=== PATIENT | female | born 1955 | race Caucasian/White ===

== ENCOUNTER → 2018-04-04 11:44 | Outpatient (CLI) | payer MEDICAID, SELFPAY ==
[2018-04-04 12:50] LABS: Abs Immature Grans 0.02 k/cumm (0.0-0.09); Absolute Basophil Count 0.03 k/cumm (0.0-0.2); Absolute Eosinophil Count 0.34 k/cumm (0.0-0.7); Absolute Lymphocyte Count 1.65 k/cumm (1.2-3.4); Absolute Monocyte Count 0.91 k/cumm (0.11-0.7); Absolute Neutrophil Count 5.45 k/cumm (1.2-6.7); Basophils % 0.4; Immature Grans % 0.2; Lymphocytes % 19.6; Mean Corp. HGB Concentration 32.5 g/dL (32.0-36.0); Mean Corpuscular Hemoglobin 32.7 pg (27.0-33.0); Mean Corpuscular Volume 100.8 fL (80-95); Mean Platelet Volume 9.4 fL (8.0-11.0); Monocytes % 10.8; Platelet Count 258 x1000/uL (130-400); RBC 3.97 m/cumm (4.00-5.20); RBC Distribution Width 12.5 % (11.7-14.6)
[2018-04-04 13:13] LABS: ALT 29 U/L (12-78); AST 22 U/L (15-37); Albumin 3.4 g/dL (3.4-5.0); Alkaline Phosphatase 54 U/L (46-116); Anion Gap 9.8 mmol/L (3-11); BUN 14 mg/dL (7-18); Bilirubin, Total 0.3 mg/dL (0.2-1.0); CO2 25.2 mmol/L (21.0-32.0); CREATININE 1.06 mg/dL (0.55-1.02); Calcium 8.7 mg/dL (8.5-10.1); Chloride 105 mmol/L (98-107); Estimated GFR 52.19 (mL/min/1.73m2); Glucose 103 mg/dL (70-100); Potassium 3.8 mmol/L (3.5-5.1); Sodium 140 mmol/L (136-145)
== END ==
PROVIDERS: PCP Nurse Practitioner Family; Visit Provider Internal Medicine Pulmonary Disease
DX: Z51.81 Encounter for therapeutic drug level monitoring (principal); J84.10 Pulmonary fibrosis, unspecified
CPT/HCPCS: 36415; 80053; 85025

== ENCOUNTER 2018-06-05 12:13 | Outpatient (CLI) | payer MEDICARE, MEDICAID, SELFPAY ==
[2018-06-05 12:49] LABS: HCT 40.2 % (36.0-46.0)
[2018-06-05 13:46] LABS: ALT 34 U/L (12-78); AST 23 U/L (15-37); Albumin 3.5 g/dL (3.4-5.0); Alkaline Phosphatase 56 U/L (46-116); Anion Gap 5.9 mmol/L (3-11); BUN 18 mg/dL (7-18); Bilirubin, Total 0.3 mg/dL (0.2-1.0); CO2 30.1 mmol/L (21.0-32.0); CREATININE 1.02 mg/dL (0.55-1.02); Calcium 8.7 mg/dL (8.5-10.1); Chloride 104 mmol/L (98-107); Estimated GFR 54.56 (mL/min/1.73m2); Glucose 102 mg/dL (70-100); Potassium 3.9 mmol/L (3.5-5.1); Sodium 140 mmol/L (136-145)
== END 2018-06-05 12:33 ==
PROVIDERS: PCP Nurse Practitioner Family; Visit Provider Internal Medicine Rheumatology
DX: J84.10 Pulmonary fibrosis, unspecified (principal); M81.0 Age-related osteoporosis without current pathological fracture
CPT/HCPCS: 36415; 80053; 85014; 85018

== ENCOUNTER 2018-06-30 00:24 | Outpatient (CLI) | payer MEDICARE, MEDICAID, SELFPAY ==
[2018-06-30 10:43] LABS: Abs Immature Grans 0.02 k/cumm (0.0-0.09); Absolute Basophil Count 0.04 k/cumm (0.0-0.2); Absolute Eosinophil Count 0.32 k/cumm (0.0-0.7); Absolute Neutrophil Count 7.89 k/cumm (1.2-6.7); Basophils % 0.4; Eosinophils % 2.9; HCT 40.3 % (36.0-46.0); HGB 13.3 g/dL (12.0-15.5); Immature Grans % 0.2; Lymphocytes % 14.7; Mean Corpuscular Hemoglobin 33.4 pg (27.0-33.0); Mean Corpuscular Volume 101.3 fL (80-95); Mean Platelet Volume 9.1 fL (8.0-11.0); Monocytes % 9.4; Neutrophils % 72.4; Platelet Count 241 x1000/uL (130-400); RBC 3.98 m/cumm (4.00-5.20); RBC Distribution Width 13.5 % (11.7-14.6)
[2018-06-30 10:47] LABS: Absolute Monocyte Count 1.02 k/cumm (0.11-0.7)
[2018-06-30 10:58] LABS: ALT 35 U/L (12-78); AST 29 U/L (15-37); Albumin 3.4 g/dL (3.4-5.0); Alkaline Phosphatase 52 U/L (46-116); BUN 14 mg/dL (7-18); Bilirubin, Total 0.5 mg/dL (0.2-1.0); CREATININE 0.88 mg/dL (0.55-1.02); Calcium 9.1 mg/dL (8.5-10.1); Chloride 100 mmol/L (98-107); Glucose 105 mg/dL (70-100); Potassium 3.7 mmol/L (3.5-5.1); Sodium 136 mmol/L (136-145); Total Protein 7.3 g/dL (6.4-8.2)
[2018-06-30] MEDS: Omnipaque 350 MG/ML 100 ML BTL IJ (11:58)
--- NOTE | 2018-06-30 12:00 | DI.CT_ITS ---
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 CT SCAN OF THE ABDOMEN AND PELVIS: The liver is normal in size. No hepatic mass is seen. The portal and superior mesenteric veins are patent. The gallbladder is negative. No biliary ductal dilatation. The pancreas, spleen and adrenal glands are all unremarkable. The kidneys show normal and symmetric enhancement. No suspicious solid renal masses or obstruction is identified. Incidental note is made of a small simple cyst in the right kidney. The urinary bladder is intact. The reproductive organs are unremarkable. The abdominal aorta is normal in size. No aneurysmal dilatation is seen. No abdominal or pelvic adenopathy is present. No abdominal or pelvic ascites or pneumoperitoneum is identified. The bowel shows no evidence of obstruction or inflammation. No findings to suggest an acute appendicitis are present. There are degenerative changes seen in the spine. No suspicious lytic or sclerotic lesions are seen. IMPRESSION: 1. No evidence of abdominal or pelvic adenopathy or mass. 2. No evidence of an acute abdomen. CT SCAN OF THE CHEST: There is atherosclerosis of the thoracic aorta. No evidence of dissection. The heart size appears mildly enlarged. No significant pericardial effusion is seen. Coronary artery calcifications are present. No evidence of mediastinal, hilar or axillary adenopathy is present. No pneumothorax or pleural effusion is identified. Extensive predominantly peripheral interstitial disease is present. Peripheral cystic changes are seen. The findings are suspicious for pulmonary fibrosis. No focal consolidating infiltrates are seen. No noncalcified pulmonary nodules are appreciated. The tracheobronchial tree is unremarkable. Degenerative changes are seen in the spine. No suspicious lytic or sclerotic lesions are seen. IMPRESSION: 1. No evidence of thoracic adenopathy or mass. 2. Findings suggestive of pulmonary fibrosis.
== END 2018-06-30 00:44 ==
PROVIDERS: PCP Nurse Practitioner Family; Visit Provider Internal Medicine Rheumatology
DX: J84.10 Pulmonary fibrosis, unspecified; Z13.89 Encounter for screening for other disorder; M81.0 Age-related osteoporosis without current pathological fracture; Z79.899 Other long term (current) drug therapy; M60.9 Myositis, unspecified
CPT/HCPCS: 36415; 74177; 80053; 71260; 85025; J3490

== ENCOUNTER 2019-01-31 01:21 | Outpatient (CLI) | payer MEDICARE, MEDICAID, SELFPAY ==
[2019-01-31 12:49] LABS: Abs Immature Grans 0.01 k/cumm (0.0-0.09); Absolute Basophil Count 0.02 k/cumm (0.0-0.2); Absolute Eosinophil Count 0.05 k/cumm (0.0-0.7); Absolute Lymphocyte Count 0.74 k/cumm (1.2-3.4); Absolute Monocyte Count 0.46 k/cumm (0.11-0.7); Absolute Neutrophil Count 6.77 k/cumm (1.2-6.7); Basophils % 0.2; Eosinophils % 0.6; HCT 39.1 % (36.0-46.0); HGB 12.9 g/dL (12.0-15.5); Immature Grans % 0.1; Lymphocytes % 9.2; Mean Corpuscular Hemoglobin 33.1 pg (27.0-33.0); Mean Corpuscular Volume 100.3 fL (80-95); Monocytes % 5.7; Neutrophils % 84.2; Platelet Count 258 x1000/uL (130-400); RBC Distribution Width 12.8 % (11.7-14.6); White Blood Cell Count 8.05 k/cumm (4.4-10.8)
== END 2019-01-31 01:41 ==
PROVIDERS: PCP Nurse Practitioner Family; Visit Provider Internal Medicine Rheumatology
DX: Z79.899 Other long term (current) drug therapy (principal); R69 Illness, unspecified
CPT/HCPCS: 36415; 85025

== ENCOUNTER 2019-04-05 02:21 | Outpatient (CLI) | payer MEDICARE, MEDICAID, SELFPAY ==
[2019-04-05] MEDS: Albuterol HFA 18 GM 200 PUFF INH IH (11:05)
[2019-04-05] MEDS: Inhaler, Assist Device 1 EACH MC (11:05)
--- NOTE | 2019-04-09 12:06 | PFT_ITS ---
PULMONARY FUNCTION TEST REPORT DATE OF SERVICE: April 05, 2019 REQUESTING PROVIDER: Davonte Pritchard M.D. Spirometry shows no evidence of obstructive airways disease, no bronchodilator response. Lung volumes show mild restriction. Diffusion capacity severely reduced, which is normal when corrected to alveolar volume. Airways resistance normal. IMPRESSION: Mild restrictive lung disease associated with severe diffusion defect. Clinical correlation recommended. When this study was compared to previous one from 04/14/15, the patient has a 470 cc's decline in FVC. FEV1 has declined by 110 cc's. Diffusion capacity also had a minimal decline. JV/dml D/
== END 2019-04-05 02:41 ==
PROVIDERS: PCP Nurse Practitioner Family; Visit Provider Internal Medicine Pulmonary Disease
DX: J44.9 Chronic obstructive pulmonary disease, unspecified (principal); R06.09 Other forms of dyspnea; J84.10 Pulmonary fibrosis, unspecified; Z87.891 Personal history of nicotine dependence
CPT/HCPCS: 94060; 94150; 94726; 94729

== ENCOUNTER 2019-06-07 11:59 | Outpatient (REF) | payer MEDICARE, MEDICAID, SELFPAY ==
--- NOTE | 2019-06-07 11:15 | PAPFT_PTH ---
PATIENT: Jillian Stuart LOC: [facility] U#:[id number] AGE/SX: 63/F ROOM: RE06/07/[address]: MANE Veloz : 1955 BED: DIS: 06/07/2019 SPEC #: [id number] RECD: 06/07/19 12:47 STATUS: BRANDON REQ #: [id number] DELORIS: 06/07/19 11:[address]: Sharona Zimmer DEPT: [facility] Cytology RECD BY: Nataly Steiner ENTERED: 06/07/19 12:48 SP TYPE: PAPFT OTHR DR: Brenda Pritchard MD Tissues: 1 - CX/ENDOCX FOR PAP SMEARS Procedures: PAP THIN PREP/UVM Screening HPV DNA PROBE Comments: [id number]
== END 2019-06-07 12:19 ==
LOC: LBN 11:59
PROVIDERS: PCP Internal Medicine; Visit Provider Nurse Practitioner Family
DX: Z12.4 Encounter for screening for malignant neoplasm of cervix (principal); Z11.51 Encounter for screening for human papillomavirus (HPV)
CPT/HCPCS: 88142; 87624

== ENCOUNTER 2019-06-18 15:25 | Outpatient (RCR) | payer MEDICARE, MEDICAID, SELFPAY | END 2019-06-28 23:59 | disposition home or self-care (01) | LOC: CR 15:25 | PROVIDERS: PCP Internal Medicine; Visit Provider Family Medicine | DX: R69 Illness, unspecified (principal) ==

== ENCOUNTER 2019-06-25 01:50 | Outpatient (CLI) | payer MEDICARE, MEDICAID, SELFPAY ==
--- NOTE | 2019-06-25 10:00 | DI.CT_ITS ---
EXAM: CT RENAL COLIC WO CLINICAL HISTORY: microscopic hematuria, R31.29 TECHNIQUE: The exam was performed according to the usual protocol without contrast. FINDINGS: There is patient motion artifact. Fibrotic changes are seen in the lung bases. Lack of IV contrast limits evaluation of the abdominal and pelvic organs. The unenhanced visualized portions of the luisa er, spleen, pancreas, gallbladder, and adrenal glands are unremarkable. There is no evidence of neph rolithiasis, ureterolithiasis or obstructive uropathy. The urinary bladder is intact. The reproduct zeke organs are unremarkable as visualized. The abdominal aorta is of normal caliber with mild athero sclerosis. No significant abdominal or pelvic adenopathy, ascites, or pneumoperitoneum is present. The bowel is unremarkable. There is a normal appendix visualized. Degenerative changes are present in the spine. There is a compression fracture of the superior endplate of L1. This was not present on the prior CT scan. It does not appear to be acute. IMPRESSION: No evidence of nephrolithiasis or obstructive uropathy.
== END 2019-06-25 02:10 ==
PROVIDERS: PCP Internal Medicine; Visit Provider Internal Medicine
DX: R31.29 Other microscopic hematuria (principal)
CPT/HCPCS: 74176

== ENCOUNTER 2019-06-26 01:54 | Outpatient (CLI) | payer MEDICARE, MEDICAID, SELFPAY ==
--- NOTE | 2019-06-26 11:55 | DI.MAMMO_ITS ---
EXAM: MG MAMMO SCREENING CLINICAL HISTORY: screening, Z12.39. TECHNIQUE: Bilateral full field digital CC and MLO mammographic images were obtained with 3D tomosyn thesis and utilizing computer aided detection (CAD). COMPARISON: Available for comparison. FINDINGS: Masses/Architectural Distortion: There are stable nodules seen in the left breast. Biopsy clips are seen in the left breast. No suspicious masses are seen in either breast. Microcalcifications: No suspicious pleomorphic-type are seen. Skin Thickening/Nipple Retraction: None. IMPRESSION: 1. No significant interval change with no specific features of malignancy noted. 2. Unless there is more urgent need, screening mammography is recommended, as per [employer] guidelines. BI-RADS Cat 2 - Benign Findings Breast Density - Category C - Heterogeneously dense The mammogram demonstrates the patient's breast tissue is dense. Dense breast tissue is very common a nd is not abnormal but dense breast tissue can make it harder to find cancer on a mammogram. Also, de nse breast tissue may increase their breast cancer risk. This [facility] was provided to the patient to raise their awareness. Use this report when you speak wi th the patient about their risks for breast cancer, which includes their family history. At that time , you may recommend for more screening tests (Ultrasound or MRI) as they might be useful based on the ir risk. A negative radiographic report should not delay biopsy if a dominant or clinically suspicious mass is present. Up to ten percent of cancers are not identified on mammography. A negative report may reinforce clinical impression. Adenosis and dense breasts may obscure an underlying neoplasm. False positive reports average 6 to 10%.
== END 2019-06-26 02:14 ==
PROVIDERS: PCP Internal Medicine; Visit Provider Internal Medicine
DX: Z12.31 Encounter for screening mammogram for malignant neoplasm of breast (principal)
CPT/HCPCS: 77063; 77067

== ENCOUNTER 2019-07-12 12:48 | Outpatient (RCR) | payer MEDICARE, SELFPAY | END 2019-07-28 23:59 | disposition home or self-care (01) | LOC: PRC 12:48 | PROVIDERS: PCP Internal Medicine; Visit Provider Family Medicine | DX: Z51.89 Encounter for other specified aftercare (principal) ==

== ENCOUNTER 2019-07-19 03:35 | Outpatient (RCR) | payer MEDICARE, SELFPAY | END 2019-07-28 23:59 | disposition home or self-care (01) | LOC: PRC 03:35 | PROVIDERS: PCP Internal Medicine; Visit Provider Family Medicine | DX: R69 Illness, unspecified (principal); Z51.89 Encounter for other specified aftercare ==

== ENCOUNTER → 2019-08-08 08:27 | Outpatient (BNVA) | payer MEDICARE, MEDICAID, SELFPAY | PROVIDERS: PCP Internal Medicine; Referring Provider Internal Medicine; Visit Provider Nurse Practitioner Gerontology | DX: R31.29 Other microscopic hematuria (principal) | CPT/HCPCS: 81003; 99204; 99215 ==

== ENCOUNTER 2019-08-08 10:11 | Outpatient (REF) | payer MEDICARE, SELFPAY ==
[2019-08-08 11:15] LABS: Bilirubin Negative (Negative); Blood Trace-intact (Negative); Clarity Clear (Clear); Glucose Negative (Negative); Ketones Negative (Negative); Leukocyte Esterase Negative (Negative); Nitrite Negative (Negative); Urobilinogen 0.2 EU/dL (Up TO 0.2)
[2019-08-08 11:23] LABS: Bacteria Negative HPF (Negative); C & S Indicated? No; Casts Negative LPF (Negative); Crystals Negative HPF (Negative); Epithelial Cells Rare HPF (Negative); Mucus Negative (Negative); Other Cells Negative (Negative); WBC 0-2 HPF (0-5)
== END 2019-08-08 10:31 ==
LOC: LBN 10:11
PROVIDERS: PCP Internal Medicine; Visit Provider Nurse Practitioner Gerontology
DX: R31.29 Other microscopic hematuria (principal)
CPT/HCPCS: 81003; 81015

== ENCOUNTER → 2019-08-24 10:02 | Outpatient (BNVA) | payer MEDICARE, MEDICAID, SELFPAY | PROVIDERS: PCP Internal Medicine; Referring Provider Internal Medicine; Visit Provider Physical Therapy Assistant | DX: Z12.11 Encounter for screening for malignant neoplasm of colon (principal) ==

== ENCOUNTER 2019-08-24 14:00 | Outpatient (RCR) | payer MEDICARE, MEDICAID, SELFPAY | END 2019-08-28 23:59 | disposition home or self-care (01) | LOC: PRC 14:00 | PROVIDERS: PCP Internal Medicine; Visit Provider Family Medicine | DX: J84.17 Other interstitial pulmonary diseases with fibrosis in diseases classified elsewhere (principal); Z51.89 Encounter for other specified aftercare; M35.8 Other specified systemic involvement of connective tissue | CPT/HCPCS: G0424 ==

== ENCOUNTER 2019-09-02 13:41 | Emergency (ER) | payer MEDICARE, MEDICAID, SELFPAY ==
[2019-09-02 13:46] VITALS: BP 158/94; PULSE 85; RESP 18; TEMP 36.4; O2SAT 95
== END 2019-09-02 15:51 | disposition other institution (70) ==
LOC: ER 13:50
PROVIDERS: PCP Internal Medicine
DX: Z53.21 Procedure and treatment not carried out due to patient leaving prior to being seen by health care provider (principal)

== ENCOUNTER 2019-09-10 10:51 | Day surgery (SDC) | payer MEDICARE, MEDICAID, SELFPAY ==
[2019-09-10 11:10] VITALS: BP 130/75; PULSE 95; RESP 18; TEMP 36.5; O2SAT 93
--- NOTE | 2019-09-10 11:59 | W.PM.HP.N ---
Date of service: 09/10/19 Time of Service: 11:59 Assessment and Plan Assessment and plan (1) Microscopic hematuria: Status: Acute Assessment and plan: For cystoscopy with retrograde pyelogram to complete hematuria workup History of Present Illness History of Present Illness Chief Complaint: Microscopic hematuria Narrative: Urology Clinic Visit PATIENT NAME: CORDELL CARDONA MUNIT #: [id number] ADMITTING PROVIDER: Reta Mcintyre NPACCOUNT #: [id number] PRIMARY CARE PROVIDER:ANALILIA DE LOS SANTOS MD DATE OF ADMIT: 08/08/19 : 1955 Assessment & Plan (1) Microscopic hematuria: Greater than 50% of this 45 min OV was in counseling and coordination of the assessment/plan. Urinalysis today showed trace blood. RBC is 3-5. This needs a threshold for a hematuria work-up. At this point her PCP has already done a renal CT. Patient would need a cystoscopy with bilateral retrograde pyelogram. This would complete her hematuria work-up. We discussed the procedure. Preop orders were provided to the nurse. Nurse will perform scheduling of this procedure. While patient was in the office research behind her [facility] request for this evaluation was done. Review of her PCPs note did state the lung transplant program noting the hematuria. But there were no records at the time of the office visit. Notes were eventually obtained after the patient left. Notes do review her UAs from April and May of this year. In April her UA was negative but RBC was completed to find to. In May the urine was noted to have 2+ for blood with an RBC of 5. With the above-stated information she meets the threshold on multiple occurrences for a complete hematuria work-up. As mentioned above recommend cystoscopy with bilateral retrograde pyelogram for the completion. Nurse will make arrangements. At this time a letter of clearance cannot be given until this work-up is completed. Dictation was done by [employer] voice recognition. Errors may be present within the note. Orders: Urinalysis Dip Only Today Urinalysis Today HPI SOFÍA Walsh is a 64-year-old female referred to urology by [facility] internal medicine for evaluation of microscopic hematuria. Patient was first noted to have microscopic hematuria at her physical for her possible lung transplant at [facility]. Patient is unsure of the results of the urinalysis at that facility but states a nurse named Elvia called her to let her know she had blood in her urine and to seek her primary care plus urology for evaluation and clearance. She notes that there is times where she does not drink enough water. She reports no history of kidney stones. She does report intermittent flank pain. 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 Osteoporosis Pretransplant evaluation for lung transplant Anxiety SX Cervical scraping Social Lite smoker approximately 5 years when she was in high school which was over 40 years ago per patient 1 alcoholic drink tonight Caregiver Allergies Reviewed elsewhere in the chart Medications Reviewed elsewhere in the chart Family Hx No known urologic family history Review of Systems Const: Denies chills, fatigue, fever(s) or weight loss Card: Reports dyspnea; Denies chest pain Resp: Reports dyspnea GI: Denies abdominal pain, constipation or diarrhea : Denies hematuria, urinary frequency, nocturia, dysuria, flank pain, urinary incontinence, urinary hesitancy or urinary urgency Endo: Denies fatigue Exam Const Orientation: alert, awake and oriented x3 Other: VS reviewed that were done by nurse Eyes Sclera: sclerae normal Resp Effort & Inspection: normal respiratory effort GI Inspection: normal to inspection and non-distended Extrem General: full ROM [facility] Medical History Anxiety (Chronic) Dyspareunia (Resolved) Surgical History (Updated 09/10/19 @ 11:36 by Astrid Barillas RN) History of elbow surgery (Acute) R elbow fx Social History Smoking/Tobacco Use Status: Former Tobacco Use Tobacco: How many years used: 5 Alcohol Intake: never Drug use: Never Substance use type: does not use Details: No IV Drug Use Household members: other Number of Children: 1 current occupation: Caregiver [employer] Sexually active: No Do you think of yourself as: straight/heterosexual Current gender identity: female What type of physical activity do you participate in: none Seatbelt use: always Drive intox or ride w/intox pile driver operator helper: No Water heater temp set <120 deg: Yes Working smoke detector in home: Yes Fire extinguisher in home: Yes Carbon monox detector in home: Yes Do you feel safe at home: Yes Meds Home Medications and Allergies Home Medications Medication Instructions Recorded Confirmed Type multivitamin [Daily Multiple] 1 tab PO DAILY 09/02/16 09/07/19 History albuterol sulfate 90 mcg/actuation 2 puff IH Q6H PRN 05/24/19 09/10/19 History aerosol inhaler mycophenolate mofetil 500 mg tablet 1,000 mg PO BID #30 tab 08/02/19 09/10/19 Rx prednisone 10 mg tablet 10 mg PO DAILY #30 tab 08/02/19 09/10/19 Rx bisacodyl 5 mg tablet,delayed 5 mg PO ONCE #4 tab 08/24/19 09/10/19 Rx release cholecalciferol (vitamin D3) 400 400 unit PO DAILY 08/24/19 09/10/19 History unit capsule polyethylene glycol 3350 17 238 g PO ONCE #238 gm 08/24/19 09/10/19 Rx gram/dose oral powder vitamin E (dl, acetate) 400 unit 400 unit PO DAILY 08/24/19 09/10/19 History capsule Allergies Allergy/AdvReac Type Severity Reaction Status Date / Time No Known Allergies Allergy Verified 09/10/19 11:13 Exam Resp Effort & Inspection: normal respiratory effort Auscultation: clear to auscultation bilaterally Cardio Rate: regular rate Rhythm: regular rhythm Results Last Vital Signs Temp 36.5 C 09/10/19 11:10 Pulse 95 H 09/10/19 11:10 Resp 18 09/10/19 11:10 BP 130/75 09/10/19 11:10 Pulse Ox 93 L 09/10/19 11:10
[2019-09-10] MEDS: Lactated Ringers 1,000 ML 80 ML IV (13:18)
[2019-09-10] MEDS: ceFAZolin 1 GM/50 ML BAG IVPB (13:41)
[2019-09-10] MEDS: Lidocaine 2% Jelly 6 ML SYR (13:50)
[2019-09-10] MEDS: Omnipaque 300 MG/ML 50 ML BTL (13:50)
--- NOTE | 2019-09-10 13:55 | PAPNONF_PTH ---
PATIENT: Jillian Staurt LOC: [facility] U#:[id number] AGE/SX: 64/F ROOM: RE09/10/[address]: Darvin Castillo MD : 1955 BED: DIS: 09/10/2019 SPEC #: [id number] RECD: 09/10/19 17:11 STATUS: BRANDON REQ #: [id number] DELORIS: 09/10/19 13:[address]: Darvin Castillo DEPT: [facility] Cytology RECD BY: Nataly Steiner ENTERED: 09/10/19 17:12 SP TYPE: LISA HATFIELD DR: None Tissues: 1 - BODY FLUID CYTO(SPUTUM/URINE)[facility] Procedures: BODY FLUID CYTO(URINE/SPUTUM) Comments: [id number] (TOTAL VOLUME = 45 ml's) (45 ml's URINE & 45 ml's CYTOLYT ADDED)
--- NOTE | 2019-09-10 14:00 | W.PM.DSUDISC ---
Discharge Plan Disposition Patient Disposition: HOME Condition: Stable Discharge Details Reason For Visit: mciroscopic hematuria Attending Provider: Darvin Castillo Primary Care Provider: None,None Home Meds and New Rx's Prescriptions: No Action cholecalciferol (vitamin D3) 400 unit capsule 400 unit PO DAILY RF: 0 vitamin E (dl, acetate) 400 unit capsule 400 unit PO DAILY RF: 0 polyethylene glycol 3350 17 gram/dose powder 238 g PO ONCE Qty: 238 RF: 0 bisacodyl [Dulcolax (bisacodyl)] 5 mg tablet,delayed release (DR/EC) 5 mg PO ONCE Qty: 4 RF: 0 albuterol sulfate [ProAir HFA] 90 mcg/actuation HFA aerosol inhaler 2 puff IH Q6H PRNRF: 0 mycophenolate mofetil 500 mg tablet 1,000 mg PO BID Qty: 30 RF: 3 prednisone 10 mg tablet 10 mg PO DAILY Qty: 30 RF: 0 multivitamin [Daily Multiple] 1 EACH tablet 1 tab PO DAILY RF: 0 Discharge Instructions Additional Instructions: Followup 1 year for urinalysis If pt does not hear about cytology report with 1 week, ask her to call my office Activity:: Activity as Tolerated Shower/Bathe:: 24 hours Diet:: As Tolerated Discharge Orders Discharge Orders: Discharge Order (Routine); Ordered 09/10/19 Ordered By: Darvin Castillo DS: Diagnosis Discharge Diagnosis (1) Microscopic hematuria: Status: Acute
[2019-09-10 14:30] VITALS: BP 122/74; PULSE 86; RESP 19; TEMP 36.4; O2SAT 96
--- NOTE | 2019-09-10 14:52 | DI.RAD_ITS ---
EXAM: XR RETROGRADE IN OR INDICATION: MICROSCOPIC HEMATURIA. COMPARISON: No exams were available for comparison TECHNIQUE: 2D digital imaging was performed. Fluoroscopy was utilized by Dr. Castillo in the operating room during retrograde evaluation of the renal collecting system. FINDINGS: Please refer to the procedure report for complete details. Fluoro Time: 21.9 seconds
--- NOTE | 2019-09-10 16:34 | ROE_ITS ---
DATE OF PROCEDURE: September 10, 2019 PREOPERATIVE DIAGNOSIS: Microscopic hematuria. POSTOPERATIVE DIAGNOSIS: Same with cytology pending. PROCEDURE: Cystoscopy with bilateral retrograde pyelogram. SURGEON: Darvin Castillo M.D. ANESTHESIA: MAC with local. COMPLICATIONS: None. HISTORY: This is a 64-year-old woman who is being considered for a lung transplant. She was identif ied as having microscopic hematuria. She had a negative urine culture and a non-contrast CT scan, wh ich showed no stones and no sign of renal mass. She presents for a cystoscopy with retrograde pyelog hailey to complete her hematuria workup. OPERATIVE REPORT: The patient was brought to the operating room on 09/10/2019. After successful pat ction of monitored anesthesia care, she was placed in the dorsal lithotomy position. Her genitalia w as prepped and draped. 2% Xylocaine jelly was instilled into the urethra. A 22 Israeli rigid cystoscope was passed through the urethra into the bladder. The bladder was draine d and the urine was collected and sent to pathology for cytology examination. The bladder was then inspected using both a 30 and a 70-degree lens. Both ureteral orifices were aida ntified. Each appeared normal. No blood was seen coming from either side. Passing a 6 Israeli access catheter into each ureteral orifice, retrograde films were obtained by inje cting Omnipaque through the access catheters under fluoroscopic guidance. No filling defects were se en on either side. Both sides drained promptly on 5-minute drainage films. The remainder of the bladder showed no papillary or nodular lesions. Based on today's cystoscopy I do not find any significant uropathology. If she does have abnormal ur ine cytology, random bladder biopsies would be indicated. The bladder was emptied and the cystoscope was withdrawn.
== END 2019-09-10 14:38 | disposition home or self-care (01) ==
PROVIDERS: Visit Provider Urology
PROC: (CPT 74450; principal; 2019-09-10 12:30)
DX: R31.29 Other microscopic hematuria (principal); Z01.818 Encounter for other preprocedural examination; M35.8 Other specified systemic involvement of connective tissue; J84.17 Other interstitial pulmonary diseases with fibrosis in diseases classified elsewhere
CPT/HCPCS: 52005; NC; 74420; 88104; J0690; J2704; Q9967

== ENCOUNTER 2019-09-14 06:03 | Day surgery (SDC) | payer MEDICARE, MEDICAID, SELFPAY ==
[2019-09-14 06:45] VITALS: BP 115/69; PULSE 75; RESP 18; TEMP 36; O2SAT 96
[2019-09-14] MEDS: Lactated Ringers 1,000 ML 80 ML IV (07:30)
--- NOTE | 2019-09-14 08:00 | BOWEL_PTH ---
PATIENT: Jillian Stuart LOC: [facility] U#:[id number] AGE/SX: 64/F ROOM: RE09/14/[address]: Dolores Chiu MD : 1955 BED: DIS: 09/14/2019 SPEC #: [id number] RECD: 09/14/19 11:58 STATUS: BRANDON REQ #: [id number] DELORIS: 09/14/19 08:[address]: Dolores Chiu DEPT: Surgical Specimen RECD BY: Nataly Steiner ENTERED: 09/14/19 11:59 SP TYPE: Bowel OTHR DR: None Tissues: 1 - BIOPSY BOWEL Procedures: GROSS AND MICRO LEVEL 4 Comments: [id number]
--- NOTE | 2019-09-14 08:05 | W.PM.DSUDISC ---
Discharge Plan Disposition Patient Disposition: HOME Condition: Good Discharge Details Reason For Visit: Colonoscopy Attending Provider: Dolores Chiu Primary Care Provider: None,None Home Meds and New Rx's Prescriptions: Continued cholecalciferol (vitamin D3) 400 unit capsule 400 unit PO DAILY RF: 0 vitamin E (dl, acetate) 400 unit capsule 400 unit PO DAILY RF: 0 albuterol sulfate [ProAir HFA] 90 mcg/actuation HFA aerosol inhaler 2 puff IH Q6H PRNRF: 0 mycophenolate mofetil 500 mg tablet 1,000 mg PO BID Qty: 30 RF: 3 prednisone 10 mg tablet 10 mg PO DAILY Qty: 30 RF: 0 multivitamin [Daily Multiple] 1 EACH tablet 1 tab PO DAILY RF: 0 Discontinued polyethylene glycol 3350 17 gram/dose powder 238 g PO ONCE Qty: 238 RF: 0 bisacodyl [Dulcolax (bisacodyl)] 5 mg tablet,delayed release (DR/EC) 5 mg PO ONCE Qty: 4 RF: 0 Discharge Instructions Additional Instructions: Findings: One small polyp was removed. My office will contact you with biopsy results. Follow up: If the polyp is adenomatous, you will need a colonoscopy in 5 years. Please call if you develop: fevers >101.5 Nausea or Vomiting Abdominal pain that is not transient DAY SURGERY UNIT POST COLONOSCOPY INSTRUCTIONS 1. Because there will be medication in your system for the next 24 hours, you may feel a little sleepy. Your coordination will be affected. Therefore: a. Do not drive or operate dangerous equipment for 24 hours. b. Do not drink alcohol beverages for 24 hours (not even beer). c. Plan to go home and rest for the day. 2. Generally there are no restrictions on your activity after a day or so has gone by, but you may feel a bit fatigued for a few days. 3 After you arrive home you may have a light meal and return to a normal diet as you can tolerate it without feeling sick to your stomach. 4. After surgery, you may feel pain or discomfort. This should be only transient, but if it persists please contact your doctor. 5. If there are any questions regarding the findings of your procedure, please feel free to contact your doctor. 6. If you are unable to contact your doctor with a problem, contact the hospital at [phone]. 7. Continue all your regular medications unless directed otherwise. I understand the above instructions and have no questions. Signature of Patient or Responsible Adult Escort Date/Time Name of Responsible Adult Escort Signature of Nurse Date/Time Activity:: Activity as Tolerated Diet:: As Tolerated Discharge Orders Discharge Orders: Discharge Order (Routine); Ordered 09/14/19 Ordered By: Dolores Chiu DS: Diagnosis Discharge Diagnosis (1) Rectal polyp: Status: Acute
[2019-09-14 08:34] VITALS: BP 115/78; PULSE 72; RESP 18; TEMP 36.3; O2SAT 99
--- NOTE | 2019-09-14 10:30 | COLE_ITS ---
DATE OF PROCEDURE: September 14, 2019 PREOPERATIVE DIAGNOSIS: Screening. POSTOPERATIVE DIAGNOSIS: Rectal polyp. PROCEDURE: Colonoscopy with cold forceps polypectomy. SURGEON: Dolores Chiu M.D. ANESTHESIA: General. INDICATIONS: This is a 64-year-old woman who presents for her first screening colonoscopy. She is a symptomatic and has no family history of colon cancer. She is preparing for a possible lung transpla nt for interstitial lung disease. PROCEDURE: She was placed in the left Lee position. Propofol was titrated to sedation. Digital re ctal examination revealed no abnormalities. The scope was advanced to the cecum without difficulty. The ileocecal valve and appendiceal orifice were clearly identified. Her prep was excellent. The s cope was slowly withdrawn with no abnormalities seen within the ascending, transverse, descending, an d sigmoid colon. In the proximal rectum there was a diminutive polyp that was removed with the cold forceps and sent to pathology. This may be a hyperplastic polyp. The rectum was otherwise normal, i ncluding on retroflex view. She tolerated the procedure well and was stable to recovery. She may need a follow-up colonoscopy again in five years if the polyp is adenomatous. cc: [facility] $T$ [facility] FAX [phone]
== END 2019-09-14 09:03 | disposition home or self-care (01) ==
PROVIDERS: Visit Provider Surgery
PROC: 0DJD8ZZ Inspection of Lower Intestinal Tract, Via Natural or Artificial Opening Endoscopic (ICD-10-PCS; CPT 45378; principal; 2019-09-14 07:30)
DX: Z12.11 Encounter for screening for malignant neoplasm of colon (principal); K62.1 Rectal polyp; Z01.818 Encounter for other preprocedural examination; M35.8 Other specified systemic involvement of connective tissue; J84.17 Other interstitial pulmonary diseases with fibrosis in diseases classified elsewhere
CPT/HCPCS: 45380; 88305

== ENCOUNTER 2019-09-21 14:00 | Outpatient (RCR) | payer MEDICARE, MEDICAID, SELFPAY | END 2019-09-28 23:59 | disposition home or self-care (01) | LOC: PRC 14:00 | PROVIDERS: Visit Provider Family Medicine | DX: M35.8 Other specified systemic involvement of connective tissue (principal); J84.89 Other specified interstitial pulmonary diseases; Z51.89 Encounter for other specified aftercare | CPT/HCPCS: G0424 ==

== ENCOUNTER 2019-10-18 09:11 | Outpatient (REF) | payer MEDICARE, MEDICAID, SELFPAY ==
[2019-10-18 10:55] LABS: HCT 40.8 % (36.0-46.0); HGB 12.9 g/dL (12.0-15.5); Mean Corp. HGB Concentration 31.6 g/dL (32.0-36.0); Mean Corpuscular Hemoglobin 31.9 pg (27.0-33.0); Mean Platelet Volume 9.4 fL (8.0-11.0); Platelet Count 299 x1000/uL (130-400); RBC 4.04 m/cumm (4.00-5.20); RBC Distribution Width 13.2 % (11.7-14.6); White Blood Cell Count 8.59 k/cumm (4.4-10.8)
[2019-10-18 11:43] LABS: BUN 15 mg/dL (7-18); Calcium 9.1 mg/dL (8.5-10.1); Chloride 103 mmol/L (98-107); Glucose 98 mg/dL (74-106); Potassium 3.9 mmol/L (3.5-5.1); Sodium 141 mmol/L (136-145)
== END 2019-10-18 09:31 ==
LOC: NCHCN 09:11
PROVIDERS: Visit Provider Nurse Practitioner Family
DX: J84.9 Interstitial pulmonary disease, unspecified (principal)
CPT/HCPCS: 80048; 85027

== ENCOUNTER 2019-10-26 14:00 | Outpatient (RCR) | payer MEDICARE, MEDICAID, SELFPAY | END 2019-10-27 23:59 | disposition home or self-care (01) | LOC: PRC 14:00 | PROVIDERS: Visit Provider Family Medicine | DX: M35.8 Other specified systemic involvement of connective tissue (principal); J84.89 Other specified interstitial pulmonary diseases; Z51.89 Encounter for other specified aftercare | CPT/HCPCS: G0424; S9472 ==

== ENCOUNTER 2019-11-05 14:00 | Outpatient (RCR) | payer MEDICARE, MEDICAID, SELFPAY | END 2019-11-27 23:59 | disposition home or self-care (01) | LOC: PRC 14:00 | PROVIDERS: Visit Provider Family Medicine | DX: M35.8 Other specified systemic involvement of connective tissue (principal); J84.89 Other specified interstitial pulmonary diseases; Z51.89 Encounter for other specified aftercare | CPT/HCPCS: G0424 ==

== ENCOUNTER 2019-11-29 02:14 | Outpatient (CLI) | payer MEDICARE, MEDICAID, SELFPAY ==
--- NOTE | 2019-11-29 | DI.CT_ITS ---
EXAM: CT CHEST WO CLINICAL HISTORY: INTERSTITIAL LUNG DISEASE,J84.9 COMPARISON: CT CHEST W CONTRAST from 09/27/2017 CT CHEST WO CONTRAST from 03/13/2019 FINDINGS: CT examination of the chest was performed without contrast administration. The examination is compare d with prior scan from [facility] of 09/27/2017. Images obtained through the upper abdomen show grossly unremarkable appearance of liver, spleen pancr eas, adrenals, and kidneys. Examination limited by motion artifact. Motion artifact obscures pulmonary and mediastinal detail. There is marked cardiomegaly which is mar kedly increased since the prior study of 2018. Ascending aorta is borderline ectatic at about 40 mil limeters. Main pulmonary artery is about 28 millimeters in diameter. No mediastinal or hilar adenopathy identified. There is severe pulmonary fibrosis with honeycombing involving the lung bases, with the affected area significantly larger on today's examination in comparison with the examination of 2018, up to 50 per cent of the pulmonary volume now appears to be affected. Peripheral honeycombing noted in the upper lobes as well. No focal acute consolidation or pleural effusion seen. No focal mass identified. IMPRESSION: Severe pulmonary fibrosis with extensive honeycombing occupying equal to or greater than 50 percent o f pulmonary volume with marked interval worsening since 2018. Marked cardiomegaly is now present, significantly increased since 2018.
== END 2019-11-29 02:34 ==
PROVIDERS: Visit Provider Internal Medicine
DX: J84.89 Other specified interstitial pulmonary diseases (principal); I51.7 Cardiomegaly; J84.10 Pulmonary fibrosis, unspecified
CPT/HCPCS: 71250

== ENCOUNTER 2020-03-07 08:05 | Outpatient (CLI) | payer MEDICARE, MEDICAID, SELFPAY ==
[2020-03-09 12:25] LABS: COVID-19 RT-PCR Result NEGATIVE (Negative)
== END 2020-03-07 08:25 ==
PROVIDERS: Visit Provider Family Medicine
DX: Z03.818 Encounter for observation for suspected exposure to other biological agents ruled out (principal)
CPT/HCPCS: U0003

== ENCOUNTER 2020-03-10 02:07 | Outpatient (CLI) | payer MEDICARE, MEDICAID, SELFPAY ==
[2020-03-10] MEDS: Inhaler, Assist Device 1 EACH MC (17:43)
[2020-03-10] MEDS: Albuterol HFA 18 GM 200 PUFF INH IH (17:43)
--- NOTE | 2020-03-15 16:16 | W.PFT ---
Date of service: 03/10/20 Time of Service: 12:57 Pulmonary Function Test Result Interpretation Spirometry: Spirometry shows no evidence of obstructive airways disease, no bronchodilator response Lung Volumes: Lung volumes show moderate restriction Diffusion Capacity: Diffusion capacity is severely reduced which is normal when corrected to alveolar volume Airway Pressure: Airways resistance is mildly elevated Impression Moderately severe restrictive lung disease associated with severe diffusion defect clinical correlation recommended. When the study was compared to previous ones from 04/14/2015 and 04/05/2019 diffusion capacity has gradually declined but when corrected to alveolar volume, actually improved. Total lung capacity also had an overall decline with a total decline of 420 cc. Trend data for FEV1 and FVC was not submitted for interpretation. Clinical correlation recommended Clinical Correlation therefore is recommended.
== END 2020-03-10 02:27 ==
PROVIDERS: Visit Provider Internal Medicine
DX: J84.9 Interstitial pulmonary disease, unspecified (principal); R06.09 Other forms of dyspnea; Z87.891 Personal history of nicotine dependence
CPT/HCPCS: 94060; 94726; 94729

== ENCOUNTER 2020-10-17 00:44 | Outpatient (CLI) | payer MEDICARE, MEDICAID, SELFPAY ==
--- NOTE | 2020-10-17 12:48 | DI.MAMMO_ITS ---
EXAM: MAMMO SCREENING CLINICAL HISTORY: SCREENING, [facility],Z00.00 TECHNIQUE: Mammograms were interpreted according to the usual protocol including computer analysis w Integen[employer] CAD system, tomosynthesis and C-view imaging. COMPARISON: 2011 through 2018 FINDINGS: The breasts are composed of heterogeneously dense fibroglandular densities, Breast Density category C . No suspicious masses or suspicious microcalcifications are seen. Vascular calcifications are inciden tally noted. Biopsy marker are clips are seen in the left breast. No skin thickening or abnormal axillary lymph nodes are seen. There has been no significant change from prior exams. IMPRESSION: BI-RADS Category 1, Negative mammogram. Yearly screening mammography is recommended. Breast Density Category C, heterogeneously Dense. The mammogram demonstrates the patient's breast tissue is dense. Dense breast tissue is very common a nd is not abnormal but dense breast tissue can make it harder to find cancer on a mammogram. Also, de nse breast tissue may increase breast cancer risk. This information about the result of the mammogram report was provided to the patient to raise their awareness. Use this report when you speak with the patient about their risks for breast cancer, which includes their family history. At that time, you may recommend additional screening tests (Ultrasound or MRI) as they might be useful based on their r isk. A negative radiographic report should not delay biopsy if a dominant or clinically suspicious mass is present. Up to ten percent of cancers are not identified on mammography. A negative report may reinforce clinical impression. Adenosis and dense breasts may obscure an underlying neoplasm. False positive reports average 6 to 10%.
== END 2020-10-17 00:45 ==
LOC: DI 00:44
PROVIDERS: PCP Nurse Practitioner Family; Visit Provider Nurse Practitioner Family
DX: Z12.31 Encounter for screening mammogram for malignant neoplasm of breast (principal)
CPT/HCPCS: 77063; 77067

== ENCOUNTER 2020-10-21 16:21 | Outpatient (REF) | payer MEDICARE, MEDICAID, SELFPAY ==
[2020-10-21 19:19] LABS: ALT 38 U/L (14-59); AST 31 U/L (15-37); Albumin 3.6 g/dL (3.4-5.0); Alkaline Phosphatase 87 U/L (46-116); Bilirubin, Direct 0.06 mg/dL (0.00-0.20); Bilirubin, Total 0.3 mg/dL (0.2-1.0); Total Protein 6.7 g/dL (6.4-8.2)
== END 2020-10-21 16:22 | disposition home or self-care (01) ==
LOC: NCHCN 16:21
PROVIDERS: PCP Nurse Practitioner Family; Visit Provider Nurse Practitioner Family
DX: N89.8 Other specified noninflammatory disorders of vagina (principal); Z94.89 Other transplanted organ and tissue status
CPT/HCPCS: 80076; 87480; 87510; 87660

== ENCOUNTER 2020-11-28 09:57 | Outpatient (CLI) | payer MEDICARE, MEDICAID, SELFPAY ==
--- NOTE | 2020-11-28 | DI.RAD_ITS ---
EXAM: XR KNEE LT 3V AP,LAT,IMTIAZ CLINICAL HISTORY: LT KNEE PAIN, M25.562 TECHNIQUE: COMPARISON: No exams were available for comparison FINDINGS: Three views were obtained. There is moderate to severe narrowing of the medial tibiofemoral cartilag inous joint space with mild varus angulation and medial subluxation the femur on the tibia. There is mild subchondral sclerosis of the adjacent bones at this site. Mild marginal osteophyte formation n oted involving all 3 joints of the knee. No other significant bony abnormality seen. IMPRESSION: DJD predominantly involving medial tibiofemoral joint as described above. RADIATION DOSE DELIVERED: Total DLP
== END 2020-11-28 10:17 ==
PROVIDERS: PCP Nurse Practitioner Family; Visit Provider Nurse Practitioner Family
DX: M17.12 Unilateral primary osteoarthritis, left knee (principal)
CPT/HCPCS: 73562

== ENCOUNTER 2020-12-10 03:20 | Outpatient (CLI) | payer MEDICARE, MEDICAID, SELFPAY ==
[2020-12-10 11:39] LABS: ALT 37 U/L (14-59); AST 32 U/L (15-37); Albumin 3.6 g/dL (3.4-5.0); Alkaline Phosphatase 94 U/L (46-116); Bilirubin, Direct 0.1 mg/dL (0.0-0.2); Bilirubin, Total 0.3 mg/dL (0.2-1.0); Total Protein 6.6 g/dL (6.4-8.2)
== END 2020-12-10 03:21 | disposition home or self-care (01) ==
PROVIDERS: Internal Medicine Critical Care Medicine; PCP Nurse Practitioner Family; Visit Provider Nurse Practitioner Family
DX: J84.112 Idiopathic pulmonary fibrosis (principal)
CPT/HCPCS: 36415; 80076

== ENCOUNTER 2021-05-26 17:02 | Outpatient (REF) | payer MEDICARE, MEDICAID, SELFPAY ==
--- NOTE | 2021-05-26 14:00 | PAPFT_PTH ---
PAT[facility]: [facility] Stuart [id number] AGE/SX: 65/F ROOM: RE05/26/[address]: Stefania Blake : 1955 BED: DIS: 05/26/2021 SPEC #: [id number] RECD: 05/26/21 18:35 STATUS: BRANDON REJulissa #: [id number] DELORIS: 05/26/21 14:[address]: Stefania Blake DEPT: [facility] Cytology RECD BY: Nataly Steiner Tissues: 1 - CX/ENDOCX FOR PAP SMEARS Procedures: PAP THIN PREP/UVM Screening HPV DNA PROBE Comments: [id number]
== END 2021-05-26 17:03 | disposition home or self-care (01) ==
LOC: NCHCN 17:02
PROVIDERS: PCP Nurse Practitioner Family; Visit Provider Nurse Practitioner Family
DX: Z12.4 Encounter for screening for malignant neoplasm of cervix (principal); Z11.51 Encounter for screening for human papillomavirus (HPV); Z01.419 Encounter for gynecological examination (general) (routine) without abnormal findings
CPT/HCPCS: 88142; 87624

== ENCOUNTER 2021-06-19 02:21 | Outpatient (CLI) | payer MEDICARE, MEDICAID, SELFPAY ==
[2021-06-19] MEDS: Albuterol HFA 18 GM 200 PUFF INH IH (13:12)
[2021-06-19] MEDS: Inhaler, Assist Device 1 EACH MC (13:13)
--- NOTE | 2021-06-22 12:54 | W.PFT ---
Date of service: 06/19/21 Time of Service: 12:26 Pulmonary Function Test Result Requesting Provider Richie Duong Indications: ILD Interpretation Spirometry: Restrictive pattern to the spirometry with no evidence of airflow limitation. No significant bronchodilator response. Lung Volumes: Moderately severe restrictive lung disease Diffusion Capacity: Reduced diffusion Airway Pressure: Airways resistance is normal. Impression Moderately severe restrictive lung disease with a reduced diffusion. Note: When compared to pulmonary function testing performed 03/10/2020 there has been a decline in the FVC, FEV1, TLC and diffusion. Clinical Correlation therefore is recommended.
--- NOTE | 2021-06-22 12:57 | W.PFT ---
Date of service: 06/19/21 Time of Service: 12:01 Pulmonary Function Test Result Indications: ILD Patient desats to 82% at 4 minutes and 30 seconds and was placed on 3 L nasal cannula which later had to be increased to 4 L nasal cannula due to persistent hypoxia. Total distance walked is 1000 feet.
== END 2021-06-19 02:22 | disposition home or self-care (01) ==
PROVIDERS: PCP Nurse Practitioner Family; Visit Provider Family Medicine
DX: J84.9 Interstitial pulmonary disease, unspecified (principal); R06.09 Other forms of dyspnea; Z77.098 Contact with and (suspected) exposure to other hazardous, chiefly nonmedicinal, chemicals; J98.4 Other disorders of lung
CPT/HCPCS: 94060; 94618; 94726; 94729

== ENCOUNTER 2021-09-04 14:38 | Outpatient (REF) | payer MEDICARE, MEDICAID, SELFPAY ==
[2021-09-04 12:59] LABS: Abs Immature Grans 0.03 10^3/uL (0.0-0.06); Absolute Basophil Count 0.06 10^3/uL (0.0-0.2); Absolute Eosinophil Count 0.32 10^3/uL (0.0-0.7); Absolute Lymphocyte Count 1.04 10^3/uL (1.2-3.4); Absolute Monocyte Count 0.89 10^3/uL (0.1-0.8); Absolute Neutrophil Count 5.67 10^3/uL (1.2-6.7); Basophils % 0.7; HCT 37.8 % (36.0-46.0); HGB 11.7 g/dL (11.2-15.7); Immature Grans % 0.4; MCH 30.7 pg (27.0-33.0); MCV 99.2 fL (80-95); Monocytes % 11.1; Neutrophils % 70.8; Nucleated RBC 0 %; Platelet Count 280 10^3/uL (130-400); RBC 3.81 10^6/uL (3.93-5.22); RDW 12.9 % (11.7-14.6); RDW-SD 47.5 fL; WBC 8.01 10^3/uL (4.4-10.8)
[2021-09-04 13:22] LABS: ALT 24 U/L (14-59); AST 22 U/L (15-37); Albumin 3.7 g/dL (3.4-5.0); Alkaline Phosphatase 75 U/L (46-116); BUN 10 mg/dL (7-18); Bilirubin, Total 0.3 mg/dL (0.2-1.0); CREATININE 0.7 mg/dL (0.55-1.02); Calcium 8.8 mg/dL (8.5-10.1); Chloride 103 mmol/L (98-107); Glucose 87 mg/dL (74-106); Potassium 4.2 mmol/L (3.5-5.1); Sodium 140 mmol/L (136-145); Total Protein 6.8 g/dL (6.4-8.2)
== END 2021-09-04 14:39 | disposition home or self-care (01) ==
LOC: LBN 14:38
PROVIDERS: PCP Nurse Practitioner Family; Visit Provider Student in an Organized Health Care Education/Training Program
DX: J84.89 Other specified interstitial pulmonary diseases (principal); M35.89 Other specified systemic involvement of connective tissue; Z01.818 Encounter for other preprocedural examination
CPT/HCPCS: 80053; 85025

== ENCOUNTER 2021-09-22 03:55 | Outpatient (CLI) | payer MEDICARE, MEDICAID, SELFPAY ==
[2021-09-23 10:54] LABS: COVID-19 RT-PCR UVMMC Result Negative (Negative)
== END 2021-09-22 03:56 | disposition home or self-care (01) ==
LOC: LBO 03:55
PROVIDERS: PCP Nurse Practitioner Family; Visit Provider Student in an Organized Health Care Education/Training Program
DX: J84.89 Other specified interstitial pulmonary diseases (principal); M35.89 Other specified systemic involvement of connective tissue; Z20.822 Contact with and (suspected) exposure to COVID-19
CPT/HCPCS: U0003; U0005

== ENCOUNTER 2021-09-24 03:17 | Outpatient (RCR) | payer MEDICARE, MEDICAID, SELFPAY | END 2021-09-28 23:59 | disposition home or self-care (01) | LOC: INF 03:17 | PROVIDERS: PCP Nurse Practitioner Family; Visit Provider Family Medicine | DX: Z29.8 Encounter for other specified prophylactic measures (principal); D82.8 Immunodeficiency associated with other specified major defects; J84.9 Interstitial pulmonary disease, unspecified | CPT/HCPCS: 96372; Q0220 ==

== ENCOUNTER 2021-11-02 04:12 | Outpatient (CLI) | payer MEDICARE, MEDICAID, SELFPAY ==
[2021-11-03 13:09] LABS: COVID-19 RT-PCR UVMMC Result Negative (Negative)
== END 2021-11-02 04:13 | disposition home or self-care (01) ==
LOC: LBO 04:13
PROVIDERS: PCP Nurse Practitioner Family; Visit Provider Student in an Organized Health Care Education/Training Program
DX: Z20.822 Contact with and (suspected) exposure to COVID-19 (principal)
CPT/HCPCS: U0003; U0005

== ENCOUNTER 2021-11-17 02:27 | Outpatient (CLI) | payer MEDICARE, MEDICAID, SELFPAY ==
[2021-11-18 12:02] LABS: COVID-19 RT-PCR UVMMC Result Negative (Negative)
== END 2021-11-17 02:28 | disposition home or self-care (01) ==
LOC: LBO 02:27
PROVIDERS: PCP Nurse Practitioner Family; Visit Provider Student in an Organized Health Care Education/Training Program
DX: Z20.822 Contact with and (suspected) exposure to COVID-19 (principal)
CPT/HCPCS: U0003; U0005

== ENCOUNTER 2021-11-19 02:39 | Outpatient (RCR) | payer MEDICARE, MEDICAID, SELFPAY | END 2021-11-26 23:59 | disposition home or self-care (01) | LOC: INF 02:39 | PROVIDERS: PCP Nurse Practitioner Family; Visit Provider Family Medicine | DX: J84.9 Interstitial pulmonary disease, unspecified (principal); D84.9 Immunodeficiency, unspecified | CPT/HCPCS: 96372; Q0221 ==

== ENCOUNTER → 2022-04-21 01:24 | Outpatient (CLI) | payer MEDICARE, MEDICAID, SELFPAY ==
--- NOTE | 2022-04-21 12:56 | DI.MAMMO_ITS ---
Exam(s) MAMMO SCREENING EXAM: MAMMO SCREENING CLINICAL HISTORY: SCREENING FOR BREAST CANCER Z12.39. TECHNIQUE: Bilateral full field digital CC and MLO mammographic images were obtained with 3D tomosyn thesis and utilizing computer aided detection (CAD). COMPARISON: Prior mammograms were reviewed, the most recent being September 2020. FINDINGS: There has been no significant change in the appearance and distribution of the fibroglandular tissue. There are no new findings in the immediate vicinity of the biopsy marker clips in the left breast. A nodular density in the para areolar region of the left breast unchanged from 2015. A biopsy marker clip is again noted adjacent to this finding. There are no new spiculated masses nor malignant appearing microcalcification groups. There is no significant architectural distortion nor skin thickening-retraction. IMPRESSION: Stable benign findings. No radiographic evidence of malignancy. BI-RADS Category 2 - Benign Findings Breast Density - Category C - Heterogeneously dense Breast density Category C or D implies that the patient has dense breast tissue. Dense breast tissue can make it harder to find cancer on a mammogram. Dense breast tissue is also associated with an incr eased risk of breast cancer. This information about the result of the mammogram report was provided to the patient to raise their awareness. Use this report when you speak with the patient about their risks for breast cancer, which includes their family history. At that time, you may recommend additional screening tests (Ultrasoun d or MRI) as these tests may add significant information. A negative radiographic report should not delay biopsy if a dominant or clinically suspicious mass is present. Up to ten percent of cancers are not identified on mammography. A negative report may reinforce clinical impression. Adenosis and dense breasts may obscure an underlying neoplasm. False positive reports average 6 to 10%. Patient will receive a letter notifying them of these results.
== END ==
PROVIDERS: PCP Nurse Practitioner Family; Visit Provider Nurse Practitioner Family
DX: Z12.31 Encounter for screening mammogram for malignant neoplasm of breast (principal); R92.8 Other abnormal and inconclusive findings on diagnostic imaging of breast
CPT/HCPCS: 77063; 77067

== ENCOUNTER 2022-07-20 17:45 | Outpatient (REF) | payer MEDICARE, MEDICAID, SELFPAY ==
[2022-07-20 19:21] LABS: HCT 39.7 % (36.0-46.0); HGB 12.5 g/dL (11.2-15.7); MCH 31.3 pg (27.0-33.0); MCHC 31.5 % (32.0-36.0); MCV 100 fL (80-95); MPV 9.5 fL (8.0-11.0); Platelet Count 288 10^3/uL (130-400); RBC 3.99 10^6/uL (3.93-5.22); RDW 12.3 % (11.7-14.6); RDW-SD 45.4 fL; WBC 3.81 10^3/uL (4.4-10.8)
[2022-07-20 19:35] LABS: Anion Gap 6.1 mmol/L (3-11); BUN 13 mg/dL (7-18); CO2 30.9 mmol/L (21.0-32.0); CREATININE 0.9 mg/dL (0.55-1.02); Calcium 9.1 mg/dL (8.5-10.1); Chloride 101 mmol/L (98-107); Glucose 86 mg/dL (74-106); PTT Activated 26.1 sec (21.0-27.5); Potassium 4.1 mmol/L (3.5-5.1); Prothrombin Time 10.2 sec (9.3-11.0); Sodium 138 mmol/L (136-145)
== END 2022-07-20 17:46 | disposition home or self-care (01) ==
LOC: NCHCN 17:45
PROVIDERS: PCP Nurse Practitioner Family; Visit Provider Nurse Practitioner Family
DX: Z01.818 Encounter for other preprocedural examination (principal)
CPT/HCPCS: 80048; 85027; 85610; 85730

== ENCOUNTER 2022-07-23 15:44 | Outpatient (REF) | payer MEDICARE, MEDICAID, SELFPAY ==
[2022-07-23 14:31] LABS: Source Nasal/Nares
[2022-07-23 15:23] LABS: COVID-19 PCR Negative (Negative)
== END 2022-07-23 15:45 | disposition home or self-care (01) ==
LOC: NCHCN 15:44
PROVIDERS: PCP Nurse Practitioner Family; Visit Provider Nurse Practitioner Family
DX: Z20.822 Contact with and (suspected) exposure to COVID-19 (principal); Z01.818 Encounter for other preprocedural examination
CPT/HCPCS: 87635

== ENCOUNTER 2022-08-10 13:15 | Inpatient (IN) | payer MEDICARE, MEDICAID, SELFPAY ==
[2022-08-10] VITALS (34 sets, daily range): BP systolic 134–169; BP diastolic 72–92; PULSE 76–101; RESP 4–43; TEMP 36.5–37; O2SAT 88–100
--- NOTE | 2022-08-10 13:15 | RT.EKG_ITS ---
APPROVED REPORT Exam: Resting ECG Reason for Exam: shortness of breath Patient Location: E HR:84 bpm ECG Measurements Heart Rate 84 AXIS AK 166 P 27 QRSd 94 QRS -31 QT 362 T 76 QTc 429 Conclusion Sinus rhythm...normal P axis, V-rate 60- 99 Probable left atrial enlargement...P >50mS, <-0.10mV V1 Left axis deviation...QRS axis (-30,-90) Low voltage, precordial leads...precordial leads <1.0mV
--- NOTE | 2022-08-10 13:30 | DI.RAD_ITS ---
Exam(s) XR PORTABLE CHEST AP EXAM: XR PORTABLE CHEST AP CLINICAL HISTORY: cough TECHNIQUE: 2D digital imaging was performed of the chest. One image was obtained. An AP view was ob tained. COMPARISON: CR CHEST 2 VIEWS PA,LAT from 07/19/2017 FINDINGS: MEDIASTINUM: Normal. HEART: Stable cardiac silhouette. PULMONARY VASCULATURE: Normal. LUNGS: There are bilateral pulmonary opacities present there superimposed over chronic interstitial d isease. PLEURAL SPACE: No pleural effusion or pneumothorax. BONE:Within normal limits for the patient's age. OTHER FINDINGS:Normal. IMPRESSION: There are bilateral pulmonary opacities present. This may represent pneumonia in the appropriate cli nical setting. Pulmonary edema should also be considered. Please correlate clinically. DATA REPOSITORY: RADIATION DOSE DELIVERED:
--- NOTE | 2022-08-10 13:40 | ED.GENADUL_ITS ---
Discharge Plan Disposition Patient Disposition: Admit to [facility] Condition: Serious Discharge Details Chief Complaint: SOB Clinical Impression: COVID, Shortness of breath Primary Care Provider: Stefania Blake ED Provider: Renzo Tavera Home Meds and New Rx's Prescriptions: No Action fluticasone propionate [Flovent HFA] 220 mcg/actuation HFA aerosol inhaler 1 puff inhalation PRN Qty: 12 8RF azithromycin 250 mg tablet 250 mg PO DAILY Qty: 30 8RF Rx Instructions: take daily Rituxan 10 mg/mL concentrate IV cholecalciferol (vitamin D3) 400 unit capsule 400 unit PO DAILY vitamin E (dl, acetate) 400 unit capsule 400 unit PO DAILY albuterol sulfate [ProAir HFA] 90 mcg/actuation HFA aerosol inhaler 2 puff IH Q6H PRN mycophenolate mofetil 500 mg tablet 1,000 mg PO BID Qty: 30 3RF Label Comments: Pt is out currently. [facility] [place] multivitamin [Daily Multiple] 1 EACH tablet 1 tab PO DAILY Medical Decision Making 67 yo female with hx of interstitial lung disease on home o2 comes in with 1 week of worsening general weakness and shortness of breath along with body aches. She states it started after she got back from appointments at [facility] where she is being evaluated for a possible lung transplant. She states her sister normally helps her with day to day tasks at home but the sister is out of town right now so the patient has been on her own. She denies fevers though has had chills, also notes a dry cough, rose chest pain or chest pressure. She arrives stable with o2 saturation of 94% on 4L and is normally on 3L. She has no focal neuro deficits. She does note a mild frontal headache, not severe and not the worst of her life. She has diffuse wheezing in both lungs on exam, no jvd, no leg swelling or calf tenderness. Suspect worsening of her underlying lung disease, will treat with duonebs and steroids and also obtain ecg, troponin, cbc, cmp, fluivd and cxr and reassess. pt on 4L and in the mid 90's, blood work without significant abnormalities, k mildly low at 3.2, probnp just outside normal range of just over 300. STable mental status, stable bp, she is too weak to go home, and given her increase in oxygen requirement will discuss with hospitalist about admission Differential Diagnosis Differential Diagnosis: covid, flu, pneumonia, anemia, electrolyte abnormality Medical Records Medical records reviewed: Yes I reviewed the patient's medical records. Imaging Data Radiologic Study: Attestation: I personally reviewed and interpreted this imaging study as follows: Imaging: X-Ray Radiologist's impression: IMPRESSION: There are bilateral pulmonary opacities present.? This may represent pneumonia in the appropriate clinical setting.? Pulmonary edema should also be considered.? Please correlate clinically. Lab Data Lab results reviewed: Yes I reviewed the patient's lab results. ECG Data Attestation: I personally reviewed and interpreted this ECG (s) as follows: Prior ECG tracings: not available for review Interpretation: sinus rhythm, rate of 84, pr 166, no acute st t wave ischemic findings Sign Out No HPI General Mode of arrival: EMS . Date/Time Provider Initiated Documentation: 08/10/22 13:21 . Limitations to Documentation: no limitations . Information obtained by: patient . History of Present Illness 67 year old F presents to the emergency department with the chief complaint of general weak ness, described as moderate, Patient started experiencing this week(s) (1) and it has been constant. No relieving factors improve symptom(s), No exacerbating factors reported . Patient notes cough; denies fever/chills. Patient did receive the following treatments prior to arrival, none Related Data Home Medications Medication Instructions Recorded Confirmed multivitamin (Daily Multiple 1 tab PO DAILY 09/02/16 08/10/22 tablet) albuterol sulfate 90 mcg/actuation 2 puff inhalation Q6H PRN 05/24/19 08/10/22 aerosol inhaler (ProAir HFA) mycophenolate mofetil 500 mg tablet 1,000 mg PO BID #30 tabs 08/02/19 08/10/22 cholecalciferol (vitamin D3) 10 400 unit PO DAILY 08/24/19 08/10/22 mcg (400 unit) capsule vitamin E (dl, acetate) 180 mg 400 unit PO DAILY 08/24/19 08/10/22 (400 unit) capsule azithromycin 250 mg tablet 250 mg PO DAILY #30 tabs 09/04/21 08/10/22 fluticasone propionate 220 1 puff inhalation PRN #12 grams 09/04/21 08/10/22 mcg/actuation HFA aerosol inhaler (Flovent HFA) rituximab 10 mg/mL IV 09/04/21 11/02/21 concentrate,intravenous (Rituxan) Previous Rx's Medication Instructions Recorded mycophenolate mofetil 500 mg tablet 1,000 mg PO BID #30 tabs 08/02/19 azithromycin 250 mg tablet 250 mg PO DAILY #30 tabs 09/04/21 fluticasone propionate 220 1 puff inhalation PRN #12 grams 09/04/21 mcg/actuation HFA aerosol inhaler (Flovent HFA) Allergies Allergy/AdvReac Type Severity Reaction Status Date / Time nintedanib [From Ofev] AdvReac Mild Headache Verified 08/10/22 13:25 General Stated Complaint: SOB LAINE: 3 Review of Systems All systems reviewed & are unremarkable except as noted in HPI and below Constitutional Constitutional: Denies fever(s) ENT Ears, Nose, Mouth, and Throat: Denies change in voice Cardiovascular Cardiovascular: Denies chest pain Gastrointestinal Gastrointestinal: Denies abdominal pain, Denies nausea and Denies vomiting Integumentary/Breasts Skin/Breast: Denies rash PFSH All Active Problems (Updated 08/10/22 @ 15:31 by Renzo Tavera MD) COVID (Acute) Shortness of breath (Acute) Respiratory failure with hypoxia (Acute) Dermatomyositis (Acute) Rectal polyp (Acute) Pre-transplant evaluation for lung transplant (Acute) Osteoporosis (Chronic) Interstitial lung disease due to connective tissue disease (Acute) Antisynthetase syndrome (Acute) Microscopic hematuria (Acute) Anxiety (Chronic) Medical History (Updated 08/10/22 @ 15:31 by Renzo Tavera MD) Dyspareunia Surgical History (Updated 09/14/19 @ 06:45 by Noelle Lucio) H/O breast biopsy H/O cystoscopy History of elbow surgery R elbow fx Family History Mother Asthma Diabetes Sister Diabetes Brother Diabetes Son No problems noted. Social History Smoking/Tobacco Use Status: Former Tobacco Use Tobacco: How many years used: 5 Smoking risk assessment performed?: Yes Alcohol Intake: current Alcohol Intake frequency: holidays/special occasions only Alcohol type: wine Drug use: Never Substance use type: does not use Details: No IV Drug Use Household members: other Number of Children: 1 current occupation: Caregiver [employer] Sexually active: No Do you think of yourself as: straight/heterosexual Current gender identity: female What type of physical activity do you participate in: none Seatbelt use: always Drive intox or ride w/intox boat driver: No Water heater temp set <120 deg: Yes Working smoke detector in home: Yes Fire extinguisher in home: Yes Carbon monox detector in home: Yes Do you feel safe at home: Yes Do you feel safe in your relationship?: Yes Exam Const General: no acute distress Orientation: alert HENMT Head: normal to inspection Ears: external ears normal General nose exam: external nose normal Mouth: moist mucous membranes Eyes General: appearance normal, both eyes and all related structures Neck Neck: normal visual inspection Resp Effort & Inspection: audible wheezes, no tracheal deviation, no tripod posit ioning and no use of accessory muscles Cardio Jugular venous pressure: no JVD Rate: regular rate Heart Sounds: no murmurs Skin General skin exam: no rashes or lesions noted Neuro General: patient alert and patient oriented x3 Extrem General: normal to inspection Psych Mental Status: mental status grossly normal Course Vital Signs Vital signs: Vital Signs Temperature 36.8 C 08/10/22 13:16 Pulse 92 H 08/10/22 13:16 Respiratory Rate 16 08/10/22 13:16 Blood Pressure 136/83 08/10/22 13:16 Pulse Oximetry 97 08/10/22 13:16 Temperature 36.8 C 08/10/22 13:16 Temperature Source Temporal Artery Scan 08/10/22 13:16 Pulse 92 H 08/10/22 13:16 Respiratory Rate 16 08/10/22 13:16 Respiratory Effort 08/10/22 13:23 Blood Pressure 136/83 08/10/22 13:16 Blood Pressure Position Sitting 08/10/22 13:16 Pulse Oximetry 97 08/10/22 13:16 Oxygen Delivery Method Nasal Cannula 08/10/22 13:16 Oxygen Flow Rate 4 08/10/22 13:16 Pain Level 9 08/10/22 13:16
[2022-08-10 13:44] LABS: Abs Immature Grans 0.03 10^3/uL (0.0-0.06); Absolute Basophil Count 0.04 10^3/uL (0.0-0.2); Absolute Lymphocyte Count 0.68 10^3/uL (1.2-3.4); Absolute Monocyte Count 1.07 10^3/uL (0.1-0.8); Absolute Neutrophil Count 5.18 10^3/uL (1.2-6.7); Basophils % 0.6; Eosinophils % 2.8; HCT 35.7 % (36.0-46.0); HGB 11.4 g/dL (11.2-15.7); Immature Grans % 0.4; Lymphocytes % 9.4; MCH 31.1 pg (27.0-33.0); MCHC 31.9 % (32.0-36.0); MCV 97 fL (80-95); MPV 8.7 fL (8.0-11.0); Monocytes % 14.9; Neutrophils % 71.9; Platelet Count 270 10^3/uL (130-400); RBC 3.67 10^6/uL (3.93-5.22); RDW 12.3 % (11.7-14.6); RDW-SD 44.1 fL
[2022-08-10 14:08] LABS: ALT 31 U/L (14-59); AST 31 U/L (15-37); Albumin 3.2 g/dL (3.4-5.0); Alkaline Phosphatase 76 U/L (46-116); BUN 5 mg/dL (7-18); Bilirubin, Total 0.3 mg/dL (0.2-1.0); CREATININE 0.6 mg/dL (0.55-1.02); Calcium 8.9 mg/dL (8.5-10.1); Chloride 100 mmol/L (98-107); Glucose 107 mg/dL (74-106); Magnesium 2.1 mg/dL (1.8-2.4); NT-proBNP 307 pg/mL (<300); Potassium 3.2 mmol/L (3.5-5.1); Sodium 138 mmol/L (136-145); Total Protein 7.1 g/dL (6.4-8.2); Troponin I < 50 ng/L (<or=60)
[2022-08-10 14:13] LABS: Source Nasopharynx
[2022-08-10] MEDS: Albuterol/Ipratropium 3 ML UPD VIAL UPD (14:21)
[2022-08-10] MEDS: methylPREDNISolone SUCC 125 MG VIAL IVP (14:22)
[2022-08-10] MEDS: Normal Saline Flush 10 ML SYR IVP ×3 (14:23→19:37)
[2022-08-10 14:48] LABS: Influenza A PCR Negative (Negative); Influenza B PCR Negative (Negative); RSV PCR Negative (Negative)
[2022-08-10 14:56] LABS: COVID-19 PCR Positive (Negative)
[2022-08-10] MEDS: Acetaminophen 500 MG TAB 1000 MG PO (15:51)
[2022-08-10] MEDS: Dexamethasone 4 MG/ML VIAL 6 MG IVP (15:52)
[2022-08-10 16:11] LABS: Procalcitonin < 0.1 ng/mL
[2022-08-10] MEDS: REMDESIVIR 200 MG in Normal Saline 250 ML 250 MG IVPB (16:11)
[2022-08-10 16:27] LABS: Troponin I < 50 ng/L (<or=60)
--- NOTE | 2022-08-10 17:43 | HPE_ITS ---
Date of service: 08/10/22 Time of Service: 17:43 Assessment and Plan Assessment and plan (1) Pneumonia due to COVID-19 virus: Status: Acute Assessment and plan: Treat with remdesivir, dexamethasone. Encourage IS, acapella. Supplement Vitamin C, D, zinc. Procalcitonin negative- no role for abx. Last dose of rituximab was 6 months ago. Will hold off of mycophenolate until speaking with pulmonology. (2) Acute on chronic respiratory failure with hypoxia: Status: Acute Assessment and plan: As above Wean O2 as tolerated (3) 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 Assessment and plan: C/s pulmonology. Hold immunosuppresive therapy (4) Hypokalemia: Status: Acute Assessment and plan: Replete (5) DVT prophylaxis: Status: Acute Assessment and plan: SC enoxaparin (therapeutic) (6) Discharge planning issues: Status: Acute Assessment and plan: Full code History of Present Illness History of Present Illness Chief Complaint: Shortness of breath and weakness x 1 week Narrative: Ms Stuart is a 67 year old female with PMHx of ILD (being considered for a lung transplant, reportedly), on mycophenolate and rituximab, h/o connective tissue disease, chronic hypoxic respiratory failure on 3L of O2 by OR at home, as well as h/o dermatomyocytis, who presented to [facility] ED today c/o increased shortness of breath and weakness x 8 days. She reports that she has had to put her concentrator from 3L to 4-5L at home. She reports subjective fevers, cough productive of white sputum, a little bit of diarrhea, poor appetite. She does states she has been drinking water and juices. She has had difficulty ambulating in the house. She tested positive for COVID-19 in the ED and is requiring 4L of O2 instead of her usual 3L by OR. She was initiated on dexamethasone, remdesivir, and hospitalist admission was requested. She was also found to be hypokalemic, which has been repleted. Review of Systems All systems reviewed & are unremarkable except as noted in HPI and below PFSH All Active Problems (Updated 08/10/22 @ 18:36 by Rebekah Landin MD) Discharge planning issues (Acute) DVT prophylaxis (Acute) Hypokalemia (Acute) Acute on chronic respiratory failure with hypoxia (Acute) Pneumonia due to COVID-19 virus (Acute) COVID (Acute) Shortness of breath (Acute) Respiratory failure with hypoxia (Acute) Dermatomyositis (Acute) Rectal polyp (Acute) Pre-transplant evaluation for lung transplant (Acute) Osteoporosis (Chronic) Interstitial lung disease due to connective tissue disease (Chronic) Antisynthetase syndrome (Acute) Microscopic hematuria (Acute) Anxiety (Chronic) Medical History (Updated 08/10/22 @ 18:36 by Rebekah Landin MD) Dyspareunia Surgical History (Updated 09/14/19 @ 06:45 by Noelle Lucio) H/O breast biopsy H/O cystoscopy History of elbow surgery R elbow fx Family History Mother Asthma Diabetes Sister Diabetes Brother Diabetes Son No problems noted. Social History Smoking/Tobacco Use Status: Former Tobacco Use Tobacco: How many years used: 5 Smoking risk assessment performed?: Yes Alcohol Intake: current Alcohol Intake frequency: holidays/special occasions only Alcohol type: wine Drug use: Never Substance use type: does not use Details: No IV Drug Use Household members: other Number of Children: 1 current occupation: Caregiver [employer] Sexually active: No Do you think of yourself as: straight/heterosexual Current gender identity: female What type of physical activity do you participate in: none Seatbelt use: always Drive intox or ride w/intox car pick up driver: No Water heater temp set <120 deg: Yes Working smoke detector in home: Yes Fire extinguisher in home: Yes Carbon monox detector in home: Yes Do you feel safe at home: Yes Do you feel safe in your relationship?: Yes Meds Allergies and Home Medications Allergies Allergy/AdvReac Type Severity Reaction Status Date / Time nintedanib [From Ofev] AdvReac Mild Headache Verified 08/10/22 13:25 Home Medications Medication Instructions Recorded Confirmed Type multivitamin (Daily Multiple 1 tab PO DAILY 09/02/16 08/10/22 History tablet) albuterol sulfate 90 mcg/actuation 2 puff inhalation Q6H PRN 05/24/19 08/10/22 History aerosol inhaler (ProAir HFA) mycophenolate mofetil 500 mg tablet 1,000 mg PO BID #30 tabs 08/02/19 08/10/22 Rx cholecalciferol (vitamin D3) 10 400 unit PO DAILY 08/24/19 08/10/22 History mcg (400 unit) capsule vitamin E (dl, acetate) 180 mg 400 unit PO DAILY 08/24/19 08/10/22 History (400 unit) capsule azithromycin 250 mg tablet 250 mg PO DAILY #30 tabs 09/04/21 08/10/22 Rx fluticasone propionate 220 1 puff inhalation PRN #12 grams 09/04/21 08/10/22 Rx mcg/actuation HFA aerosol inhaler (Flovent HFA) rituximab 10 mg/mL IV 09/04/21 11/02/21 History concentrate,intravenous (Rituxan) Exam Narrative Exam Narrative: General: Pleasant anxious middle-aged female, A&Ox3, does breathe after every 2-3 words, but not for reasons for respiratory distress but, rather, anxiety Neurological: A&Ox3, no focal deficits Psychiatric: Anxious Skin: Visible skin intact HEENT: Atraumatic, normocephalic, EOMI, MMM, clear oropharynx, no submandibular or cevrical lymphadenopathy, no goiter or JVD Cardiovascular: RRR, no m/r/g Lungs: Expiratory rhonchi B Gastrointestinal: soft, nontender, nondistended Genitourinary: deferred Extremities: no edema BLEs, 1+ pedal pulses B Results Imaging Additional studies: CXR: There are bilateral pulmonary opacities present.? This may represent pneumonia in the appropriate clinical setting.? Pulmonary edema should also be considered.? Please correlate clinically.? EKG: HR 84, NSR, LA enlargement, no acute ischemia Labs Result diagrams: 08/10/22 13:34 08/10/22 13:34 Labs: Laboratory Results - last 24 hr 08/10/22 08/10/22 08/10/22 13:34 13:34 13:34 WBC 7.20 RBC 3.67 L Hgb 11.4 Hct 35.7 L MCV 97 H MCH 31.1 MCHC 31.9 L RDW 12.3 Plt Count 270 MPV 8.7 Immature Gran % 0.4 Neutrophils % 71.9 Lymphocytes % 9.4 Monocytes % 14.9 Eosinophils % 2.8 Basophils % 0.6 Nucleated RBC % 0.0 Absolute Neutrophils 5.18 Absolute Lymphocytes 0.68 L Absolute Monocytes 1.07 H Absolute Eosinophils 0.20 Absolute Basophils 0.04 Sodium 138 Potassium 3.2 L Chloride 100 Carbon Dioxide 31.0 Anion Gap 7.0 BUN 5 L Creatinine 0.6 Est GFR (CKD-EPI 2020) 97.10 Glucose 107 H Calcium 8.9 Magnesium 2.1 Total Bilirubin 0.3 AST 31 ALT 31 Alkaline Phosphatase 76 Troponin I < 50 NT-Pro-B Natriuret Pep 307 H Total Protein 7.1 Albumin 3.2 L Procalcitonin COVID-19 Source Nasopharynx SARS-CoV-2 (PCR) Positive A Influenza Type A (PCR) Negative Influenza Type B (PCR) Negative RSV (PCR) Negative 08/10/22 08/10/22 13:34 15:55 WBC RBC Hgb Hct MCV MCH MCHC RDW Plt Count MPV Immature Gran % Neutrophils % Lymphocytes % Monocytes % Eosinophils % Basophils % Nucleated RBC % Absolute Neutrophils Absolute Lymphocytes Absolute Monocytes Absolute Eosinophils Absolute Basophils Sodium Potassium Chloride Carbon Dioxide Anion Gap BUN Creatinine Est GFR (CKD-EPI 2020) Glucose Calcium Magnesium Total Bilirubin AST ALT Alkaline Phosphatase Troponin I < 50 NT-Pro-B Natriuret Pep Total Protein Albumin Procalcitonin < 0.1 COVID-19 Source SARS-CoV-2 (PCR) Influenza Type A (PCR) Influenza Type B (PCR) RSV (PCR) Last Vital Signs Temp 36.8 C 08/10/22 13:16 Pulse 91 H 08/10/22 15:31 Resp 40 H 08/10/22 15:31 BP 151/72 H 08/10/22 15:31 Pulse Ox 99 08/10/22 17:20
[2022-08-10] MEDS: guaiFENesin 600 MG TABCR PO (19:29)
[2022-08-10] MEDS: LORazepam 0.5 MG TAB 0.25 MG PO (19:30)
[2022-08-10] MEDS: Famotidine 20 MG TAB PO (19:30)
[2022-08-10] MEDS: Melatonin 3 MG TAB PO (19:31)
[2022-08-10] MEDS: Benzonatate 100 MG CAP PO (19:31)
[2022-08-10] MEDS: Ascorbic Acid 500 MG TAB 1000 MG PO (19:31)
[2022-08-10] MEDS: Enoxaparin 80 MG/0.8 ML SYR SC (19:32)
[2022-08-11] VITALS (11 sets, daily range): BP systolic 114–155; BP diastolic 72–85; PULSE 74–110; RESP 18–36; TEMP 36.5–37.3; O2SAT 3–99
[2022-08-11 06:12] LABS: Bilirubin Negative (Negative); Blood Negative (Negative); Clarity Clear (Clear); Glucose 250 mg/dL (Negative); Ketones Negative (Negative); Leukocyte Esterase Negative (Negative); Nitrite Negative (Negative); Specific Gravity 1.025 (1.005-1.025); Urobilinogen 0.2 EU/dL (Up TO 0.2)
[2022-08-11] MEDS: Ipratropium/Albuterol 4 GM 120 PUFF INH IH ×4 (07:53→19:31)
[2022-08-11 07:55] LABS: Abs Immature Grans 0.02 10^3/uL (0.0-0.06); Absolute Basophil Count 0.01 10^3/uL (0.0-0.2); Absolute Lymphocyte Count 0.58 10^3/uL (1.2-3.4); Absolute Monocyte Count 0.68 10^3/uL (0.1-0.8); Absolute Neutrophil Count 4.78 10^3/uL (1.2-6.7); Basophils % 0.2; HCT 35.2 % (36.0-46.0); HGB 11.5 g/dL (11.2-15.7); Immature Grans % 0.3; Lymphocytes % 9.6; MCH 31.2 pg (27.0-33.0); MCHC 32.7 % (32.0-36.0); MCV 95 fL (80-95); Monocytes % 11.2; Neutrophils % 78.7; Platelet Count 273 10^3/uL (130-400); RBC 3.69 10^6/uL (3.93-5.22); RDW 12.4 % (11.7-14.6); RDW-SD 43.3 fL; WBC 6.07 10^3/uL (4.4-10.8)
[2022-08-11 08:03] LABS: Prothrombin Time 10.4 sec (9.3-11.0)
[2022-08-11 08:09] LABS: ALT 29 U/L (14-59); AST 24 U/L (15-37); Albumin 2.9 g/dL (3.4-5.0); Alkaline Phosphatase 74 U/L (46-116); Anion Gap 3.7 mmol/L (3-11); BUN 9 mg/dL (7-18); Bilirubin, Direct 0.1 mg/dL (0.0-0.2); Bilirubin, Total 0.2 mg/dL (0.2-1.0); CO2 33.3 mmol/L (21.0-32.0); CREATININE 0.6 mg/dL (0.55-1.02); Chloride 102 mmol/L (98-107); Glucose 120 mg/dL (74-106); Magnesium 2.4 mg/dL (1.8-2.4); Potassium 4.1 mmol/L (3.5-5.1); Sodium 139 mmol/L (136-145); Total Protein 6.7 g/dL (6.4-8.2)
[2022-08-11 08:37] LABS: D-Dimer 2866 ng/mlFEU (<500)
--- NOTE | 2022-08-11 09:16 | W.PULMCON ---
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 Her O2 needs are back to her baseline. She has not had her inflammatory markers drawn but in on therapeutic Lovenox (D-dimer elevated). She is on Decadron and remdesivir. I recommend against therapeutic Lovenox unless there is evidence of a clot. Can consider measuring CRP and ferritin to assess for barcitinib, however since she is on her home O2 needs, she likely does not need this therapy. I agree with Decadron and remdesivir. She should continue with IS and VibraPEP and Combivent. Her Rituxan is due this month, which should be held. Her mycophenolate is also being held, and I would hold these at least until she is fully recovered from COVID - but ultimately her center receptionist should be looped in to ultimately make the decision on restarting it. COVID-19 - O2 for sats >90% - IS and VibraPEP - ambulation as able - Combivent as needed - Mucinex and Tessalon - on home ICS and azithromycin - recommend stopping therapeutic Lovenox and just giving DVT ppx - recommend Evusheld for COVID ppx moving forward q 6 month - I will send my note to Dr. Hancock to keep her in the loop CTD-ILD - home meds as listed above - continue to hold mycophenolate and Rituxan - recommend discussing with her center receptionist for timing of restarting these meds History of Present Illness Narrative: This is a 67 yo admitted to the hospital with COVID. I have seen her in the past for her CTD-ILD and chronic hypoxic respiratory failure. 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 - received Evusheld - Flovent, albuterol and azithromycinDermatomyositis - MDA5- Rituxan, Cellcept[place] [facility] [place] -?SILVIA 1:640, RNA polymerase III (25), MDA25 (35)?Anti-synthetase syndrome Former smoker - 21 pack years, quit 1980 Hypoxic respiratory failure - 2 LPM at rest, 3 LPM with exertion? [facility] transplant assessment? COVID:07/20/21 Influenza:05/26/21 PPSV23:05/21/19 PCV13:01/25/17? She has since transferred care to Dr. Contreras in [place]. She is on Rituxan for her CTD and when I saw her I had gotten her Evusheld when I was seeing her for prevention. She has not received another infusion of this since the initial infusion (beginning of 2021). She is currently on her home O2 and saturating fine. He labs are relatively stable. She is on therapeutic Lovenox, Combivent, Decadron and Remdesivir. She has not had a CRP ordered. She feels as though she is getting better. She is not having significantly worse respiratory symptoms from her baseline. She is in distress about not hearing about the Inogen yet. Review of Systems All systems reviewed & are unremarkable except as noted in HPI and below PFSH All Active Problems (Updated 08/10/22 @ 18:36 by Rebekah Landin MD) Discharge planning issues (Acute) DVT prophylaxis (Acute) Hypokalemia (Acute) Acute on chronic respiratory failure with hypoxia (Acute) Pneumonia due to COVID-19 virus (Acute) COVID (Acute) Shortness of breath (Acute) Respiratory failure with hypoxia (Acute) Dermatomyositis (Acute) Rectal polyp (Acute) Pre-transplant evaluation for lung transplant (Acute) Osteoporosis (Chronic) Interstitial lung disease due to connective tissue disease (Chronic) Antisynthetase syndrome (Acute) Microscopic hematuria (Acute) Anxiety (Chronic) Medical History (Updated 08/10/22 @ 18:36 by Rebekah Landin MD) Dyspareunia Surgical History (Updated 09/14/19 @ 06:45 by Noelle Lucio) H/O breast biopsy H/O cystoscopy History of elbow surgery R elbow fx Family History Mother Asthma Diabetes Sister Diabetes Brother Diabetes Son No problems noted. Social History Smoking/Tobacco Use Status: Former Tobacco Use Tobacco: How many years used: 5 Smoking risk assessment performed?: Yes Alcohol Intake: current Alcohol Intake frequency: holidays/special occasions only Alcohol type: wine Drug use: Never Substance use type: does not use Details: No IV Drug Use Household members: other Number of Children: 1 current occupation: Caregiver [employer] Sexually active: No Do you think of yourself as: straight/heterosexual Current gender identity: female What type of physical activity do you participate in: none Seatbelt use: always Drive intox or ride w/intox certified driver examiner: No Water heater temp set <120 deg: Yes Working smoke detector in home: Yes Fire extinguisher in home: Yes Carbon monox detector in home: Yes Do you feel safe at home: Yes Do you feel safe in your relationship?: Yes Visit Medication and Allergies Active Medications Generic Name Dose Route Start Last Admin Trade Name Freq PRN Reason Stop Dose Admin Acetaminophen 0 mg 08/10/22 15:26 Acetaminophen 325 Mg Tab PO Q4H PRN PRN Al Hydrox/Mg Hydrox/Simethicone 30 ml 08/10/22 15:26 Mylanta Suspension 30 Ml Cup PO Q2H PRN PRN Albuterol Sulfate 2 puff 08/10/22 15:30 Albuterol Hfa 8 Gm 60 Puff Inh IH Q4H PRN PRN Albuterol/Ipratropium 1 puff 08/10/22 20:00 08/11/22 07:53 Ipratropium/Albuterol 4 Gm 120 Puff Inh IH 1 inh QID GENE Administration Ascorbic Acid 1,000 mg 08/10/22 20:00 08/10/22 19:31 Ascorbic Acid 500 Mg Tab PO 1,000 mg BID GENE Administration Azithromycin 250 mg 08/11/22 08:30 Azithromycin 250 Mg Tab PO DAILY GENE Benzonatate 100 mg 08/10/22 20:00 08/10/22 19:31 Benzonatate 100 Mg Cap PO 100 mg TID GENE Administration Cholecalciferol 2,000 units 08/11/22 08:30 Cholecalciferol (Vitamin D3) 1,000 Unit Tab PO DAILY GENE Device 1 each 08/10/22 16:00 Inhaler, Assist Device DIRECTED [facility] Dexamethasone 6 mg 08/11/22 08:30 Dexamethasone 4 Mg Tab PO DAILY [facility] Dimethicone/Zinc Oxide 0 gm 08/10/22 15:26 Jay Protect Cream 142 Gm Tube TP PRN PRN Docusate Sodium 100 mg 08/10/22 15:26 Docusate Sodium 100 Mg Cap PO TID PRN PRN Enoxaparin Sodium 80 mg 08/10/22 20:00 08/10/22 19:32 Enoxaparin 80 Mg/0.8 Ml Syr SC 80 mg Q12H GENE Administration Famotidine 20 mg 08/10/22 22:00 08/10/22 19:30 Famotidine 20 Mg Tab PO 20 mg HS [facility] Administration Guaifenesin 600 mg 08/10/22 20:00 08/10/22 19:29 Guaifenesin 600 Mg Tabcr PO 600 mg BID [facility] Administration Remdesivir 100 mg/ Sodium 250 mls @ 250 mls/hr 08/11/22 16:00 Chloride IVPB 08/14/22 16:59 Q24H [facility] IV Miscellaneous Supplies 1 each 08/10/22 13:30 Iv Access IV DIRECTED [facility] Lorazepam 0.25 mg 08/10/22 18:10 08/10/22 19:30 Lorazepam 0.5 Mg Tab PO 0.25 mg QID PRN PRN Administration Magnesium Hydroxide 30 ml 08/10/22 15:26 Milk Of Magnesia 30 Ml Cup PO DAILY PRN PRN Melatonin 3 mg 08/10/22 22:00 08/10/22 19:31 Melatonin 3 Mg Tab PO 3 mg HS [facility] Administration Mometasone Furoate 1 puff 08/11/22 08:30 08/11/22 07:53 Mometasone 220 Mcg 14 Dose Inhaler IH Not Given DAILY [facility] Multivitamins 1 tab 08/11/22 08:30 Multivitamin Tab PO DAILY [facility] Potassium Chloride 10 meq 08/11/22 08:30 Potassium Chloride 10 Meq Tabcr PO BID [facility] Sodium Chloride 0 ml 08/10/22 13:24 08/10/22 19:37 Normal Saline Flush 10 Ml Syr IVP 10 ml PRN PRN Administration Zinc Sulfate 220 mg 08/11/22 08:30 Zinc Sulfate 220 Mg Tab PO DAILY GENE [id number] Acetate 400 units 08/11/22 08:30 Vitamin E 400 Units Cap PO DAILY GENE Allergies nintedanib [From Ofev] Adverse Reaction (Mild, Verified 08/10/22 13:25) Headache Exam Narrative Exam Narrative: Gen:?NAD, normal respiratory effort, well-nourished HENT:?PERRL Chest:?No respiratory distress, normal appearance of chest, clear to auscultation bilaterally no wheezes, bilateral crackles. Normal inspiratory effort Heart:?regular rate and rhythym, no murmurs, rubs or gallops Abdomen:?Non-distended, soft, non tender Extremities:?No clubbing, edema, cyanosis, rashes Neuro:?AAOx3 , non focal Psych:?cooperative, appropriate mental affect Results Last Vital Signs Temp 37.1 C 08/11/22 07:45 Pulse 89 08/11/22 07:45 Resp 26 H 08/11/22 07:45 BP 144/83 H 08/11/22 07:45 Pulse Ox 93 08/11/22 07:45 Labs Result diagrams: 08/11/22 07:03 08/11/22 07:03 Labs: Laboratory Results - last 24 hr 08/10/22 08/10/22 08/10/22 13:34 13:34 13:34 WBC 7.20 RBC 3.67 L Hgb 11.4 Hct 35.7 L MCV 97 H MCH 31.1 MCHC 31.9 L RDW 12.3 Plt Count 270 MPV 8.7 Immature Gran % 0.4 Neutrophils % 71.9 Lymphocytes % 9.4 Monocytes % 14.9 Eosinophils % 2.8 Basophils % 0.6 Nucleated RBC % 0.0 Absolute Neutrophils 5.18 Absolute Lymphocytes 0.68 L Absolute Monocytes 1.07 H Absolute Eosinophils 0.20 Absolute Basophils 0.04 PT INR D-Dimer Sodium 138 Potassium 3.2 L Chloride 100 Carbon Dioxide 31.0 Anion Gap 7.0 BUN 5 L Creatinine 0.6 Est GFR (CKD-EPI 2020) 97.10 Glucose 107 H Calcium 8.9 Magnesium 2.1 Total Bilirubin 0.3 Conjugated Bilirubin AST 31 ALT 31 Alkaline Phosphatase 76 Troponin I < 50 NT-Pro-B Natriuret Pep 307 H Total Protein 7.1 Albumin 3.2 L Procalcitonin Urine Color Urine Clarity Urine pH Ur Specific [place] Urine Protein Urine Ketones Urine Blood Urine Nitrite Urine Bilirubin Urine Urobilinogen Ur Leukocyte Esterase Urine Glucose COVID-19 Source Nasopharynx SARS-CoV-2 (PCR) Positive A Influenza Type A (PCR) Negative Influenza Type B (PCR) Negative RSV (PCR) Negative 08/10/22 08/10/22 08/11/22 13:34 15:55 05:30 WBC RBC Hgb Hct MCV MCH MCHC RDW Plt Count MPV Immature Gran % Neutrophils % Lymphocytes % Monocytes % Eosinophils % Basophils % Nucleated RBC % Absolute Neutrophils Absolute Lymphocytes Absolute Monocytes Absolute Eosinophils Absolute Basophils PT INR D-Dimer Sodium Potassium Chloride Carbon Dioxide Anion Gap BUN Creatinine Est GFR (CKD-EPI 2020) Glucose Calcium Magnesium Total Bilirubin Conjugated Bilirubin AST ALT Alkaline Phosphatase Troponin I < 50 NT-Pro-B Natriuret Pep Total Protein Albumin Procalcitonin < 0.1 Urine Color Yellow Urine Clarity Clear Urine pH 7.0 Ur Specific [place] 1.025 Urine Protein Negative Urine Ketones Negative Urine Blood Negative Urine Nitrite Negative Urine Bilirubin Negative Urine Urobilinogen 0.2 Ur Leukocyte Esterase Negative Urine Glucose 250 H COVID-19 Source SARS-CoV-2 (PCR) Influenza Type A (PCR) Influenza Type B (PCR) RSV (PCR) 08/11/22 08/11/22 08/11/22 07:03 07:03 07:03 WBC 6.07 RBC 3.69 L Hgb 11.5 Hct 35.2 L MCV 95 MCH 31.2 MCHC 32.7 RDW 12.4 Plt Count 273 MPV 9.0 Immature Gran % 0.3 Neutrophils % 78.7 Lymphocytes % 9.6 Monocytes % 11.2 Eosinophils % 0.0 Basophils % 0.2 Nucleated RBC % 0.0 Absolute Neutrophils 4.78 Absolute Lymphocytes 0.58 L Absolute Monocytes 0.68 Absolute Eosinophils 0.00 Absolute Basophils 0.01 PT 10.4 INR 1.0 D-Dimer 2866 H Sodium 139 Potassium 4.1 Chloride 102 Carbon Dioxide 33.3 H Anion Gap 3.7 BUN 9 Creatinine 0.6 Est GFR (CKD-EPI 2020) 97.10 Glucose 120 H Calcium 9.0 Magnesium 2.4 Total Bilirubin 0.2 Conjugated Bilirubin 0.1 AST 24 ALT 29 Alkaline Phosphatase 74 Troponin I NT-Pro-B Natriuret Pep Total Protein 6.7 Albumin 2.9 L Procalcitonin Urine Color Urine Clarity Urine pH Ur Specific [place] Urine Protein Urine Ketones Urine Blood Urine Nitrite Urine Bilirubin Urine Urobilinogen Ur Leukocyte Esterase Urine Glucose COVID-19 Source SARS-CoV-2 (PCR) Influenza Type A (PCR) Influenza Type B (PCR) RSV (PCR)
[2022-08-11] MEDS: Ascorbic Acid 500 MG TAB 1000 MG PO ×2 (10:05→19:25)
[2022-08-11] MEDS: Cholecalciferol (Vitamin D3) 1,000 UNIT TAB 2000 UNITS PO (10:06)
[2022-08-11] MEDS: Zinc Sulfate 220 MG TAB PO (10:07)
[2022-08-11] MEDS: Dexamethasone 4 MG TAB 6 MG PO (10:08)
[2022-08-11] MEDS: Azithromycin 250 MG TAB PO (10:09)
[2022-08-11] MEDS: guaiFENesin 600 MG TABCR PO ×2 (10:09→19:26)
[2022-08-11] MEDS: Vitamin E 400 UNITS CAP PO (10:09)
[2022-08-11] MEDS: Potassium Chloride 10 MEQ TABCR PO ×2 (10:09→19:26)
[2022-08-11] MEDS: Benzonatate 100 MG CAP PO ×3 (10:10→19:26)
[2022-08-11] MEDS: Multivitamin TAB 1 TAB PO (10:10)
[2022-08-11] MEDS: Enoxaparin 80 MG/0.8 ML SYR SC ×2 (10:10→19:29)
--- NOTE | 2022-08-11 10:30 | IN_ITS ---
Date of service: 08/11/22 Time of Service: 10:30 PT Notes Visit Reasons: COVID19,Acute on Chronic Hypoxic Respitory Failure Inpatient Physical Therapy Evaluation Date: 08/11/2022 Referring Doctor: Rebekah Landin MD PT Orders: PT CONSULT: Limited ability Precautions: Fall. Activity as tolerated. Airborne precautions for COVID-19 infection. Patient Profile/Admitting Diagnosis: Jillian is a 67-year-old female with past medical history significant for interstitial lung disease, currently on a wait list for a lung transplant, who presented to the ED on 08/10/2022 due to increasing shortness of breath and weakness. Patient was diagnosed with pneumonia due to COVID-19, acute on chronic respiratory failure with hypoxia, and hypokalemia. PMHX: All Active Problems?(Updated 08/10/22 @ 18:36 by Rebekah Landin MD) Discharge planning issues (Acute) DVT prophylaxis (Acute) Hypokalemia (Acute) Acute on chronic respiratory failure with hypoxia (Acute) Pneumonia due to COVID-19 virus (Acute) COVID (Acute) Shortness of breath (Acute) Respiratory failure with hypoxia (Acute) Dermatomyositis (Acute) Rectal polyp (Acute) Pre-transplant evaluation for lung transplant (Acute) Osteoporosis (Chronic) Interstitial lung disease due to connective tissue disease (Chronic) Antisynthetase syndrome (Acute) Microscopic hematuria (Acute) Anxiety (Chronic) Medical History?(Updated 08/10/22 @ 18:36 by Rebekah Landin MD) Dyspareunia Surgical History?(Updated 09/14/19 @ 06:45 by Neolle Lucio) H/O breast biopsy H/O cystoscopy History of elbow surgery R elbow fx Social History/Home Situation: Lives in a private home with three steps to enter. Sister lives with her and has been a good support however is with umer in [facility] and will not be back until August with patient. Independent with ambulation with AD. Chronincally has been on 3 L of oxygen/minute. Current Functional Limitations: Significant inability to walk due to shortness of breath with oxygen desaturation to below 88% with activity even with oxygen supplementation Equipment Owned/DME: 4WW, oxygen supplementation of 2-3 L/min Subjective: Expresses shortness of breath at rest even with oxygen supplementation of 2l/min. Objective: General Observation: Seated on chair. Appears anxious. Oxygen supplementation in place. Telemetry monitoring in place. Mental Status: Alert and oriented x 4 Pain: Denies chest pain Vital Signs: Oxygen saturation at 3 L with ambulation with saturation levels staying at above 90% ROM: Right Upper Extremity: Shoulder Flexion WFL. Shoulder abduction WFL. Elbow flexion WFL. Wrist flexion WFL. Functional opening and closing of hand WFL. Left Upper Extremity: Shoulder Flexion WFL. Shoulder abduction WFL. Elbow flexion WFL. Wrist flexion WFL. Functional opening and closing of hand WFL. Right Lower Extremity: Hip flexion WFL. Hip abduction WFL. Knee flexion WFL. Ankle dorsiflexion WFL. Ankle plantarflexion WFL. Left Lower Extremity: Hip flexion WFL. Hip abduction WFL. Knee flexion WFL. Ankle dorsiflexion WFL. Ankle plantarflexion WFL. Strength: Right Upper Extremity: Shoulder flexors 4-/5. Shoulder abductors 4-/5. Elbow flexors 4-/5. Elbow extensors 4-/5. Primer Waterproofing Machine Adjuster strong. Left Upper Extremity: Shoulder flexors 4-/5. Shoulder abductors 4-/5. Elbow flexors 4-/5. Elbow extensors 4-/5. Primer Waterproofing Machine Adjuster strong. Right Lower Extremity: Hip flexors 4-/5. Hip abductors 4-/5. Knee flexors 4-/5. Knee extensors 4-/5. Ankle dorsiflexors 4-/5. Ankle plantarflexors 4-/5. Left Lower Extremity: Hip flexors 4-/5. Hip abductors 4-/5. Knee flexors 4-/5. Knee extensors 4-/5. Ankle dorsiflexors 4-/5. Ankle plantarflexors 4-/5. Sensation: Intact as to pain and light pressure in B LE. Bed Mobility/Transfers: Sit to stand minimal assist with worsening shortness of breath observed Stand to sit contact guard assist with worsening shortness of breath observed Gait: 10 feet using FWW with minimal assist, unstable with directional changes and backing up. Worsening shortness of breath observed with rate of perceived exertion at 7/10 on the modified darryl dyspnea scale. Desaturated down to 88% on 3 L with ambulation. Able to recover after about 3-5 minutes of rest. Highly anxious about not being able to complete task due to breathing difficulty. Balance: Static Sitting: Normal Dynamic Sitting: Normal Static Standing: Fair Dynamic Standing: Fair Special Tests: Mobility Limitations Standardized Measure [facility] AM-PAC 6 clicks Basic Mobility Inpatient Short Form: Raw Score: 18 CMS Score: 47% deficit Informed Consent/Education: Patient instructed in purpose of PT consult and plan of care. Assessment: Severely limited activity tolerance, needs frequent rests. Anxiety contributing to breathing issue. Patient requires the use of a front-wheeled walker and assistance of 1 person for all mobility ADL performance to reduce fall risk.? Activity tolerance reduced due to admitting diagnosis.? Jillian is a 67-year-old female with past medical history significant for interstitial lung disease, currently on a wait list for a lung transplant, who presented to the ED on 08/10/2022 due to increasing shortness of breath and weakness. Patient was diagnosed with pneumonia due to COVID-19, acute on chronic respiratory failure with hypoxia, and hypokalemia. Patient presents with clinical signs and symptoms consistent with current/admitting diagnoses that have resulted to mobility limitations, gait instability, generalized weakness, and overall ADL decline as demonstrated by the following impairment level findings: 1.? Decreased strength to B UE/LE major muscle groups 2.? Impaired standing balance 3.? Impaired activity tolerance Impairments are contributing to the following functional limitations: 1.? Difficulty with ambulation without assistive device and physical assistance 2.? Increased completion time for mobility ADL performance 3.? Increased risk for falls 4.? Difficulty with managing steps alone safely Patient is assessed as a [id number] moderate complexity complexity based on the following: History: 84-year-old male with past medical history as indicated above Examination: Demonstrable impairment in strength, balance, and mobility level with underlying impairments and functional limitations as exhibited above as well as deficit score of 47% utilizing the [facility] Mobility Inpatient Short Form Presentation: Evolving Decision Makin moderate complexity Goals: Goals X1 week 1. Supine-Sit independent 2. Sit-Supine independent 3. Sit-Stand independent 4. Stand-Sit independent with FWW 5. Bed-Chair independent with FWW 6. Chair-Bed independent with FWW 7. Independent gait on level surface with use of FWW for at least 200 feet without report of pain nor dyspnea 8. Independent stair negotiation while holding onto B rails for at least 5 steps without report of pain nor dyspnea 9. Independent with home exercise program 10. Good static and dynamic standing balance/tolerance Plan of Care/Treatment Plan: 1-2x/day, 7 days/week x 1 week. Plan of care has been reviewed with the BEER MAKER providing the service under Physical Therapy direction. Initiate Physical Therapy intervention for pain management as needed, strengthening, bed mobility, transfers, gait, stairs, balance training, and use of assistive device. DISCHARGE RECOMMENDATIONS: [] ? Home with no services [] [] ? Home with services [] [] ? Home with outpatient PT [] [X] ?SNF for continued rehabilitation to regain premorbid independent mobility level using FWW while working on improving activty tolerance, strength, and balance skills. [] ? Accounts Payable Analyst Care [] [] ? SNF versus LTC based on ability to participate and progress [] TREATMENT CODE/TIME: 56602 x 20 minutes,? 42595 x 19 minutes beginning at 10:30 AM. Thank you for the opportunity to participate in the care of this patient. Mariola Hargrove PT, DPT, CLT [facility] [place], [place]
--- NOTE | 2022-08-11 12:19 | PDOC.CMIN ---
- If Service Date Differs Date of service: 08/11/22 Time of Service: 12:19 Care Management Initial Assess REASON FOR HOSPITALIZATION:: Covid 19, Acute on chronic hypoxic respiratory failure PAST MEDICAL HISTORY/PAST SURGICAL HISTORY:: All Active Problems. Discharge planning issues (Acute). DVT prophylaxis (Acute). Hypokalemia (Acute). Acute on chronic respiratory failure with hypoxia (Acute). Pneumonia due to COVID-19 virus (Acute). COVID (Acute). Shortness of breath (Acute). Respiratory failure with hypoxia (Acute). Dermatomyositis (Acute). Rectal polyp (Acute). Pre-transplant evaluation for lung transplant (Acute). Osteoporosis (Chronic). Interstitial lung disease due to connective tissue disease (Chronic). Antisynthetase syndrome (Acute). Microscopic hematuria (Acute). Anxiety (Chronic). Medical History. Dyspareunia. Surgical History. H/O breast biopsy. H/O cystoscopy. History of elbow surgery. R elbow fx PREVIOUS FUNCTIONAL STATUS/SOCIAL/FAMILY SUPPORTS:: Jillian lives in [facility]. She is retired from being a plant care worker. She lives with her sister and has very supportive friends who help with grocery shopping. She states that she is very independent at home at baseline. She is on 3L O2 at baseline. CURRENT FUNCTIONAL STATUS:: Jillian is on Covid precautions, therefore CM did not meet with her in person, but was able to speak to her over the phone. She stated that she is very sick, and she is very concerned about her mobility, as she reports that she can't walk well, which is not her baseline. She described to CM how she believes she contracted Covid, as she was at a hospital in [place] on 07/26, and was around a lot of people. She states that she isolates at home well normally. She stated that she is agreeable to going to SNF if necessary. CM provided education around barriers to placement, such as her Covid diagnosis, and the limited bed availability locally. CM will continue to follow. ADVANCE DIRECTIVES:: Not on file at [facility] Has patient been provided with info about the portal/API?: Yes Did the patient sign up for the portal?: No CODE STATUS:: Full Code INSURANCE COVERAGE / FINANCIAL ISSUES:: [facility] MCR replacement/ MCR/[facility] CURRENT HOME/COMMUNITY SERVICES/EQUIPMENT:: No current services or equipment PRIMARY CARE PHYSICIAN:: Stefania Blake POTENTIAL DISCHARGE NEEDS:: Evaluation for further needs, follow up appointments. PATIENT/FAMILY EDUCATION NEEDS:: Review discharge instructions and limitations, discussion of self care needs including ask me three. ANTICIPATED BARRIERS TO DISCHARGE:: Jillian feels that she can't walk, and is currently not at her baseline. She is agreeable to SNF, but has Covid, which will limit her opportunity for SNF. TRANSPORTATION:: To be determined by disposition PLAN:: Jillian is being closely monitored and treated for Covid. She will likely return home with new services vs SNF for short term rehab, and her transportation will be determined by her disposition. She will follow up with her PCP and discharge plan of care. CM will continue to follow.
[2022-08-11] MEDS: REMDESIVIR 100 MG in Normal Saline 250 ML 250 MG IVPB (16:15)
[2022-08-11] MEDS: Acetaminophen 325 MG TAB PO (16:15)
--- NOTE | 2022-08-11 16:54 | PHA.REVIEW2 ---
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 [From Ofev] Adverse Reaction (Mild, Verified 08/10/22 13:25) Headache Resuscitation Status Full Code Height 4 ft 1 in Weight 67.5 kg - Renal Dosing Renal Dosing: BUN 9 mg/dL (7-18) 08/11/22 07:03 Creatinine 0.6 mg/dL (0.55-1.02) 08/11/22 07:03 Medications needing adjustments: Reviewed List of meds needing interventions: eCrCl 47 ml/min - Anticoagulation Anticoagulation: Hgb 11.5 g/dL (11.2-15.7) 08/11/22 07:03 Hct 35.2 % (36.0-46.0) L 08/11/22 07:03 Plt Count 273 10^3/uL (130-400) 08/11/22 07:03 INR 1.0 (0.9-1.1) 08/11/22 07:03 Creatinine 0.6 mg/dL (0.55-1.02) 08/11/22 07:03 Therapeutic Anticoagulation: Reviewed Medications: Enoxaparin - Opiate Usage Evaluate Pain Scale/Pains Meds: N/A - Relevant Labs Sodium 139 mmol/L (136-145) 08/11/22 07:03 Potassium 4.1 mmol/L (3.5-5.1) 08/11/22 07:03 Chloride 102 mmol/L (98-107) 08/11/22 07:03 Magnesium 2.4 mg/dL (1.8-2.4) 08/11/22 07:03 Electrolytes, C-Reactive P, ESR: Reviewed - DM Control DM Control: Glucose 120 mg/dL (74-106) H 08/11/22 07:03 DM Control: N/A - Cardiac Review Cardiac Review: Troponin I < 50 ng/L (<or=60) 08/10/22 15:55 NT-Pro-B Natriuret Pep 307 pg/mL (<300) H 08/10/22 13:34 BP, HR, EF%: Reviewed - Qtc Review QTc: Reviewed If Elevated, List meds needing intervention: QTc 429 on admission - IV to PO Switch IV Medications: Reviewed - Home Meds Home Med List reviewed: Reviewed Relevent Home Meds Not ordered & why?: Not ordered: mycophenolate (holding until fully recovered from covid) - Current meds Current Medication Order Review: Reviewed
--- NOTE | 2022-08-11 18:55 | PGE_ITS ---
Date of Service Date of service: 08/11/22 Time of Service: 18:55 Assessment and Plan Assessment and plan (1) Pneumonia due to COVID-19 virus: Status: Acute Assessment and plan: Continue remdesivir, dexamethasone. Encourage IS, acapella. Supplement Vitamin C, D, zinc. Procalcitonin negative- no role for abx. Last dose of rituximab was 6 months ago. Continue to hold mycophenolate. 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 Seen by pulmonology. Hold immunosuppresive therapy (4) Hypokalemia: Status: Resolved Assessment and plan: Recheck in am. (5) DVT prophylaxis: Status: Acute Assessment and plan: SC enoxaparin (therapeutic, but consider prophylactic dose) (6) Discharge planning issues: Status: Acute Assessment and plan: Full code PT consulted. Continues to require hospitalization discussed with Dr Grimm. Subjective Subjective Interval history since last seen: Jillian states she is feeling a lot better today. She has an appetite. Breathing is better. Still feels weak and unsteady. She wants to be able to walk out of the hospital. She denies dizziness, chest pain, nausea, diarrhea. She actually reports constipation, but is not interested in stool softeners. We agreed that they would be available prn. Last BM was 3 days ago. Exam Narrative Exam Narrative: General: Pleasant anxious middle-aged female, A&Ox3, looks more comfortable, speaks in 4-5 word phrases prior to needing to take a breath HEENT: EOMI, MMM Cardiovascular: RRR, no m/r/g Lungs: Expiratory rhonchi B at bases Gastrointestinal: soft, nontender, nondistended Extremities: trace edema BLEs, 1+ pedal pulses B Objective Last Vital Signs Temp 37.3 C 08/11/22 15:55 Pulse 94 H 08/11/22 15:55 Resp 28 H 08/11/22 15:55 BP 136/85 08/11/22 15:55 Pulse Ox 94 08/11/22 15:55 Laboratory Results - last 24 hr 08/11/22 08/11/22 08/11/22 05:30 07:03 07:03 WBC 6.07 RBC 3.69 L Hgb 11.5 Hct 35.2 L MCV 95 MCH 31.2 MCHC 32.7 RDW 12.4 Plt Count 273 MPV 9.0 Immature Gran % 0.3 Neutrophils % 78.7 Lymphocytes % 9.6 Monocytes % 11.2 Eosinophils % 0.0 Basophils % 0.2 Nucleated RBC % 0.0 Absolute Neutrophils 4.78 Absolute Lymphocytes 0.58 L Absolute Monocytes 0.68 Absolute Eosinophils 0.00 Absolute Basophils 0.01 PT INR D-Dimer Sodium 139 Potassium 4.1 Chloride 102 Carbon Dioxide 33.3 H Anion Gap 3.7 BUN 9 Creatinine 0.6 Est GFR (CKD-EPI 2020) 97.10 Glucose 120 H Calcium 9.0 Magnesium 2.4 Total Bilirubin 0.2 Conjugated Bilirubin 0.1 AST 24 ALT 29 Alkaline Phosphatase 74 Total Protein 6.7 Albumin 2.9 L Urine Color Yellow Urine Clarity Clear Urine pH 7.0 Ur Specific [place] 1.025 Urine Protein Negative Urine Ketones Negative Urine Blood Negative Urine Nitrite Negative Urine Bilirubin Negative Urine Urobilinogen 0.2 Ur Leukocyte Esterase Negative Urine Glucose 250 H 08/11/22 07:03 WBC RBC Hgb Hct MCV MCH MCHC RDW Plt Count MPV Immature Gran % Neutrophils % Lymphocytes % Monocytes % Eosinophils % Basophils % Nucleated RBC % Absolute Neutrophils Absolute Lymphocytes Absolute Monocytes Absolute Eosinophils Absolute Basophils PT 10.4 INR 1.0 D-Dimer 2866 H Sodium Potassium Chloride Carbon Dioxide Anion Gap BUN Creatinine Est GFR (CKD-EPI 2020) Glucose Calcium Magnesium Total Bilirubin Conjugated Bilirubin AST ALT Alkaline Phosphatase Total Protein Albumin Urine Color Urine Clarity Urine pH Ur Specific [place] Urine Protein Urine Ketones Urine Blood Urine Nitrite Urine Bilirubin Urine Urobilinogen Ur Leukocyte Esterase Urine Glucose
[2022-08-11] MEDS: Docusate Sodium 100 MG CAP PO (23:07)
[2022-08-11] MEDS: Melatonin 3 MG TAB PO (23:07)
[2022-08-11] MEDS: Famotidine 20 MG TAB PO (23:07)
[2022-08-12] VITALS (10 sets, daily range): BP systolic 125–134; BP diastolic 67–80; PULSE 64–91; RESP 16–25; TEMP 36.4–37.4; O2SAT 91–98
[2022-08-12 06:59] LABS: Abs Immature Grans 0.06 10^3/uL (0.0-0.06); Absolute Lymphocyte Count 0.91 10^3/uL (1.2-3.4); Absolute Monocyte Count 1.16 10^3/uL (0.1-0.8); Basophils % 0.1; HCT 35.1 % (36.0-46.0); HGB 11.2 g/dL (11.2-15.7); Immature Grans % 0.4; Lymphocytes % 6.5; MCH 30.7 pg (27.0-33.0); MCHC 31.9 % (32.0-36.0); MCV 96 fL (80-95); MPV 9.3 fL (8.0-11.0); Monocytes % 8.3; Neutrophils % 84.7; Platelet Count 324 10^3/uL (130-400); RBC 3.65 10^6/uL (3.93-5.22); RDW 12.6 % (11.7-14.6); RDW-SD 44.3 fL; WBC 13.93 10^3/uL (4.4-10.8)
[2022-08-12 07:01] LABS: Absolute Basophil Count 0.01 10^3/uL (0.0-0.2)
[2022-08-12 07:14] LABS: INR 1.1 (0.9-1.1); Prothrombin Time 10.8 sec (9.3-11.0)
[2022-08-12 07:18] LABS: ALT 24 U/L (14-59); AST 22 U/L (15-37); Albumin 2.8 g/dL (3.4-5.0); Alkaline Phosphatase 70 U/L (46-116); Anion Gap 4.6 mmol/L (3-11); BUN 17 mg/dL (7-18); Bilirubin, Direct 0.1 mg/dL (0.0-0.2); Bilirubin, Total 0.2 mg/dL (0.2-1.0); C-Reactive Protein 1.65 mg/dL (0.0-0.3); CO2 31.4 mmol/L (21.0-32.0); CREATININE 0.6 mg/dL (0.55-1.02); Calcium 8.9 mg/dL (8.5-10.1); Chloride 103 mmol/L (98-107); Glucose 118 mg/dL (74-106); Magnesium 2.2 mg/dL (1.8-2.4); PHOSPHORUS 3.2 mg/dL (2.6-4.7); Potassium 4.1 mmol/L (3.5-5.1); Sodium 139 mmol/L (136-145); Total Protein 6.3 g/dL (6.4-8.2)
[2022-08-12 07:39] LABS: D-Dimer 1408 ng/mlFEU (<500)
[2022-08-12] MEDS: Ipratropium/Albuterol 4 GM 120 PUFF INH IH ×4 (07:54→19:20)
[2022-08-12 08:47] LABS: Ferritin 389 ng/mL (8-252)
--- NOTE | 2022-08-12 08:54 | PT.INTREAT ---
PT Notes Visit Reasons: COVID19,Acute on Chronic Hypoxic Respitory Failure Inpatient Physical Therapy Treatment Note Date: 08/12/2022 Precautions: Fall.? Activity as tolerated.? Airborne precautions for COVID-19 infection. Subjective:? States that she slept better last night. Moderately short of breath after today's short distance walk. Unsure of safety of going home alone. Agreeable to going to a SNF so she can be more indepedent. Objective:? General Observation: Supine in bed.?? Oxygen supplementation in place.? Telemetry monitoring in place.?Nurse Janeth dispensing meds for patient. Mental Status: Alert and oriented x 4 Pain: Denies chest pain Vital Signs: Oxygen saturation at 5 L/min with ambulation with saturation low of 87% and recovery time back up to 90% after about 5 minutes Bed Mobility/Transfers: Sit to stand minimal assist with worsening shortness of breath observed Stand to sit contact guard assist with worsening shortness of breath observed Gait:? 20 feet using FWW with minimal assist,? unstable with directional changes and backing up.? Nearly lost balance backing up onto bed. Worsening shortness of breath observed with rate of perceived exertion at? 7/10 on the modified darryl dyspnea scale.? Desaturated down to 86% on 5 L with ambulation.? Able to recover after about 5 minutes of rest.? Highly anxious about not being to manage at home alone with continued mobility decline. Balance:? Static Sitting: Normal Dynamic Sitting: Normal Static Standing: Fair Dynamic Standing: Fair Assessment: Severely limited activity tolerance,? needs frequent rests.? Anxiety contributing to breathing issue.? Patient requires the use of a front-wheeled walker and assistance of 1 person for all mobility ADL performance to reduce fall risk.? Recommend short-term SNF stay to reduce fall risk and ensure ability to thrive alone at home. DISCHARGE RECOMMENDATIONS: [] ? Home with no services [] [] ? Home with services [] [] ? Home with outpatient PT [] [X] ?SNF for continued rehabilitation to regain premorbid independent mobility level using FWW while working on improving activity tolerance,? strength, and balance skills. [] ? [facility] [] [] ? SNF versus LTC based on ability to participate and progress [] TREATMENT CODE/TIME: 21831 x 40 minutes beginning at 8:54 AM.
[2022-08-12] MEDS: Benzonatate 100 MG CAP PO ×3 (08:58→19:19)
[2022-08-12] MEDS: Azithromycin 250 MG TAB PO (08:58)
[2022-08-12] MEDS: Ascorbic Acid 500 MG TAB 1000 MG PO ×2 (08:58→19:20)
[2022-08-12] MEDS: Dexamethasone 4 MG TAB 6 MG PO (08:59)
[2022-08-12] MEDS: Cholecalciferol (Vitamin D3) 1,000 UNIT TAB 2000 UNITS PO (08:59)
[2022-08-12] MEDS: guaiFENesin 600 MG TABCR PO ×2 (09:00→19:19)
[2022-08-12] MEDS: Multivitamin TAB 1 TAB PO (09:01)
[2022-08-12] MEDS: Vitamin E 400 UNITS CAP PO (09:02)
[2022-08-12] MEDS: Zinc Sulfate 220 MG TAB PO (09:02)
[2022-08-12] MEDS: Potassium Chloride 10 MEQ TABCR PO ×2 (09:02→22:36)
[2022-08-12] MEDS: Normal Saline Flush 10 ML SYR IVP ×3 (09:06→19:24)
[2022-08-12] MEDS: Enoxaparin 80 MG/0.8 ML SYR 70 MG SC ×2 (09:11→19:19)
--- NOTE | 2022-08-12 16:36 | CMPROGNOTE_ITS ---
- If Service Date Differs Date of service: 08/12/22 Time of Service: 16:36 Care Management Progress Note S/O: Jillian is being closely monitored and treated for Covid. Per PT, when ambulating, she requires up to 5L of O2, which is more than her 3L baseline. PT is recommending SNF. CM will send referrals to local facilities, at her request. CM discussed the barriers to her going to a SNF, including her Covid diagnosis and the limited availability of beds at SNF's. CM will continue to follow. A: Jillian is a 67 year old female admitted to [facility] on 08/10/22 for Covid 19, acute on chronic resp failure. P: Jillian is being closely monitored and treated for Covid. She will likely return home with new services vs SNF for short term rehab, and her transportation will be determined by her disposition. She will follow up with her PCP and discharge plan of care. CM will continue to follow.
[2022-08-12] MEDS: REMDESIVIR 100 MG in Normal Saline 250 ML 250 MG IVPB (16:43)
--- NOTE | 2022-08-12 19:15 | W.PM.PROGNOT ---
Date of Service Date of service: 08/12/22 Time of Service: 18:55 Assessment and Plan Assessment and plan (1) Pneumonia due to COVID-19 virus: Status: Acute Assessment and plan: Continue remdesivir, dexamethasone. Encourage IS, acapella. Supplement Vitamin C, D, zinc. Procalcitonin negative- no role for abx. Last dose of rituximab was 6 months ago. Continue to hold mycophenolate. Continue working with PT. 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 Seen by pulmonology. Hold immunosuppresive therapy (4) Hypokalemia: Status: Resolved Assessment and plan: Recheck in am. (5) DVT prophylaxis: Status: Acute Assessment and plan: SC enoxaparin (therapeutic, but consider prophylactic dose) (6) Discharge planning issues: Status: Acute Assessment and plan: Full code PT consulted and recommends SNF on d/c. Subjective Subjective Interval history since last seen: Jillian states that her breathing is good today. She did notice herself shorter of breath than normal, but then it turned out that her O2 was turned down to 1L. Once it was turned back up to 2L, she felt better. She is working with PT. Denies dizziness, chest pain, nausea. C/o constipation. She is willing to take medications for it now. Exam Narrative Exam Narrative: General: Pleasant anxious middle-aged female, A&Ox3, looks more comfortable, speaks in 4-5 word phrases prior to needing to take a breath HEENT: EOMI, MMM Cardiovascular: RRR, no m/r/g Lungs: Expiratory rhonchi B at bases, improved Gastrointestinal: soft, nontender, nondistended Extremities: trace edema BLEs, 1+ pedal pulses B Objective Last Vital Signs Temp 37.3 C 08/12/22 16:02 Pulse 76 08/12/22 16:02 Resp 24 08/12/22 16:02 BP 134/79 08/12/22 16:02 Pulse Ox 93 08/12/22 16:02 Laboratory Results - last 24 hr 08/12/22 08/12/22 08/12/22 06:10 06:10 06:10 WBC 13.93 H RBC 3.65 L Hgb 11.2 Hct 35.1 L MCV 96 H MCH 30.7 MCHC 31.9 L RDW 12.6 Plt Count 324 MPV 9.3 Immature Gran % 0.4 Neutrophils % 84.7 Lymphocytes % 6.5 Monocytes % 8.3 Eosinophils % 0.0 Basophils % 0.1 Nucleated RBC % 0.0 Absolute Neutrophils 11.80 H Absolute Lymphocytes 0.91 L Absolute Monocytes 1.16 H Absolute Eosinophils 0.00 Absolute Basophils 0.01 PT 10.8 INR 1.1 D-Dimer 1408 H Sodium 139 Potassium 4.1 Chloride 103 Carbon Dioxide 31.4 Anion Gap 4.6 BUN 17 Creatinine 0.6 Est GFR (CKD-EPI 2020) 97.10 Glucose 118 H Calcium 8.9 Phosphorus 3.2 Magnesium 2.2 Ferritin 389 H Total Bilirubin 0.2 Conjugated Bilirubin 0.1 AST 22 ALT 24 Alkaline Phosphatase 70 C-Reactive Protein 1.65 H Total Protein 6.3 L Albumin 2.8 L
[2022-08-12] MEDS: Docusate Sodium 100 MG CAP PO (22:37)
[2022-08-12] MEDS: Melatonin 3 MG TAB PO (22:37)
[2022-08-12] MEDS: Famotidine 20 MG TAB PO (22:37)
[2022-08-13] VITALS (9 sets, daily range): BP systolic 107–148; BP diastolic 66–84; PULSE 65–94; RESP 16–24; TEMP 36.7–37.4; O2SAT 94–99
[2022-08-13 06:33] LABS: Abs Immature Grans 0.06 10^3/uL (0.0-0.06); Absolute Basophil Count 0.01 10^3/uL (0.0-0.2); Absolute Lymphocyte Count 1.08 10^3/uL (1.2-3.4); Basophils % 0.1; HCT 34.1 % (36.0-46.0); HGB 10.9 g/dL (11.2-15.7); Immature Grans % 0.5; Lymphocytes % 9.6; MCH 31.1 pg (27.0-33.0); MCV 97 fL (80-95); MPV 9.1 fL (8.0-11.0); Monocytes % 9.8; Platelet Count 320 10^3/uL (130-400); RDW 12.6 % (11.7-14.6); RDW-SD 45.1 fL; WBC 11.25 10^3/uL (4.4-10.8)
[2022-08-13 06:44] LABS: INR 1.1 (0.9-1.1)
[2022-08-13 06:59] LABS: ALT 25 U/L (14-59); AST 21 U/L (15-37); Albumin 2.8 g/dL (3.4-5.0); Alkaline Phosphatase 67 U/L (46-116); Anion Gap 2.5 mmol/L (3-11); BUN 16 mg/dL (7-18); Bilirubin, Direct 0.1 mg/dL (0.0-0.2); Bilirubin, Total 0.3 mg/dL (0.2-1.0); C-Reactive Protein 0.75 mg/dL (0.0-0.3); CO2 32.5 mmol/L (21.0-32.0); CREATININE 0.5 mg/dL (0.55-1.02); Calcium 8.7 mg/dL (8.5-10.1); Chloride 102 mmol/L (98-107); Estimated GFR 101.46 (mL/min/1.73m2); Glucose 105 mg/dL (74-106); Magnesium 2.2 mg/dL (1.8-2.4); Sodium 137 mmol/L (136-145); Total Protein 6.2 g/dL (6.4-8.2)
[2022-08-13 07:11] LABS: Vitamin D 25 Total 43.6 ng/mL (30-100)
[2022-08-13 07:28] LABS: Ferritin 420 ng/mL (8-252)
[2022-08-13 07:31] LABS: D-Dimer 790 ng/mlFEU (<500)
[2022-08-13] MEDS: guaiFENesin 600 MG TABCR PO ×2 (08:16→19:41)
[2022-08-13] MEDS: Vitamin E 400 UNITS CAP PO (08:16)
[2022-08-13] MEDS: Potassium Chloride 10 MEQ TABCR PO ×2 (08:18→19:41)
[2022-08-13] MEDS: Ascorbic Acid 500 MG TAB 1000 MG PO ×2 (08:18→19:40)
[2022-08-13] MEDS: Azithromycin 250 MG TAB PO (08:18)
[2022-08-13] MEDS: Cholecalciferol (Vitamin D3) 1,000 UNIT TAB 2000 UNITS PO (08:18)
[2022-08-13] MEDS: Docusate Sodium 100 MG CAP PO ×2 (08:19→19:41)
[2022-08-13] MEDS: Zinc Sulfate 220 MG TAB PO (08:19)
[2022-08-13] MEDS: Dexamethasone 4 MG TAB 6 MG PO (08:20)
[2022-08-13] MEDS: Multivitamin TAB 1 TAB PO (08:20)
[2022-08-13] MEDS: Benzonatate 100 MG CAP PO ×3 (08:21→19:42)
[2022-08-13] MEDS: Normal Saline Flush 10 ML SYR IVP ×2 (08:22→18:02)
[2022-08-13] MEDS: Enoxaparin 80 MG/0.8 ML SYR 70 MG SC ×2 (08:22→19:42)
[2022-08-13] MEDS: Ipratropium/Albuterol 4 GM 120 PUFF INH IH ×4 (09:00→19:51)
--- NOTE | 2022-08-13 12:26 | PT.INTREAT ---
Date of service: 08/13/22 Time of Service: 10:59 PT Notes Visit Reasons: COVID19,Acute on Chronic Hypoxic Respitory Failure
[2022-08-13] MEDS: Mometasone 220 MCG 14 DOSE INHALER 1 PUFF IH (12:30)
--- NOTE | 2022-08-13 13:13 | PDOC.CMPRO ---
- If Service Date Differs Date of service: 08/13/22 Time of Service: 13:13 Care Management Progress Note S/O: CM spoke to Jillian over the phone today, as she remains on Covid precautions. She stated that she is feeling like she is improving, both medically and physically. She stated that she is motivated to get better, and is working hard with PT. Per report, she is not at her baseline O2 while ambulating. CM sent referrals to [facility], at her request. CM discussed the limitations to her going to a local rehab, due to limited bed availability. She stated that she would rather go home than go to a facility out of town. Per [facility], the earliest they would be able to accept her is day 11 following the initial positive test. CM will continue to follow. A: Jillian is a 67 year old female admitted to [facility] on 08/10/22 for Covid 19, acute on chronic resp failure. P: Jillian is being closely monitored and treated for Covid. She will likely return home with new services vs SNF for short term rehab, and her transportation will be determined by her disposition. She will follow up with her PCP and discharge plan of care. CM will continue to follow.
[2022-08-13] MEDS: REMDESIVIR 100 MG in Normal Saline 250 ML 250 MG IVPB (18:03)
--- NOTE | 2022-08-13 20:29 | W.PM.PROGNOT ---
Date of Service Date of service: 08/13/22 Time of Service: 20:30 Assessment and Plan Assessment and plan (1) Pneumonia due to COVID-19 virus: Status: Acute Assessment and plan: Improving. Continue remdesivir, dexamethasone. Encourage IS, acapella. Supplement Vitamin C, D, zinc. Procalcitonin negative- no role for abx. Last dose of rituximab was 6 months ago. Continue to hold mycophenolate. Continue working with PT. 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 Seen by pulmonology. Hold immunosuppresive therapy (4) Hypokalemia: Status: Resolved Assessment and plan: Recheck in am. (5) DVT prophylaxis: Status: Acute Assessment and plan: SC enoxaparin (therapeutic, but consider prophylactic dose) (6) Discharge planning issues: Status: Acute Assessment and plan: Full code PT consulted and recommends SNF on d/c. Subjective Subjective Interval history since last seen: Jillian states that she feels better but not yet back to normal. Her breathing is a lot better, she says, but she still cannot walk on her own, and it bothers her. She got very anxious talking about this. She denies dizziness, chest pain, nausea. She did have a bowel movement. She still gets quite short of breath ambulating, requiring 5L at that time. She is on 2L of O2 at rest. Exam Narrative Exam Narrative: General: Pleasant anxious middle-aged female, A&Ox3; once her anxiety is managed, she is able to speak in full sentences with no shortness of breath HEENT: EOMI, MMM Cardiovascular: RRR, no m/r/g Lungs: Expiratory rhonchi B at bases, rales - unchanged. Gastrointestinal: soft, nontender, nondistended Extremities: trace edema BLEs, 1+ pedal pulses B Objective Last Vital Signs Temp 37.4 C 08/13/22 14:29 Pulse 82 08/13/22 15:14 Resp 24 08/13/22 14:29 BP 148/84 H 08/13/22 14:29 Pulse Ox 94 08/13/22 14:29 Laboratory Results - last 24 hr 08/13/22 08/13/22 08/13/22 05:40 05:40 05:40 WBC 11.25 H RBC 3.50 L Hgb 10.9 L Hct 34.1 L MCV 97 H MCH 31.1 MCHC 32.0 RDW 12.6 Plt Count 320 MPV 9.1 Immature Gran % 0.5 Neutrophils % 80.0 Lymphocytes % 9.6 Monocytes % 9.8 Eosinophils % 0.0 Basophils % 0.1 Nucleated RBC % 0.0 Absolute Neutrophils 9.00 H Absolute Lymphocytes 1.08 L Absolute Monocytes 1.10 H Absolute Eosinophils 0.00 Absolute Basophils 0.01 PT INR D-Dimer Sodium 137 Potassium 4.0 Chloride 102 Carbon Dioxide 32.5 H Anion Gap 2.5 L BUN 16 Creatinine 0.5 L Est GFR (CKD-EPI 2020) 101.46 Glucose 105 Calcium 8.7 Magnesium 2.2 Ferritin 420 H Total Bilirubin 0.3 Conjugated Bilirubin 0.1 AST 21 ALT 25 Alkaline Phosphatase 67 C-Reactive Protein 0.75 H Total Protein 6.2 L Albumin 2.8 L 25-OH Vitamin D Total 43.6 08/13/22 05:40 WBC RBC Hgb Hct MCV MCH MCHC RDW Plt Count MPV Immature Gran % Neutrophils % Lymphocytes % Monocytes % Eosinophils % Basophils % Nucleated RBC % Absolute Neutrophils Absolute Lymphocytes Absolute Monocytes Absolute Eosinophils Absolute Basophils PT 11.0 INR 1.1 D-Dimer 790 H Sodium Potassium Chloride Carbon Dioxide Anion Gap BUN Creatinine Est GFR (CKD-EPI 2020) Glucose Calcium Magnesium Ferritin Total Bilirubin Conjugated Bilirubin AST ALT Alkaline Phosphatase C-Reactive Protein Total Protein Albumin 25-OH Vitamin D Total
[2022-08-13] MEDS: Famotidine 20 MG TAB PO (21:56)
[2022-08-13] MEDS: LORazepam 0.5 MG TAB 0.25 MG PO (21:56)
[2022-08-13] MEDS: Melatonin 3 MG TAB PO (21:56)
[2022-08-14] VITALS (7 sets, daily range): BP systolic 115–133; BP diastolic 58–89; PULSE 56–80; RESP 18–25; TEMP 36.7–37.8; O2SAT 93–97
[2022-08-14 07:55] LABS: Abs Immature Grans 0.13 10^3/uL (0.0-0.06); Absolute Basophil Count 0.01 10^3/uL (0.0-0.2); Absolute Eosinophil Count 0.06 10^3/uL (0.0-0.7); Absolute Lymphocyte Count 1.36 10^3/uL (1.2-3.4); Absolute Monocyte Count 1.14 10^3/uL (0.1-0.8); Absolute Neutrophil Count 8.41 10^3/uL (1.2-6.7); Basophils % 0.1; Eosinophils % 0.5; HCT 34.8 % (36.0-46.0); HGB 11.3 g/dL (11.2-15.7); Immature Grans % 1.2; Lymphocytes % 12.2; MCH 31.3 pg (27.0-33.0); MCHC 32.5 % (32.0-36.0); MCV 96 fL (80-95); MPV 9.3 fL (8.0-11.0); Monocytes % 10.3; Neutrophils % 75.7; Platelet Count 337 10^3/uL (130-400); RBC 3.61 10^6/uL (3.93-5.22); RDW 12.6 % (11.7-14.6); WBC 11.11 10^3/uL (4.4-10.8)
[2022-08-14 08:09] LABS: INR 1.1 (0.9-1.1); Prothrombin Time 11.4 sec (9.3-11.0)
[2022-08-14 08:15] LABS: ALT 45 U/L (14-59); AST 35 U/L (15-37); Albumin 2.8 g/dL (3.4-5.0); Alkaline Phosphatase 71 U/L (46-116); Anion Gap 3.7 mmol/L (3-11); BUN 17 mg/dL (7-18); Bilirubin, Direct 0.1 mg/dL (0.0-0.2); Bilirubin, Total 0.2 mg/dL (0.2-1.0); C-Reactive Protein 0.45 mg/dL (0.0-0.3); CO2 32.3 mmol/L (21.0-32.0); CREATININE 0.7 mg/dL (0.55-1.02); Calcium 8.6 mg/dL (8.5-10.1); Chloride 103 mmol/L (98-107); Estimated GFR 93.56 (mL/min/1.73m2); Glucose 101 mg/dL (74-106); Magnesium 2.2 mg/dL (1.8-2.4); Potassium 4.2 mmol/L (3.5-5.1); Sodium 139 mmol/L (136-145); Total Protein 6.2 g/dL (6.4-8.2)
[2022-08-14 08:29] LABS: D-Dimer 537 ng/mlFEU (<500)
[2022-08-14] MEDS: Ipratropium/Albuterol 4 GM 120 PUFF INH IH ×4 (08:36→20:36)
[2022-08-14] MEDS: Mometasone 220 MCG 14 DOSE INHALER 1 PUFF IH (08:37)
[2022-08-14] MEDS: Vitamin E 400 UNITS CAP PO (08:46)
[2022-08-14] MEDS: Ascorbic Acid 500 MG TAB 1000 MG PO ×2 (08:46→21:30)
[2022-08-14] MEDS: guaiFENesin 600 MG TABCR PO (08:46)
[2022-08-14] MEDS: Benzonatate 100 MG CAP PO ×3 (08:46→21:31)
[2022-08-14] MEDS: Dexamethasone 4 MG TAB 6 MG PO (08:47)
[2022-08-14] MEDS: Zinc Sulfate 220 MG TAB PO (08:47)
[2022-08-14] MEDS: Cholecalciferol (Vitamin D3) 1,000 UNIT TAB 2000 UNITS PO (08:47)
[2022-08-14] MEDS: Potassium Chloride 10 MEQ TABCR PO ×2 (08:47→21:29)
[2022-08-14] MEDS: Azithromycin 250 MG TAB PO (08:47)
[2022-08-14] MEDS: Multivitamin TAB 1 TAB PO (08:47)
[2022-08-14] MEDS: Enoxaparin 80 MG/0.8 ML SYR 70 MG SC ×2 (08:49→21:26)
--- NOTE | 2022-08-14 13:10 | PT.INTREAT ---
PT Notes Visit Reasons: COVID19,Acute on Chronic Hypoxic Respitory Failure Inpatient Physical Therapy Treatment Note [facility] Date:08/14/22 SUBJECTIVE:Jillian states that she is hoping to go home soon. States that she is willing to work with PT, however is not willing to sit in recliner. She felt like she was in recliner to long yesterday. OBJECTIVE: [] BED MOBILITY/TRANSFERS Rolling L/R: SBA Supine-sit: SBA Sit-supine:SBA Sit-stand: CGA Stand-sit: SBA Bed-Chair: CGA Chair-bed: CGA Jillian refused to ambulate. Stated that she was willing to transfer to recliner to perform her exercise routine, then back to bed. THEREX: global strengthening of U/LE. rows, trunk rotation, scap retraction, LAQ, hip flex, abd/add and ankle circles. ASSESSMENT: tolerated session well. 4-5L of O2. Required coaching for proper breathing techniques as she tends to hold her breath/ mouth breath during her ex. O2 sats btwn 83%-95% during ex PLAN: will continue to progress her strength, and endurance with walking to tolerance following PT POC. TREATMENT CODE/TIME: 20 min [id number]
[2022-08-14] MEDS: Acetaminophen 325 MG TAB PO (16:10)
[2022-08-14] MEDS: Normal Saline Flush 10 ML SYR IVP ×2 (16:11→21:29)
[2022-08-14] MEDS: REMDESIVIR 100 MG in Normal Saline 250 ML 250 MG IVPB (16:31)
--- NOTE | 2022-08-14 20:53 | W.PM.PROGNOT ---
Date of Service Date of service: 08/14/22 Time of Service: 20:53 Assessment and Plan Assessment and plan (1) Pneumonia due to COVID-19 virus: Status: Acute Assessment and plan: Improving. Continue remdesivir, dexamethasone. Encourage IS, acapella. Supplement Vitamin C, D, zinc. Procalcitonin negative- no role for abx, but will recheck it tomorrow. The patient is on chronic azithromycin. Last dose of rituximab was 6 months ago. Continue to hold mycophenolate. Continue working with PT. 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 Seen by pulmonology. Hold immunosuppresive therapy (4) Hypokalemia: Status: Resolved Assessment and plan: Recheck in am. (5) DVT prophylaxis: Status: Acute Assessment and plan: SC enoxaparin (therapeutic, but consider prophylactic dose) (6) Discharge planning issues: Status: Acute Assessment and plan: Full code PT consulted and recommends SNF on d/c. Subjective Subjective Interval history since last seen: I'm feeling better! I have a little bit more energy. I can't walk by myself, but i can walk when I hold on to things. Breathing has been ok. It gets worse when I get up - much worse. I have been coughing. Nothing is coming up, but I know I am crackly. I get white stuff, sometimes a very touch of yellow. Has been using Acapella and IS. I don't want to be here in here. I want to go home. No diarrhea, nausea, No headache today, no CP, no pain in the muscles. Our visit today was over the telephone due to Jillian's stability and her diagnosis of COVID-19. Requiring 2L at rest and 5 L of O2 with activity. Exam Narrative Exam Narrative: General: Pleasant anxious middle-aged female, observed on the camera and visited over the phone. A&Ox3; anxious, speaking in full sentences, no evidence of dyspnea/tachypnea/cyanosis on the camera, resting comfortably in bed. Objective Last Vital Signs Temp 37.8 C H 08/14/22 14:24 Pulse 80 08/14/22 15:00 Resp 25 H 08/14/22 14:24 BP 133/58 L 08/14/22 14:24 Pulse Ox 93 08/14/22 14:24 Laboratory Results - last 24 hr 08/14/22 08/14/22 08/14/22 07:05 07:05 07:05 WBC 11.11 H RBC 3.61 L Hgb 11.3 Hct 34.8 L MCV 96 H MCH 31.3 MCHC 32.5 RDW 12.6 Plt Count 337 MPV 9.3 Immature Gran % 1.2 Neutrophils % 75.7 Lymphocytes % 12.2 Monocytes % 10.3 Eosinophils % 0.5 Basophils % 0.1 Nucleated RBC % 0.0 Absolute Neutrophils 8.41 H Absolute Lymphocytes 1.36 Absolute Monocytes 1.14 H Absolute Eosinophils 0.06 Absolute Basophils 0.01 PT 11.4 H INR 1.1 D-Dimer 537 H Sodium 139 Potassium 4.2 Chloride 103 Carbon Dioxide 32.3 H Anion Gap 3.7 BUN 17 Creatinine 0.7 Est GFR (CKD-EPI 2020) 93.56 Glucose 101 Calcium 8.6 Magnesium 2.2 Total Bilirubin 0.2 Conjugated Bilirubin 0.1 AST 35 ALT 45 Alkaline Phosphatase 71 C-Reactive Protein 0.45 H Total Protein 6.2 L Albumin 2.8 L
[2022-08-14] MEDS: Famotidine 20 MG TAB PO (21:29)
[2022-08-14] MEDS: Docusate Sodium 100 MG CAP PO (21:31)
[2022-08-14] MEDS: Melatonin 3 MG TAB PO (21:31)
[2022-08-15] VITALS (11 sets, daily range): BP systolic 107–127; BP diastolic 69–89; PULSE 63–85; RESP 20–28; TEMP 36.5–37.8; O2SAT 95–98
[2022-08-15 07:42] LABS: Abs Immature Grans 0.18 10^3/uL (0.0-0.06); Absolute Basophil Count 0.02 10^3/uL (0.0-0.2); Absolute Eosinophil Count 0.06 10^3/uL (0.0-0.7); Absolute Monocyte Count 1.18 10^3/uL (0.1-0.8); Absolute Neutrophil Count 7.67 10^3/uL (1.2-6.7); Basophils % 0.2; Eosinophils % 0.6; HCT 36.2 % (36.0-46.0); HGB 11.6 g/dL (11.2-15.7); Immature Grans % 1.7; Lymphocytes % 12.5; MCH 31.1 pg (27.0-33.0); MCV 97 fL (80-95); MPV 9.2 fL (8.0-11.0); Monocytes % 11.3; Neutrophils % 73.7; Platelet Count 344 10^3/uL (130-400); RBC 3.73 10^6/uL (3.93-5.22); RDW 12.6 % (11.7-14.6); RDW-SD 43.9 fL; WBC 10.41 10^3/uL (4.4-10.8)
[2022-08-15 07:52] LABS: INR 1.1 (0.9-1.1); Prothrombin Time 11.4 sec (9.3-11.0)
[2022-08-15] MEDS: Ipratropium/Albuterol 4 GM 120 PUFF INH IH ×4 (08:00→20:06)
[2022-08-15] MEDS: Mometasone 220 MCG 14 DOSE INHALER 1 PUFF IH (08:00)
[2022-08-15 08:25] LABS: ALT 52 U/L (14-59); AST 27 U/L (15-37); Albumin 2.9 g/dL (3.4-5.0); Alkaline Phosphatase 70 U/L (46-116); Anion Gap 6.1 mmol/L (3-11); BUN 17 mg/dL (7-18); Bilirubin, Direct 0.1 mg/dL (0.0-0.2); Bilirubin, Total 0.3 mg/dL (0.2-1.0); CO2 31.9 mmol/L (21.0-32.0); CREATININE 0.6 mg/dL (0.55-1.02); Calcium 8.9 mg/dL (8.5-10.1); Chloride 101 mmol/L (98-107); Glucose 101 mg/dL (74-106); Magnesium 2.4 mg/dL (1.8-2.4); Potassium 4.3 mmol/L (3.5-5.1); Sodium 139 mmol/L (136-145); Total Protein 6.4 g/dL (6.4-8.2)
[2022-08-15 08:36] LABS: D-Dimer 372 ng/mlFEU (<500)
[2022-08-15 08:37] LABS: Procalcitonin < 0.1 ng/mL
[2022-08-15] MEDS: Enoxaparin 80 MG/0.8 ML SYR 70 MG SC ×2 (09:17→20:12)
[2022-08-15] MEDS: Polyethylene Glycol 3350 17 GM PACKET PO (09:17)
[2022-08-15] MEDS: Cholecalciferol (Vitamin D3) 1,000 UNIT TAB 2000 UNITS PO (09:17)
[2022-08-15] MEDS: guaiFENesin 600 MG TABCR 1200 MG PO ×2 (09:18→20:11)
[2022-08-15] MEDS: Vitamin E 400 UNITS CAP PO (09:18)
[2022-08-15] MEDS: Zinc Sulfate 220 MG TAB PO (09:18)
[2022-08-15] MEDS: Dexamethasone 4 MG TAB 6 MG PO (09:18)
[2022-08-15] MEDS: Ascorbic Acid 500 MG TAB 1000 MG PO ×2 (09:18→20:10)
[2022-08-15] MEDS: Azithromycin 250 MG TAB PO (09:18)
[2022-08-15] MEDS: Benzonatate 100 MG CAP PO ×3 (09:19→20:10)
[2022-08-15] MEDS: Potassium Chloride 10 MEQ TABCR PO ×2 (09:19→20:10)
[2022-08-15] MEDS: Multivitamin TAB 1 TAB PO (09:19)
[2022-08-15] MEDS: Docusate Sodium 100 MG CAP PO ×2 (09:19→20:10)
--- NOTE | 2022-08-15 11:53 | PT.INTREAT ---
PT Notes Visit Reasons: COVID19,Acute on Chronic Hypoxic Respitory Failure Inpatient Physical Therapy Treatment Note [facility] Date: 08/15/22 SUBJECTIVE: Jillian refuses to wear mask stating that the nasal canula works better for her. She would like to pass on her exercises with me today, stating that she has done them t/o the day. She would like to focus on walking. OBJECTIVE: [] BED MOBILITY/TRANSFERS Supine-sit: SBA Sit-supine: SBA Sit-stand: SBA Stand-sit: SBA Bed-Commode: CGA Commode-bed: CGA GAIT Assistive Device:FWW Weight bearing: FWB Assist: CGA Distance: 30' in room Deviation: 4L O2, step to gait pattern,cues for proper breathing techniques to avoid desat as well as controlling her anxiety VITALS: 96% to begin session, dropped to 81% and back to 95% with proper breathing techniques. THEREX: I Toileted with assistance to commode. ASSESSMENT: tolerated session well. Encouraged her to walk more to increase her endurance. She tries to be independent PLAN: will continue to work on her endurance to tolerance following PT POC. TREATMENT CODE/TIME: 25 min [id number]
[2022-08-15] MEDS: Acetaminophen 325 MG TAB PO (13:08)
--- NOTE | 2022-08-15 16:18 | W.PM.PROGNOT ---
Date of Service Date of service: 08/15/22 Time of Service: 16:18 Assessment and Plan Assessment and plan (1) Pneumonia due to COVID-19 virus: Status: Acute Assessment and plan: Improving. Now back to her baseline supplemental O2 need of 2L per NC. Continue remdesivir, dexamethasone. Encourage IS, acapella. Supplement Vitamin C, D, zinc. Procalcitonin negative x 2. no role for abx The patient is on chronic azithromycin. Last dose of rituximab was 6 months ago. Continue to hold mycophenolate. Continue working with PT. 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 Seen by pulmonology. Hold immunosuppresive therapy (4) Hypokalemia: Status: Resolved Assessment and plan: Now normalized. (5) DVT prophylaxis: Status: Acute Assessment and plan: SC enoxaparin (therapeutic because of Covid recommendations, but consider prophylactic dose) (6) Discharge planning issues: Status: Acute Assessment and plan: Full code PT consulted and recommends SNF on d/c. Subjective Subjective Patient reports: tolerating a regular diet and afebrile; denies nausea or vomiting Interval history since last seen: She describes the need to hold on to stationary objects while ambulating d/t leg weakness. She does endorse some generalized achiness of legs that she feels is d/t being more mobile the last day or 2. Exam Narrative Exam Narrative: General: Pleasant anxious middle-aged female. HEENT: sclera clear. Lungs: clear anteriorly. Mild increased WOB when conversing. CV. RRR. + murmur Exts: No edema or calf tenderness. Psych: A&O x 3. Affect is anxious. Objective Last Vital Signs Temp 37.4 C 08/15/22 15:11 Pulse 78 08/15/22 15:11 Resp 20 08/15/22 15:11 BP 107/69 08/15/22 15:11 Pulse Ox 98 08/15/22 15:11 Laboratory Results - last 24 hr 08/15/22 08/15/22 08/15/22 07:00 07:00 07:00 WBC 10.41 RBC 3.73 L Hgb 11.6 Hct 36.2 MCV 97 H MCH 31.1 MCHC 32.0 RDW 12.6 Plt Count 344 MPV 9.2 Immature Gran % 1.7 Neutrophils % 73.7 Lymphocytes % 12.5 Monocytes % 11.3 Eosinophils % 0.6 Basophils % 0.2 Nucleated RBC % 0.0 Absolute Neutrophils 7.67 H Absolute Lymphocytes 1.30 Absolute Monocytes 1.18 H Absolute Eosinophils 0.06 Absolute Basophils 0.02 PT INR D-Dimer Sodium 139 Potassium 4.3 Chloride 101 Carbon Dioxide 31.9 Anion Gap 6.1 BUN 17 Creatinine 0.6 Est GFR (CKD-EPI 2020) 97.10 Glucose 101 Calcium 8.9 Magnesium 2.4 Total Bilirubin 0.3 Conjugated Bilirubin 0.1 AST 27 ALT 52 Alkaline Phosphatase 70 C-Reactive Protein 0.60 H Total Protein 6.4 Albumin 2.9 L Procalcitonin < 0.1 08/15/22 07:00 WBC RBC Hgb Hct MCV MCH MCHC RDW Plt Count MPV Immature Gran % Neutrophils % Lymphocytes % Monocytes % Eosinophils % Basophils % Nucleated RBC % Absolute Neutrophils Absolute Lymphocytes Absolute Monocytes Absolute Eosinophils Absolute Basophils PT 11.4 H INR 1.1 D-Dimer 372 Sodium Potassium Chloride Carbon Dioxide Anion Gap BUN Creatinine Est GFR (CKD-EPI 2020) Glucose Calcium Magnesium Total Bilirubin Conjugated Bilirubin AST ALT Alkaline Phosphatase C-Reactive Protein Total Protein Albumin Procalcitonin
[2022-08-15] MEDS: Normal Saline Flush 10 ML SYR IVP (17:10)
[2022-08-15] MEDS: REMDESIVIR 100 MG in Normal Saline 250 ML 250 MG IVPB (17:10)
[2022-08-15] MEDS: Melatonin 3 MG TAB PO (21:35)
[2022-08-15] MEDS: Famotidine 20 MG TAB PO (21:35)
[2022-08-16] VITALS (11 sets, daily range): BP systolic 116–145; BP diastolic 60–84; PULSE 65–97; RESP 20–21; TEMP 36.7–37.5; O2SAT 93–100
[2022-08-16] MEDS: Ipratropium/Albuterol 4 GM 120 PUFF INH IH ×4 (07:45→19:43)
[2022-08-16] MEDS: Ascorbic Acid 500 MG TAB 1000 MG PO ×2 (08:59→20:15)
[2022-08-16] MEDS: Benzonatate 100 MG CAP PO ×3 (09:00→20:23)
[2022-08-16] MEDS: Azithromycin 250 MG TAB PO (09:00)
[2022-08-16] MEDS: Vitamin E 400 UNITS CAP PO (09:00)
[2022-08-16] MEDS: Cholecalciferol (Vitamin D3) 1,000 UNIT TAB 2000 UNITS PO (09:00)
[2022-08-16] MEDS: Enoxaparin 80 MG/0.8 ML SYR 70 MG SC (09:01)
[2022-08-16] MEDS: Dexamethasone 4 MG TAB 6 MG PO (09:01)
[2022-08-16] MEDS: guaiFENesin 600 MG TABCR 1200 MG PO ×2 (09:02→20:23)
[2022-08-16] MEDS: Zinc Sulfate 220 MG TAB PO (09:03)
[2022-08-16] MEDS: Potassium Chloride 10 MEQ TABCR PO ×2 (09:03→20:23)
[2022-08-16] MEDS: Multivitamin TAB 1 TAB PO (09:03)
--- NOTE | 2022-08-16 09:58 | CMPROGNOTE_ITS ---
- If Service Date Differs Date of service: 08/16/22 Time of Service: 09:58 Care Management Progress Note S/O: Jillian is on covid precautions and is being closely monitored and treated with Remdisivir. Per nursing, Jillian requires additional workup and neuro assessments per fall protocol, after she was found patient crawling on her floor. CM sent referrals to [facility] and [facility], at her request. CM discussed the limitations to her going to a local rehab, due to limited bed availability. She stated that she would rather go home than go to a facility out of town. Per [facility], the earliest they would be able to accept her is day 11 following the initial positive test. CM will continue to follow. A: Jillian is a 67 year old female admitted to [facility] on 08/10/22 for Covid 19, acute on chronic resp failure. P: Jillian is being closely monitored and treated for Covid. She will likely ret urn home with new services vs SNF for short term rehab, and her transportation will be determined by her disposition. She will follow up with her PCP and discharge plan of care. CM will continue to follow.
[2022-08-16] MEDS: Mometasone 220 MCG 14 DOSE INHALER 1 PUFF IH (09:59)
[2022-08-16] MEDS: LORazepam 0.5 MG TAB 0.25 MG PO (12:16)
--- NOTE | 2022-08-16 12:55 | DI.CT_ITS ---
Exam(s) CT HEAD WO EXAM: CT HEAD WO CLINICAL HISTORY: Fall/struck head. TECHNIQUE: Imaging Protocol: Axial computed tomography images with coronal and sagittal reformatted images were created and reviewed COMPARISON: CT HEAD WITHOUT CONTRAST from 09/02/2016 FINDINGS: Ventricles and Extra axial spaces: Normal in size and morphology for the patient's age. Hemorrhage: None. Cerebral parenchyma: Normal. Midline shift: None. Brainstem/Cerebellum: Normal. Calvarium: Normal. Visualized Paranasal sinuses/Mastoids: Near complete opacification of the right maxillary sinus as we ll as several ethmoid sinuses Soft Tissues: Unremarkable. IMPRESSION: No acute intracranial process. Right maxillary and ethmoid sinus disease. RADIATION DOSE DELIVERED: 664.93mGy.cm Total DLP DATA REPOSITORY: All CT scans at this facility are submitted to the National Radiology Data Registry (NRDR) Dose Index Registry (DIR) with the [employer] ([employer]). RADIATION OPTIMIZATION: All CT scans at this facility use at least one of these dose optimization te chniques: automated exposure control; mA and/or kV adjustment per patient size (includes targeted exa ms where dose is matched to clinical indication); or iterative reconstruction.
--- NOTE | 2022-08-16 15:43 | PT.INTREAT ---
Date of service: 08/16/22 Time of Service: 13:27 PT Notes Visit Reasons: COVID19,Acute on Chronic Hypoxic Respitory Failure Inpatient Physical Therapy Treatment Note [facility] Date: 08/15/2022 PRECAUTIONS: Fall, activity as tolerated, Covid-19 SUBJECTIVE: Jillian repeatedly states throughout session I want to go home, I want to go home. She reports that her B UE are weak, which is reportedly not her baseline. She also states that she feels very uncomfortable in the recliner chair in her room, and would rather rest in her bed. She reports that the nasal cannula works better for her than the oxymask. OBJECTIVE: Pain: No c/o pain BED MOBILITY/TRANSFERS Supine-sit: SBA Sit-supine: SBA Sit-stand: SBA Stand-sit: SBA GAIT Assistive Device: FWW No AD Weight bearing: Full Assist: SBA with FWW CGA without AD Distance: 30' x2 with FWW 5 steps F/B without AD Deviation: 4L O2, several standing rests throughout, seated rest x1, SOB, cueing for proper breathing techniques VITALS: SaO2: 96% on 2L O2 at rest; 96-97% on 4L O2 with gait training THEREX: Patient was instructed in a LE strengthening program ,completed in a long-sitting position, to include: heel slides and SLR. ASSESSMENT: Patient tolerated a progression in gait training, demonstrating SOB and increased fatigued. Patient continues to demonstrate limited activity tolerance and continues to demonstrate poor breathing techniques, likely due to anxiety. PLAN: Continue with gait training and general conditioning for improved activity tolerance. TREATMENT CODE/TIME: 38 minutes; 36855 x3 (13:27)
[2022-08-16] MEDS: REMDESIVIR 100 MG in Normal Saline 250 ML 250 MG IVPB (16:23)
[2022-08-16] MEDS: Normal Saline Flush 10 ML SYR IVP (16:28)
--- NOTE | 2022-08-16 16:49 | W.PM.PROGNOT ---
Date of Service Date of service: 08/16/22 Time of Service: 16:49 Assessment and Plan Assessment and plan (1) Pneumonia due to COVID-19 virus: Status: Acute Assessment and plan: Improving. Now back to her baseline supplemental O2 need of 2L per NC. Continue remdesivir. Start tapering dexamethasone. Encourage IS, acapella. Supplement Vitamin C, D, zinc. Procalcitonin negative x 2. no role for abx The patient is on chronic azithromycin. Last dose of rituximab was 6 months ago. Continue to hold mycophenolate. Continue working with PT. 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 Seen by pulmonology. Hold immunosuppresive therapy (4) Hypokalemia: Status: Resolved Assessment and plan: Now normalized. (5) DVT prophylaxis: Status: Acute Assessment and plan: SC enoxaparin (therapeutic because of Covid recommendations, but consider prophylactic dose) (6) Discharge planning issues: Status: Acute Assessment and plan: Full code PT consulted and recommends SNF on d/c. (7) Fall: Status: Acute Assessment and plan: No sequelae. CT head negative for acute findings other than sinusitis. Subjective Subjective Patient reports: shortness of breath and afebrile; denies nausea or vomiting Interval history since last seen: Pt was noted crawling on floor on monitor. Nurse went to room and patient stated she slid to the floor from the chair. Concerned about striking head; pt stated she did not but had a red area on the forehead. She denied syncope. No telemetry finding of arrhythmia. Denies ENCINAS Still feels some generlaized weakness beyond baseline, but better. Exam Narrative Exam Narrative: General: Pleasant anxious middle-aged female. Sitting up in bed. HEENT: sclera clear. Pupils equal. Skin: No ecchymoses or swelling on forehead. Lungs: clear anteriorly. Mild increased WOB when conversing. CV. RRR. + murmur Exts: No edema or calf tenderness. Neuro: no focal motor deficits. Cognition normal. Psych: A&O x 3. Affect is anxious. Objective Last Vital Signs Temp 37.5 C 08/16/22 15:03 Pulse 97 H 08/16/22 16:01 Resp 20 08/16/22 15:03 BP 145/60 H 08/16/22 15:03 Pulse Ox 97 08/16/22 16:01
[2022-08-16] MEDS: Docusate Sodium 100 MG CAP PO (20:23)
[2022-08-16] MEDS: Famotidine 20 MG TAB PO (22:06)
[2022-08-16] MEDS: Melatonin 3 MG TAB PO (22:06)
[2022-08-17 02:11] VITALS: BP 112/73; PULSE 72; RESP 18; TEMP 36.7; O2SAT 97
[2022-08-17 06:19] VITALS: BP 115/79; PULSE 68; RESP 18; TEMP 36.7; O2SAT 98
[2022-08-17] MEDS: Ascorbic Acid 500 MG TAB 1000 MG PO ×2 (07:53→20:46)
[2022-08-17] MEDS: Cholecalciferol (Vitamin D3) 1,000 UNIT TAB 2000 UNITS PO (07:54)
[2022-08-17] MEDS: Benzonatate 100 MG CAP PO ×3 (07:54→20:46)
[2022-08-17] MEDS: Azithromycin 250 MG TAB PO (07:54)
[2022-08-17] MEDS: Enoxaparin 80 MG/0.8 ML SYR 70 MG SC ×2 (07:55→21:55)
[2022-08-17] MEDS: Docusate Sodium 100 MG CAP PO ×2 (07:55→20:46)
[2022-08-17] MEDS: guaiFENesin 600 MG TABCR 1200 MG PO ×2 (07:56→20:46)
[2022-08-17] MEDS: Multivitamin TAB 1 TAB PO (07:56)
[2022-08-17] MEDS: Potassium Chloride 10 MEQ TABCR PO ×2 (07:57→20:46)
[2022-08-17] MEDS: Vitamin E 400 UNITS CAP PO (07:57)
[2022-08-17] MEDS: Zinc Sulfate 220 MG TAB PO (07:57)
[2022-08-17] MEDS: Ipratropium/Albuterol 4 GM 120 PUFF INH IH ×4 (08:04→19:47)
[2022-08-17] MEDS: Mometasone 220 MCG 14 DOSE INHALER 1 PUFF IH (08:04)
[2022-08-17] MEDS: Dexamethasone 4 MG TAB PO (10:00)
--- NOTE | 2022-08-17 10:36 | CMPROGNOTE_ITS ---
- If Service Date Differs Date of service: 08/17/22 Time of Service: 10:36 Care Management Progress Note S/O: CM spoke to Jillian over the phone today. She stated that she has decided that she wants to return home once she is able to. Per MD, she is not yet medically cleared, and per PT, she is not safe to be at home at this time. Jillian stated that she is very motivated to return home, and she has many friends who will support her at home. She lives with her sister, who is out of town until the beginning of August. Her sister is very supportive, and would assist her with her needs, per Jillian. She is not being considered at SNF currently due to her Covid diagnosis, although referrals have been sent. CM will continue to follow. A: Jillian is a 67 year old female admitted to [facility] on 08/10/22 for Covid 19, acute on chronic resp failure. P: Jillian is being closely monitored and treated for Covid. She will likely return home with new services vs SNF for short term rehab, and her transportation will be determined by her disposition. She will follow up with her PCP and discharge plan of care. CM will continue to follow.
[2022-08-17 11:55] VITALS: BP 113/77; PULSE 81; RESP 21; TEMP 36.9; O2SAT 98
--- NOTE | 2022-08-17 15:41 | PT.INTREAT ---
Date of service: 08/17/22 Time of Service: 14:15 PT Notes Visit Reasons: COVID19,Acute on Chronic Hypoxic Respitory Failure Inpatient Physical Therapy Treatment Note [facility] Date: 08/17/2022 PRECAUTIONS: Fall, activity as tolerated, Covid-19 SUBJECTIVE: Jillian states that she is feeling very weak today and that she is not feeling well today. She reports that she wants to go home and repeatedly states I've never been so sick in my life. She agrees that she will likely need rehab prior to returning to home. OBJECTIVE: Pain: No c/o pain BED MOBILITY/TRANSFERS Supine-sit: SBA Sit-supine: SBA Sit-stand: SBA Stand-sit: SBA GAIT Assistive Device: FWW Weight bearing: Full Assist: CGA Distance: 30' x2 Deviation: 4L O2, several standing rests throughout, seated rest x1, SOB, cueing for proper breathing techniques VITALS: SaO2: 98% on 2L O2 at rest; 93-96% on 4L O2 with gait training THEREX: Patient completes independently ASSESSMENT: Patient continues to demonstrate limited activity tolerance and continues to demonstrate poor breathing techniques, likely due to anxiety. She continues to present as a fall risk, demonstrating slow pacing, and leaning on walker with forearms. PLAN: Continue with gait training and general conditioning for improved activity tolerance. TREATMENT CODE/TIME: 25 minutes; 43999 x2 (14:15)
[2022-08-17 15:58] VITALS: BP 113/75; PULSE 77; RESP 21; TEMP 37.2; O2SAT 96
[2022-08-17] MEDS: REMDESIVIR 100 MG in Normal Saline 250 ML 250 MG IVPB (16:50)
[2022-08-17] MEDS: Normal Saline Flush 10 ML SYR IVP (16:50)
--- NOTE | 2022-08-17 18:06 | W.PM.PROGNOT ---
Date of Service Date of service: 08/17/22 Time of Service: 18:07 Assessment and Plan Assessment and plan (1) Pneumonia due to COVID-19 virus: Status: Acute Assessment and plan: Improving. Now back to her baseline supplemental O2 need of 2L per NC. Continue remdesivir. Start tapering dexamethasone. Encourage IS, acapella. Supplement Vitamin C, D, zinc. Procalcitonin negative x 2. no role for abx The patient is on chronic azithromycin. Last dose of rituximab was 6 months ago. Continue to hold mycophenolate. Continue working with PT. 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 Seen by pulmonology. Hold immunosuppresive therapy (4) Hypokalemia: Status: Resolved Assessment and plan: Now normalized. (5) DVT prophylaxis: Status: Acute Assessment and plan: SC enoxaparin (therapeutic because of Covid recommendations, but consider prophylactic dose) (6) Discharge planning issues: Status: Acute Assessment and plan: Full code PT consulted and recommends SNF on d/c. Pt is adamant that she will go home and not to a SNF. (7) Fall: Status: Acute Assessment and plan: No sequelae. CT head negative for acute findings other than sinusitis. Subjective Subjective Patient reports: no new complaints, feels better, tolerating a regular diet and afebrile; denies nausea or vomiting Interval history since last seen: Still feels weak and unsteady when ambulating. Exam Narrative Exam Narrative: Observed on camera and spoke on phone. Gen: Anxious sounding. Pleasant. Oriented x 3. Sitting up in bed. Objective Last Vital Signs Temp 37.2 C 08/17/22 15:58 Pulse 77 08/17/22 15:58 Resp 21 08/17/22 15:58 BP 113/75 08/17/22 15:58 Pulse Ox 96 08/17/22 15:58
[2022-08-17 20:55] VITALS: BP 123/77; PULSE 78; RESP 20; TEMP 36.6; O2SAT 97
[2022-08-17] MEDS: Melatonin 3 MG TAB PO (21:55)
[2022-08-17] MEDS: Famotidine 20 MG TAB PO (21:55)
[2022-08-18] VITALS (8 sets, daily range): BP systolic 109–131; BP diastolic 69–87; PULSE 67–96; RESP 18–22; TEMP 36.4–37.2; O2SAT 95–98
[2022-08-18 07:36] LABS: HCT 36.1 % (36.0-46.0); HGB 11.7 g/dL (11.2-15.7); MCHC 32.4 % (32.0-36.0); MCV 96 fL (80-95); MPV 9.1 fL (8.0-11.0); Platelet Count 357 10^3/uL (130-400); RBC 3.77 10^6/uL (3.93-5.22); RDW-SD 44.9 fL; WBC 12.03 10^3/uL (4.4-10.8)
[2022-08-18] MEDS: Ipratropium/Albuterol 4 GM 120 PUFF INH IH ×4 (07:51→19:59)
[2022-08-18] MEDS: Mometasone 220 MCG 14 DOSE INHALER 1 PUFF IH (07:51)
[2022-08-18] MEDS: Potassium Chloride 10 MEQ TABCR PO ×2 (08:34→19:59)
[2022-08-18] MEDS: Zinc Sulfate 220 MG TAB PO (08:34)
[2022-08-18] MEDS: Multivitamin TAB 1 TAB PO (08:34)
[2022-08-18] MEDS: Vitamin E 400 UNITS CAP PO (08:34)
[2022-08-18] MEDS: guaiFENesin 600 MG TABCR 1200 MG PO ×2 (08:34→19:58)
[2022-08-18] MEDS: Ascorbic Acid 500 MG TAB 1000 MG PO ×2 (08:34→19:59)
[2022-08-18] MEDS: Benzonatate 100 MG CAP PO ×3 (08:34→19:58)
[2022-08-18] MEDS: Dexamethasone 4 MG TAB PO (08:34)
[2022-08-18] MEDS: Azithromycin 250 MG TAB PO (08:34)
[2022-08-18] MEDS: Enoxaparin 80 MG/0.8 ML SYR 70 MG SC ×2 (08:35→19:58)
[2022-08-18] MEDS: Cholecalciferol (Vitamin D3) 1,000 UNIT TAB 2000 UNITS PO (08:35)
--- NOTE | 2022-08-18 10:09 | PDOC.CMPRO ---
- If Service Date Differs Date of service: 08/18/22 Time of Service: 10:09 Care Management Progress Note S/O: CM was unable to reach Jillian by phone today. Per report, Jillian is working hard towards her goal of returning home. PT met with her today and reported that she is now independent in her room with the use of a 4WW. She is still requiring 5LO2 with ambulation, therefore the seat on the 4WW will be helpful for her to rest when needed. CM will continue to follow. A: Jillian is a 67 year old female admitted to [facility] on 08/10/22 for Covid 19, acute on chronic resp failure. P: Jillian is being closely monitored and treated for Covid. She will likely return home with new services vs SNF for short term rehab, and her transportation will be determined by her disposition. She will follow up with her PCP and discharge plan of care. CM will continue to follow.
--- NOTE | 2022-08-18 13:28 | PT.INPN ---
Date of service: 08/18/22 Time of Service: 13:28 PT Notes Visit Reasons: COVID19,Acute on Chronic Hypoxic Respitory Failure Inpatient Physical Therapy Discharge Summary Date: 08/18/2022 Dates of Service: 08/11/2022 through 08/18/2022 Referring Doctor:Kalina Landin MD PT Orders: PT CONSULT: Limited ability Precautions: Fall.? Activity as tolerated.? Airborne precautions for COVID-19 infection. Patient Profile/Admitting Diagnosis:? Jillian is a 67-year-old female with past medical history significant for interstitial lung disease,? currently on a wait list for a lung transplant, who presented to the ED on 08/10/2022 due to increasing shortness of breath and weakness.? Patient was diagnosed with pneumonia due to COVID-19, acute on chronic respiratory failure with hypoxia, and hypokalemia.? PMHX: All Active Problems?(Updated 08/10/22 @ 18:36 by Rebekah Landin MD) Discharge planning issues (Acute) DVT prophylaxis (Acute) Hypokalemia (Acute) Acute on chronic respiratory failure with hypoxia (Acute) Pneumonia due to COVID-19 virus (Acute) COVID (Acute) Shortness of breath (Acute) Respiratory failure with hypoxia (Acute) Dermatomyositis (Acute) Rectal polyp (Acute) Pre-transplant evaluation for lung transplant (Acute) Osteoporosis (Chronic) Interstitial lung disease due to connective tissue disease (Chronic) Antisynthetase syndrome (Acute) Microscopic hematuria (Acute) Anxiety (Chronic) Medical History?(Updated 08/10/22 @ 18:36 by Rebekah Landin MD) Dyspareunia Surgical History?(Updated 09/14/19 @ 06:45 by Noelle Lucio) H/O breast biopsy H/O cystoscopy History of elbow surgery R elbow fx Social History/Home Situation: Lives in a private home with three steps to enter.? Sister lives with her and has been a good support however is with umer in [facility] and will not be back until August with patient. ? Independent with ambulation with AD.? Chronincally has been on 3 L of oxygen/minute. Current Functional Limitations: Significant inability to walk due to shortness of breath with oxygen desaturation to below 88% with activity even with oxygen supplementation Equipment Owned/DME: 4WW,? oxygen supplementation of 2-3 L/min Subjective:? Much improved activity tolerance. Agreeable to PT for home safety check and functional mobility training. Objective:? General Observation: Seated on chair.? Appears anxious.? Oxygen supplementation in place.? Telemetry monitoring in place.? Mental Status: Alert and oriented x 4 Pain: Denies chest pain Vital Signs: Oxygen saturation at 4 L with ambulation with saturation levels staying at above 90% ROM: Right Upper Extremity: ? Shoulder Flexion WFL. Shoulder abduction WFL. Elbow flexion WFL. Wrist flexion WFL. Functional opening and closing of hand WFL. Left Upper Extremity:? Shoulder Flexion WFL. Shoulder abduction WFL. Elbow flexion WFL. Wrist flexion WFL. Functional opening and closing of hand WFL. Right Lower Extremity: Hip flexion WFL. Hip abduction WFL. Knee flexion WFL. Ankle dorsiflexion WFL. Ankle plantarflexion WFL. Left Lower Extremity: Hip flexion WFL. Hip abduction WFL. Knee flexion WFL. Ankle dorsiflexion WFL. Ankle plantarflexion WFL. Strength: Right Upper Extremity: Shoulder flexors 4-/5. Shoulder abductors 4-/5. Elbow flexors 4-/5. Elbow extensors 4-/5. Interface Designer strong. Left Upper Extremity: Shoulder flexors 4-/5. Shoulder abductors 4-/5. Elbow flexors 4-/5. Elbow extensors 4-/5. Interface Designer strong. Right Lower Extremity: Hip flexors 4-/5. Hip abductors 4-/5. Knee flexors 4-/5. Knee extensors 4-/5. Ankle dorsiflexors 4-/5. Ankle plantarflexors 4-/5. Left Lower Extremity: Hip flexors 4-/5. Hip abductors 4-/5. Knee flexors 4-/5. Knee extensors 4-/5. Ankle dorsiflexors 4-/5. Ankle plantarflexors 4-/5. Sensation:? Intact as to pain and light pressure in B LE. BED MOBILITY/TRANSFERS? Supine-sit: Independent ? Sit-supine: Independent ? Sit-stand: Independent ? Stand-sit: Independent ? GAIT? Assistive Device: FWW ? Weight bearing: Full Assist: Independent ? Distance:? 100 feet ? Deviation: 4L O2via NC? Balance:? Static Sitting: Normal Dynamic Sitting: Normal Static Standing: Fair Dynamic Standing: Fair Special Tests: Mobility Limitations Standardized Measure [facility] AM-PAC 6 clicks Basic Mobility Inpatient Short Form: Raw Score: 18? CMS Score: 47% deficit ? ? ? Informed Consent/Education:? Patient instructed in purpose of PT consult and plan of care. Assessment: Jillian is a 67-year-old female with past medical history significant for interstitial lung disease,? currently on a wait list for a lung transplant, who presented to the ED on 08/10/2022 due to increasing shortness of breath and weakness.? Patient was diagnosed with pneumonia due to COVID-19, acute on chronic respiratory failure with hypoxia, and hypokalemia.? Patient presents with clinical signs and symptoms consistent with current/admitting diagnoses that have resulted to mobility limitations, gait instability, generalized weakness, and overall ADL decline as demonstrated by the following impairment level findings: 1.? Decreased strength to B UE/LE major muscle groups 2.? Impaired standing balance 3.? Impaired activity tolerance Impairments are contributing to the following functional limitations: 1.? Difficulty with ambulation without assistive device 2.? Increased completion time for mobility ADL performance 3.? Increased risk for falls 4.? Difficulty with managing steps alone safely Goals: Goals X1 week 1. Supine-Sit independent MET 2. Sit-Supine independent MET 3. Sit-Stand independent MET 4. Stand-Sit independent with FWW MET 5. Bed-Chair independent with FWW MET 6. Chair-Bed independent with FWW MET 7. Independent gait on level surface with use of FWW for at least 200 feet without report of pain nor dyspnea NOT MET 8. Independent stair negotiation while holding onto B rails for at least 5 steps without report of pain nor dyspnea NOT MET 9. Independent with home exercise program NOT MET 10. Good static and dynamic standing balance/tolerance NOT MET DISCHARGE RECOMMENDATIONS: [] ? Home with no services [] [X] ? Home with services. Patient will benefit from home health PT services in order to progress mobility level using least restrictive assistive ambulatory device, assess home safety, identify additional equipment needs, and establish a functional maintenance program that will increase ability of patient to remain at home. [] ? Home with outpatient PT [] [] ?SNF for continued rehabilitation [] [] ? [facility] [] [] ? SNF versus LTC based on ability to participate and progress [] TREATMENT CODE/TIME: 55633 x 33 minutes beginning at 13:028 PM. Thank you for the opportunity to participate in the care of this patient. Mariola Hargrove PT, DPT, CLT [facility] [place], [place]
[2022-08-18] MEDS: REMDESIVIR 100 MG in Normal Saline 250 ML 250 MG IVPB (16:09)
--- NOTE | 2022-08-18 19:28 | W.PM.PROGNOT ---
Date of Service Date of service: 08/18/22 Time of Service: 19:28 Assessment and Plan Assessment and plan (1) Pneumonia due to COVID-19 virus: Status: Acute Assessment and plan: Improving. Now back to her baseline supplemental O2 need of 2L per NC. Continue remdesivir. Start tapering dexamethasone. Encourage IS, acapella. Supplement Vitamin C, D, zinc. Procalcitonin negative x 2. no role for abx The patient is on chronic azithromycin. Last dose of rituximab was 6 months ago. Continue to hold mycophenolate. Continue working with PT. 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 Seen by pulmonology. Hold immunosuppresive therapy (4) Hypokalemia: Status: Resolved Assessment and plan: Now normalized. (5) DVT prophylaxis: Status: Acute Assessment and plan: SC enoxaparin (therapeutic because of Covid recommendations, but consider prophylactic dose) (6) Discharge planning issues: Status: Acute Assessment and plan: Full code PT has noted a significant improvement in her mobility and are now stating home with home health services. Pt is adamant that she will go home and not to a SNF. (7) Fall: Status: Acute Assessment and plan: No sequelae. CT head negative for acute findings other than sinusitis. Subjective Subjective Patient reports: no new complaints, tolerating a regular diet and afebrile; denies nausea or vomiting Interval history since last seen: She did well with PT Exam Narrative Exam Narrative: Observed on camera and spoke on phone. Gen: Anxious sounding. Pleasant. Oriented x 3. Sitting up in bed. Objective Last Vital Signs Temp 37.2 C 08/18/22 15:31 Pulse 96 H 08/18/22 15:31 Resp 22 08/18/22 15:31 BP 116/75 08/18/22 15:31 Pulse Ox 96 08/18/22 15:31 Laboratory Results - last 24 hr 08/18/22 07:20 WBC 12.03 H RBC 3.77 L Hgb 11.7 Hct 36.1 MCV 96 H MCH 31.0 MCHC 32.4 RDW 13.0 Plt Count 357 MPV 9.1
[2022-08-18] MEDS: Docusate Sodium 100 MG CAP PO (19:58)
[2022-08-18] MEDS: Famotidine 20 MG TAB PO (22:07)
[2022-08-18] MEDS: Melatonin 3 MG TAB PO (22:07)
[2022-08-19] MEDS: LORazepam 0.5 MG TAB 0.25 MG PO (00:04)
[2022-08-19 02:43] VITALS: BP 132/78; PULSE 75; RESP 19; TEMP 36.5; O2SAT 98
--- NOTE | 2022-08-19 03:41 | NUR.NOTE ---
At 23:50, patient called for assistance as she was having a hard time breathing.upon assessment patient's SPO2 was 98%,patient was saying she was not getting enough air.Patient was asked if she was feeling anxious or fearful. stated to the [employer]ERR[employer]AT LEVERMAN that yes she feels very anxious and she felt like she was going to tonight and will not go to bed or try to fall asleep. When this RN offered ativan, patient got extremely angry and stated that you will not try to knock me out, i want nothing for sleep. This RN advised Patient that the ativan would be more beneficial to help with her anxiety rather than to increase her o2. Patient then took ativan but was adamant that she will not go to bed. She then complained of not having anything to drink for a long time. This RN reminded patient that both [facility] and this designer/writer were in the room several times prior to this and offered not only water but other beverages and snacks which patient refused, stating that she was fine. Patient was reassessed at 1AM stating that she knows that her anxiety was really bad, she feels a lot better but still does not want to sleep and is watching tv.
[2022-08-19 07:18] LABS: Absolute Basophil Count 0.04 10^3/uL (0.0-0.2); Absolute Eosinophil Count 0.24 10^3/uL (0.0-0.7); Absolute Monocyte Count 1.51 10^3/uL (0.1-0.8); Basophils % 0.3; Eosinophils % 1.7; HCT 38.7 % (36.0-46.0); HGB 12.3 g/dL (11.2-15.7); Immature Grans % 1.4; Lymphocytes % 11.2; MCH 31.1 pg (27.0-33.0); MCHC 31.8 % (32.0-36.0); MCV 98 fL (80-95); MPV 9.5 fL (8.0-11.0); Monocytes % 10.9; Neutrophils % 74.5; Platelet Count 351 10^3/uL (130-400); RBC 3.95 10^6/uL (3.93-5.22); RDW 13.2 % (11.7-14.6); RDW-SD 46.3 fL; WBC 13.88 10^3/uL (4.4-10.8)
[2022-08-19 07:26] LABS: Absolute Lymphocyte Count 1.55 10^3/uL (1.2-3.4); Absolute Neutrophil Count 10.34 10^3/uL (1.2-6.7)
[2022-08-19 07:35] LABS: Diff Comment Diff Reviewed; RBC Morphology Normal
[2022-08-19 07:47] LABS: Anion Gap 4.8 mmol/L (3-11); BUN 15 mg/dL (7-18); CO2 31.2 mmol/L (21.0-32.0); CREATININE 0.6 mg/dL (0.55-1.02); Calcium 8.8 mg/dL (8.5-10.1); Chloride 100 mmol/L (98-107); Glucose 87 mg/dL (74-106); Potassium 4.2 mmol/L (3.5-5.1); Sodium 136 mmol/L (136-145)
[2022-08-19] MEDS: Azithromycin 250 MG TAB PO (08:38)
[2022-08-19] MEDS: guaiFENesin 600 MG TABCR 1200 MG PO (08:38)
[2022-08-19] MEDS: Benzonatate 100 MG CAP PO (08:38)
[2022-08-19] MEDS: Dexamethasone 4 MG TAB PO (08:38)
[2022-08-19] MEDS: Potassium Chloride 10 MEQ TABCR PO (08:38)
[2022-08-19] MEDS: Zinc Sulfate 220 MG TAB PO (08:38)
[2022-08-19] MEDS: Docusate Sodium 100 MG CAP PO (08:38)
[2022-08-19] MEDS: Cholecalciferol (Vitamin D3) 1,000 UNIT TAB 2000 UNITS PO (08:38)
[2022-08-19] MEDS: Multivitamin TAB 1 TAB PO (08:38)
[2022-08-19] MEDS: Enoxaparin 80 MG/0.8 ML SYR 70 MG SC (08:38)
[2022-08-19] MEDS: Ascorbic Acid 500 MG TAB 1000 MG PO (08:38)
[2022-08-19] MEDS: Vitamin E 400 UNITS CAP PO (08:38)
[2022-08-19 08:42] VITALS: BP 106/65; PULSE 76; RESP 16; TEMP 37.2; O2SAT 100
[2022-08-19] MEDS: Ipratropium/Albuterol 4 GM 120 PUFF INH IH (09:38)
[2022-08-19] MEDS: Mometasone 220 MCG 14 DOSE INHALER 1 PUFF IH (09:38)
[2022-08-19 09:50] VITALS: O2SAT 97
--- NOTE | 2022-08-19 10:05 | NUR.NOTE ---
Addendum entered by Sheela Marshall 08/19/22 10:19: correction, this fiction writer entered the room at aprox 0950 not 1050. Original Note: Nursing Note: at aprox. 10:50 this fiction writer was called to room 216 on accounts of pt calling state police as well as her friends calling the state police because pt could not breathe. when this fiction writer entered the room, the pt had removed her nasal cannula and it was found to be on the ground, pt also had two home inhalers that she was utilizing, the inhalers were removed from the room, and vitals were taken. pts O2 saturation was 97% on room air. nasal cannula was reapplied for pt comfort and set to 2L.
--- NOTE | 2022-08-19 10:17 | DSE_ITS ---
Date of service: 08/19/22 Time of Service: 10:17 DS: Diagnosis Discharge Diagnosis (1) Pneumonia due to COVID-19 virus: Status: Acute Asessment and Plan: Concerning d/t her underlying pulmonary disease (IDL) and previous Rituximab treatments (last taken 6 months prior to admission). She was on Remdesivir and dexamethasone daily during this hospitalization. Her respiratory status stabilized and she returned to her baseline supplemental O2 need of 2L per NC She will complete a prednisone taper upon discharge. She should wear a mask in public for her own protection from other ciruculating viruses, particularly RSV and Influenza. (2) Acute on chronic respiratory failure with hypoxia: Status: Acute Asessment and Plan: As above. 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 (4) Hypokalemia: Status: Resolved Asessment and Plan: Resolved. (5) Fall: Status: Acute Asessment and Plan: No injury. Discharge Plan Disposition Patient Disposition: Home W/Home Health Services Condition: Improving Discharge Details Reason For Visit: COVID19,Acute on Chronic Hypoxic Respitory Failure Admit Date/Time: 08/10/22 15:27 Admit Provider: Rebekah Landin Attending Provider: Rebekah Landin Primary Care Provider: Stefania Blake [facility] Hospital Course: Ms Stuart is a 67 year old female with PMHx of ILD (being considered for a lung transplant, reportedly), on mycophenolate and rituximab, h/o connective tissue disease, chronic hypoxic respiratory failure on 3L of O2 by NC at home, as well as h/o dermatomyocytis, who presented to [facility] ED today c/o increased shortness of breath and weakness x 8 days. She reports that she has had to put her concentrator from 3L to 4-5L at home. She reports subjective fevers, cough productive of white sputum, a little bit of diarrhea, poor appetite. She does states she has been drinking water and juices. She has had difficulty ambulating in the house. She tested positive for COVID-19 in the ED and is requiring 4L of O2 instead of her usual 3L by NC. She was initiated on dexamethasone, remdesivir, and hospitalist admission was requested. She was also found to be hypokalemic, which has been repleted. SEE DIAGNOSIS PCP follow up in 1-2 weeks. Home Meds and New Rx's Prescriptions: New famotidine 20 mg Tablet 20 mg PO HS Qty: 30 0RF Inhaler, Assist Devices [Pocket Chamber] 1 ea miscellaneous DIRECTED Qty: 0 0RF prednisone 10 mg tablet See Rx Instructions .ROUTE .COMPLEX Qty: 30 0RF Rx Instructions: Start on 08/20/22: 4 daily for 3 days, then 3 daily for 3 days, then 2 daily for 2 days, then 1 daily for 3 days then 1/2 daily for 3 days Continued fluticasone propionate [Flovent HFA] 220 mcg/actuation HFA aerosol inhaler 1 puff inhalation PRN Qty: 12 8RF azithromycin 250 mg tablet 250 mg PO DAILY Qty: 30 8RF Rx Instructions: take daily cholecalciferol (vitamin D3) 400 unit capsule 400 unit PO DAILY vitamin E (dl, acetate) 400 unit capsule 400 unit PO DAILY albuterol sulfate [ProAir HFA] 90 mcg/actuation HFA aerosol inhaler 2 puff IH Q6H PRN multivitamin [Daily Multiple] 1 EACH tablet 1 tab PO DAILY Held Rituxan 10 mg/mL concentrate IV Hold Instructions: Until further discussion with her provider mycophenolate mofetil 500 mg tablet 1,000 mg PO BID Qty: 30 3RF Hold Instructions: Until further notice from her prescriber Label Comments: Pt is out currently. [facility] [place] Discharge Instructions Activity:: Activity as Tolerated Equipment/Supplies:: No Equipment Needed Diet:: Resume usual home diet Discharge Orders Discharge Orders: Discharge Order (Routine); Ordered 08/19/22 Ordered By: Devon Negro DS: Summary Time Spent with Patient providing and/or coordinating discharge services: Greater than 30 minutes Status at Discharge Functional status at discharge: uses cane/walker Overall status at discharge: patient is back to baseline Mental Status: mental status grossly normal Speech and Movement: pressured speech Mood: anxious mood Affect: anxious affect Exam Psych Mental Status: mental status grossly normal Speech and Movement: pressured speech Mood: anxious mood Affect: anxious affect DS: Data Vitals/I&O Vitals and I&O: Vital Signs Temperature 37.2 C 08/19/22 08:42 Temperature Source Tympanic 08/19/22 08:42 Pulse 76 08/19/22 08:42 Pulse Rhythm Regular 08/19/22 03:10 Pulse 86 08/10/22 17:20 Respiratory Rate 16 08/19/22 08:42 Respiratory Effort Non-Labored 08/19/22 03:10 Respiratory Depth Normal 08/19/22 03:10 Respiratory Pattern Normal 08/19/22 03:10 Blood Pressure 106/65 08/19/22 08:42 Blood Pressure Mean 91 08/10/22 15:31 Blood Pressure Position Supine 08/10/22 17:45 Pulse Oximetry 100 08/19/22 08:42 Oxygen Delivery Method Room Air 08/19/22 08:42 Oxygen Flow Rate 0 08/19/22 08:42 Pain Level 0 08/19/22 08:42 Comment 08/14/22 14:24 Intake & Output 08/18/22 08/18/22 08/19/22 11:59 23:59 11:59 Intake Total 250 / 740 490 / 740 Output Total 750 / 750 Balance -500 / -10 490 / -10 Weight 70.5 kg Intake: IV 250 / 500 250 / 500 Oral 240 / 240 Output: Urine 750 / 750 Other: Urine Color Straw Urine Appearance Clear Clear Clear Comment unmeausured, pt removed hat pt voided Stool Size Moderate Stool Characteristics Formed Voiding Methods Bedside Commode Toilet Data Completed and Pending Labs on day of discharge: Labs from last 24 hours 08/19/22 08/19/22 06:00 06:00 WBC 13.88 H RBC 3.95 Hgb 12.3 Hct 38.7 MCV 98 H MCH 31.1 MCHC 31.8 L RDW 13.2 Plt Count 351 MPV 9.5 Immature Gran % 1.4 Neutrophils % 74.5 Lymphocytes % 11.2 Monocytes % 10.9 Eosinophils % 1.7 Basophils % 0.3 Nucleated RBC % 0.0 Absolute Neutrophils 10.34 H Absolute Lymphocytes 1.55 Absolute Monocytes 1.51 H Absolute Eosinophils 0.24 Absolute Basophils 0.04 RBC Morphology Normal Sodium 136 Potassium 4.2 Chloride 100 Carbon Dioxide 31.2 Anion Gap 4.8 BUN 15 Creatinine 0.6 Est GFR (CKD-EPI 2020) 97.10 Glucose 87 Calcium 8.8 PFSH All Active Problems Fall (Acute) Discharge planning issues (Acute) DVT prophylaxis (Acute) Acute on chronic respiratory failure with hypoxia (Acute) Pneumonia due to COVID-19 virus (Acute) COVID (Acute) Shortness of breath (Acute) Respiratory failure with hypoxia (Acute) Dermatomyositis (Acute) Rectal polyp (Acute) Pre-transplant evaluation for lung transplant (Acute) Osteoporosis (Chronic) 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 Social History Smoking/Tobacco Use Status: Former Tobacco Use Tobacco: How many years used: 5 Smoking risk assessment performed?: Yes Alcohol Intake: current Alcohol Intake frequency: holidays/special occasions only Alcohol type: wine Drug use: Never Substance use type: does not use Details: No IV Drug Use Household members: other Number of Children: 1 current occupation: Caregiver [employer] Sexually active: No Do you think of yourself as: straight/heterosexual Current gender identity: female What type of physical activity do you participate in: none Seatbelt use: always Drive intox or ride w/intox class a regional truck driver: No Water heater temp set <120 deg: Yes Working smoke detector in home: Yes Fire extinguisher in home: Yes Carbon monox detector in home: Yes Do you feel safe at home: Yes
--- NOTE | 2022-08-19 10:53 | PDOC.HHF2F_ITS ---
Home Health Referral Home Health Orders Clinical synopsis of why skilled professionals are needed: Ms Stuart is a 67 year old female with PMHx of ILD (being considered for a lung transplant, reportedly), on mycophenolate and rituximab, h/o connective tissue disease, chronic hypoxic respiratory failure on 3L of O2 by PR at home, as well as h/o dermatomyocytis, who presented to [facility] ED today c/o increased shortness of breath and weakness x 8 days. She reports that she has had to put her concentrator from 3L to 4-5L at home. She reports subjective fevers, cough productive of white sputum, a little bit of diarrhea, poor appetite. She does states she has been drinking water and juices. She has had difficulty ambulating in the house. She tested positive for COVID-19 in the ED and is requiring 4L of O2 instead of her usual 3L by PR. She was initiated on dexamethasone, remdesivir, and hospitalist admission was requested. She was also found to be hypokalemic, which was been repleted. Medical diagnosis necessitation home health referral: Covid-19 pneumonia. Interstitial Lung Disease. Registered Nurse: Check all that apply Instruct on new or changed medication(s)/assess compliance: Ordered Assess for exacerbation of medical condition, instruct patient/caregivers on signs and symptoms to report for early detection: Ordered Physical Therapist: Check all that apply Increase strength & endurance for safe mobility at home: Ordered To design/establish home maintenance program: Ordered Better Breathing Program: Ordered Occupational Therapist: Evaluate and treat for patient unable to perform ADL/IADL/self-care: Ordered Geriatric Personal Care Aide: Assist with community resources: Ordered Home Bound Status Requires the aid of supportive device (check all that apply): Walker Describe why leaving home would require a considerable and taxing effort: Requires frequent rest periods Encounter Date and Reason: I certify that a FTF encounter for this patient was performed on August 19, 2022 and that such encounter was related to the primary reason the patient requires home health services. The encounter was conducted in the following manner: * By me as the certifying physician, [employer] FARM MANAGER, PA or * By an inpatient physician, THOR[employer] H[employer]SE FARM MANAGER or PA during an inpatient stay who communicated findings to me, Certification And Authentication I certify that I composed the above information based on my clinical judgment relating to this patient's medical condition and, if applicable, clinical findings communicated to me by the NPP or inpatient physician who performed the FTF encounter. Name of Provider that will be monitoring home health services: Devon Negro
--- NOTE | 2022-08-19 12:49 | PDOC.CMDIS ---
- If Service Date Differs Date of service: 08/19/22 Time of Service: 12:49 LACE Index Scoring Tool - Questions: Length of Stay (in days): 7 - 13 Acuity (Admit via E.D.?): Yes Comorbidities: Chronic Pulmonary Disease E.D. Visits: 1 - Answers: Total Score: 11 Risk of Readmission: High Risk Care Management Discharge Reason for Hospitalization: Covid 19, Acute on chronic hypoxic respiratory failure Discharge Plan: Jillian returned home today with new orders for HH RN, PT, OT, FLEXIBLE SHAFT WINDER. She was transported via [facility] due to her Covid diagnosis. She will follow up with her PCP and discharge plan of care. Patient/Family Education Needs: Review discharge instructions and limitations, discussion of self care needs including ask me three. Services Needed at Discharge: Home Health Care Services (RN, PT, OT, FLEXIBLE SHAFT WINDER), Transportation ([place])
== END 2022-08-19 11:28 | disposition home health service (06) | DRG 177 ==
LOC: ER 15:43 → ICU 17:35 → MS 08-11 08:04
PROVIDERS: Family Medicine; Admitting Provider Internal Medicine; Emergency Provider Emergency Medicine; PCP Nurse Practitioner Family; Visit Provider Internal Medicine
DX: U07.1 COVID-19 (principal); J12.82 Pneumonia due to coronavirus disease 2019; J96.21 Acute and chronic respiratory failure with hypoxia; M33.13 Other dermatomyositis without myopathy; J84.89 Other specified interstitial pulmonary diseases; E87.6 Hypokalemia; Z79.899 Other long term (current) drug therapy; Z99.81 Dependence on supplemental oxygen; M81.0 Age-related osteoporosis without current pathological fracture; F41.9 Anxiety disorder, unspecified; D89.89 Other specified disorders involving the immune mechanism, not elsewhere classified; W07.XXXA Fall from chair, initial encounter; Y92.230 Patient room in hospital as the place of occurrence of the external cause; R53.1 Weakness; R26.81 Unsteadiness on feet
CPT/HCPCS: 36410; 36415; 80048; 80053; 80076; 82306; 84145; 85027; 87040; 87637; 93005; 94640; 96365; 96375; 97110; 97162; 97530; 99239; 99285; 70450; 71045; 81003; 82728; 83735; 83880; 84100; 84484; 85025; 85379; 85610; 86140; 87070; 87205; 93010; 99223; 99231; 99232; 99233; J0248; J1100; J1650; J2930; J3490; J7620; J8540

== ENCOUNTER 2022-09-30 01:19 | Outpatient (CLI) | payer MEDICARE, MEDICAID, SELFPAY ==
--- NOTE | 2022-09-30 15:00 | DI.US_ITS ---
APPROVED REPORT EXAM: Comprehensive 2D, Doppler, and color-flow Echocardiogram Patient Location: Out-Patient Gasoline Tractor Operator: Pau Mantilla RDCS (AE) Indications: Dyspnea, Pre transplant Other Information Study Quality: Adequate Conclusion Normal left ventricular wall thickness and chamber size. Ejection fraction is 60%. Wall motion is n ormal Normal right ventricular size and systolic function Both atria are normal in size Trileaflet aortic valve with trivial regurgitation Estimated right ventricular systolic pressure is 37 mmHg Wall motion Left Ventricle The left ventricle is normal size. The left ventricular systolic function is normal. The left ventric ular ejection fraction is within the normal range. There is normal left ventricular wall thickness. T here is normal LV segmental wall motion. There is no ventricular septal defect visualized. LVEF is 60 %. Right Ventricle The right ventricle is normal size. The right ventricular systolic function is normal. Atria The left atrium size is normal. The right atrium size is normal. The interatrial septum is intact wit h no evidence for an atrial septal defect. Aortic Valve The aortic valve is normal in structure. Aortic valve is trileaflet. There is no aortic valvular sten osis. Trivial aortic regurgitation. Mitral Valve The mitral valve is normal in structure. No evidence of mitral valve stenosis. Trace mitral regurgita tion. Tricuspid Valve The tricuspid valve is normal in structure. There is no tricuspid valve stenosis. Mild tricuspid regu rgitation. Pulmonic Valve The pulmonary valve is normal in structure. There is no pulmonic valvular stenosis. Trace pulmonic re gurgitation. Great Vessels The aortic root is normal in size. The ascending aorta is normal in size. Aortic arch is normal in ca liber. The IVC was not well visualized. Pericardium There is no pericardial effusion. 2D Dimensions IVSD d PLAX 0.99 cm F: 0.6-1.0 LV Vol A2C d MOD 76.8 mL LVPW d PLAX 0.98 cm F: 0.6 - 1.0 LV Vol A4C d MOD 89.3 mL LVID d PLAX 3.92 cm F: 3.8 - 5.2 LA vol/ BSA A2C s A-L 23.8 mL/m2 LVDs 2.45 cm F: 2.2 - 3.5 LA vol/ BSA A4C s A-L 46.7 mL/m2 Ao Root d 2.64 cm F: 2.7 - 3.3 LA Vol/ BSA Biplane s A-L 37.8 mL/m2 Ao Asc Diam d 3.38 cm F: 2.3 - 3.1 LA Area A4C s MOD 25.34 cm2 LV EF Teichholz 66.8 % LA Area A2C s MOD 16.00 cm2 LVEF (Abarca's) 59.84 % F: 54 - 74 LV EF A4C MOD 60.9 % LV Volume 65.69 mL F: 46 - 106 LV EF A2C MOD 60.4 % LV Volume Index 36.90 mL/m2 F: 29 - 61 LV EF Biplane MOD 59.8 % LV Vol Biplane MOD 84.0 mL SV 50.29 mL FS 36.40 % SV Index 28.33 mL/m2 M-Mode TAPSE 2.11 cm (M/F) >1.7 LV Diastology MV E' medial 0.088 (>0.07 m/s) E/A Ratio 0.8 LV E/e MED 7.40 (<14) MV E Vmax 0.65 (0.4-1.3 m/s) MV E' lateral 0.113 (>0.1 m/s) MV A Vmax 0.80 (0.4-1.3 m/s) LV E/e LAT 5.70 (<14) MV E/A Ratio 0.79 MV E/E' medial 7.41 MV E/E' lateral 5.75 Aortic Valve LVOT Area 2.15 cm2 AoV Area Vmax 2.02 cm2 LVOT Vmax 1.55 m/s AoV Area/ BSA (Vmax) 1.14 cm2/m2 LVOT Mean Be. 0.94 m/s JONEL Mean Be. 1.76 cm2 LVOT Peak Grad 9.6 mmHg JONEL Mean Be. Index 0.99 cm2/m2 LVOT Mean Grad 4.3 mmHg LVOT VTI 0.279 m LVOT Diam s 1.65 cm AoV Vmax 1.65 m/s Velocity Ratio 0.94 AoV Mean Be. 1.15 m/s AoV Peak Grad 10.9 mmHg LVOT SV 59.87 mL AoV Mean Grad 6.0 mmHg AoV VTI 0.291 m AoV Area VTI 2.06 cm2 AoV Area/ BSA (VTI) 1.16 cm/m2 Mitral Valve MV DT 411 (160-240 msec) MV PHT 119 msec MV Area PHT 1.85 cm2 Pulmonary Valve PV Vmax 1.10 (0.5-1.5 m/s) RVOT Peak Gr. 2.35 mmHg PV Peak Grad 4.9 mmHg RVOT Mean Gr. 1.10 mmHg PV Mean Grad 2.8 mmHg RVOT VTI 0.136 m PV VTI 0.203 m RVOT Vmax 0.77 m/s Tricuspid Valve TR Peak Grad 34.2 mmHg TR Vmax 2.93 m/s
== END 2022-09-30 01:39 ==
LOC: DI 01:20
PROVIDERS: PCP Nurse Practitioner Family
DX: R06.00 Dyspnea, unspecified (principal)
CPT/HCPCS: 93306

== ENCOUNTER 2023-02-18 00:56 | Outpatient (CLI) | payer MEDICARE, MEDICAID, SELFPAY ==
--- NOTE | 2023-02-18 | DI.US_ITS ---
Exam(s) US CAROTID EXAM: US CAROTID CLINICAL HISTORY: UNSTEADINESS ON FEET R26.81 PRE TRANSPLANT Z01.818 STENOSIS CAROTID ARTERY. TECHNIQUE: Ultrasound carotids performed using grayscale, color-flow, and spectral Doppler imaging. COMPARISON: No exams were available for comparison FINDINGS: RIGHT CAROTID ARTERY: Plaque: Minimal plaque in the carotid bulb. Velocity elevation: None. LEFT CAROTID ARTERY: Plaque: Minimal plaque in the carotid bulb. Velocity elevation: None. VERTEBRAL ARTERIES: Antegrade flow. Measurements: R Bulb: 33.9cm/s PS / 9.4cm/s ED R CCA: 64.5cm/s PS / 16.7cm/s ED R ECA: 102.1cm/s PS / 15cm/s ED R ICA Prox: 66.6cm/s PS / 22.8cm/s ED R ICA Mid: 83.2cm/s PS / 33cm/s ED R ICA Distal: 107.5cm/s PS /32.7cm/s ED R Vert: 52.5cm/s PS / 15.9cm/s ED R SVR: 1.7 R DVR: 2 L Bulb: 44.1cm/s PS / 11.2cm/s ED L CCA: 59.1cm/s PS / 17.8cm/s ED L ECA: 75.8cm/s PS / 18.3cm/s ED L ICA Prox: 92cm/s PS / 30.2cm/s ED L ICA Mid: 87.1cm/s PS / 35cm/s ED L ICA Distal: 94.4cm/s PS / 36.2cm/s ED L Vert: 71.4cm/s PS / 18.1cm/s ED L SVR: 1.6 L DVR: 2 IMPRESSION: No evidence for hemodynamically significant carotid stenosis. Criteria for Carotid Stenosis: Normal: ICA PSV <125 cm/s no plaque or intimal thickening is visible. <50% stenosis: ICA PSV <125 cm/s and plaque or intimal thickening is visible. 50-69% stenosis: ICA PSV is 125-250 cm/s and plaque is visible. >70% stenosis to near occlusion: ICA PSV >250 cm/s with visible plaque and luminal narrowing. DATA REPOSITORY:
== END 2023-02-18 01:16 ==
LOC: DI 00:56
PROVIDERS: PCP Nurse Practitioner Family; Visit Provider Internal Medicine Pulmonary Disease
DX: Z13.6 Encounter for screening for cardiovascular disorders; Z01.818 Encounter for other preprocedural examination; J84.9 Interstitial pulmonary disease, unspecified
CPT/HCPCS: 93880

== ENCOUNTER 2023-09-15 11:51 | Inpatient (IN) | payer MEDICARE, MEDICAID, SELFPAY ==
[2023-09-15] VITALS (46 sets, daily range): BP systolic 116–148; BP diastolic 61–87; PULSE 82–106; RESP 11–48; TEMP 36.4; O2SAT 77–100
--- NOTE | 2023-09-15 11:45 | RT.EKG_ITS ---
APPROVED REPORT Exam: Resting ECG Reason for Exam: SOB Patient Location: E HR:99 bpm ECG Measurements Heart Rate 99 AXIS SC 155 P 28 QRSd 100 QRS -34 QT 361 T 60 QTc 465 Conclusion Sinus rhythm...normal P axis, V-rate 60- 99 Probable left atrial enlargement...P >50mS, <-0.10mV V1 Left axis deviation...QRS axis (-30,-90) probable old inf ant [place], LAD, no STEMI, improved from prev.
--- NOTE | 2023-09-15 11:58 | W.ED.GENAD ---
HPI General Date/Time Provider Initiated Documentation: 09/15/23 11:58. HPI Narrative: Patient presents to the emergency department complaining of increased shortness of breath cough with clear sputum no fever no chills but states that her oxygen saturation has been dropping. She has chronic pulmonary fibrosis has been worsening and right now she is not on steroids. Denies any sputum production denies any chest pain reports that she is very anxious and cannot sleep Related Data Home Medications Medication Instructions Recorded Confirmed multivitamin (Daily Multiple 1 tab PO DAILY 09/02/16 09/16/23 tablet) albuterol sulfate 90 mcg/actuation 2 puff inhalation Q6H PRN 05/24/19 09/16/23 aerosol inhaler (ProAir HFA) mycophenolate mofetil 500 mg tablet 1,000 mg (2 x 500 mg) PO BID #30 08/02/19 09/15/23 tabs cholecalciferol (vitamin D3) 10 400 unit PO DAILY 08/24/19 09/16/23 mcg (400 unit) capsule vitamin E (dl, acetate) 180 mg 400 unit PO DAILY 08/24/19 09/16/23 (400 unit) capsule azithromycin 250 mg tablet 250 mg PO DAILY #30 tabs 09/04/21 09/16/23 rituximab 10 mg/mL IV 09/04/21 11/02/21 concentrate,intravenous (Rituxan) Inhaler, Assist Devices [Pocket 1 ea miscellaneous DIRECTED ##0 08/19/22 09/16/23 Chamber] calcium carbonate 200 mg calcium 100 mg PO DAILY PRN dyspepsia 09/16/23 09/16/23 (500 mg) chewable tablet (Antacid (calcium carbonate)) fluticasone propionate 230 2 puff inhalation BID 09/16/23 09/16/23 mcg-salmeterol 21 mcg/actuation HFA inhaler (Advair HFA) nintedanib 150 mg capsule (Ofev) 150 mg PO Q12H 09/16/23 09/16/23 tiotropium bromide 2.5 2 puff inhalation DAILY 09/16/23 09/16/23 mcg/actuation mist for inhalation (Spiriva Respimat) Previous Rx's Medication Instructions Recorded mycophenolate mofetil 500 mg tablet 1,000 mg (2 x 500 mg) PO BID #30 08/02/19 tabs azithromycin 250 mg tablet 250 mg PO DAILY #30 tabs 09/04/21 Inhaler, Assist Devices [Pocket 1 ea miscellaneous DIRECTED ##0 08/19/22 Chamber] Allergies Allergy/AdvReac Type Severity Reaction Status Date / Time nintedanib [From Ofev] AdvReac Mild Headache Verified 09/15/23 11:59 General LAINE: 3 Review of Systems Narrative: Review of Systems: Constitutional: No fevers, chills, sweats Eye: No recent visual problems ENT: No ear pain, nasal congestion, sore throat Cardiovascular: No Chest pain, palpitations, syncope Gastrointestinal: No nausea, vomiting, diarrhea Genitourinary: No hematuria Ricardo/Lymph: Negative for bruising tendency, swollen lymph glands Endocrine: Negative for excessive thirst, excessive hunger Musculoskeletal: No back pain, neck pain, joint pain, muscle pain, decreased range of motion Integumentary: No rash, pruritus, abrasions Neurologic: Alert & oriented X 4 Psychiatric: No anxiety, depression Exam Narrative Exam Narrative: Exam; vitals signs as reported as abnormal tachypneic hypoxic Constitutional; In moderate to severe distress and anxious distress, afebrile General: cooperative, healthy appearing, comfortable and no acute distress HEENT: Head: normal to inspection, no palpable skull fracture and normocephalic atraumatic Eyes: : appearance normal, both eyes and all related structures EOM intact bilaterally Pupils: PERRL : conjunctiva normal Direct ophthalmoscopy: normal light reflex, normal conjunctiva, normal visual acuity Ears: Normal TM, normal external canal Nose: normal no rhinorreha Neck no JVD, supple non tender Neck: normal visual inspection, full ROM and no lymphadenopathy resp: Bilateral coarse rales in both lung palacio with scant wheezing Cardio tachycardic rate: regular rate, rhythm: regular rhythm normal heart sounds S1 and S2 no murmurs, gallops, or rubs GI : normal to inspection, normal bowel sounds, soft, non tender, non distended, no organomegaly Back/Spine/ no CVA tenderness Thoracic/Lumbar Spine: no tenderness or deformities Skin no rashes or lesions Neuro: patient alert oriented x 4 and no meningeal signs, Cranial Nerves: CN's II-XI intact bilaterally, Cognition: normal cognition, Speech: speech normal, Gait: normal gait, Depp tendon reflexes normal 2+ muscle strength 5/5 bilaterally Extremities, no edema, full range of motion, normal strength : normal Rectal: Medical Decision Making MDM: Summary: Patient with pulmonary fibrosis is oxygen dependent came to the emergency department anxious short of breath with oxygen saturation 70% on room air. She usually utilizes 4 L nasal cannula at home. She is getting albuterol ipratropium nebulizations as well as steroids. X-ray does not show any significant abnormality she had a CT scan done as well but she will be admitted to the hospital for she states that at baseline for continuation of steroid treatments and nebulizations. Data Review Analysis All the data on this patient was reviewed by me including laboratory and imaging studies as well as bedside studies performed by me Independent review of Studies Imaging CT scan x-ray as reported above with pulmonary fibrosis but no discrete infiltrate Lab: Labs show mild elevation of the white count but mostly at baseline Risk Stratification: Patient with severe lung disease pulmonary fibrosis admitted to the hospital for she deteriorated significantly which can be progressive disease or bronchospasm or infection Differential Diagnosis: 1. Worsening pulmonary fibrosis 2. Pneumonia 3. Pulmonary edema 4. Viral infection 5. Consultants: I spoke with Dr. Larios hospitalist with the patient Shared disposition: Patient understands the disposition and will require admission Impression: Medical Records Medical records reviewed: Yes I reviewed the patient's medical records. Imaging Data Radiologic Study: Attestation: I personally reviewed and interpreted this imaging study as follows: Imaging: X-Ray and CT Scan My impression: Pulmonary fibrosis Lab Data Lab results reviewed: Yes I reviewed the patient's lab results. Quality:SDOH Health Related Social Needs: Health related social needs inadequate housing Health related social needs details Pt states her bath tub leaks, but she doesn't use it. 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[employer] Sexually active: No Do you think of yourself as: straight/heterosexual Current gender identity: female What type of physical activity do you participate in: none Seatbelt use: always Drive intox or ride w/intox log driver: No Water heater temp set <120 deg: Yes Working smoke detector in home: Yes Fire extinguisher in home: Yes Carbon monox detector in home: Yes Do you feel safe at home: Yes Do you feel safe in your relationship?: Yes Discharge Plan Disposition Patient Disposition: Admit to [facility] Condition: Fair Discharge Details Clinical Impression: Interstitial lung disease due to connective tissue disease, Anxiety, Pulmonary fibrosis Admit Date/Time: 09/15/23 17:02 Admit Provider: Vivek Larios Attending Provider: Vivek Larios Primary Care Provider: Richie Duong ED Provider: Catrachito Bocanegra Discharge Data Discharge Date/Time-TO BE ENTERED AT DEPARTURE: 09/15/23 19:55 Discharge Physician: Catrachito Bocanegra
--- NOTE | 2023-09-15 12:32 | NUR.NOTE ---
Nursing Note: unable to perform EKG within 10mins of arrival d/t artifact r/t patient moving. MD aware and in the room at the time of attempt.
[2023-09-15] MEDS: methylPREDNISolone SUCC 125 MG VIAL IVP (12:35)
--- NOTE | 2023-09-15 12:40 | DI.RAD_ITS ---
Exam(s) XR PORTABLE CHEST AP EXAM: XR PORTABLE CHEST AP CLINICAL HISTORY: dyspnea TECHNIQUE: 2D digital imaging was performed. COMPARISON: CR CHEST 2 VIEWS PA,LAT from 07/19/[address] CHEST WO from 11/29/2019 CR XR PORTABLE CHEST AP from 08/10/2022 FINDINGS: Limited exam due to poor pulmonary inflation. LUNGS: Extensive underlying interstitial changes. Low lung volumes. No definite superimposed area o f consolidation. These bilateral infiltrates not excluded. No pleural abnormality seen. HEART: Enlarged. AORTA: Normal diameter. BONES: Unremarkable for age. Soft tissues: Unremarkable. IMPRESSION: Severe underlying fibrotic changes. Question of superimposed diffuse bilateral infiltrates. DATA REPOSITORY: RADIATION DOSE DELIVERED:
[2023-09-15 12:44] LABS: Lactate 0.9 mmol/L (0.6-1.4)
[2023-09-15 12:46] LABS: Abs Immature Grans 0.03 10^3/uL (0.0-0.06); Absolute Basophil Count 0.05 10^3/uL (0.0-0.2); Absolute Eosinophil Count 0.43 10^3/uL (0.0-0.7); Absolute Lymphocyte Count 1.32 10^3/uL (1.2-3.4); Absolute Monocyte Count 1.07 10^3/uL (0.1-0.8); Absolute Neutrophil Count 5.36 10^3/uL (1.2-6.7); Basophils % 0.6; Eosinophils % 5.2; HCT 37.6 % (36.0-46.0); HGB 12.2 g/dL (11.2-15.7); Immature Grans % 0.4; MCH 33.6 pg (27.0-33.0); MCHC 32.4 % (32.0-36.0); MCV 104 fL (80-95); MPV 9.6 fL (8.0-11.0); Neutrophils % 64.8; Platelet Count 244 10^3/uL (130-400); RBC 3.63 10^6/uL (3.93-5.22); RDW 12.7 % (11.7-14.6); WBC 8.26 10^3/uL (4.4-10.8)
[2023-09-15] MEDS: Lactated Ringers 1,000 ML 2100 ML IV (12:50)
[2023-09-15 13:04] LABS: ALT 28 U/L (14-59); AST 25 U/L (15-37); Albumin 2.9 g/dL (3.4-5.0); Alkaline Phosphatase 64 U/L (46-116); Anion Gap 5.1 mmol/L (3-11); BUN 5 mg/dL (7-18); Bilirubin, Total 0.4 mg/dL (0.2-1.0); CO2 35.9 mmol/L (21.0-32.0); CREATININE 0.6 mg/dL (0.55-1.02); Calcium 9.3 mg/dL (8.5-10.1); Chloride 102 mmol/L (98-107); Glucose 106 mg/dL (74-106); Magnesium 2.1 mg/dL (1.8-2.4); Potassium 3.7 mmol/L (3.5-5.1); Sodium 143 mmol/L (136-145); Total Protein 6.7 g/dL (6.4-8.2); Troponin I < 50 ng/L (< or =60)
[2023-09-15] MEDS: LORazepam 2 MG/ML VIAL 0.5 MG IVP ×2 (13:21→15:17)
--- NOTE | 2023-09-15 13:41 | NUR.NOTE ---
Nursing Note: patient took o2 mask multiple times to spit in to tissue. During the time she took make off her O2 droped to low 70's% on room air. This RN and SHIP WASHER attempted to educatepatient on the importance of keeping the mask on. This RN gave patient younker to use to suction spit. At this time pateint is keeping mask on and using suction. She stated she feels more comfortable
--- NOTE | 2023-09-15 15:15 | DI.CT_ITS ---
Exam(s) CT CHEST WO EXAM: CT CHEST WO CLINICAL HISTORY: dyspnea. TECHNIQUE: Multi planar reconstructions were performed. CONTRAST MATERIAL: None CT CT CHEST WO from 11/29/2019 CR XR PORTABLE CHEST AP from 08/10/2022 CR XR PORTABLE CHEST AP from 09/15/2023 FINDINGS: CHEST: LUNGS: There is severe extensive fibrotic disease throughout both lung palacio including abundant dorene ycombing which is most prominent in the bilateral lower lobes. The amount of disease has further pro gressed bilaterally when compared to the most recent CT scan of June 2018. There are no obvious confluent infiltrates and there are no pleural effusions. No significant mucous in the trachea and m ainstem bronchi. MEDIASTINUM: There is no obvious new hilar nor mediastinal adenopathy. No obvious axillary adenopath y CARDIAC: Mild cardiomegaly. No pericardial effusion.Caliber of the thoracic aorta is within normal l imits. VISUALIZED UPPER ABDOMEN: No adrenal masses. OSSEOUS: There are nonacute appearing mild compression fractures in the thoracic spinal column noted which were not evident in 2018. These do not appear acute.. IMPRESSION: 1. Compared to the prior CT scan of June 2018 there has been further progression of the severe bi lateral extensive interstitial disease throughout both lung palacio. There are no obvious confluent i nfiltrates nor pleural effusions. 2. Nonacute appearing compression fractures in the thoracic spine which were not evident in 2018 Called by myself to ER physician. RADIATION DOSE DELIVERED: 413.04mGy.cm Total DLP DATA REPOSITORY: All CT scans at this facility are submitted to the National Radiology Data Registry (NRDR) Dose Index Registry (DIR) with the [employer] (ACR). RADIATION OPTIMIZATION: All CT scans at this facility use at least one of these dose optimization te chniques: automated exposure control; mA and/or kV adjustment per patient size (includes targeted exa ms where dose is matched to clinical indication); or iterative reconstruction.
--- NOTE | 2023-09-15 15:33 | RESPIRATORY ---
Patient stated that she has oxygen through [employer] that was prescribed to her by Nilam Fuentes MD at 6 to 8 lpm. Called [facility] to confirm liter flow and was informed the most recent prescription from May 2022, it was noted to be 3 to 4 lpm continuous oxygen.
[2023-09-15 15:45] LABS: Troponin I < 50 ng/L (< or =60)
[2023-09-15 15:50] LABS: BE 9 mmol/L (-2-3); HCO3 33 mmol/L (22-26); pCO2 55 mmHg (35-45); pH 7.39 (7.35-7.45); pO2 98 mmHg (80-105); sO2 98 % (95-98); tCO2 31 mmol/L (23-27)
[2023-09-15 15:52] LABS: FIO2L 6 L; Site Right Radial
--- NOTE | 2023-09-15 17:03 | W.PM.HP.N ---
Date of service: 09/15/23 Time of Service: 18:48 Assessment and Plan Assessment and plan (1) Acute on chronic respiratory failure with hypoxia: Status: Acute Assessment and plan: -Initially thought to be secondary to chronic and notably worsening pulmonary fibrosis -Patient was given 125 mg IV methylprednisolone in the emergency department, will continue 40 mg p.o. prednisone daily tomorrow -Patient remains on 4 L nasal cannula at rest; -Will reevaluate patient's oxygen requirements with ambulation tomorrow -Continue home daily 250 mg azithromycin, inhaler regimen and mycophenolate (2) Pulmonary fibrosis: Status: Acute Assessment and plan: - As noted above (3) Anxiety: Status: Chronic Assessment and plan: - Patient has documented history of anxiety but does not appear to be on any SSRIs or other anxiolytics -Will continue as needed Ativan, changed to p.o. 1 mg every 4 hours for severe anxiety or worsening shortness of breath -Patient noted to have only required 2 L nasal cannula while sleeping and saturating at 98% -However, upon wakening, patient became immediately anxious with increase in her respiratory rate, complaining of shortness of breath, and saturating at 92% on 4 L -However, when observed relaxing or not engaging/speaking about her current illness, her oxygen saturation again significantly increases History of Present Illness History of Present Illness Chief Complaint: Shortness of breath cough, clear sputum Narrative: 68-year-old female with a past medical history of chronic hypoxic respiratory failure on 4 L nasal cannula at baseline secondary to severe pulmonary fibrosis, also has a history of anxiety who presents the emergency department with complaints of worsening shortness of breath. Patient also states that her pulmonary fibrosis has been worsening and she is not on steroids but she has noticed over the last week that her oxygen saturation has been decreasing and that she has had increased cough with clear sputum but denies any fever, lightheadedness, dizziness, chills, chest pain, nausea vomiting or diarrhea. In the emergency department the patient was noted to mostly saturate above 92% on her 4 L nasal cannula, but appeared to desaturate with ambulation to the high 70s but did not rebound. CBC, CMP, VBG and lactic acid all within normal limits. Chest x-ray and chest CT did not show any acute findings. While in the emergency department was noted that the only thing that seemed to improve patient's breathing status was Ativan and there was a strong suspicion of there being an anxiety component to her intermittent worsening of hypoxia. However, given that the patient was unable to ambulate consistently without oxygen saturations dropping on her baseline oxygen, emergency room physician paged hospitalist for admission for patient with pulmonary fibrosis, he was experiencing acute on chronic hypoxic respiratory failure. 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[employer] Sexually active: No Do you think of yourself as: straight/heterosexual Current gender identity: female What type of physical activity do you participate in: none Seatbelt use: always Drive intox or ride w/intox bottom hoop driver: No Water heater temp set <120 deg: Yes Working smoke detector in home: Yes Fire extinguisher in home: Yes Carbon monox detector in home: Yes Do you feel safe at home: Yes Do you feel safe in your relationship?: Yes Meds Allergies and Home Medications Allergies Allergy/AdvReac Type Severity Reaction Status Date / Time nintedanib [From Ofev] AdvReac Mild Headache Verified 09/15/23 11:59 Home Medications Medication Instructions Recorded Confirmed Type multivitamin (Daily Multiple 1 tab PO DAILY 09/02/16 09/15/23 History tablet) albuterol sulfate 90 mcg/actuation 2 puff inhalation Q6H PRN 05/24/19 09/15/23 History aerosol inhaler (ProAir HFA) mycophenolate mofetil 500 mg tablet 1,000 mg (2 x 500 mg) PO BID #30 08/02/19 09/15/23 Rx tabs cholecalciferol (vitamin D3) 10 400 unit PO DAILY 08/24/19 09/15/23 History mcg (400 unit) capsule vitamin E (dl, acetate) 180 mg 400 unit PO DAILY 08/24/19 09/15/23 History (400 unit) capsule azithromycin 250 mg tablet 250 mg PO DAILY #30 tabs 09/04/21 09/15/23 Rx fluticasone propionate 220 1 puff inhalation PRN #12 grams 09/04/21 09/15/23 Rx mcg/actuation HFA aerosol inhaler (Flovent HFA) rituximab 10 mg/mL IV 09/04/21 11/02/21 History concentrate,intravenous (Rituxan) Inhaler, Assist Devices [Pocket 1 ea miscellaneous DIRECTED ##0 08/19/22 09/15/23 Rx Chamber] famotidine 20 mg tablet 20 mg PO HS #30 tabs 08/19/22 09/15/23 Rx Exam Narrative Exam Narrative: Highly anxious appearing older female laying in bed in no acute distress, 4 L nasal cannula in place, ANO x 4, heart regular rhythm, lungs with mild diffuse coarse breath sounds bilaterally, abdomen soft, nontender, nondistended Results Labs 09/16/23 05:50 09/15/23 12:40 Labs: Laboratory Results - last 24 hr 09/15/23 09/15/23 09/15/23 12:40 15:15 15:50 WBC 8.26 RBC 3.63 L Hgb 12.2 Hct 37.6 MCV 104 H MCH 33.6 H MCHC 32.4 RDW 12.7 Plt Count 244 MPV 9.6 Immature Gran % 0.4 Neutrophils % 64.8 Lymphocytes % 16.0 Monocytes % 13.0 Eosinophils % 5.2 Basophils % 0.6 Nucleated RBC % 0.0 Absolute Neutrophils 5.36 Absolute Lymphocytes 1.32 Absolute Monocytes 1.07 H Absolute Eosinophils 0.43 Absolute Basophils 0.05 ABG Sample Site Right Radial ABG pH 7.39 ABG pCO2 55 H ABG pO2 98 ABG HCO3 33 H ABG Total CO2 31 H ABG O2 Saturation 98 ABG Base Excess 9 H VBG Lactate 0.9 1.0 Oxygen Liter Flow 6 Sodium 143 Potassium 3.7 Chloride 102 Carbon Dioxide 35.9 H Anion Gap 5.1 BUN 5 L Creatinine 0.6 Est GFR (CKD-EPI 2020) 96.50 Glucose 106 Calcium 9.3 Magnesium 2.1 Total Bilirubin 0.4 AST 25 ALT 28 Alkaline Phosphatase 64 Troponin I < 50 < 50 Total Protein 6.7 Albumin 2.9 L Last Vital Signs Pulse 94 H 09/15/23 12:30 Resp 39 H 09/15/23 14:10 BP 132/69 09/15/23 12:30 Pulse Ox 100 09/15/23 14:10 Time Spent Time spent with Patient: >75 minutes Time was spent: preparing to see the patient(eg.review tests), obtaining and/or reviewing separately otained hiistory, ordering medications,tests, procedures, referring, communicating with other health caregiver services home, indepentently interpreting results, counseling the patient and care coordination
[2023-09-15 18:49] LABS: Source Nasal/Nares
[2023-09-15 19:00] LABS: Lactate 0.7 mmol/L (0.6-1.4)
[2023-09-15 19:21] LABS: COVID-19 PCR Negative (Negative)
[2023-09-15] MEDS: Normal Saline Flush 10 ML SYR IVP (21:04)
[2023-09-15] MEDS: Enoxaparin 40 MG/0.4 ML SYR SC (21:04)
[2023-09-15] MEDS: Famotidine 20 MG TAB PO (21:25)
[2023-09-16] VITALS (40 sets, daily range): BP systolic 94–134; BP diastolic 53–86; PULSE 82–122; RESP 2–52; TEMP 34–36.8; O2SAT 57–100
--- NOTE | 2023-09-16 00:29 | W.PC.ACHO ---
Registration Status: ADM IN Primary Language: Preferred Language: Maltese ED Information & Data Chief Complaint SOB 09/15/23 12:03 Chief Complaint SOB 09/15/23 11:51 Triage Note SOB and leg numbness 09/15/23 11:51 increased anxiety, unable to sleep started yesterday- on arrival to house 70s on [place] x2 nebs on truck, Medical / Surgical History (Last Reviewed 09/15/23 @ 17:05 by Catrachito Bocanegra MD) Dyspareunia (Last Reviewed 09/15/23 @ 17:05 by Catrachito Bocanegra MD) H/O breast biopsy H/O cystoscopy History of elbow surgery Most Recent Vital Signs Temperature 36.4 C L 09/15/23 20:47 Temperature Source Temporal Artery Scan 09/15/23 20:20 Pulse 95 H 09/15/23 20:47 Pulse 101 H 09/15/23 16:00 Respiratory Rate 48 H 09/15/23 20:20 Respiratory Effort Short of Breath, Incrsd Work of Breathing 09/15/23 20:20 Respiratory Depth Shallow 09/15/23 20:20 Respiratory Pattern Tachypnea 09/15/23 20:20 Blood Pressure 131/76 09/15/23 20:47 Blood Pressure Mean 88 09/15/23 20:46 Pulse Oximetry 93 09/15/23 20:50 Oxygen Delivery Method Nasal Cannula 09/15/23 20:20 Oxygen Flow Rate 5 09/15/23 20:20 Pain Level 0 09/15/23 20:20 Allergies nintedanib [From Ofev] Adverse Reaction (Mild, Verified 09/15/23 11:59) Headache Precautions Isolation Standard precaution 09/15/23 12:03 Active Medications Generic Name Dose Route Start Last Admin Trade Name Freq PRN Reason Stop Dose Admin Enoxaparin Sodium 40 mg 09/15/23 20:11 09/15/23 21:04 Enoxaparin 40 Mg/0.4 Ml Syr SC 40 mg Q24H GENE Administration Famotidine 20 mg 09/15/23 22:00 09/15/23 21:25 Famotidine 20 Mg Tab PO 20 mg HS GENE Administration Mycophenolate Mofetil 1,000 mg 09/15/23 20:11 09/15/23 21:29 Mycophenolate Mofetil 500 Mg Tab PO Not Given BID GENE Sodium Chloride 0 ml 09/15/23 20:11 09/15/23 21:04 Normal Saline Flush 10 Ml Syr IVP 10 ml BID GENE Administration IV IV Catheter Type [Left Saline Lock Antecubital] IV Catheter Gauge [Left 20 Antecubital] Diet Orders Category Date Time Status Regular/Normal [DIET] Nutrition 09/15/23 Dinner Active Diagnostics 09/16/23 09/15/23 09/15/23 Range/Units 05:35 18:58 18:41 WBC Pending (4.4-10.8) 10^3/uL RBC Pending (3.93-5.22) 10^6/uL Hgb Pending (11.2-15.7) g/dL Hct Pending (36.0-46.0) % MCV Pending (80-95) fL MCH Pending (27.0-33.0) pg MCHC Pending (32.0-36.0) % RDW Pending (11.7-14.6) % Plt Count Pending (130-400) 10^3/uL MPV Pending (8.0-11.0) fL Immature Gran % Neutrophils % Lymphocytes % Monocytes % Eosinophils % Basophils % Nucleated RBC % (0.0-0.3) % Absolute Neutrophils (1.2-6.7) 10^3/uL Absolute Lymphocytes (1.2-3.4) 10^3/uL Absolute Monocytes (0.1-0.8) 10^3/uL Absolute Eosinophils (0.0-0.7) 10^3/uL Absolute Basophils (0.0-0.2) 10^3/uL ABG Sample Site ABG pH (7.35-7.45) ABG pCO2 (35-45) mmHg ABG pO2 (80-105) mmHg ABG HCO3 (22-26) mmol/L ABG Total CO2 (23-27) mmol/L ABG O2 Saturation (95-98) % ABG Base Excess (-2-3) mmol/L VBG Lactate 0.7 (0.6-1.4) mmol/L Oxygen Liter Flow L Sodium Pending (136-145) mmol/L Potassium Pending (3.5-5.1) mmol/L Chloride Pending (98-107) mmol/L Carbon Dioxide Pending (21.0-32.0) mmol/L Anion Gap Pending (3-11) mmol/L BUN Pending (7-18) mg/dL Creatinine Pending (0.55-1.02) mg/dL Est GFR (CKD-EPI 2020) Pending (mL/min/1.73m2) Glucose Pending (74-106) mg/dL Calcium Pending (8.5-10.1) mg/dL Magnesium Pending (1.8-2.4) mg/dL Total Bilirubin (0.2-1.0) mg/dL AST (15-37) U/L ALT (14-59) U/L Alkaline Phosphatase (46-116) U/L Troponin I (< or =60) ng/L Total Protein (6.4-8.2) g/dL Albumin (3.4-5.0) g/dL COVID-19 Source Nasal/Nares SARS-CoV-2 (PCR) Negative (Negative) 09/15/23 09/15/23 09/15/23 Range/Units 15:50 15:15 12:40 WBC 8.26 (4.4-10.8) 10^3/uL RBC 3.63 L (3.93-5.22) 10^6/uL Hgb 12.2 (11.2-15.7) g/dL Hct 37.6 (36.0-46.0) % MCV 104 H (80-95) fL MCH 33.6 H (27.0-33.0) pg MCHC 32.4 (32.0-36.0) % RDW 12.7 (11.7-14.6) % Plt Count 244 (130-400) 10^3/uL MPV 9.6 (8.0-11.0) fL Immature Gran % 0.4 Neutrophils % 64.8 Lymphocytes % 16.0 Monocytes % 13.0 Eosinophils % 5.2 Basophils % 0.6 Nucleated RBC % 0.0 (0.0-0.3) % Absolute Neutrophils 5.36 (1.2-6.7) 10^3/uL Absolute Lymphocytes 1.32 (1.2-3.4) 10^3/uL Absolute Monocytes 1.07 H (0.1-0.8) 10^3/uL Absolute Eosinophils 0.43 (0.0-0.7) 10^3/uL Absolute Basophils 0.05 (0.0-0.2) 10^3/uL ABG Sample Site Right Radial ABG pH 7.39 (7.35-7.45) ABG pCO2 55 H (35-45) mmHg ABG pO2 98 (80-105) mmHg ABG HCO3 33 H (22-26) mmol/L ABG Total CO2 31 H (23-27) mmol/L ABG O2 Saturation 98 (95-98) % ABG Base Excess 9 H (-2-3) mmol/L VBG Lactate 1.0 0.9 (0.6-1.4) mmol/L Oxygen Liter Flow 6 L Sodium 143 (136-145) mmol/L Potassium 3.7 (3.5-5.1) mmol/L Chloride 102 (98-107) mmol/L Carbon Dioxide 35.9 H (21.0-32.0) mmol/L Anion Gap 5.1 (3-11) mmol/L BUN 5 L (7-18) mg/dL Creatinine 0.6 (0.55-1.02) mg/dL Est GFR (CKD-EPI 2020) 96.50 (mL/min/1.73m2) Glucose 106 (74-106) mg/dL Calcium 9.3 (8.5-10.1) mg/dL Magnesium 2.1 (1.8-2.4) mg/dL Total Bilirubin 0.4 (0.2-1.0) mg/dL AST 25 (15-37) U/L ALT 28 (14-59) U/L Alkaline Phosphatase 64 (46-116) U/L Troponin I < 50 < 50 (< or =60) ng/L Total Protein 6.7 (6.4-8.2) g/dL Albumin 2.9 L (3.4-5.0) g/dL COVID-19 Source SARS-CoV-2 (PCR) (Negative) 09/15/23 14:50 Blood Culture - Pending Blood 09/15/23 13:54 Blood Culture - Pending Blood Intake and Output - 24 Hour Total 09/15/23 11:45 thru 09/15/23 21:51 Intake Total 1210 Balance 1210 Weight 64.53 kg Intake: IV 1010 Oral 200 Falls Risk Assessment History of Falls Previous History 09/15/23 20:20 Contributing Factors Incontinence 09/15/23 20:20 Ambulatory Aids Uses ambulatory device + 09/15/23 20:20 Tubes/Lines With any additional score 09/15/23 20:20 Gait Evaluation W/any additional score 09/15/23 20:20 Cognition No cognitive impairment 09/15/23 20:20 Fall Total Score 88 09/15/23 20:20 Level of Risk Maximum Risk 09/15/23 20:20 Problems (Last Reviewed 09/15/23 @ 17:05 by Catrachito Bocanegra MD) Acute on chronic respiratory failure with hypoxia (Acute) Pulmonary fibrosis (Acute) Anxiety (Chronic) 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 Called [facility] to confirm liter flow and was informed the most recent prescription from May 2022, it was noted to be 3 to 4 lpm continuous oxygen. Initialized on 09/15/23 15:33 - END OF NOTE 09/15/23 13:41 Nursing Notes by Maryse Bojorquez Nursing Note: patient took o2 mask multiple times to spit in to tissue. During the time she took make off her O2 droped to low 70's% on room air. This RN and MULTIPLE PUNCH PRESS OPERATOR attempted to educatepatient on the importance of keeping the mask on. This RN gave patient younker to use to suction spit. At this time pateint is keeping mask on and using suction. She stated she feels more comfortable Initialized on 09/15/23 13:41 - END OF NOTE 09/15/23 12:32 Nursing Notes by Maryse Bojorquez Nursing Note: unable to perform EKG within 10mins of arrival d/t artifact r/t patient moving. aware and in the room at the time of attempt. Initialized on 09/15/23 12:32 - END OF NOTE v v v v v v v v v Sending and/or Receiving Nurses: Please use comment section below to note any information pertinent to the patient hand-off not included above. Information / Comments: Report received from: Aramis Bojorquez RN all questions answered: yes
[2023-09-16 06:29] LABS: HCT 34.8 % (36.0-46.0); HGB 11.5 g/dL (11.2-15.7); MCH 33.8 pg (27.0-33.0); MCV 102 fL (80-95); Platelet Count 235 10^3/uL (130-400); RDW 12.5 % (11.7-14.6); RDW-SD 46.8 fL; WBC 8.85 10^3/uL (4.4-10.8)
[2023-09-16 06:42] LABS: Anion Gap 2.1 mmol/L (3-11); BUN 9 mg/dL (7-18); CO2 33.9 mmol/L (21.0-32.0); CREATININE 0.5 mg/dL (0.55-1.02); Calcium 9.1 mg/dL (8.5-10.1); Chloride 102 mmol/L (98-107); Estimated GFR 100.84 (mL/min/1.73m2); Glucose 113 mg/dL (74-106); Magnesium 2.1 mg/dL (1.8-2.4); Potassium 4.3 mmol/L (3.5-5.1); Sodium 138 mmol/L (136-145)
[2023-09-16] MEDS: Multivitamin TAB 1 TAB PO (07:47)
[2023-09-16] MEDS: LORazepam 0.5 MG TAB PO ×2 (07:47→15:55)
[2023-09-16] MEDS: predniSONE 20 MG TAB 40 MG PO ×2 (08:01→09:29)
[2023-09-16 08:46] LABS: COVID-19 PCR Negative (Negative); Influenza A PCR Negative (Negative); Influenza B PCR Negative (Negative); RSV PCR Negative (Negative)
[2023-09-16 08:47] LABS: Source Nasopharynx
[2023-09-16] MEDS: Azithromycin 250 MG TAB PO (09:28)
[2023-09-16] MEDS: Normal Saline Flush 10 ML SYR IVP ×2 (09:30→11:33)
--- NOTE | 2023-09-16 09:56 | INITIAL_ITS ---
Date of service: 09/16/23 Time of Service: 09:56 Care Management Initial Assmt Initial Assessment REASON FOR HOSPITALIZATION:: Acute on chronic hypoxic respiratory failure PREVIOUS FUNCTIONAL STATUS/SOCIAL/FAMILY SUPPORTS:: Jillian lives in [facility]. She has one son, Jordan, who lives in [place]. 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 She lives with her sister and has very supportive friends who help with grocery shopping. She states that she is independent at home at baseline. She is on 3L O2 at baseline. CURRENT FUNCTIONAL STATUS:: Jillian was lying in bed when CM met with her. She stated that she is not doing well today, and has been very busy. She stated that she needs help at home, but she wants to return home. She reported that she pays for someone to help her clean, and she has other friends who help out, including one who cooks for her and gets her groceries. CM asked if she would consider going to a SNF for short term rehab, and she stated that she doesn't want to go because she is worried about losing her home. CM talked to her son, Jordan, and provided an update. Jordan would like his mother to go to a SNF; CM explained that Jillian will have to agree to us sending referrals, if she qualifies for SN F. CM will ask for a PT consult to evaluate her needs. CM will continue to follow. ADVANCE DIRECTIVES:: Not on file; Palliative care consulted to discuss goals of care. Has patient been provided with info about the portal/API?: Yes Did the patient sign up for the portal?: No CODE STATUS:: Full Code INSURANCE COVERAGE / FINANCIAL ISSUES:: [facility] MCR replacement. JESÚS. CURRENT HOME/COMMUNITY SERVICES/EQUIPMENT:: 4WW. Supplemental O2 2-3L. PRIMARY CARE PHYSICIAN:: Richie Duong POTENTIAL DISCHARGE NEEDS:: Evaluations for further needs, follow up appointments. PATIENT/FAMILY EDUCATION NEEDS:: Review discharge instructions and limitations, discussion of self care needs including ask me three. ANTICIPATED BARRIERS TO DISCHARGE:: None identified. TRANSPORTATION:: Via private vehicle by [facility] PLAN:: Anticipate Jillian will return home with new HH orders vs SNF, depending on her needs at the time of discharge. She will likely transport via [facility]. She will follow up with her PCP and discharge plan of care. CM will continue to follow. 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[employer] Sexually active: No Do you think of yourself as: straight/heterosexual Current gender identity: female What type of physical activity do you participate in: none Seatbelt use: always Drive intox or ride w/intox food service driver: No Water heater temp set <120 deg: Yes Working smoke detector in home: Yes Fire extinguisher in home: Yes Carbon monox detector in home: Yes Do you feel safe at home: Yes Do you feel safe in your relationship?: Yes SDOH(Care Management) Screening Will the Patient Participate in the Screening?: Yes Do you worry about having a steady place to live?: no Problems where you live: water leaks and no known problems In the past 12 months, have you had to go without electric, gas, oil or water in your home?: no Have you or anyone in your house had to go without enough food to eat?: no Has lack of transportation kept you from medical appointments or from doing things needed for daily living?: no Has anyone in your support network made you feel unsafe for any reason?: no Social Determinants of Health Comments(SDOH Details): Pt states about her social contacts, I always wonder where they have been because of the coronavirus: Health Related Social Needs Health related social needs: inadequate housing(Z59.1) Health related social needs details: Pt states her bath tub leaks, but she doesn't use it.
--- NOTE | 2023-09-16 10:16 | PUCON_ITS ---
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 I agree with covering her for pneumonia with azithromycin and I will add Bactrim as well to cover possible PJP as she is on chronic immunosuppression. 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 We are unclear about her outpatient med list, so the safest option given this as well as the possibility for infection would be to add IVIG. 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 I have seen her in the past (last visit with me over a year ago)for her CTD-ILD and chronic hypoxic respiratory failure. 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 - received Evusheld - Flovent, albuterol and azithromycin Dermatomyositis - MDA5 - Rituxan, Cellcept - [facility] [place] rheumatology?? -?SILVIA 1:640, RNA polymerase III (25), A25 (35)?Anti-synthetase syndrome Former smoker - 21 pack years, quit 1980 Hypoxic respiratory failure - 2 LPM at rest, 3 LPM with exertion?[facility] [place] transplant assessment? COVID:07/20/21 Influenza:05/26/21 PPSV23:05/21/19 PCV13:01/25/17? She has since received care elsewhere. She presented to the ED on 09/15/23 with worsening dyspnea. She felt as though her pulmonary fibrosis has been worsening with decreased SpO2 levels at home. He blood work, including a VBG is normal. She is currently on 4LPM. She had a chest CT which shows significant worsening of her ILD since 2019. She has tried OFEV i nthe past but was intolerant to this. Today, she is having a hard time breathing. No fevers or productive cough. 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[employer] Sexually active: No Do you think of yourself as: straight/heterosexual Current gender identity: female What type of physical activity do you participate in: none Seatbelt use: always Drive intox or ride w/intox wood pile driver operator: No Water heater temp set <120 deg: Yes Working smoke detector in home: Yes Fire extinguisher in home: Yes Carbon monox detector in home: Yes Do you feel safe at home: Yes Do you feel safe in your relationship?: Yes Visit Medication and Allergies Active Medications Generic Name Dose Route Start Last Admin Trade Name Freq PRN Reason Stop Dose Admin Acetaminophen 0 mg 09/15/23 20:11 Acetaminophen 325 Mg Tab PO Q4H PRN PRN Albuterol Sulfate 2.5 mg 09/15/23 20:11 Albuterol 2.5 Mg/3 Ml Inh Soln Vial UPD Q2H PRN PRN Albuterol Sulfate 2 puff 09/16/23 07:37 Albuterol Hfa 8 Gm 60 Puff Inh IH Q6H PRN PRN Albuterol/Ipratropium 3 ml 09/16/23 12:00 Albuterol/Ipratropium 3 Ml Upd Vial UPD QID GENE Azithromycin 250 mg 09/16/23 08:30 09/16/23 09:28 Azithromycin 250 Mg Tab PO 250 mg DAILY GENE Administration Budesonide/Formoterol Fumarate 2 puff 09/16/23 20:00 Budesonide/Formoterol 160/4.5 6 Gm 60 Puff Inh IH BID GENE Device 1 each 09/15/23 20:11 Inhaler, Assist Device DIRECTED GENE Device 1 each 09/16/23 11:00 Inhaler, Assist Device MC DIRECTED GENE Device 1 each 09/16/23 11:00 Inhaler, Assist Device MC DIRECTED GENE Docusate Sodium 100 mg 09/15/23 20:11 Docusate Sodium 100 Mg Cap PO TID PRN PRN Enoxaparin Sodium 40 mg 09/16/23 20:00 Enoxaparin 40 Mg/0.4 Ml Syr SC Q24H GENE Famotidine 20 mg 09/15/23 22:00 09/15/23 21:25 Famotidine 20 Mg Tab PO 20 mg HS GENE Administration Guaifenesin 600 mg 09/16/23 20:00 Guaifenesin 600 Mg Tabcr PO BID GENE IV Miscellaneous Supplies 1 each 09/15/23 20:11 Iv Access IV DIRECTED GENE Lorazepam 0.5 mg 09/16/23 10:05 Lorazepam 0.5 Mg Tab PO Q4H PRN PRN Lorazepam 0.5 mg 09/16/23 10:04 Lorazepam 2 Mg/Ml Vial IVP 09/16/23 10:05 NOW ONE Mometasone Furoate 1 puff 09/16/23 20:00 Mometasone 220 Mcg 14 Dose Inhaler IH BID GENE Mometasone Furoate 1 puff 09/16/23 10:02 Mometasone 220 Mcg 14 Dose Inhaler IH 09/16/23 10:03 NOW STA Multivitamins 1 tab 09/16/23 08:30 09/16/23 07:47 Multivitamin Tab PO 1 tab DAILY GENE Administration Mycophenolate Mofetil 1,000 mg 09/15/23 20:11 09/16/23 09:44 Mycophenolate Mofetil 500 Mg Tab PO Not Given BID GENE Polyethylene Glycol 17 gm 09/15/23 20:11 Polyethylene Glycol 3350 17 Gm Packet PO DAILY PRN PRN Constipation Prednisone 40 mg 09/16/23 08:30 09/16/23 09:32 Prednisone 20 Mg Tab PO Not Given DAILY GENE Sodium Chloride 0 ml 09/15/23 20:11 Normal Saline Flush 10 Ml Syr IVP PRN PRN Sodium Chloride 0 ml 09/15/23 20:11 09/16/23 09:30 Normal Saline Flush 10 Ml Syr IVP 10 ml BID GENE Administration Sodium Chloride 0 ml 09/15/23 20:11 Normal Saline 10 Ml Vial IJ DIRECTED PRN Tiotropium [place] 2 puff 09/16/23 10:00 Tiotropium [place]-Respimat 10 Puff Inh IH DAILY [facility] Allergies nintedanib [From Ofev] Adverse Reaction (Mild, Verified 09/15/23 11:59) Headache Exam Narrative Exam Narrative: Gen: mild to moderate distress HENT: PERRL Chest: Mild respiratory distress, normal appearance of chest, clear to auscultation bilaterally, bilateral crackles Heart: regular rate and rhythym, no murmurs, rubs or gallops Abdomen: Non-distended, soft, non tender Extremities: No clubbing, edema, cyanosis, rashes Neuro: AAOx3 , non focal Psych: cooperative, appropriate mental affect Results Last Vital Signs Temp 36.5 C 09/16/23 07:36 Pulse 89 09/16/23 04:24 Resp 32 H 09/16/23 04:24 BP 122/74 09/16/23 04:24 Pulse Ox 91 L 09/16/23 09:47 Labs 09/16/23 05:50 09/16/23 05:50 Labs: Laboratory Results - last 24 hr 09/15/23 09/15/23 09/15/23 12:40 15:15 15:50 WBC 8.26 RBC 3.63 L Hgb 12.2 Hct 37.6 MCV 104 H MCH 33.6 H MCHC 32.4 RDW 12.7 Plt Count 244 MPV 9.6 Immature Gran % 0.4 Neutrophils % 64.8 Lymphocytes % 16.0 Monocytes % 13.0 Eosinophils % 5.2 Basophils % 0.6 Nucleated RBC % 0.0 Absolute Neutrophils 5.36 Absolute Lymphocytes 1.32 Absolute Monocytes 1.07 H Absolute Eosinophils 0.43 Absolute Basophils 0.05 ABG Sample Site Right Radial ABG pH 7.39 ABG pCO2 55 H ABG pO2 98 ABG HCO3 33 H ABG Total CO2 31 H ABG O2 Saturation 98 ABG Base Excess 9 H VBG Lactate 0.9 1.0 Oxygen Liter Flow 6 Sodium 143 Potassium 3.7 Chloride 102 Carbon Dioxide 35.9 H Anion Gap 5.1 BUN 5 L Creatinine 0.6 Est GFR (CKD-EPI 2020) 96.50 Glucose 106 Calcium 9.3 Magnesium 2.1 Total Bilirubin 0.4 AST 25 ALT 28 Alkaline Phosphatase 64 Troponin I < 50 < 50 Total Protein 6.7 Albumin 2.9 L COVID-19 Source SARS-CoV-2 (PCR) Influenza Type A (PCR) Influenza Type B (PCR) RSV (PCR) 09/15/23 09/15/23 09/16/23 18:41 18:58 05:50 WBC 8.85 RBC 3.40 L Hgb 11.5 Hct 34.8 L MCV 102 H MCH 33.8 H MCHC 33.0 RDW 12.5 Plt Count 235 MPV 10.0 Immature Gran % Neutrophils % Lymphocytes % Monocytes % Eosinophils % Basophils % Nucleated RBC % Absolute Neutrophils Absolute Lymphocytes Absolute Monocytes Absolute Eosinophils Absolute Basophils ABG Sample Site ABG pH ABG pCO2 ABG pO2 ABG HCO3 ABG Total CO2 ABG O2 Saturation ABG Base Excess VBG Lactate 0.7 Oxygen Liter Flow Sodium 138 Potassium 4.3 Chloride 102 Carbon Dioxide 33.9 H Anion Gap 2.1 L BUN 9 Creatinine 0.5 L Est GFR (CKD-EPI 2020) 100.84 Glucose 113 H Calcium 9.1 Magnesium 2.1 Total Bilirubin AST ALT Alkaline Phosphatase Troponin I Total Protein Albumin COVID-19 Source Nasal/Nares SARS-CoV-2 (PCR) Negative Influenza Type A (PCR) Influenza Type B (PCR) RSV (PCR) 09/16/23 07:52 WBC RBC Hgb Hct MCV MCH MCHC RDW Plt Count MPV Immature Gran % Neutrophils % Lymphocytes % Monocytes % Eosinophils % Basophils % Nucleated RBC % Absolute Neutrophils Absolute Lymphocytes Absolute Monocytes Absolute Eosinophils Absolute Basophils ABG Sample Site ABG pH ABG pCO2 ABG pO2 ABG HCO3 ABG Total CO2 ABG O2 Saturation ABG Base Excess VBG Lactate Oxygen Liter Flow Sodium Potassium Chloride Carbon Dioxide Anion Gap BUN Creatinine Est GFR (CKD-EPI 2020) Glucose Calcium Magnesium Total Bilirubin AST ALT Alkaline Phosphatase Troponin I Total Protein Albumin COVID-19 Source Nasopharynx SARS-CoV-2 (PCR) Negative Influenza Type A (PCR) Negative Influenza Type B (PCR) Negative RSV (PCR) Negative
[2023-09-16] MEDS: Tiotropium Bromide-Respimat 10 PUFF INH 2 PUFF IH (10:40)
[2023-09-16] MEDS: LORazepam 2 MG/ML VIAL 0.5 MG IVP ×2 (10:41→21:30)
[2023-09-16] MEDS: Sulfameth/Trimeth DS TAB 1 TAB PO ×2 (10:52→19:45)
--- NOTE | 2023-09-16 10:54 | PGE_ITS ---
Date of Service Date of service: 09/16/23 Time of Service: 10:54 Assessment and Plan Assessment and plan (1) Acute on chronic respiratory failure with hypoxia: Status: Acute Assessment and plan: In setting of ILD flare, question of PJP. Pulmonology consulted. Discussed with Dr Grimm: -dose of steroids increased. -bactrim added for potential PJP. -we will give IVIG today and tomorrow. -I have added scheduled + prn nebs, converted home advair to symbicort. -continue home spiriva. -continue home ofev. -continue mycophenolate. Procalcitonin negative. Consult Palliative care. 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 As above. (3) Anxiety: Status: Chronic Assessment and plan: I have spoken with the patient about her anxiety needing to be addressed. I have increased the frequency of prn lorazepam. I do think an SSRI would be a great idea. (4) Dermatomyositis: Status: Chronic Assessment and plan: As above (5) DVT prophylaxis: Status: Acute Assessment and plan: SC enoxaparin (6) Discharge planning issues: Status: Acute Assessment and plan: Full code PT and palliative care are consulted Subjective Subjective Interval history since last seen: Ms Stuart states she is feeling much better today than yesterday. She still reports feeling like she cannot catch her breath. She also reports feeling anxious, and we discuss how that sensation is normal when you feel short of breath, but how anxiety can make her breathe faster and actually make her oxygenation worse. She agrees to try lorazepam. She does not want to try morphine, citing two friends who were double dosed and . She agrees to talk to Dr Grimm of pulmonology. Currently, she sees pulmonology at [facility]. No dizziness, CP, nausea. Has been coughing. Cough is nonproductive. Exam Narrative Exam Narrative: General: a pleasant very anxious female who gets tachypneic when talking about anxiety-provoking topics, on 4L of O2 by oxymask HEENT: EOMI, MMM Heart: RRR, no m/r/g Lungs: crackles at B bases Abdomen: soft, nontender, nondistended Extremities: no edema BLEs Objective Last Vital Signs Temp 36.7 C 09/16/23 08:02 Pulse 82 09/16/23 08:02 Resp 22 09/16/23 08:02 BP 94/76 L 09/16/23 08:02 Pulse Ox 91 L 09/16/23 09:47 Laboratory Results - last 24 hr 09/15/23 09/15/23 09/15/23 12:40 15:15 15:50 WBC 8.26 RBC 3.63 L Hgb 12.2 Hct 37.6 MCV 104 H MCH 33.6 H MCHC 32.4 RDW 12.7 Plt Count 244 MPV 9.6 Immature Gran % 0.4 Neutrophils % 64.8 Lymphocytes % 16.0 Monocytes % 13.0 Eosinophils % 5.2 Basophils % 0.6 Nucleated RBC % 0.0 Absolute Neutrophils 5.36 Absolute Lymphocytes 1.32 Absolute Monocytes 1.07 H Absolute Eosinophils 0.43 Absolute Basophils 0.05 ABG Sample Site Right Radial ABG pH 7.39 ABG pCO2 55 H ABG pO2 98 ABG HCO3 33 H ABG Total CO2 31 H ABG O2 Saturation 98 ABG Base Excess 9 H VBG Lactate 0.9 1.0 Oxygen Liter Flow 6 Sodium 143 Potassium 3.7 Chloride 102 Carbon Dioxide 35.9 H Anion Gap 5.1 BUN 5 L Creatinine 0.6 Est GFR (CKD-EPI 2020) 96.50 Glucose 106 Calcium 9.3 Magnesium 2.1 Total Bilirubin 0.4 AST 25 ALT 28 Alkaline Phosphatase 64 Troponin I < 50 < 50 Total Protein 6.7 Albumin 2.9 L COVID-19 Source SARS-CoV-2 (PCR) Influenza Type A (PCR) Influenza Type B (PCR) RSV (PCR) 09/15/23 09/15/23 09/16/23 18:41 18:58 05:50 WBC 8.85 RBC 3.40 L Hgb 11.5 Hct 34.8 L MCV 102 H MCH 33.8 H MCHC 33.0 RDW 12.5 Plt Count 235 MPV 10.0 Immature Gran % Neutrophils % Lymphocytes % Monocytes % Eosinophils % Basophils % Nucleated RBC % Absolute Neutrophils Absolute Lymphocytes Absolute Monocytes Absolute Eosinophils Absolute Basophils ABG Sample Site ABG pH ABG pCO2 ABG pO2 ABG HCO3 ABG Total CO2 ABG O2 Saturation ABG Base Excess VBG Lactate 0.7 Oxygen Liter Flow Sodium 138 Potassium 4.3 Chloride 102 Carbon Dioxide 33.9 H Anion Gap 2.1 L BUN 9 Creatinine 0.5 L Est GFR (CKD-EPI 2020) 100.84 Glucose 113 H Calcium 9.1 Magnesium 2.1 Total Bilirubin AST ALT Alkaline Phosphatase Troponin I Total Protein Albumin COVID-19 Source Nasal/Nares SARS-CoV-2 (PCR) Negative Influenza Type A (PCR) Influenza Type B (PCR) RSV (PCR) 09/16/23 07:52 WBC RBC Hgb Hct MCV MCH MCHC RDW Plt Count MPV Immature Gran % Neutrophils % Lymphocytes % Monocytes % Eosinophils % Basophils % Nucleated RBC % Absolute Neutrophils Absolute Lymphocytes Absolute Monocytes Absolute Eosinophils Absolute Basophils ABG Sample Site ABG pH ABG pCO2 ABG pO2 ABG HCO3 ABG Total CO2 ABG O2 Saturation ABG Base Excess VBG Lactate Oxygen Liter Flow Sodium Potassium Chloride Carbon Dioxide Anion Gap BUN Creatinine Est GFR (CKD-EPI 2020) Glucose Calcium Magnesium Total Bilirubin AST ALT Alkaline Phosphatase Troponin I Total Protein Albumin COVID-19 Source Nasopharynx SARS-CoV-2 (PCR) Negative Influenza Type A (PCR) Negative Influenza Type B (PCR) Negative RSV (PCR) Negative Time Spent with Patient Time Spent with Patient: 35-49 minutes Time was spent: preparing to see the patient(eg.review tests), obtaining and/or reviewing separately otained hiistory, ordering medications,tests, procedures, referring, communicating with other health healthcare associate, indepentently interpreting results, counseling the patient and care coordination
--- NOTE | 2023-09-16 11:03 | NUR.NOTE ---
Patient would like to switch her infusion location from [facility] to [facility]. RN will call case management and discuss same.Nursing Note:
--- NOTE | 2023-09-16 11:18 | NUR.NOTE ---
RN takes off multiple [address] humidified in delivery valve just about patient's bed so extensions are not necessary. 02 delivery working better.Nursing Note:
[2023-09-16] MEDS: methylPREDNISolone SUCC 125 MG VIAL 60 MG IVP ×2 (11:30→18:09)
--- NOTE | 2023-09-16 11:57 | TELEP.MEDR_ITS ---
Date of service: 09/16/23 Time of Service: 11:57 Telepharmacy Home Med Rec Allergies Allergies: nintedanib [From Ofev] Adverse Reaction (Mild, Verified 09/15/23 11:59) Headache Interview Person Interviewed: Patient, with nursing assistance Quality Quality of Interview/Accuracy of Medication List: Fair Sources Sources used to compile medication list: [facility] Medication List and SureScripts Changes made to Home Medication List: ADDITIONS: Advair Ofev Spiriva Tums DELETIONS: Fluticasone Famotidine CHANGES: None Additional Notes Additional Notes: Pt is requesting to receive next Rituximab infusion at [facility] Recommended Changes Attestation: The home medication list is now updated to the best of my knowledge and is ready to be reconciled by the provider. Please contact the TelePharmacy Medication Reconciliation Pharmacist at for any questions.
--- NOTE | 2023-09-16 11:57 | NUR.NOTE ---
RN assists patient speak with [facility] to perform medicinal reconciliation. Patient is boosted in bed for optimal positioning for eating lunch. Patient is switched to nasal cannula at 6 liters of 02 from oxmosk so that she can eat lunch. Patient is sating 88%.Nursing Note:
--- NOTE | 2023-09-16 12:24 | W.PALLCONSUL ---
Date of service: 09/16/23 Time of Service: 12:24 History of Present Illness Narrative: From H and P History of Present Illness History of Present Illness Chief Complaint: Shortness of breath cough, clear sputum Narrative: 68-year-old female with a past medical history of chronic hypoxic respiratory failure on 4 L nasal cannula at baseline secondary to severe pulmonary fibrosis, also has a history of anxiety who presents the emergency department with complaints of worsening shortness of breath. Patient also states that her pulmonary fibrosis has been worsening and she is not on steroids but she has noticed over the last week that her oxygen saturation has been decreasing and that she has had increased cough with clear sputum but denies any fever, lightheadedness, dizziness, chills, chest pain, nausea vomiting or diarrhea. In the emergency department the patient was noted to mostly saturate above 92% on her 4 L nasal cannula, but appeared to desaturate with ambulation to the high 70s but did not rebound. CBC, CMP, VBG and lactic acid all within normal limits. Chest x-ray and chest CT did not show any acute findings. While in the emergency department was noted that the only thing that seemed to improve patient's breathing status was Ativan and there was a strong suspicion of there being an anxiety component to her intermittent worsening of hypoxia. However, given that the patient was unable to ambulate consistently without oxygen saturations dropping on her baseline oxygen, emergency room physician paged hospitalist for admission for patient with pulmonary fibrosis, he was experiencing acute on chronic hypoxic respiratory failure. Interim Hx: I am meeting with Jillian and her friend Stefanie. Jillian is a 68-year-old woman who has severe pulmonary fibrosis. She was admitted because of shortness of breath. There is concern that in addition to shortness of breath her anxiety exacerbates her symptoms. She states that at this point she is desperate. She lives on [address] in her home. She states that her toes were numb but are feeling better. She can walk about 15 feet from the bed to the kitchen but she needs to put her oxygen up to 6 L. She does not use BiPAP she says she cannot tolerate it. She mostly relies on her friends for driving as she is unable to at this time. Her son lives in [place] and she does have contact with him but she had some derogatory words about him. She also feels strongly that she needs help in her home and that the state should pay. She is willing to consider going to a assisted living facility but does not want to lose her home. She is not willing to go to a chcf as she knows of people who have lost their home to pay for their chcf bills. She would like to live another 2 years. 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 She does not consider herself anxious, but her friend Stefanie stated that she was. 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 She worked until recently. Assessment and Plan Assessment and plan (1) Pulmonary fibrosis: Status: Acute (2) Anxiety: Status: Chronic (3) Respiratory failure with hypoxia: Status: Acute (4) Dermatomyositis: Status: Chronic Assessment and plan: Jillian, Stefanie and I had a long discussion regarding CPR. Initially she said her son could decide. Stefanie explained how difficult that is for children and recommended Jillian make this decision. She eventually decided not to have CPR and signed the COLST form. She kept the original. A copy will go to her PCP and also in the EMR. Jillian states that she does not want CPR or a feeding tube. She is willing to have IV hydration and antibiotics. She still hopes to live 2 more years so she can sell off her antiques She wanted some soup. I let nursing know. I do think that she is ready to start exploring assisted living. She cannot manage on her own and is piecing help together. Her friend Stefanie feels strongly that she is not able to continue the way she is. Her son also emphasizes this. I would like to see Jillian outpatient. If she still is here in the hospital on Tuesday I will return for a visit. Discussed the CODE STATUS change with Dr. Landin. I do feel that there is a lot more that Jillian I should talk about, but she did not seem up to it today. Review of Systems Narrative: She states that she does not have chest pain but does have shortness of breath. Her toes are swollen but getting better. Staff and friends have noted that she is quite anxious. She does not have any dysuria. Her bowels are normal. She does not feel any specific areas of pain in her body. 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[employer] Sexually active: No Do you think of yourself as: straight/heterosexual Current gender identity: female What type of physical activity do you participate in: none Seatbelt use: always Drive intox or ride w/intox shuttle truck driver: No Water heater temp set <120 deg: Yes Working smoke detector in home: Yes Fire extinguisher in home: Yes Carbon monox detector in home: Yes Do you feel safe at home: Yes Do you feel safe in your relationship?: Yes Exam Narrative Exam Narrative: 68-year-old woman who is very articulate and talks in complete sentences. She is alert and oriented x 3. Her heart is regular despite exertion with speaking with me. Her lungs she does have some rales on the right side more so than on the left. I could hear good air movement throughout but there were definite rales. Mood?she does not want to lose her money and she is concerned that she will. she was cooperative, pleasant and entertaining Results Last Vital Signs Temp 98.1 F 09/16/23 08:02 Pulse 82 09/16/23 08:02 Resp 22 09/16/23 08:02 BP 94/76 L 09/16/23 08:02 Pulse Ox 91 L 09/16/23 09:47 Labs 09/18/23 04:37 09/18/23 04:37 Labs: Laboratory Results - last 24 hr 09/15/23 09/15/23 09/15/23 12:40 15:15 15:50 WBC 8.26 RBC 3.63 L Hgb 12.2 Hct 37.6 MCV 104 H MCH 33.6 H MCHC 32.4 RDW 12.7 Plt Count 244 MPV 9.6 Immature Gran % 0.4 Neutrophils % 64.8 Lymphocytes % 16.0 Monocytes % 13.0 Eosinophils % 5.2 Basophils % 0.6 Nucleated RBC % 0.0 Absolute Neutrophils 5.36 Absolute Lymphocytes 1.32 Absolute Monocytes 1.07 H Absolute Eosinophils 0.43 Absolute Basophils 0.05 ABG Sample Site Right Radial ABG pH 7.39 ABG pCO2 55 H ABG pO2 98 ABG HCO3 33 H ABG Total CO2 31 H ABG O2 Saturation 98 ABG Base Excess 9 H VBG Lactate 0.9 1.0 Oxygen Liter Flow 6 Sodium 143 Potassium 3.7 Chloride 102 Carbon Dioxide 35.9 H Anion Gap 5.1 BUN 5 L Creatinine 0.6 Est GFR (CKD-EPI 2020) 96.50 Glucose 106 Calcium 9.3 Magnesium 2.1 Total Bilirubin 0.4 AST 25 ALT 28 Alkaline Phosphatase 64 Troponin I < 50 < 50 Total Protein 6.7 Albumin 2.9 L COVID-19 Source SARS-CoV-2 (PCR) Influenza Type A (PCR) Influenza Type B (PCR) RSV (PCR) 09/15/23 09/15/23 09/16/23 18:41 18:58 05:50 WBC 8.85 RBC 3.40 L Hgb 11.5 Hct 34.8 L MCV 102 H MCH 33.8 H MCHC 33.0 RDW 12.5 Plt Count 235 MPV 10.0 Immature Gran % Neutrophils % Lymphocytes % Monocytes % Eosinophils % Basophils % Nucleated RBC % Absolute Neutrophils Absolute Lymphocytes Absolute Monocytes Absolute Eosinophils Absolute Basophils ABG Sample Site ABG pH ABG pCO2 ABG pO2 ABG HCO3 ABG Total CO2 ABG O2 Saturation ABG Base Excess VBG Lactate 0.7 Oxygen Liter Flow Sodium 138 Potassium 4.3 Chloride 102 Carbon Dioxide 33.9 H Anion Gap 2.1 L BUN 9 Creatinine 0.5 L Est GFR (CKD-EPI 2020) 100.84 Glucose 113 H Calcium 9.1 Magnesium 2.1 Total Bilirubin AST ALT Alkaline Phosphatase Troponin I Total Protein Albumin COVID-19 Source Nasal/Nares SARS-CoV-2 (PCR) Negative Influenza Type A (PCR) Influenza Type B (PCR) RSV (PCR) 09/16/23 07:52 WBC RBC Hgb Hct MCV MCH MCHC RDW Plt Count MPV Immature Gran % Neutrophils % Lymphocytes % Monocytes % Eosinophils % Basophils % Nucleated RBC % Absolute Neutrophils Absolute Lymphocytes Absolute Monocytes Absolute Eosinophils Absolute Basophils ABG Sample Site ABG pH ABG pCO2 ABG pO2 ABG HCO3 ABG Total CO2 ABG O2 Saturation ABG Base Excess VBG Lactate Oxygen Liter Flow Sodium Potassium Chloride Carbon Dioxide Anion Gap BUN Creatinine Est GFR (CKD-EPI 2020) Glucose Calcium Magnesium Total Bilirubin AST ALT Alkaline Phosphatase Troponin I Total Protein Albumin COVID-19 Source Nasopharynx SARS-CoV-2 (PCR) Negative Influenza Type A (PCR) Negative Influenza Type B (PCR) Negative RSV (PCR) Negative Imaging Imaging Studies: CHEST: LUNGS: There is severe extensive fibrotic disease throughout both lung palacio including abundant honeycombing which is most prominent in the bilateral lower lobes. The amount of disease has further progressed bilaterally when compared to the most recent CT scan of June 2018. There are no obvious confluent infiltrates and there are no pleural effusions. No significant mucous in the trachea and mainstem bronchi. MEDIASTINUM: There is no obvious new hilar nor mediastinal adenopathy. No obvious axillary adenopathy CARDIAC: Mild cardiomegaly. No pericardial effusion.Caliber of the thoracic aorta is within normal limits. VISUALIZED UPPER ABDOMEN: No adrenal masses. OSSEOUS: There are nonacute appearing mild compression fractures in the thoracic spinal column noted which were not evident in 2018. These do not appear acute.. IMPRESSION: 1. Compared to the prior CT scan of June 2018 there has been further progression of the severe bilateral extensive interstitial disease throughout both lung palacio. There are no obvious confluent infiltrates nor pleural effusions. 2. Nonacute appearing compression fractures in the thoracic spine which were not evident in 2018
[2023-09-16 12:54] LABS: Procalcitonin < 0.1 ng/mL
[2023-09-16] MEDS: Albuterol/Ipratropium 3 ML UPD VIAL UPD ×3 (13:27→19:35)
[2023-09-16] MEDS: Budesonide/Formoterol 160/4.5 6 GM 60 PUFF INH IH ×2 (13:57→19:40)
[2023-09-16] MEDS: Acetaminophen 325 MG TAB 650 MG PO (14:57)
[2023-09-16] MEDS: diphenhydrAMINE 25 MG CAP PO (14:57)
[2023-09-16] MEDS: IMMUNE GLOBULIN 10 GM/100 ML BTL IVPB (15:13)
[2023-09-16] MEDS: IMMUNE GLOBULIN 20 GM/200 ML BTL IVPB (17:30)
[2023-09-16] MEDS: Water,Injection,Sterile 10 ML VIAL (18:12)
[2023-09-16] MEDS: IMMUNE GLOBULIN 40 GM/400 ML BTL IVPB (19:15)
[2023-09-16] MEDS: guaiFENesin 600 MG TABCR PO (19:45)
[2023-09-16] MEDS: Enoxaparin 40 MG/0.4 ML SYR SC (19:46)
[2023-09-16] MEDS: Normal Saline 10 ML VIAL IJ (21:26)
[2023-09-17] VITALS (81 sets, daily range): BP systolic 96–161; BP diastolic 62–116; PULSE 72–148; RESP 2–40; TEMP 34–37.2; O2SAT 9–98
[2023-09-17] MEDS: Famotidine 20 MG TAB PO ×2 (00:30→20:20)
[2023-09-17] MEDS: methylPREDNISolone SUCC 125 MG VIAL 60 MG IVP ×5 (01:07→23:37)
[2023-09-17] MEDS: Acetaminophen 325 MG TAB PO (06:46)
[2023-09-17 06:52] LABS: Anion Gap 4.3 mmol/L (3-11); BUN 14 mg/dL (7-18); CO2 31.7 mmol/L (21.0-32.0); CREATININE 0.7 mg/dL (0.55-1.02); Calcium 8.8 mg/dL (8.5-10.1); Chloride 102 mmol/L (98-107); Estimated GFR 92.98 (mL/min/1.73m2); Glucose 143 mg/dL (74-106); Magnesium 2.2 mg/dL (1.8-2.4); Potassium 4.2 mmol/L (3.5-5.1); Sodium 138 mmol/L (136-145)
[2023-09-17] MEDS: Budesonide/Formoterol 160/4.5 6 GM 60 PUFF INH IH ×2 (07:40→20:22)
[2023-09-17] MEDS: Tiotropium Bromide-Respimat 10 PUFF INH 2 PUFF IH (07:41)
[2023-09-17] MEDS: Albuterol/Ipratropium 3 ML UPD VIAL UPD ×4 (07:41→19:18)
--- NOTE | 2023-09-17 08:03 | NUR.NOTE ---
RN sets patient up with breakfast tray and encourages patient to get out of bed. Patient agrees to get out of bed today up to chair.Nursing Note:
[2023-09-17] MEDS: Azithromycin 250 MG TAB PO (08:27)
[2023-09-17] MEDS: Multivitamin TAB 1 TAB PO (08:27)
[2023-09-17] MEDS: Sulfameth/Trimeth DS TAB 1 TAB PO ×2 (08:27→20:18)
[2023-09-17] MEDS: guaiFENesin 600 MG TABCR PO ×2 (08:27→20:19)
--- NOTE | 2023-09-17 09:11 | PGE_ITS ---
Date of Service Date of service: 09/17/23 Time of Service: 09:11 Assessment and Plan Assessment and plan (1) Acute on chronic respiratory failure with hypoxia: Status: Acute Assessment and plan: In setting of ILD flare, question of PJP. Transitioned to a humidified heated HFNC. Evaluated by pulmonology. Continue high dose steroids. Continue Bactrim for potential PJP. Finish IVIG course. Continue mycophenolate. Home ofev was brought in today - ordered. Will give a dose of furosemide 20 mg IV x 1. Continue scheduled + prn nebs, advair, spiriva. Continue lorazepam prn and trial a low dose of oral morphine. Procalcitonin in negative. Fungal studies, PJP PCR pending. Obtain a sputum culture. Met with palliative care: code status changed to DNR/DNI. 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 As above. (3) Anxiety: Status: Chronic Assessment and plan: Continue prn lorazepam but also trial oral morphine for the air hunger. I do think an SSRI would be a great idea. (4) Dermatomyositis: Status: Chronic Assessment and plan: As above (5) DVT prophylaxis: Status: Acute Assessment and plan: SC enoxaparin (6) Discharge planning issues: Status: Acute Assessment and plan: DNR/DNI Attempt to mobilize the patient. Appreciate palliative care consult. PT on board. Subjective Subjective Interval history since last seen: Ms Stuart continues to have episodes of desaturations and anxiety. She was transitioned to a humidified heated high flow NC at 30 L 35 % FiO2 and was desaturating to the 70s while talking to me clearly anxious. Her FiO2 was increased to 40 % with O2 sat improvement. She has noticed that her hands and legs are a little swollen. Denies dizziness, CP, pain of any kind, nausea. She feels better today. She is willing to try morphine at a super low dose. Exam Narrative Exam Narrative: General: a pleasant very anxious female who gets tachypneic when talking/anxious, on humidified heated high flow NC at 30 L 40% FiO2 HEENT: EOMI, MMM Heart: RRR, no m/r/g Lungs: crackles at B bases Abdomen: soft, nontender, nondistended Extremities: trace edema of BLEs/hands Objective Last Vital Signs Temp 36.5 C 09/17/23 07:48 Pulse 99 H 09/17/23 07:48 Resp 20 09/17/23 07:48 BP 135/73 09/17/23 07:48 Pulse Ox 93 09/17/23 07:48 Laboratory Results - last 24 hr 09/16/23 09/17/23 12:10 05:47 Sodium 138 Potassium 4.2 Chloride 102 Carbon Dioxide 31.7 Anion Gap 4.3 BUN 14 Creatinine 0.7 Est GFR (CKD-EPI 2020) 92.98 Glucose 143 H Calcium 8.8 Magnesium 2.2 Procalcitonin < 0.1 Time Spent with Patient Time Spent with Patient: 35-49 minutes Time was spent: preparing to see the patient(eg.review tests), obtaining and/or reviewing separately otained hiistory, ordering medications,tests, procedures, referring, communicating with other health care program director, indepentently interpreting results, counseling the patient and care coordination
[2023-09-17] MEDS: diphenhydrAMINE 25 MG CAP PO (09:41)
[2023-09-17] MEDS: Acetaminophen 325 MG TAB 650 MG PO (09:42)
[2023-09-17] MEDS: Furosemide 20 MG/2 ML VIAL IVP (10:19)
[2023-09-17] MEDS: Normal Saline Flush 10 ML SYR IVP ×4 (10:19→23:36)
[2023-09-17] MEDS: IMMUNE GLOBULIN 20 GM/200 ML BTL IVPB (10:31)
[2023-09-17] MEDS: Docusate Sodium 100 MG CAP PO (10:55)
[2023-09-17] MEDS: LORazepam 0.5 MG TAB PO ×2 (10:59→16:09)
[2023-09-17] MEDS: IMMUNE GLOBULIN 40 GM/400 ML BTL IVPB (12:50)
[2023-09-17] MEDS: Benzonatate 200 MG CAP PO (20:12)
[2023-09-17] MEDS: Enoxaparin 40 MG/0.4 ML SYR SC (20:21)
[2023-09-17] MEDS: Water,Injection,Sterile 10 ML VIAL (23:38)
[2023-09-18] VITALS (22 sets, daily range): BP systolic 114–142; BP diastolic 63–79; PULSE 78–108; RESP 9–22; TEMP 36.5–37; O2SAT 87–98
[2023-09-18 05:13] LABS: Abs Immature Grans 0.05 10^3/uL (0.0-0.06); Absolute Lymphocyte Count 0.35 10^3/uL (1.2-3.4); Absolute Monocyte Count 0.42 10^3/uL (0.1-0.8); Absolute Neutrophil Count 8.97 10^3/uL (1.2-6.7); HCT 33.2 % (36.0-46.0); HGB 10.9 g/dL (11.2-15.7); Immature Grans % 0.5; Lymphocytes % 3.6; MCH 33.4 pg (27.0-33.0); MCHC 32.8 % (32.0-36.0); MCV 102 fL (80-95); Monocytes % 4.3; Neutrophils % 91.6; Platelet Count 241 10^3/uL (130-400); RBC 3.26 10^6/uL (3.93-5.22); RDW 12.7 % (11.7-14.6); RDW-SD 47.2 fL; WBC 9.79 10^3/uL (4.4-10.8)
[2023-09-18 05:45] LABS: Anion Gap 1.6 mmol/L (3-11); BUN 17 mg/dL (7-18); CO2 32.4 mmol/L (21.0-32.0); CREATININE 0.8 mg/dL (0.55-1.02); Calcium 8.8 mg/dL (8.5-10.1); Chloride 98 mmol/L (98-107); Estimated GFR 79.22 (mL/min/1.73m2); Glucose 123 mg/dL (74-106); Magnesium 2.3 mg/dL (1.8-2.4); Potassium 4.4 mmol/L (3.5-5.1); Sodium 132 mmol/L (136-145)
[2023-09-18] MEDS: methylPREDNISolone SUCC 125 MG VIAL 60 MG IVP ×4 (05:46→23:39)
[2023-09-18] MEDS: Normal Saline Flush 10 ML SYR IVP ×5 (05:54→23:40)
[2023-09-18] MEDS: Water,Injection,Sterile 10 ML VIAL (06:04)
[2023-09-18] MEDS: Budesonide/Formoterol 160/4.5 6 GM 60 PUFF INH IH ×2 (07:36→19:21)
[2023-09-18] MEDS: Tiotropium Bromide-Respimat 10 PUFF INH 2 PUFF IH (07:36)
[2023-09-18] MEDS: Albuterol/Ipratropium 3 ML UPD VIAL UPD ×4 (07:37→19:10)
--- NOTE | 2023-09-18 09:12 | IN_ITS ---
PT Notes Visit Reasons: Acute on chronic hypoxic respiratory failure Date: 09/18/23 Referring Doctor: Rebekah Landin MD PT Orders: PT CONSULT: Limited ability Precautions: standard, NC 02 support 100% of the time. Patient Profile/Admitting Diagnosis: 68 y o female admitted on 09/15/23 with flare of acute on chronic interstitial lung disease, past medical history of chronic hypoxic respiratory failure on 4 L nasal cannula at baseline secondary to severe pulmonary fibrosis, also has a history of anxiety which is worsened with her current medical status. Social History/Home Situation: Jillian reports she lives ALONE, in a 2-story home residing on the first floor, 3 steps to enter. She has rails, but does not usually use them. She generally uses a cane or RW. She in on 3-4L02 at baseline, and lives independently. This is somewhat contradictory to communications with case management - She lives with her sister and has very supportive friends who help with grocery shopping. Equipment Owned/DME: Subjective: RW and SPC Objective: General Observation: Nasal canula, external catheter, SOB and fast RR, anxious Mental Status: A & O x 3, very anxious about being on morphine, feels it will kill her as this is what you give people who are dying. ROM: Right Upper Extremity: Grosly WFL Left Upper Extremity: Grossly WFL Right Lower Extremity: Grossly WFL Left Lower Extremity:Grossly WFL Strength: Right Upper Extremity: Grossly 3/5 strength Left Upper Extremity: Grossly 3/5 strength Right Lower Extremity: Grossly 3+/5 strength Left Lower Extremity: Grossly 3+/5 strength Bed Mobility/Transfers: Bed mobility Independent Reclined at 60 deg to EOB SBA Sit to Stand CG x 2 Stand pivot transfer CG x 2 Requires 3L O2 throughout with increased pressure and verbal cues throughout for recovery breathing. O2 drops to 55% on 4L with pressure, recovers to 85% post 4-5 min of sitting and breathing guidance Gait: Unable due to oxygen desaturation and weakness. Balance: Static Sitting: Good Dynamic Sitting: Fair Static Standing: Poor Dynamic Standing: Poor Special Tests: Mobility Limitations Standardized Measure [facility] AM-PAC 6 clicks Basic Mobility Inpatient Short Form: 61% disability Informed Consent/Education: Patient instructed in purpose of PT consult and plan of care. Treatment: Initial evaluation 93689 Unable to tolerate further activity or treatment due to SOB and oxygen saturation complications. Provided skilled instruction in Independent exercise, and written on board to perform in small incriments Sitting march Leg kicks (LAQ) ankle pumps/circles glute sets elbow flexion Assessment: Patient is a 68 year old female referred to physical therapy services with reason for PT evaluation of limited ability ,and admitted diagnosis of acute flare of chronic interstiatial lung disease in setting of chronic hypoxic respiratory failure on 4 L nasal cannula at baseline secondary to severe pulmonary fibrosis, complicated by anxiety. Patient presents with with strength, balance, and gait inability due to lack of oxygen saturation, further strained with even basic movement. She requires skilled PT intervention to maximize mobility to her medical tolerance and ability, but realistic transition for for safe transition home currently seems like a very big goal given her reported baseline independent level of living. Per her current functional presentation, she will require use of RW for all transfers, and WC for community engagement and medical appointments, or functional mobility, to reduce fall risk and improve safety. Subject to changes with progression of medical condition. Impairment level findings: Global weakness Poor O2 saturation ability SOB High RR Impairments are contributing to the following functional limitations: Inability to ambulate even 1-2 steps Dependent on assist for transfers Dependent on SBA for Sit to stand and vice versa Inability to perform self care or ADL's [facility] 61% disability Patient is assessed as sever complexity based on the following: History: 68 y o female admitted on 09/15/23 with flare of acute on chronic interstitial lung disease, past medical history of chronic hypoxic respiratory failure on 4 L nasal cannula at baseline secondary to severe pulmonary fibrosis, also has a history of anxiety which is worsened with her current medical status. Lives alone at baseline, an unable to return to this situation at current time. Examination: impairment and functional limitations as noted above Presentation: Unstable Decision Making: Easy Goals: Goals X1 week With 4L 02 via NC 1. Supine-Sit : Independent 2. Sit-Supine : Independent 3. Sit-Stand : SBA x 1 to RW 4. Stand-Sit : SBA x 1 to RW 5. Bed-Chair : SBA x 1 w RW 6. Chair-Bed : SBA x 1 w RW 7. Gait : 20 ft with RW CG, stable O2 levels 8. Stairs : 3 with rail, SPC, CG and stable O2 levels Plan of Care/Treatment Plan: 1-2x/day, 7 days/week x 1 week. Plan of care has been reviewed with the [employer]AREHOU[employer] COORDINATOR providing the service under Physical Therapy direction. Initiate Physical Therapy intervention for strengthening, bed mobility, transfers, gait, stairs, balance training, use of assistive device. DISCHARGE RECOMMENDATIONS: Rehabilitation if she does not medically stabilize and progress toward above goals. Family member 24/ support if she achieves goals, with follow up of HHPT to facilitate home level functional tolerance back to independent level. TREATMENT CODE/TIME: 53289, 30 min Katie King, [facility]
[2023-09-18] MEDS: LORazepam 0.5 MG TAB PO ×2 (09:19→14:58)
[2023-09-18] MEDS: guaiFENesin 600 MG TABCR PO ×2 (09:22→19:24)
[2023-09-18] MEDS: Benzonatate 200 MG CAP PO ×3 (09:22→19:24)
[2023-09-18] MEDS: Azithromycin 250 MG TAB PO (09:22)
[2023-09-18] MEDS: Sulfameth/Trimeth DS TAB 1 TAB PO ×2 (09:22→19:24)
[2023-09-18] MEDS: Multivitamin TAB 1 TAB PO (09:22)
--- NOTE | 2023-09-18 15:34 | PGE_ITS ---
Date of Service Date of service: 09/18/23 Time of Service: 15:34 Assessment and Plan Assessment and plan (1) Acute on chronic respiratory failure with hypoxia: Status: Acute Assessment and plan: In setting of ILD flare, question of PJP. Transitioned to a humidified heated HFNC. Evaluated by pulmonology. Continue high dose steroids. Continue Bactrim for potential PJP. s/p IVIG course. Continue mycophenolate. Continue ofev. Will repeat furosemide 20 mg IV x 1. Continue scheduled + prn nebs, advair, spiriva. Continue lorazepam and oral morphine prn. Procalcitonin in negative. Fungal studies, PJP PCR pending. Met with palliative care: code status changed to DNR/DNI. 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 As above. (3) Anxiety: Status: Chronic Assessment and plan: Continue prn lorazepam but also trial oral morphine for the air hunger. I do think an SSRI would be a great idea. (4) Dermatomyositis: Status: Chronic Assessment and plan: As above (5) DVT prophylaxis: Status: Acute Assessment and plan: SC enoxaparin (6) Discharge planning issues: Status: Acute Assessment and plan: DNR/DNI Encourage mobilization of the patient. Appreciate palliative care consult. PT on board. Subjective Subjective Interval history since last seen: Mr Stuart is feeling better today. Nursing describes a two hour stretch where she was being visited by friends where she did not desaturate at all. She remains on humidified heated HFNC: 30 L 35% FiO2. Denies dizziness, CP, nausea currently. Was nauseated earlier today. Has taken both prn lorazepam and morphine with good relief. Exam Narrative Exam Narrative: General: a pleasant very anxious female looks a littel calrmer and better today, on humidified heated high flow NC at 30 L 35% FiO2 HEENT: EOMI, MMM Heart: RRR, no m/r/g Lungs: faint crackles at B bases, otherwise diminished breath sounds B Abdomen: soft, nontender, nondistended Extremities: +1 edema of BLEs, symmetric Objective Last Vital Signs Temp 36.5 C 09/18/23 12:03 Pulse 100 H 09/18/23 15:30 Resp 20 09/18/23 14:27 BP 130/63 09/18/23 14:27 Pulse Ox 93 09/18/23 15:30 Laboratory Results - last 24 hr 09/18/23 04:37 WBC 9.79 RBC 3.26 L Hgb 10.9 L Hct 33.2 L MCV 102 H MCH 33.4 H MCHC 32.8 RDW 12.7 Plt Count 241 MPV 10.0 Immature Gran % 0.5 Neutrophils % 91.6 Lymphocytes % 3.6 Monocytes % 4.3 Eosinophils % 0.0 Basophils % 0.0 Nucleated RBC % 0.0 Absolute Neutrophils 8.97 H Absolute Lymphocytes 0.35 L Absolute Monocytes 0.42 Absolute Eosinophils 0.00 Absolute Basophils 0.00 Sodium 132 L Potassium 4.4 Chloride 98 Carbon Dioxide 32.4 H Anion Gap 1.6 L BUN 17 Creatinine 0.8 Est GFR (CKD-EPI 2020) 79.22 Glucose 123 H Calcium 8.8 Magnesium 2.3 Time Spent with Patient Time Spent with Patient: 25-34 minutes Time was spent: preparing to see the patient(eg.review tests), obtaining and/or reviewing separately otained hiistory, ordering medications,tests, procedures, referring, communicating with other health day care center director, indepentently interpreting results, counseling the patient and care coordination
[2023-09-18] MEDS: Furosemide 20 MG/2 ML VIAL IVP (16:18)
[2023-09-18] MEDS: Famotidine 20 MG TAB PO (19:24)
[2023-09-18] MEDS: Enoxaparin 40 MG/0.4 ML SYR SC (19:25)
[2023-09-19] VITALS (10 sets, daily range): BP systolic 114–155; BP diastolic 71–80; PULSE 87–111; RESP 3–30; TEMP 36.2–36.8; O2SAT 88–99
--- NOTE | 2023-09-19 06:00 | W.PALPGNOTE ---
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 Wants some to go home with a prescription for these Agreed to mirtazepine 7.5 mg daily for anxiety Although she doesn't like it, agrees to consider assisted living in the future - hard for her to consider, but she knows she needs to do this. Hopefully care management can help with this She is doing better on the humidified air. Subjective Subjective Interval history since last seen: Jillian has been feeliing better. She has used lorazepam and morphine for her SOB with good relief. No chest pain, bowels not moving as good as she would like. Small BM, infequent Recounted to things that she thinks may have led to her lung disease i.e. 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 I tried to reassure her that this was just bad luck that she had this lung problem and was not something that she did. Exam Narrative Exam Narrative: Very talkative 68-year-old woman. She was tachycardic. Lungs she had rales throughout on the right and residential up on the left. Mood there is some anxiety but she actually seemed more relaxed than she did the last time. Please note nursing did give her a lorazepam prior to me coming in Objective Last Vital Signs Temp 98.2 F 09/19/23 00:05 Pulse 94 H 09/19/23 00:05 Resp 20 09/19/23 00:05 BP 114/72 09/19/23 00:05 Pulse Ox 88 L 09/19/23 00:05
--- NOTE | 2023-09-19 07:25 | W.PULMPROG ---
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 I agree with covering her for pneumonia with azithromycin and I will add Bactrim as well to cover possible PJP as she is on chronic immunosuppression. 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 She received this therapy over the weekend and I am hopeful that it did work. Her steroids can be changed to prednisone with a taper. She is not on Cellcept as an outpatient so we will stop this today and observe her. No further IVIG infusions are necessary. 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 - prednisone taper: 60mg for 14 days, 50mg for 7 days, 40mg for 7 days, 30mg for 7 days, 20mg for 7 days, 10mg for 7 days, 5mg for 7 days - stop mycophenelate - s/p IVIG therapy - continue azithromycin for a total of 5 days - cotninue Bactrim DS bid - if PJP returns negative can change to Bactrim DS daily for ppx while on prednisone - PJP PCR, Fungitell, immunoglobulins pending - negative procalcitonin - appreciate palliative care Hypoxic respiratory failure - supplemental O2 for sats >90% General Date Of Service Date of service: 09/19/23 Time of Service: 07:25 Reason for Consult: ILD Exacerbation Subjective Note Note: Jillian is doing well today. She is still very concerned about the future and her house, but it does seem as though she had a very productive meeting with palliative care. Clinically she is doing much better today on 4LPM. Exam Narrative Exam Narrative: Gen: mild to moderate distress HENT: PERRL Chest: Mild respiratory distress, normal appearance of chest, clear to auscultation bilaterally, bilateral crackles Heart: regular rate and rhythym, no murmurs, rubs or gallops Abdomen: Non-distended, soft, non tender Extremities: No clubbing, edema, cyanosis, rashes Neuro: AAOx3 , non focal Psych: cooperative, appropriate mental affect Objective Last Vital Signs Temp 36.8 C 09/19/23 00:05 Pulse 94 H 09/19/23 00:05 Resp 20 09/19/23 00:05 BP 114/72 09/19/23 00:05 Pulse Ox 88 L 09/19/23 00:05 Results Medications Medications: Active Medications Generic Name Dose Route Start Last Admin Trade Name Freq PRN Reason Stop Dose Admin Acetaminophen 0 mg 09/15/23 20:11 09/17/23 06:46 Acetaminophen 325 Mg Tab PO 650 mg Q4H PRN PRN Administration Albuterol Sulfate 2.5 mg 09/15/23 20:11 Albuterol 2.5 Mg/3 Ml Inh Soln Vial UPD Q2H PRN PRN Albuterol Sulfate 2 puff 09/16/23 07:37 Albuterol Hfa 8 Gm 60 Puff Inh IH Q6H PRN PRN Albuterol/Ipratropium 3 ml 09/16/23 12:00 09/18/23 19:10 Albuterol/Ipratropium 3 Ml Upd Vial UPD 3 ml QID GENE Administration Azithromycin 250 mg 09/16/23 08:30 09/18/23 09:22 Azithromycin 250 Mg Tab PO 250 mg DAILY GENE Administration Benzonatate 200 mg 09/17/23 20:00 09/18/23 19:24 Benzonatate 200 Mg Cap PO 200 mg TID GENE Administration Budesonide/Formoterol Fumarate 2 puff 09/16/23 13:00 09/18/23 19:21 Budesonide/Formoterol 160/4.5 6 Gm 60 Puff Inh IH 2 inh BID GENE Administration [place] Oil/Eucalyptus/Peppermint 30 ml 09/17/23 19:00 09/17/23 20:23 Eucalyptus/Peppermint Oil 30 Ml Btl NS 1 applic DIRECTED GENE Administration Device 1 each 09/16/23 11:00 Inhaler, Assist Device MC DIRECTED GENE Docusate Sodium 100 mg 09/15/23 20:11 09/17/23 10:55 Docusate Sodium 100 Mg Cap PO 100 mg TID PRN PRN Administration Enoxaparin Sodium 40 mg 09/16/23 20:00 09/18/23 19:25 Enoxaparin 40 Mg/0.4 Ml Syr SC 40 mg Q24H GENE Administration Famotidine 20 mg 09/15/23 22:00 09/18/23 19:24 Famotidine 20 Mg Tab PO 20 mg HS GENE Administration Guaifenesin 600 mg 09/16/23 20:00 09/18/23 19:24 Guaifenesin 600 Mg Tabcr PO 600 mg BID GENE Administration IV Miscellaneous Supplies 1 each 09/15/23 20:11 Iv Access IV DIRECTED GENE Lorazepam 0.5 mg 09/16/23 10:05 09/18/23 14:58 Lorazepam 0.5 Mg Tab PO 0.5 mg Q4H PRN PRN Administration Morphine Sulfate 2.5 mg 09/17/23 09:09 09/18/23 09:18 Morphine 10 Mg/5ml Soln. 5ml Cup PO 2.5 mg Q4H PRN PRN Administration Multivitamins 1 tab 09/16/23 08:30 09/18/23 09:22 Multivitamin Tab PO 1 tab DAILY GENE Administration Mycophenolate Mofetil 1,000 mg 09/15/23 20:11 09/18/23 19:24 Mycophenolate Mofetil 500 Mg Tab PO 1,000 mg BID GENE Administration Patient's Own 1 each 09/17/23 08:30 09/18/23 19:24 Medication ( PO 1 each Nintedanib [Ofev] Q12H GENE Administration 150 Mg Capsule) Polyethylene Glycol 17 gm 09/15/23 20:11 Polyethylene Glycol 3350 17 Gm Packet PO DAILY PRN PRN Constipation Prednisone 60 mg 09/19/23 08:30 Prednisone 20 Mg Tab PO DAILY GENE Sodium Chloride 0 ml 09/15/23 20:11 09/18/23 23:40 Normal Saline Flush 10 Ml Syr IVP 20 ml PRN PRN Administration Sodium Chloride 0 ml 09/15/23 20:11 09/18/23 18:16 Normal Saline Flush 10 Ml Syr IVP 10 ml BID GENE Administration Sodium Chloride 0 ml 09/15/23 20:11 09/16/23 21:26 Normal Saline 10 Ml Vial IJ 30 ml DIRECTED PRN Administration Sodium Chloride 44 ml 09/17/23 18:46 Sodium Chloride-Nasal Whit[place]-Adult 44 Ml Btl NS QID PRN PRN Tiotropium [place] 2 puff 09/16/23 10:00 09/18/23 07:36 Tiotropium [place]-Respimat 10 Puff Inh IH 2 puffs DAILY GENE Administration Trimethoprim/Sulfamethoxazole 1 tab 09/16/23 10:00 09/18/23 19:24 Sulfameth/Trimeth Ds Tab PO 1 tab BID GENE Administration Allergies nintedanib [From Ofev] Adverse Reaction (Mild, Verified 09/15/23 11:59) Headache Labs 09/18/23 04:37 09/18/23 04:37 Labs: 09/15/23 14:50 Blood Blood Culture - Preliminary NO GROWTH 72 HOURS 09/15/23 13:54 Blood Blood Culture - Preliminary NO GROWTH 72 HOURS Laboratory Tests Range/Units 09/15/23 09/15/23 09/15/23 12:40 15:15 15:50 WBC (4.4-10.8) 10^3/uL 8.26 RBC (3.93-5.22) 10^6/uL 3.63 L Hgb (11.2-15.7) g/dL 12.2 Hct (36.0-46.0) % 37.6 MCV (80-95) fL 104 H MCH (27.0-33.0) pg 33.6 H MCHC (32.0-36.0) % 32.4 RDW (11.7-14.6) % 12.7 Plt Count (130-400) 10^3/uL 244 MPV (8.0-11.0) fL 9.6 Immature Gran % 0.4 Neutrophils % 64.8 Lymphocytes % 16.0 Monocytes % 13.0 Eosinophils % 5.2 Basophils % 0.6 Nucleated RBC % (0.0-0.3) % 0.0 Absolute Neutrophils (1.2-6.7) 10^3/uL 5.36 Absolute Lymphocytes (1.2-3.4) 10^3/uL 1.32 Absolute Monocytes (0.1-0.8) 10^3/uL 1.07 H Absolute Eosinophils (0.0-0.7) 10^3/uL 0.43 Absolute Basophils (0.0-0.2) 10^3/uL 0.05 ABG Sample Site Right Radial ABG pH (7.35-7.45) 7.39 ABG pCO2 (35-45) mmHg 55 H ABG pO2 (80-105) mmHg 98 ABG HCO3 (22-26) mmol/L 33 H ABG Total CO2 (23-27) mmol/L 31 H ABG O2 Saturation (95-98) % 98 ABG Base Excess (-2-3) mmol/L 9 H VBG Lactate (0.6-1.4) mmol/L 0.9 1.0 Oxygen Liter Flow L 6 Sodium (136-145) mmol/L 143 Potassium (3.5-5.1) mmol/L 3.7 Chloride (98-107) mmol/L 102 Carbon Dioxide (21.0-32.0) mmol/L 35.9 H Anion Gap (3-11) mmol/L 5.1 BUN (7-18) mg/dL 5 L Creatinine (0.55-1.02) mg/dL 0.6 Est GFR (CKD-EPI 2020) (mL/min/1.73m2) 96.50 Glucose (74-106) mg/dL 106 Calcium (8.5-10.1) mg/dL 9.3 Magnesium (1.8-2.4) mg/dL 2.1 Total Bilirubin (0.2-1.0) mg/dL 0.4 AST (15-37) U/L 25 ALT (14-59) U/L 28 Alkaline Phosphatase (46-116) U/L 64 Troponin I (< or =60) ng/L < 50 < 50 Total Protein (6.4-8.2) g/dL 6.7 Albumin (3.4-5.0) g/dL 2.9 L Procalcitonin ng/mL COVID-19 Source SARS-CoV-2 (PCR) (Negative) Influenza Type A (PCR) (Negative) Influenza Type B (PCR) (Negative) RSV (PCR) (Negative) Range/Units 09/15/23 09/15/23 09/16/23 18:41 18:58 05:50 WBC (4.4-10.8) 10^3/uL 8.85 RBC (3.93-5.22) 10^6/uL 3.40 L Hgb (11.2-15.7) g/dL 11.5 Hct (36.0-46.0) % 34.8 L MCV (80-95) fL 102 H MCH (27.0-33.0) pg 33.8 H MCHC (32.0-36.0) % 33.0 RDW (11.7-14.6) % 12.5 Plt Count (130-400) 10^3/uL 235 MPV (8.0-11.0) fL 10.0 Immature Gran % Neutrophils % Lymphocytes % Monocytes % Eosinophils % Basophils % Nucleated RBC % (0.0-0.3) % Absolute Neutrophils (1.2-6.7) 10^3/uL Absolute Lymphocytes (1.2-3.4) 10^3/uL Absolute Monocytes (0.1-0.8) 10^3/uL Absolute Eosinophils (0.0-0.7) 10^3/uL Absolute Basophils (0.0-0.2) 10^3/uL ABG Sample Site ABG pH (7.35-7.45) ABG pCO2 (35-45) mmHg ABG pO2 (80-105) mmHg ABG HCO3 (22-26) mmol/L ABG Total CO2 (23-27) mmol/L ABG O2 Saturation (95-98) % ABG Base Excess (-2-3) mmol/L VBG Lactate (0.6-1.4) mmol/L 0.7 Oxygen Liter Flow L Sodium (136-145) mmol/L 138 Potassium (3.5-5.1) mmol/L 4.3 Chloride (98-107) mmol/L 102 Carbon Dioxide (21.0-32.0) mmol/L 33.9 H Anion Gap (3-11) mmol/L 2.1 L BUN (7-18) mg/dL 9 Creatinine (0.55-1.02) mg/dL 0.5 L Est GFR (CKD-EPI 2020) (mL/min/1.73m2) 100.84 Glucose (74-106) mg/dL 113 H Calcium (8.5-10.1) mg/dL 9.1 Magnesium (1.8-2.4) mg/dL 2.1 Total Bilirubin (0.2-1.0) mg/dL AST (15-37) U/L ALT (14-59) U/L Alkaline Phosphatase (46-116) U/L Troponin I (< or =60) ng/L Total Protein (6.4-8.2) g/dL Albumin (3.4-5.0) g/dL Procalcitonin ng/mL COVID-19 Source Nasal/Nares SARS-CoV-2 (PCR) (Negative) Negative Influenza Type A (PCR) (Negative) Influenza Type B (PCR) (Negative) RSV (PCR) (Negative) Range/Units 09/16/23 09/16/23 09/17/23 07:52 12:10 05:47 WBC (4.4-10.8) 10^3/uL RBC (3.93-5.22) 10^6/uL Hgb (11.2-15.7) g/dL Hct (36.0-46.0) % MCV (80-95) fL MCH (27.0-33.0) pg MCHC (32.0-36.0) % RDW (11.7-14.6) % Plt Count (130-400) 10^3/uL MPV (8.0-11.0) fL Immature Gran % Neutrophils % Lymphocytes % Monocytes % Eosinophils % Basophils % Nucleated RBC % (0.0-0.3) % Absolute Neutrophils (1.2-6.7) 10^3/uL Absolute Lymphocytes (1.2-3.4) 10^3/uL Absolute Monocytes (0.1-0.8) 10^3/uL Absolute Eosinophils (0.0-0.7) 10^3/uL Absolute Basophils (0.0-0.2) 10^3/uL ABG Sample Site ABG pH (7.35-7.45) ABG pCO2 (35-45) mmHg ABG pO2 (80-105) mmHg ABG HCO3 (22-26) mmol/L ABG Total CO2 (23-27) mmol/L ABG O2 Saturation (95-98) % ABG Base Excess (-2-3) mmol/L VBG Lactate (0.6-1.4) mmol/L Oxygen Liter Flow L Sodium (136-145) mmol/L 138 Potassium (3.5-5.1) mmol/L 4.2 Chloride (98-107) mmol/L 102 Carbon Dioxide (21.0-32.0) mmol/L 31.7 Anion Gap (3-11) mmol/L 4.3 BUN (7-18) mg/dL 14 Creatinine (0.55-1.02) mg/dL 0.7 Est GFR (CKD-EPI 2020) (mL/min/1.73m2) 92.98 Glucose (74-106) mg/dL 143 H Calcium (8.5-10.1) mg/dL 8.8 Magnesium (1.8-2.4) mg/dL 2.2 Total Bilirubin (0.2-1.0) mg/dL AST (15-37) U/L ALT (14-59) U/L Alkaline Phosphatase (46-116) U/L Troponin I (< or =60) ng/L Total Protein (6.4-8.2) g/dL Albumin (3.4-5.0) g/dL Procalcitonin ng/mL < 0.1 COVID-19 Source Nasopharynx SARS-CoV-2 (PCR) (Negative) Negative Influenza Type A (PCR) (Negative) Negative Influenza Type B (PCR) (Negative) Negative RSV (PCR) (Negative) Negative Range/Units 09/18/23 04:37 WBC (4.4-10.8) 10^3/uL 9.79 RBC (3.93-5.22) 10^6/uL 3.26 L Hgb (11.2-15.7) g/dL 10.9 L Hct (36.0-46.0) % 33.2 L MCV (80-95) fL 102 H MCH (27.0-33.0) pg 33.4 H MCHC (32.0-36.0) % 32.8 RDW (11.7-14.6) % 12.7 Plt Count (130-400) 10^3/uL 241 MPV (8.0-11.0) fL 10.0 Immature Gran % 0.5 Neutrophils % 91.6 Lymphocytes % 3.6 Monocytes % 4.3 Eosinophils % 0.0 Basophils % 0.0 Nucleated RBC % (0.0-0.3) % 0.0 Absolute Neutrophils (1.2-6.7) 10^3/uL 8.97 H Absolute Lymphocytes (1.2-3.4) 10^3/uL 0.35 L Absolute Monocytes (0.1-0.8) 10^3/uL 0.42 Absolute Eosinophils (0.0-0.7) 10^3/uL 0.00 Absolute Basophils (0.0-0.2) 10^3/uL 0.00 ABG Sample Site ABG pH (7.35-7.45) ABG pCO2 (35-45) mmHg ABG pO2 (80-105) mmHg ABG HCO3 (22-26) mmol/L ABG Total CO2 (23-27) mmol/L ABG O2 Saturation (95-98) % ABG Base Excess (-2-3) mmol/L VBG Lactate (0.6-1.4) mmol/L Oxygen Liter Flow L Sodium (136-145) mmol/L 132 L Potassium (3.5-5.1) mmol/L 4.4 Chloride (98-107) mmol/L 98 Carbon Dioxide (21.0-32.0) mmol/L 32.4 H Anion Gap (3-11) mmol/L 1.6 L BUN (7-18) mg/dL 17 Creatinine (0.55-1.02) mg/dL 0.8 Est GFR (CKD-EPI 2020) (mL/min/1.73m2) 79.22 Glucose (74-106) mg/dL 123 H Calcium (8.5-10.1) mg/dL 8.8 Magnesium (1.8-2.4) mg/dL 2.3 Total Bilirubin (0.2-1.0) mg/dL AST (15-37) U/L ALT (14-59) U/L Alkaline Phosphatase (46-116) U/L Troponin I (< or =60) ng/L Total Protein (6.4-8.2) g/dL Albumin (3.4-5.0) g/dL Procalcitonin ng/mL COVID-19 Source SARS-CoV-2 (PCR) (Negative) Influenza Type A (PCR) (Negative) Influenza Type B (PCR) (Negative) RSV (PCR) (Negative)
[2023-09-19] MEDS: LORazepam 0.5 MG TAB PO ×3 (07:28→19:32)
[2023-09-19 08:48] LABS: Vitamin B12 1190 pg/mL (193-986)
[2023-09-19] MEDS: Tiotropium Bromide-Respimat 10 PUFF INH 2 PUFF IH (09:04)
[2023-09-19] MEDS: Budesonide/Formoterol 160/4.5 6 GM 60 PUFF INH IH ×2 (09:04→20:43)
[2023-09-19] MEDS: Albuterol/Ipratropium 3 ML UPD VIAL UPD ×4 (09:04→19:39)
--- NOTE | 2023-09-19 09:24 | CMPROGNOTE_ITS ---
Date of service: 09/19/23 Time of Service: 09:24 Care Management Progress Note Progress Note Text Progress Note Text: S/O: Jillian was sitting up in her chair when CM met with her. She had a friend visiting, Celina, whom she said is like a sister to her, and is very supportive at home. A few times during the conversation, Jillian had a coughing fit and was unable to participate in conversation for a time, while she caught her breath. CM discussed discharge planning with Jillian, noting that last week we discussed SNF, and she did not feel ready to make the decision. Jillian stated that she has since worked with PT and did not do as well as she had hoped, therefore she is considering going to short term rehab post discharge. She identified a few faciliities for referrals to be sent including the [facility] (first choice), [facility], and [facility]. CM sent the referrals, at her request. CM will continue to follow. A: Jillian is a 68 year old female admitted to [facility] on 09/15/23 for acute on chronic respiratory failure. P: Anticipate Jillian will return home with new HH orders vs SNF, depending on her needs at the time of discharge. She will likely transport via [facility]. She will follow up with her PCP and discharge plan of care. CM will continue to follow.
[2023-09-19] MEDS: predniSONE 20 MG TAB 60 MG PO (09:27)
[2023-09-19] MEDS: Multivitamin TAB 1 TAB PO (09:28)
[2023-09-19] MEDS: Benzonatate 200 MG CAP PO ×3 (09:30→20:25)
[2023-09-19] MEDS: Azithromycin 250 MG TAB PO (09:30)
[2023-09-19] MEDS: guaiFENesin 600 MG TABCR PO ×2 (09:30→20:25)
[2023-09-19] MEDS: Sulfameth/Trimeth DS TAB 1 TAB PO ×2 (09:30→20:25)
[2023-09-19] MEDS: Normal Saline Flush 10 ML SYR IVP ×3 (09:32→20:25)
[2023-09-19 10:11] LABS: IgA 285 mg/dL (85-499); IgG 760 mg/dL (610-1616); IgM 26 mg/dL (35-242)
--- NOTE | 2023-09-19 12:04 | PTTR_ITS ---
Date of service: 09/19/23 Time of Service: 10:30 PT Notes Visit Reasons: Acute on chronic hypoxic respiratory failure Inpatient Physical Therapy Treatment Note [facility] Date: 09/19/23 PRECAUTIONS: Fall, standard, activity as tolerated. NC O2 support 100% of the time. SUBJECTIVE: Patient appears SOB from when this clinician first enters. Upon hearing that this clinician is from the physical therapy department, she states that she could not possibly stand right now, as she is apt to fall over. OBJECTIVE: Sitting up in bedside chair, agreeable to therapy. On 4L/m humidified supplemental O2. Continuous SaO2 monitor in place. AFTERNOON: Pinky's position in bed, agreeable to therapy provided she doesn't need to get out of bed. 4L/M supplemental O2. D/Joey continuous SaO2 monitor. ? PAIN: none reported VITALS: ? Pre-Treatment: SaO2 90% AFTERNOON: SaO2 76% ? Post-Treatment: SaO2 86% AFTERNOON: SaO2 81%.? BED MOBILITY/TRANSFERS? Rolling L/R: Not assessed Supine-sit: Not assessed ? Sit-supine: Not assessed ? Sit-stand: Not assessed ? Stand-sit: Not assessed ? Bed-Chair: Not assessed ? Chair-bed: Not assessed ? Therapeutic Exercises ([id number]): Direct one-on-one instruction in therapeutic exercises to develop strength, endurance, range of motion and flexibility. ? Exercises: * seated marching * LAQ's * diaphragmatic breathing * pursed lip breathing * AFTERNOON: Rib expansion exercises with shoulder flexion, diaphragmatic breathing. Patient requires extensive cueing for deep nasal breaths; she becomes extremely anxious and her breathing becomes rapid and shallow. Patient also requires long recovery times between exercises (5-7 minutes) and cues to limit conversation, breath deeply. ? Provided skilled instruction in proper exercise performance Provided skilled manual cues to facilitate proper muscle recruitment and/or form. ASSESSMENT:? Patient will benefit from aggressive management of her anxiety, continued breath training. PLAN: Continue global strengthening per plan of care until patient is medically cleared for discharge and has a safe discharge plan. TREATMENT CODE/TIME: 25 minutes beginning at 10:30 and 24 minutes beginning at 14:02 for a total of 49 minutes today.
[2023-09-19 17:03] LABS: Fungitell Qualitative Negative (Negative); Fungitell Quantitative Value <31 pg/mL (<60 pg/mL)
--- NOTE | 2023-09-19 19:14 | PGE_ITS ---
Date of Service Date of service: 09/19/23 Time of Service: 19:14 Assessment and Plan Assessment and plan (1) Acute on chronic respiratory failure with hypoxia: Status: Acute Assessment and plan: In setting of ILD flare, question of PJP. I do not think she is doing well right this moment on a regular NC. I have ordered continuous pulse ox as I feel she is likely hypoxic now and we would not know since she is not being continuously monitored. It is likely her hypoxia that is fueling the tachycardia. Steroids are being weaned. Continue Bactrim for potential PJP. s/p IVIG course. Mycophenolate was d/c'ed. Continue ofev. Continue scheduled + prn nebs, advair, spiriva. Continue lorazepam and oral morphine prn. Procalcitonin in negative. Fungal studies, PJP PCR pending. Met with palliative care: code status is DNR/DNI. 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 As above. (3) Anxiety: Status: Chronic Assessment and plan: Continue prn lorazepam and oral morphine for the air hunger. Start mirtazapine 7.5 mg PO QHS. (4) Dermatomyositis: Status: Chronic Assessment and plan: As above (5) DVT prophylaxis: Status: Acute Assessment and plan: SC enoxaparin (6) Discharge planning issues: Status: Acute Assessment and plan: DNR/DNI Encourage mobilization of the patient. Appreciate palliative care consult. PT on board. Prognosis overall guarded. Discussed with Dr Grimm. Subjective Subjective Interval history since last seen: Ms Stuart is very upset. The television in her room does not work. She states she needs water in her cup (it's currently empty). She states that not having a working television makes her very anxious. We discussed how I would tell the nursing winding department supervisor about her concerns. She feels very short of breath, very anxious. Denies dizziness, CP, nausea. Exam Narrative Exam Narrative: General: a pleasant very anxious female looks very anxious, on NC @ 5L, tachypneic HEENT: EOMI, MMM Heart: RRR, very tachycardic Lungs: tachypneic, diminished breath sounds B, B crackles Abdomen: soft, nontender, nondistended Extremities: trace edema of BLEs, symmetric Objective Last Vital Signs Temp 36.7 C 09/19/23 14:09 Pulse 100 H 09/19/23 16:46 Resp 16 09/19/23 16:46 BP 149/71 H 09/19/23 14:09 Pulse Ox 90 L 09/19/23 16:46 Laboratory Results - last 24 hr 09/16/23 09/19/23 12:10 07:04 Vitamin B12 1190 H IgG 760 IgA 285 IgM 26 L B-(1,3)-D-Glucan Quant <31 B-(1,3)-D-Glucan Qual Negative Time Spent with Patient Time Spent with Patient: 35-49 minutes Time was spent: preparing to see the patient(eg.review tests), obtaining and/or reviewing separately otained hiistory, ordering medications,tests, procedures, referring, communicating with other health home health aide caregiver, indepentently interpreting results, counseling the patient and care coordination
[2023-09-19] MEDS: Famotidine 20 MG TAB PO (20:25)
[2023-09-19] MEDS: Enoxaparin 40 MG/0.4 ML SYR SC (20:25)
[2023-09-19] MEDS: Mirtazapine 15 MG TAB 7.5 MG PO (21:48)
[2023-09-20] VITALS (10 sets, daily range): BP systolic 112–128; BP diastolic 71–78; PULSE 76–100; RESP 16–21; TEMP 36.6–37; O2SAT 86–100
[2023-09-20] MEDS: LORazepam 0.5 MG TAB PO ×4 (03:01→18:24)
[2023-09-20 07:41] LABS: Abs Immature Grans 0.07 10^3/uL (0.0-0.06); Absolute Basophil Count 0.01 10^3/uL (0.0-0.2); Absolute Lymphocyte Count 0.67 10^3/uL (1.2-3.4); Absolute Monocyte Count 1.26 10^3/uL (0.1-0.8); Absolute Neutrophil Count 7.56 10^3/uL (1.2-6.7); Basophils % 0.1; HCT 33.3 % (36.0-46.0); Immature Grans % 0.7; MCV 100 fL (80-95); MPV 10.1 fL (8.0-11.0); Monocytes % 13.2; Platelet Count 249 10^3/uL (130-400); RBC 3.33 10^6/uL (3.93-5.22); RDW 12.8 % (11.7-14.6); RDW-SD 47.2 fL; WBC 9.57 10^3/uL (4.4-10.8)
[2023-09-20 08:07] LABS: Anion Gap 4.8 mmol/L (3-11); BUN 25 mg/dL (7-18); CO2 32.2 mmol/L (21.0-32.0); CREATININE 0.8 mg/dL (0.55-1.02); Calcium 8.9 mg/dL (8.5-10.1); Chloride 98 mmol/L (98-107); Estimated GFR 79.22 (mL/min/1.73m2); Glucose 75 mg/dL (74-106); Magnesium 2.6 mg/dL (1.8-2.4); Potassium 4.6 mmol/L (3.5-5.1); Sodium 135 mmol/L (136-145)
[2023-09-20] MEDS: Albuterol/Ipratropium 3 ML UPD VIAL UPD (08:49)
[2023-09-20] MEDS: Budesonide/Formoterol 160/4.5 6 GM 60 PUFF INH IH ×2 (08:49→20:16)
[2023-09-20] MEDS: Tiotropium Bromide-Respimat 10 PUFF INH 2 PUFF IH (08:49)
[2023-09-20] MEDS: Benzonatate 200 MG CAP PO ×3 (09:43→21:08)
[2023-09-20] MEDS: Normal Saline Flush 10 ML SYR IVP ×2 (09:43→21:09)
[2023-09-20] MEDS: Multivitamin TAB 1 TAB PO (09:43)
[2023-09-20] MEDS: guaiFENesin 600 MG TABCR PO (09:44)
[2023-09-20] MEDS: predniSONE 20 MG TAB 60 MG PO (09:44)
[2023-09-20] MEDS: Sulfameth/Trimeth DS TAB 1 TAB PO ×2 (09:44→21:07)
[2023-09-20] MEDS: Azithromycin 250 MG TAB PO (09:44)
--- NOTE | 2023-09-20 10:39 | PDOC.CMPRO ---
Date of service: 09/20/23 Time of Service: 10:39 Care Management Progress Note Progress Note Text Progress Note Text: S/O: Jillian met with Dr. Tejeda and expressed not being interested in Hospice at this time. Awaiting SNF referral review from [facility] ([facility]), [facility] ([facility]), [facility], and [facility]. CM will continue to follow. A: Jillian is a 68 year old female admitted to [facility] on 09/15/23 for acute on chronic respiratory failure. P: Anticipate Jillian will return home with new HH orders vs SNF, depending on her needs at the time of discharge. She will likely transport via [facility]. She will follow up with her PCP and discharge plan of care. CM will continue to follow.
--- NOTE | 2023-09-20 11:35 | PCPN_ITS ---
Date of service: 09/20/23 Time of Service: 14:30 Assessment and Plan Assessment and plan (1) Acute on chronic respiratory failure with hypoxia: Status: Acute (2) Pulmonary fibrosis: Status: Acute (3) Anxiety: Status: Chronic Assessment and plan: Jillian is a 68-year-old woman with pulmonary fibrosis. Anxiety definitely affects her overall mood and care. She has agreed to morphine lorazepam and mirtazapine. These she finds helpful. I would recommend that she receive Ativan at least twice a day scheduled and be offered morphine 3 times a day but patient can refuse. Regarding hospice?I feel like I have planted the seed but she is certainly not yet ready to water that seed. She will go to a long-term/rehab. She does not feel that she has people to take care of her at home and therefore does not want to return home on hospice. She is hoping for 2 more years. She stated more than once that she would like me to come and visit her if she is home or to a nearby rehab facility. I do think that she will do well in a rehab facility where she can have more social interactions. I did discuss with Dr. Landin Subjective Subjective Interval history since last seen: I visited with Jillian yesterday. We talked about her anxiety and how much the lorazepam and morphine was helping. I also suggested that she consider trying mirtazapine 7.5 mg to see if it would help with sleep and anxiety. She was in favor of this. It was started recently. Today she seemed to have a downwards trajectory. Dr. Landin asked me to come and see Jillian to discuss possible hospice admission Jillian states that she is feeling about the same but she is very upset that she was initially placed in a room without a TV. She said the only thing you can do in these rooms is to watch TV and when she was placed in a room with the TV that was broken she got very anxious and upset. Luckily they were able to move her. She states that she feels that she is doing about the same. She gets very short of breath sometimes when she talks although she talks for long periods of time and definitely walking to the bathroom. She assumes that she is going to have to go to a rehab facility. She knows that they will take good care of her at the rehab. She also does know that if she needs end-of-life care that it is available through them. When asking her about hospice she was adamant that hospice is not where she was at. She feels strongly that they just give medication and people . She said every person dies on hospice. She said she wants to live 2 more years. When I asked her how will she know if it is time for hospice her reply was that she would know. I asked about specific things like not being able to get out of bed, ambulation, increasing bouts requiring hospitalizations. Her reply was I will just know Exam Narrative Exam Narrative: Jillian does appear more short of breath today. She is saying 3-4 words, getting anxious, and then not able to breathe. She feels like she is getting enough of the morphine and the Ativan. She did not notice if there was any change last night with the mirtazapine. She is sitting very erect. She talks although I am able to interrupt her, her speech is almost nonstop. She has Rales throughout her back. I do hear some wheezing. There is not good airflow. She is on the high side of normal regarding heart rate. Mood very very anxious Objective Last Vital Signs Temp 98.6 F 09/20/23 11:24 Pulse 86 09/20/23 11:24 Resp 20 09/20/23 11:24 BP 123/76 09/20/23 11:24 Pulse Ox 90 L 09/20/23 11:24 Laboratory Results - last 24 hr 09/16/23 09/20/23 12:10 06:30 WBC 9.57 RBC 3.33 L Hgb 11.0 L Hct 33.3 L MCV 100 H MCH 33.0 MCHC 33.0 RDW 12.8 Plt Count 249 MPV 10.1 Immature Gran % 0.7 Neutrophils % 79.0 Lymphocytes % 7.0 Monocytes % 13.2 Eosinophils % 0.0 Basophils % 0.1 Nucleated RBC % 0.0 Absolute Neutrophils 7.56 H Absolute Lymphocytes 0.67 L Absolute Monocytes 1.26 H Absolute Eosinophils 0.00 Absolute Basophils 0.01 Sodium 135 L Potassium 4.6 Chloride 98 Carbon Dioxide 32.2 H Anion Gap 4.8 BUN 25 H Creatinine 0.8 Est GFR (CKD-EPI 2020) 79.22 Glucose 75 Calcium 8.9 Magnesium 2.6 H IgG 760 IgA 285 IgM 26 L B-(1,3)-D-Glucan Quant <31 B-(1,3)-D-Glucan Qual Negative Laboratory Tests 09/15/23 09/16/23 09/19/23 12:40 12:10 07:04 Hct 37.6 Carbon Dioxide BUN Vitamin B12 1190 H IgM 26 L 09/20/23 06:30 Hct 33.3 L Carbon Dioxide 32.2 H BUN 25 H Vitamin B12 IgM LUNGS: There is severe extensive fibrotic disease throughout both lung palacio including abundant honeycombing which is most prominent in the bilateral lower lobes. The amount of disease has further progressed bilaterally when compared to the most recent CT scan of June 2018. There are no obvious confluent infiltrates and there are no pleural effusions. No significant mucous in the trachea and mainstem bronchi. MEDIASTINUM: There is no obvious new hilar nor mediastinal adenopathy. No obvious axillary adenopathy CARDIAC: Mild cardiomegaly. No pericardial effusion.Caliber of the thoracic aorta is within normal limits. VISUALIZED UPPER ABDOMEN: No adrenal masses. OSSEOUS: There are nonacute appearing mild compression fractures in the thoracic spinal column noted which were not evident in 2018. These do not appear acute.. IMPRESSION: 1. Compared to the prior CT scan of June 2018 there has been further progression of the severe bilateral extensive interstitial disease throughout both lung palacio. There are no obvious confluent infiltrates nor pleural effusions. 2. Nonacute appearing compression fractures in the thoracic spine which were not evident in 2018
--- NOTE | 2023-09-20 13:01 | PTTR_ITS ---
Date of service: 09/20/23 Time of Service: 10:27 PT Notes Visit Reasons: Acute on chronic hypoxic respiratory failure Inpatient Physical Therapy Treatment Note [facility] Date: 09/20/23 PRECAUTIONS: Fall, standard, activity as tolerated. CLOSELY MONITOR VITALS. Premedicate for anxiety. SUBJECTIVE: Approached patient at 9:08, she states she just finished breakfast and needs to wait an hour before participating in therapy. Reapproached patient at 10:27 with respiratory therapy present. AFTERNOON: Per NOVA Tinoco, patient received morphine recently and should be less anxious for therapy this afternoon. Patient immediately recognizes this therapist and states that she is unable to walk this afternoon, but is willing to do seated exercises. Also states that she has no desire to lay back down in bed - prefers to sit up throughout the day. OBJECTIVE: Patient is supine in bed, on 4L O2 via nasal cannula. PureWick in place but ineffective. Agreeable to therapy. RT also present. AFTERNOON: Patient is sitting up in bedside chair, on 4L O2 via nasal cannula. PureWick absent. ? PAIN: no pain reported. VITALS: AM monitored continuously by RT. PM vitals as follows: ? Pre-Treatment: 96% on 4L ? Post-Treatment: 93% on 4L? BED MOBILITY/TRANSFERS? Rolling L/R: modified independent with bilateral side rails. Supine-sit: modified independent with elevated HOB? Sit-supine: not assessed ? Sit-stand: SBA? Stand-sit: SBA? Bed-Chair: SBA ? Chair-bed: not assessed ? Therapeutic Exercises ([id number]): Direct one-on-one instruction in therapeutic exercises to develop strength, endurance, range of motion and flexibility. MORNING: Ambulation: ? Assistive Device: FWW? Weight bearing: full Assist: CGA, assist with O2 tubing, continuous SaO2 monitoring and O2 management provided by RT. ? Distance:? 15 feet, rest, 25 feet ? Deviation: Patient becomes distressed as noted below. Posture kyphotic. Short shuffling steps. LOB x4, which patient claims is due to not getting any air.? AFTERNOON Exercises: * LAQ's 2x10 * seated marching 2x10 * rib expansion exercises including shoulder flexion, shoulder horizontal abduction with diaphragmatic breathing 3x5 During afternoon session, patient desaturates to 71%. This clinician increases O2 to 6L/min, patient recovers to 90-91% and remains between 87-94% for the remainder of the session. At the close of the treatment, O2 is returned to 4L/min, patient is monitored for an additional 2 minutes, remains satting between 90-92% on 4L. RN Alejandrina notified of increase and of return to 4L.? Provided skilled instruction in proper exercise performance Provided skilled manual cues to facilitate proper muscle recruitment and/or form: [] ASSESSMENT:? Patient becomes distressed during morning treatment session, accusing staff (this therapist and RT x2) of being greedy with the O2, not giving her enough. States 3x that this clinician might as well just turn it off and let [her] . Apologizes at the close of session, calling staff angels and stating that no one out there (indicates out the window) knows how hard you all work in here. AFTERNOON: Patient refuses ambulation but participates in UE and LE exercises seated in bedside chair. Recovers SaO2 much more efficiently in the afternoon. PLAN: Continue global strengthening per plan of care until patient is medically cleared for discharge and achieves safe discharge plan. TREATMENT CODE/TIME: 33 minutes beginning at 10:27 and 22 minutes beginning at 13:32 for a total of 55 minutes today.
--- NOTE | 2023-09-20 15:43 | CHAPLAIN ---
Jillian was sitting up in bed when I visiting and seemed to be working hard on breathing. She answered some questions, told me she is from [place] originally. She lives in [place] with her sister and has one son in [place]. Jillian told me that she is not dying and that she needs to live another year because she some things she needs to settle. She told me that she has lots of friends and they were in to visit her yesterday.
[2023-09-20] MEDS: Sodium Chloride-Nasal SPRAY-ADULT 44 ML BTL NS (18:01)
--- NOTE | 2023-09-20 19:22 | PGE_ITS ---
Date of Service Date of service: 09/20/23 Time of Service: 17:45 Assessment and Plan Assessment and plan (1) Acute on chronic respiratory failure with hypoxia: Status: Acute Assessment and plan: In setting of ILD flare, question of PJP. Continue continous pulse ox. Continue prednisone taper. Continue Bactrim for potential PJP. s/p IVIG course. Mycophenolate was d/c'ed. Continue ofev. Continue scheduled + prn nebs, advair, spiriva. Continue lorazepam and oral morphine prn. Procalcitonin in negative. beta glucan negative, PJP PCR was cancelled. Met with palliative care: code status is DNR/DNI. 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 As above. (3) Anxiety: Status: Chronic Assessment and plan: Continue prn lorazepam and oral morphine for the air hunger. Continue mirtazapine 7.5 mg PO QHS. (4) Dermatomyositis: Status: Chronic Assessment and plan: As above (5) DVT prophylaxis: Status: Acute Assessment and plan: SC enoxaparin (6) Discharge planning issues: Status: Acute Assessment and plan: DNR/DNI Encourage mobilization of the patient. Appreciate palliative care help. PT on board. Will be discharging to a SNF when medically ready. Prognosis overall guarded. Discussed with Dr Tejeda. Subjective Subjective Interval history since last seen: Jillian states that she has been coughing a lot. No phlegm. Requests cough medicine. I told her that it would be given to her at 8 pm - she agreed to wait. She denies dizziness, CP, n/v. She did a little walking today. She agrees to go to a SNF. Spoke with palliative care. She is not ready for hospice, but is ok with the idea of dying. Exam Narrative Exam Narrative: General: a pleasant very anxious female looks very anxious, on NC @ 4L oxymask HEENT: EOMI, MMM Heart: RRR Lungs: diminished breath sounds B, faint crackles B bases. Less tachypneic today Abdomen: soft, nontender, nondistended Extremities: trace edema of BLEs, symmetric Objective Last Vital Signs Temp 36.9 C 09/20/23 15:28 Pulse 100 H 09/20/23 15:28 Resp 18 09/20/23 15:28 BP 122/71 09/20/23 15:28 Pulse Ox 86 L 09/20/23 15:28 Laboratory Results - last 24 hr 09/16/23 09/20/23 20:00 06:30 WBC 9.57 RBC 3.33 L Hgb 11.0 L Hct 33.3 L MCV 100 H MCH 33.0 MCHC 33.0 RDW 12.8 Plt Count 249 MPV 10.1 Immature Gran % 0.7 Neutrophils % 79.0 Lymphocytes % 7.0 Monocytes % 13.2 Eosinophils % 0.0 Basophils % 0.1 Nucleated RBC % 0.0 Absolute Neutrophils 7.56 H Absolute Lymphocytes 0.67 L Absolute Monocytes 1.26 H Absolute Eosinophils 0.00 Absolute Basophils 0.01 Sodium 135 L Potassium 4.6 Chloride 98 Carbon Dioxide 32.2 H Anion Gap 4.8 BUN 25 H Creatinine 0.8 Est GFR (CKD-EPI 2020) 79.22 Glucose 75 Calcium 8.9 Magnesium 2.6 H Pneumocystis Source Not Applicable Pneumocystis DNA (PCR) TNP Pneumocyst Special Info Not Applicable Pneumocyst Report Status Not Applicable Time Spent with Patient Time Spent with Patient: 35-49 minutes Time was spent: preparing to see the patient(eg.review tests), obtaining and/or reviewing separately otained hiistory, ordering medications,tests, procedures, referring, communicating with other health healthcare receptionist, indepentently interpreting results, counseling the patient and care coordination
[2023-09-20] MEDS: Famotidine 20 MG TAB PO (21:07)
[2023-09-20] MEDS: guaiFENesin 600 MG TABCR 1200 MG PO (21:07)
[2023-09-20] MEDS: Mirtazapine 15 MG TAB 7.5 MG PO (21:08)
[2023-09-20] MEDS: Enoxaparin 40 MG/0.4 ML SYR SC (21:10)
[2023-09-21] VITALS (7 sets, daily range): BP systolic 107–130; BP diastolic 64–83; PULSE 64–91; RESP 16–21; TEMP 36–37.2; O2SAT 92–99
[2023-09-21] MEDS: LORazepam 0.5 MG TAB PO ×2 (03:10→14:30)
[2023-09-21 07:07] LABS: Abs Immature Grans 0.08 10^3/uL (0.0-0.06); Absolute Basophil Count 0.01 10^3/uL (0.0-0.2); Absolute Eosinophil Count 0.03 10^3/uL (0.0-0.7); Absolute Lymphocyte Count 0.88 10^3/uL (1.2-3.4); Absolute Monocyte Count 1.15 10^3/uL (0.1-0.8); Absolute Neutrophil Count 8.69 10^3/uL (1.2-6.7); Basophils % 0.1; Eosinophils % 0.3; HCT 34.6 % (36.0-46.0); HGB 11.4 g/dL (11.2-15.7); Immature Grans % 0.7; Lymphocytes % 8.1; MCH 32.8 pg (27.0-33.0); MCHC 32.9 % (32.0-36.0); MCV 99 fL (80-95); MPV 9.7 fL (8.0-11.0); Monocytes % 10.6; Neutrophils % 80.2; Platelet Count 251 10^3/uL (130-400); RBC 3.48 10^6/uL (3.93-5.22); RDW 12.7 % (11.7-14.6); RDW-SD 45.6 fL; WBC 10.84 10^3/uL (4.4-10.8)
[2023-09-21 07:25] LABS: Anion Gap 3.7 mmol/L (3-11); BUN 25 mg/dL (7-18); CO2 32.3 mmol/L (21.0-32.0); CREATININE 0.7 mg/dL (0.55-1.02); Calcium 8.8 mg/dL (8.5-10.1); Chloride 99 mmol/L (98-107); Estimated GFR 92.98 (mL/min/1.73m2); Glucose 70 mg/dL (74-106); Magnesium 2.6 mg/dL (1.8-2.4); Potassium 4.4 mmol/L (3.5-5.1); Sodium 135 mmol/L (136-145)
[2023-09-21] MEDS: Tiotropium Bromide-Respimat 10 PUFF INH 2 PUFF IH (08:03)
[2023-09-21] MEDS: Budesonide/Formoterol 160/4.5 6 GM 60 PUFF INH IH ×2 (08:03→19:41)
[2023-09-21] MEDS: guaiFENesin 600 MG TABCR 1200 MG PO ×2 (10:12→21:07)
[2023-09-21] MEDS: Benzonatate 200 MG CAP PO ×3 (10:12→21:07)
[2023-09-21] MEDS: Azithromycin 250 MG TAB PO (10:12)
[2023-09-21] MEDS: predniSONE 20 MG TAB 60 MG PO (10:12)
[2023-09-21] MEDS: Normal Saline Flush 10 ML SYR IVP ×2 (10:12→21:07)
[2023-09-21] MEDS: Multivitamin TAB 1 TAB PO (10:13)
[2023-09-21] MEDS: Furosemide 20 MG TAB PO (10:13)
[2023-09-21] MEDS: Sulfameth/Trimeth DS TAB 1 TAB PO ×2 (10:13→21:07)
--- NOTE | 2023-09-21 12:03 | PT.INNT ---
Date of service: 09/21/23 Time of Service: 11:32 PT Notes Visit Reasons: Acute on chronic hypoxic respiratory failure Patient refuses therapy this morning do to feeling agitated and angry. States that she spent too much time arguing about the food, and now she needs to just relax. Patient agreeable to having this clinician check back in the afternoon.
--- NOTE | 2023-09-21 15:19 | PHA.REVIEW2 ---
Pharmacy Admission Review Admission Clinical Review Admission Pharmacy Review: (Updated 09/16/23 @ 12:58 by Rebekah Landin MD) Discharge planning issues (Acute) DVT prophylaxis (Acute) Acute on chronic respiratory failure with hypoxia (Acute) Pulmonary fibrosis (Acute) Respiratory failure with hypoxia (Acute) Antisynthetase syndrome (Acute) nintedanib [From Ofev] Adverse Reaction (Mild, Verified 09/15/23 11:59) Headache Resuscitation Status DNR/DNI Height 5 ft Weight 65.4 kg Pharmacy Admission Review Renal Dosing Renal Dosing: BUN 25 mg/dL (7-18) H 09/21/23 06:18 Creatinine 0.7 mg/dL (0.55-1.02) 09/21/23 06:18 Medications needing adjustments: Reviewed (CrCl 44.17 mL/min) Anticoagulation Anticoagulation: Hgb 11.4 g/dL (11.2-15.7) 09/21/23 06:18 Hct 34.6 % (36.0-46.0) L 09/21/23 06:18 Plt Count 251 10^3/uL (130-400) 09/21/23 06:18 Creatinine 0.7 mg/dL (0.55-1.02) 09/21/23 06:18 DVT Prophylaxis: Reviewed Medications: Enoxaparin (40mg q24h) Opiate Usage Evaluate Pain Scale/Pains Meds: Reviewed (PRN morphine) Scheduled Bowel Reg ordered if on Opiates?: No (PRN docusate/Miralax) Relevant Labs Relevant Labs: Sodium 135 mmol/L (136-145) L 09/21/23 06:18 Potassium 4.4 mmol/L (3.5-5.1) 09/21/23 06:18 Chloride 99 mmol/L (98-107) 09/21/23 06:18 Magnesium 2.6 mg/dL (1.8-2.4) H 09/21/23 06:18 Electrolytes, C-Reactive P, ESR: Reviewed (Na 135, BUN 25, Mg 2.6) Cardiac Review Cardiac Review: Troponin I < 50 ng/L (< or =60) 09/15/23 15:15 BP, HR, EF%: Reviewed (HR/BP WNL) QTc Review QTc: Reviewed (465 from 09/15/23) IV to PO Switch IV Medications: Reviewed Home Meds Home Med List reviewed: Intervened Relevent Home Meds Not ordered & why?: On active med list but not ordered: calcium carbonate 200mg chewable tablets, Vitamin d3 400unit capsule, multivitamin, mycophenolate (discontinued per progress note), vitamin E 400unit capsule Updated patients home med list. Patients own med: Ofev At home Advair substituted for formulary Symbicort Current Meds Current Medication Order Review: Reviewed Pharmacy Antibiotic Review Pharmacy Antibiotic Activity: C/S review and Reviewed, no change Comments: Current regimen: Bactrim PO BID. WBC slightly increased today from 9.57 to 10.84. Blood cultures show no growth, sputum culture pending.
--- NOTE | 2023-09-21 15:23 | CHAPLAIN ---
Jillian was up in the chair when I visited. She was still working hard to breath today. She told me again today that she needs to live for another year to take care of some things. She shared some history, telling me about working in [employer] in the [place] [employer], and what she liked about he job. 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 She said she has several friends who are neighbors and keep an eye out for her.
--- NOTE | 2023-09-21 16:15 | PDOC.CMPRO ---
Date of service: 09/21/23 Time of Service: 16:15 Care Management Progress Note Progress Note Text Progress Note Text: S/O: Jillian was offered a bed at the [facility], which she has accepted. Awaiting prior authorization approval; coordinated by Johanna at the [facility]. CM will continue to follow. A: Jillian is a 68 year old female admitted to [facility] on 09/15/23 for acute on chronic respiratory failure. P: Anticipate Jillian will discharge to SNF, depending on prior authorization determination. She will likely transport via [facility]. She will follow up with her PCP and discharge plan of care. CM will continue to follow.
--- NOTE | 2023-09-21 16:40 | PT.INNT ---
Date of service: 09/21/23 Time of Service: 15:12 PT Notes Visit Reasons: Acute on chronic hypoxic respiratory failure Patient refused therapy this afternoon. Promises to work with this clinician tomorrow. States that right now she is too tired, too weak. This clinician tries to explain she will not get stronger if she does not participate. Patient maintains she didn't sleep last night, today has been far too tiring, and she will not work with this clinician today.
[2023-09-21] MEDS: Sodium Chloride-Nasal SPRAY-ADULT 44 ML BTL NS (17:41)
--- NOTE | 2023-09-21 17:58 | PGE_ITS ---
Date of Service Date of service: 09/21/23 Time of Service: 17:59 Assessment and Plan Assessment and plan (1) Acute on chronic respiratory failure with hypoxia: Status: Acute Assessment and plan: secondary to ILD, continue oxygen, steroids, empiric coverage for PJP while on high dose steroids, S/P IVIG, continue Ofev, continue Advair, Spiriva although I am not sure how much of her lung disease is d/t any obstructive component vs pure ILD from her CTD. continue her lorazepam for her anxiety and prn oral morphine for air hunger. Continue mirtazapine at HS. consider use of SSRI for her anxiety. Will discuss w/ Dr. Grimm the patient's candidacy for home ventilation. 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 Subjective Subjective Interval history since last seen: No new complaints/concerns. She gets dyspneic w/ any activity i.e. getting out of bed/going to bathroom, or when she gets upset or excited. This is associated w/ tachycardia and hypoxemia. Currntly she seems to be holding her SPO2 at 90% on 4 lpm. She has no signficant sputum production. A sputum for PJP was ordered but rejected d/t insufficient quantity. Exam Narrative Exam Narrative: Elderly white female sitting up in bed, alert and oriented, mild to moderate dyspnea w/ prolonged conversation Lungs: diffuse dry rales (fine cellophane type rales); no rhonchi or wheezing Heart: regular but slightly tachycardia Extremities: feet are cool to touch but not cyanotic, no edema Objective Last Vital Signs Temp 37.2 C 09/21/23 15:31 Pulse 89 09/21/23 15:31 Resp 16 09/21/23 15:31 BP 119/64 09/21/23 15:31 Pulse Ox 92 09/21/23 15:31 Laboratory Results - last 24 hr 09/21/23 06:18 WBC 10.84 H RBC 3.48 L Hgb 11.4 Hct 34.6 L MCV 99 H MCH 32.8 MCHC 32.9 RDW 12.7 Plt Count 251 MPV 9.7 Immature Gran % 0.7 Neutrophils % 80.2 Lymphocytes % 8.1 Monocytes % 10.6 Eosinophils % 0.3 Basophils % 0.1 Nucleated RBC % 0.0 Absolute Neutrophils 8.69 H Absolute Lymphocytes 0.88 L Absolute Monocytes 1.15 H Absolute Eosinophils 0.03 Absolute Basophils 0.01 Sodium 135 L Potassium 4.4 Chloride 99 Carbon Dioxide 32.3 H Anion Gap 3.7 BUN 25 H Creatinine 0.7 Est GFR (CKD-EPI 2020) 92.98 Glucose 70 L Calcium 8.8 Magnesium 2.6 H Time Spent with Patient Time Spent with Patient: 25-34 minutes Time was spent: preparing to see the patient(eg.review tests), ordering medications,tests, procedures, referring, communicating with other health early breastfeeding care specialist, indepentently interpreting results, counseling the patient and care coordination
[2023-09-21] MEDS: Enoxaparin 40 MG/0.4 ML SYR SC (21:06)
[2023-09-21] MEDS: Famotidine 20 MG TAB PO (21:07)
[2023-09-21] MEDS: Mirtazapine 15 MG TAB 7.5 MG PO (21:07)
[2023-09-22 03:13] VITALS: BP 138/82; PULSE 77; RESP 18; TEMP 36.2; O2SAT 97
[2023-09-22 07:25] VITALS: BP 119/75; PULSE 71; RESP 26; TEMP 35.8; O2SAT 97
[2023-09-22] MEDS: Tiotropium Bromide-Respimat 10 PUFF INH 2 PUFF IH (08:16)
[2023-09-22] MEDS: Budesonide/Formoterol 160/4.5 6 GM 60 PUFF INH IH (08:16)
[2023-09-22 08:18] VITALS: O2SAT 97
[2023-09-22] MEDS: Normal Saline Flush 10 ML SYR IVP (08:49)
[2023-09-22] MEDS: Multivitamin TAB 1 TAB PO (08:50)
[2023-09-22] MEDS: Benzonatate 200 MG CAP PO ×2 (08:50→14:18)
[2023-09-22] MEDS: predniSONE 20 MG TAB 60 MG PO (08:50)
[2023-09-22] MEDS: Furosemide 20 MG TAB PO (08:50)
[2023-09-22] MEDS: Azithromycin 250 MG TAB PO (08:50)
[2023-09-22] MEDS: Sulfameth/Trimeth DS TAB 1 TAB PO (08:50)
[2023-09-22] MEDS: guaiFENesin 600 MG TABCR 1200 MG PO (08:51)
--- NOTE | 2023-09-22 09:29 | PDOC.CMDIS ---
Date of service: 09/22/23 Time of Service: 09:29 LACE Index Scoring Tool Questions: Length of Stay (in days): 7 - 13 Was the patient admitted via the E.D.?: Yes Comorbidities: Chronic Pulmonary Disease E.D. Visits: 0 Answers: Total Score: 10 Risk of Readmission: High Risk Care Management Discharge Plan Reason for Hospitalization: Acute on chronic hypoxic respiratory failure Discharge Plan: Jillian transferred to the [facility] today for short term rehab prior to returning home. She transported via [facility] private vehicle, coordinated by CM. She will follow up with her PCP and discharge plan of care. Patient/Family Education Needs: Review discharge instructions and limitations, discussion of self care needs including ask me three. Services Needed at Discharge: Penitentiary Facility ([facility]) and Transportation ([facility] private vehicle) SDOH Health Related Social Needs: Health related social needs inadequate housing Health related social needs details Pt states her bath tub leaks, but she doesn't use it. Health related social needs: inadequate housing(Z59.1) Health related social needs details: Pt states her bath tub leaks, but she doesn't use it.
[2023-09-22] MEDS: LORazepam 0.5 MG TAB PO (09:33)
[2023-09-22 11:19] VITALS: BP 119/78; PULSE 88; RESP 20; TEMP 36.5; O2SAT 96
--- NOTE | 2023-09-22 12:57 | NT_ITS ---
Date of service: 09/22/23 Time of Service: 11:46 PT Notes Visit Reasons: Acute on chronic hypoxic respiratory failure Patient refuses therapy this date, stating that she is going to the [facility] subacute rehab facility and they will have therapy there for her. Expects to leave right after lunch.
--- NOTE | 2023-09-22 13:43 | DSE_ITS ---
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 Vital signs at the time of discharge were stable she was afebrile at 36.5 oxygen saturation was 96% on 4 L/min per nasal cannula. Respiratory rate is 20 pulse 88 and BP 119/78. Follow-up should be with her head strength and conditioning coach Dr. Nilam Hancock and also arrangements should be made for follow-up with palliative care office through [facility] as well as the patient's twisting frame changer at [facility]. Discharge Plan Disposition Patient Disposition: [facility] Condition: Stable Discharge Details Reason For Visit: Acute on chronic hypoxic respiratory failure Admit Date/Time: 09/15/23 17:02 Admit Provider: Vivek Larios Attending Provider: Vivek Larios Primary Care Provider: Richie Duong [facility] Hospital Course: 68-year-old female with progressive connective tissue disease-interstitial lung disease was followed by a local head strength and conditioning coach in [facility] and she presented to the emergency department with progressive worsening dyspnea associated with hypoxemia. She is normally on home oxygen typically 2 to 3 L usually 2 L at rest 3 L with activity but more recently is requiring 4 L/min. Said no fever rigors or sputum production. Workup included chest x-ray and CT scan of the chest. Chest x-ray showed severe fibrotic lung changes with questionable superimposed diffuse bilateral infiltrates. Chest CT showed progression of severe bilateral extensive interstitial lung disease with no confluent infiltrates or pleural effusions and she was found to have a nonacute compression fracture of thoracic spine that had not been present on previous CT findings from 2018. Laboratory studies on admission showed no leukocytosis. White count 8200. No anemia. Chemistry panel was unremarkable. IgG levels were checked and her IgM was found to be low at 26 with normal IgG of 760 and IgA of 285. Fluvid nasal swab was negative for RSV, COVID-19, influenza A and influenza B. Sputum cultures were ordered as were sputum for pneumocystis. However she was unable to produce adequate sample for pneumocystis. She was admitted to the hospital placed on IV steroids and bronchodilators and azithromycin she was also placed on Bactrim DS for presumptive treatment of PJP. Pulmonary consultation was obtained with Dr. Noelle Grimm. Please see her consult note from 09/16/2023 for details as well as her follow-up progress note from 09/19/2023. Patient was treated with IVIG and continued on azithromycin and Bactrim DS 1 p.o. twice daily was added. She was treated with pulse dose methylprednisolone 60 mg every 6 hours for 3 days and then wean to prednisone 60 mg daily. Patient will continue on Bactrim DS 1 p.o. daily for PJP prophylaxis while she is on high-dose prednisone. She should continue PJP prophylaxis until her prednisone dose is under 40 mg/day. Plan will be for the patient to taper on prednisone starting at 60 mg daily for 14 days then decrease to 50 mg daily for 7 days then 40 mg daily for 7 days then 30 mg daily for 7 days then 20 mg daily for 7 days then 10 mg daily for 7 days then 5 mg daily for 7 days. We stopped her mycophenolate but continued her Ofev. Palliative care consultation was obtained with Dr. Lola Tejeda. See her note from 09/16/2023. Patient is a DNR/DNI status. However patient still would like treatment she has the expectation of living out another 2 years which is unrealistic. Of note patient has a high anxiety levels patient was put on mirtazapine at night and given as needed doses of lorazepam 0.5 mg p.o. every 4 hours as needed anxiety as well as morphine sulfate solution to alleviate her feelings of air hunger. This did seem to help with her dyspnea. During high periods of anxiety she will get tachycardic and get hypoxemic. We had her on morphine sulfate solution 2.5 mg p.o. every 4 hours as needed dyspnea. Over the last couple days it appears that she is used this about 3-4 times a day as needed. It does seem to help her acute dyspnea. Patient should follow-up with her primary head strength and conditioning coach Dr. Nilam Hancock and if unable to follow-up with her the patient could be referred locally to Dr. Grimm. Patient should also follow-up with her twisting frame changer through [facility]. Home Meds and New Rx's Prescriptions: New sulfamethoxazole-trimethoprim 800-160 mg Tablet 1 tab PO DAILY Qty: 0 0RF Spiriva Respimat 2.5 mcg/actuation Mist 2 puff inhalation DAILY Qty: 4 0RF Deep Sea Nasal 0.65 % Aerosol,[place] 2 spray NS QID PRN PRNQty: 0 0RF prednisone 20 mg Tablet See Rx Instructions .ROUTE .COMPLEX Qty: 120 0RF Rx Instructions: 20 mg orally ;prednisone taper: 60mg for 14 days, 50mg for 7 days, 40mg for 7 days, 30mg for 7 days, 20mg for 7 days, 10mg for 7 days, 5mg for 7 days polyethylene glycol 3350 17 gram Powder In Packet 17 g PO DAILY PRN PRN (Reason: Constipation) Qty: 100 0RF Rx Instructions: give daily prn constipation mirtazapine 15 mg Tablet 7.5 mg PO HS Qty: 30 0RF morphine 10 mg/5 mL Solution 2.5 mg PO Q6H PRN PRNQty: 35 0RF lorazepam 0.5 mg Tablet 0.5 mg PO Q8H PRN PRNQty: 15 0RF Inhaler, Assist Devices [Pocket Chamber] 1 ea miscellaneous DIRECTED Qty: 0 0RF guaifenesin [Mucus Relief ER] 600 mg Tablet Extended Release 12hr 1,200 mg PO BID Qty: 60 0RF furosemide 20 mg Tablet 20 mg PO DAILY Qty: 0 0RF famotidine 20 mg Tablet 20 mg PO HS Qty: 30 0RF docusate sodium [Colace] 100 mg Capsule 100 mg PO TID PRN PRNQty: 0 0RF budesonide-formoterol [Symbicort] 160-4.5 mcg/actuation Hfa Aerosol Inhaler 2 puff inhalation BID Qty: 0 0RF benzonatate 200 mg Capsule 200 mg PO TID Qty: 0 0RF albuterol sulfate 2.5 mg /3 mL (0.083 %) Solution For Nebulization 2.5 mg UPD Q2H PRN PRNQty: 0 0RF acetaminophen 325 mg Tablet 650 mg PO Q4H PRN PRNQty: 0 0RF naloxone [Narcan] 4 mg/actuation spray,non-aerosol 4 mg intranasal Q3M PRNQty: 2 0RF Rx Instructions: spray 1 dose into ONE nostril; alternate nostrils w each dose until help arrives Continued azithromycin 250 mg tablet 250 mg PO DAILY Qty: 30 8RF Rx Instructions: take daily cholecalciferol (vitamin D3) 400 unit capsule 400 unit PO DAILY vitamin E (dl, acetate) 400 unit capsule 400 unit PO DAILY albuterol sulfate [ProAir HFA] 90 mcg/actuation HFA aerosol inhaler 2 puff IH Q6H PRN fluticasone propion-salmeterol [Advair HFA] 230-21 mcg/actuation HFA aerosol inhaler 2 puff INHALATION BID Patient Comments: INHALE TWO PUFFS BY MOUTH TWICE A DAY; RINSE GARGLE AND SPIT AFTER USING Spiriva Respimat 2.5 mcg/actuation mist 2 puff INHALATION DAILY Patient Comments: INHALE TWO PUFFS BY MOUTH EVERY DAY Ofev 150 mg capsule 150 mg PO Q12H calcium carbonate [Antacid (calcium carbonate)] 200 mg calcium (500 mg) tablet,chewable 100 mg PO DAILY PRN (Reason: dyspepsia) multivitamin [Daily Multiple] 1 EACH tablet 1 tab PO DAILY Inhaler, Assist Devices [Pocket Chamber] 1 ea miscellaneous DIRECTED Qty: 0 0RF Discontinued Rituxan 10 mg/mL concentrate IV Hold Instructions: Until further discussion with her provider Patient Comments: Requesting to receive next infusion at [facility] mycophenolate mofetil 500 mg tablet 1,000 mg PO BID Qty: 30 3RF Hold Instructions: Until further notice from her prescriber Patient Comments: Pt is out currently. [facility] [place] Discharge Instructions Instructions: Pulmonary Fibrosis (DC) Referrals: Nilam Hancock [ NON-[facility] STAFF PHYSICIAN] - (needs follow up in the next 2 to 4 weeks) Activity:: Activity as Tolerated Equipment/Supplies:: No Equipment Needed Diet:: Normal Diet Discharge Orders Discharge Orders: Discharge Order (Routine); Ordered 09/22/23 Ordered By: Shadi Baker DS: Summary Time Spent with Patient providing and/or coordinating discharge services: Greater than 30 minutes Specific discharge activities: Interview/exam of patient; review of discharge instructions, completion of prescriptions/discharge instructions; discussion w/ nursing and CM; documentation of hospital visit Status at Discharge Functional status at discharge: uses cane/walker Overall status at discharge: patient is back to baseline (Note patient is achieved a new baseline level which is lower than what she previously been now requiring higher oxygen supplementation) Mental Status: mental status grossly normal Speech and Movement: speech and movement normal Mood: congruent mood Affect: normal affect Quality:SDOH Health Related Social Needs: Health related social needs inadequate housing Health related social needs details Pt states her bath tub leaks, but she doesn't use it. Health related social needs details: Pt states her bath tub leaks, but she doesn't use it. Exam Narrative Exam Narrative: Elderly white female sitting up in bed, alert and oriented, mild to moderate dyspnea w/ prolonged conversation Lungs: diffuse dry rales (fine cellophane type rales); no rhonchi or wheezing Heart: regular but slightly tachycardia Extremities: feet are cool to touch but not cyanotic, no edema Psych Mental Status: mental status grossly normal Speech and Movement: speech and movement normal Mood: congruent mood Affect: normal affect DS: Data Vitals/I&O Vitals and I&O: Vital Signs Temperature 36.5 C 09/22/23 11:19 Temperature Source Tympanic 09/22/23 11:19 Pulse 88 09/22/23 11:19 Pulse Rhythm Regular 09/22/23 06:36 Pulse 101 H 09/15/23 16:00 Respiratory Rate 20 09/22/23 11:19 Respiratory Effort Non-Labored 09/22/23 06:36 Respiratory Depth Normal 09/22/23 06:36 Respiratory Pattern Normal 09/22/23 06:36 Blood Pressure 119/78 09/22/23 11:19 Blood Pressure Mean 86 09/18/23 23:58 Pulse Oximetry 96 09/22/23 11:19 Oxygen Delivery Method Nasal Cannula 09/22/23 11:19 Oxygen Flow Rate 4 09/22/23 11:19 Fraction of Inspired Oxygen (FIO2) 36 09/18/23 15:31 Pain Level 0 09/22/23 11:19 Comment 45Lpm 40% airvo 09/16/23 22:08 Intake & Output 09/21/23 09/22/23 09/22/23 23:59 11:59 23:59 Intake Total Balance Intake: IV Other: Urine Color Yellow Yellow Urine Appearance Clear Clear Urine Odor Normal Comment Not only that pT was incontinent she also voided on the toilet. Stool Size Moderate Small Stool Characteristics Liquid Liquid Voiding Methods Toilet Data Completed and Pending Labs on day of discharge: Preliminary micro results at discharge 09/20/23 00:00 Sputum Culture - Preliminary Sputum Normal Celeste PFSH All Active Problems Discharge planning issues (Acute) DVT prophylaxis (Acute) Acute on chronic respiratory failure with hypoxia (Acute) Pulmonary fibrosis (Acute) Anxiety (Chronic) COVID (Acute) Respiratory failure with hypoxia (Acute) Dermatomyositis (Chronic) Rectal polyp (Acute) Pre-transplant evaluation for lung transplant (Acute) Osteoporosis (Chronic) 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[employer] Sexually active: No Do you think of yourself as: straight/heterosexual Current gender identity: female What type of physical activity do you participate in: none Seatbelt use: always Drive intox or ride w/intox refuse driver: No Water heater temp set <120 deg: Yes Working smoke detector in home: Yes Fire extinguisher in home: Yes Carbon monox detector in home: Yes Do you feel safe at home: Yes Do you feel safe in your relationship?: Yes Time Spent with Patient Time Spent with Patient: 45-69 minutes Time was spent: preparing to see the patient(eg.review tests), ordering medications,tests, procedures, referring, communicating with other health vision care associate, indepentently interpreting results, counseling the patient and care coordination
[2023-09-22 15:12] VITALS: BP 140/79; PULSE 96; RESP 28; TEMP 37; O2SAT 90
--- NOTE | 2023-09-22 15:26 | PDOC.CMDIS ---
Date of service: 09/22/23 Time of Service: 15:35 LACE Index Scoring Tool Questions: Length of Stay (in days): 7 - 13 Was the patient admitted via the E.D.?: Yes Comorbidities: Chronic Pulmonary Disease (Pulmonary fibrosis ) E.D. Visits: 0 Answers: Total Score: 10 Risk of Readmission: High Risk Care Management Discharge Plan Reason for Hospitalization: Acute on chronic hypoxic respiratory failure Discharge Plan: Jillian transferred to the [facility] today for short term rehab prior to returning home. Transported via private vehicle by [employer] coordinated by CM. Nursing assisted into the vehicle and staff from the [facility] met her with a wheelchair to assist into the building. She will provide her own medication (Ofev) due to the cost per facility request. She will follow up with her PCP and her discharge plan of care. Jillian was agreeable to this plan and was looking forward to short term rehab. Patient/Family Education Needs: Review discharge instructions and limitations, discussion of self care needs including Ask Me Three Services Needed at Discharge: Jail Facility ([facility] ) and Transportation ([employer] ) SDOH Health Related Social Needs: Health related social needs inadequate housing Health related social needs details Pt states her bath tub leaks, but she doesn't use it. Health related social needs details: Pt states her bath tub leaks, but she doesn't use it.
== END 2023-09-22 15:30 | disposition skilled nursing facility (03) | DRG 545 ==
LOC: ER 18:44 → ICU 20:08 → MS 09-19 14:02
PROVIDERS: Family Medicine; Internal Medicine; Nurse Practitioner Acute Care; Student in an Organized Health Care Education/Training Program; Admitting Provider Family Medicine; Emergency Provider Emergency Medicine Emergency Medical Services; PCP Family Medicine; Visit Provider Family Medicine
DX: M33.11 Other dermatomyositis with respiratory involvement (principal); B59 Pneumocystosis; J96.21 Acute and chronic respiratory failure with hypoxia; D84.821 Immunodeficiency due to drugs; J84.89 Other specified interstitial pulmonary diseases; J84.170 Interstitial lung disease with progressive fibrotic phenotype in diseases classified elsewhere; Z87.891 Personal history of nicotine dependence; F41.9 Anxiety disorder, unspecified; M81.0 Age-related osteoporosis without current pathological fracture; Z66 Do not resuscitate
CPT/HCPCS: 00123; 36415; 71250; 80048; 80053; 82784; 82805; 84145; 85027; 87040; 87449; 87635; 87637; 87798; 93005; 94640; 96361; 96374; 96375; 97110; 97163; 99223; 99233; 99285; J1650; 36600; 71045; 82607; 83605; 83735; 84484; 85025; 87070; 87205; 93010; 94664; 94667; 94668; 94760; 99232; 99239; J1459; J1941; J2060; J2930; J7512; J7517; J7620

== ENCOUNTER → 2023-09-16 13:23 | Outpatient (BNVA) | payer MEDICARE, MEDICAID, SELFPAY | PROVIDERS: PCP Family Medicine; Referring Provider Family Medicine; Visit Provider Student in an Organized Health Care Education/Training Program ==

== ENCOUNTER 2023-09-26 17:48 | Outpatient (REF) | payer SELFPAY ==
[2023-09-26 18:58] LABS: Abs Immature Grans 0.06 10^3/uL (0.0-0.06); Absolute Basophil Count 0.03 10^3/uL (0.0-0.2); Absolute Eosinophil Count 0.13 10^3/uL (0.0-0.7); Absolute Lymphocyte Count 1.23 10^3/uL (1.2-3.4); Basophils % 0.2; Eosinophils % 0.9; HCT 36.7 % (36.0-46.0); Immature Grans % 0.4; Lymphocytes % 8.3; MCH 34.3 pg (27.0-33.0); MCHC 32.7 % (32.0-36.0); MCV 105 fL (80-95); MPV 9.9 fL (8.0-11.0); Monocytes % 9.4; Neutrophils % 80.8; Platelet Count 247 10^3/uL (130-400); RDW 13.2 % (11.7-14.6); RDW-SD 49.2 fL; WBC 14.86 10^3/uL (4.4-10.8)
[2023-09-26 19:03] LABS: Absolute Neutrophil Count 12.01 10^3/uL (1.2-6.7)
[2023-09-26 19:22] LABS: Iron 120 ug/dL (50-170); Total Iron Binding Capacity 234 ug/dL (250-450); Transferrin Sat 51 % (15-50)
[2023-09-26 19:44] LABS: Vitamin D 25 Total 45.6 ng/mL (30-100)
[2023-09-26 19:57] LABS: ALT 68 U/L (14-59); AST 47 U/L (15-37); Albumin 2.7 g/dL (3.4-5.0); Alkaline Phosphatase 66 U/L (46-116); Anion Gap 3.2 mmol/L (3-11); BUN 17 mg/dL (7-18); Bilirubin, Total 0.4 mg/dL (0.2-1.0); CO2 34.8 mmol/L (21.0-32.0); CREATININE 0.9 mg/dL (0.55-1.02); Calcium 8.9 mg/dL (8.5-10.1); Chloride 100 mmol/L (98-107); Estimated GFR 68.77 (mL/min/1.73m2); Glucose 102 mg/dL (74-106); NT-proBNP 336 pg/mL (<300); Potassium 4.7 mmol/L (3.5-5.1); Sodium 138 mmol/L (136-145); TSH (W/Ref FT4) 2.98 uIU/mL (0.36-3.74); Total Protein 7.4 g/dL (6.4-8.2)
[2023-09-26 20:03] LABS: Hemoglobin A1C 5.4 % (<5.7)
[2023-09-26 20:56] LABS: Ferritin 924 ng/mL (8-252); Folate 9.2 ng/mL (8.6-20.0); Vitamin B12 1277 pg/mL (193-986)
== END 2023-09-26 17:49 | disposition home or self-care (01) ==
LOC: LBN 17:48
PROVIDERS: PCP Family Medicine; Visit Provider Nurse Practitioner Gerontology
DX: G89.4 Chronic pain syndrome (principal); R53.82 Chronic fatigue, unspecified; I11.9 Hypertensive heart disease without heart failure
CPT/HCPCS: 80053; 82306; 82607; 82728; 82746; 83036; 83540; 83550; 83880; 84443; 85025

== ENCOUNTER → 2023-10-31 11:15 | Outpatient (BNVA) | payer MEDICARE, MEDICAID, SELFPAY | PROVIDERS: PCP Family Medicine; Referring Provider Family Medicine; Visit Provider Student in an Organized Health Care Education/Training Program | DX: J84.89 Other specified interstitial pulmonary diseases (principal); M33.90 Dermatopolymyositis, unspecified, organ involvement unspecified; J96.91 Respiratory failure, unspecified with hypoxia; M35.89 Other specified systemic involvement of connective tissue | CPT/HCPCS: 99214 ==

== ENCOUNTER 2023-11-14 17:44 | Outpatient (REF) | payer MEDICARE, MEDICAID, SELFPAY ==
[2023-11-14 19:23] LABS: ALT 41 U/L (14-59); AST 30 U/L (15-37); Alkaline Phosphatase 78 U/L (46-116); Anion Gap 5.9 mmol/L (3-11); BUN 13 mg/dL (7-18); Bilirubin, Total 0.2 mg/dL (0.2-1.0); CO2 34.1 mmol/L (21.0-32.0); CREATININE 0.8 mg/dL (0.55-1.02); Calcium 8.7 mg/dL (8.5-10.1); Chloride 101 mmol/L (98-107); Estimated GFR 79.22 (mL/min/1.73m2); Glucose 129 mg/dL (74-106); Potassium 4.1 mmol/L (3.5-5.1); Sodium 141 mmol/L (136-145); Total Protein 6.1 g/dL (6.4-8.2)
== END 2023-11-14 17:45 | disposition home or self-care (01) ==
LOC: LBN 17:44
PROVIDERS: PCP Family Medicine; Visit Provider Nurse Practitioner Gerontology
DX: D52.9 Folate deficiency anemia, unspecified (principal); D51.9 Vitamin B12 deficiency anemia, unspecified; J96.21 Acute and chronic respiratory failure with hypoxia; B59 Pneumocystosis
CPT/HCPCS: 80053

== ENCOUNTER 2023-11-21 18:14 | Outpatient (REF) | payer MEDICARE, MEDICAID, SELFPAY ==
[2023-11-21 18:38] LABS: ALT 34 U/L (14-59); AST 30 U/L (15-37); Albumin 2.9 g/dL (3.4-5.0); Alkaline Phosphatase 72 U/L (46-116); Anion Gap 4.2 mmol/L (3-11); BUN 8 mg/dL (7-18); Bilirubin, Total 0.2 mg/dL (0.2-1.0); CO2 35.8 mmol/L (21.0-32.0); CREATININE 0.6 mg/dL (0.55-1.02); Calcium 8.6 mg/dL (8.5-10.1); Chloride 101 mmol/L (98-107); Glucose 110 mg/dL (74-106); Potassium 3.9 mmol/L (3.5-5.1); Sodium 141 mmol/L (136-145); Total Protein 5.8 g/dL (6.4-8.2)
== END 2023-11-21 18:15 | disposition home or self-care (01) ==
LOC: LBN 18:14
PROVIDERS: PCP Family Medicine; Visit Provider Nurse Practitioner Gerontology
DX: R53.83 Other fatigue (principal); D52.9 Folate deficiency anemia, unspecified; D51.9 Vitamin B12 deficiency anemia, unspecified; I11.9 Hypertensive heart disease without heart failure; E83.42 Hypomagnesemia; J96.21 Acute and chronic respiratory failure with hypoxia
CPT/HCPCS: 80053

== ENCOUNTER 2023-11-26 09:25 | Inpatient (IN) | payer MEDICARE, MEDICAID, SELFPAY ==
[2023-11-26] VITALS (80 sets, daily range): BP systolic 86–170; BP diastolic 17–149; PULSE 62–159; RESP 5–52; TEMP 31–37.2; O2SAT 79–96
--- NOTE | 2023-11-26 09:15 | RT.EKG_ITS ---
APPROVED REPORT Exam: Resting ECG Reason for Exam: SOB Patient Location: E HR:117 bpm ECG Measurements Heart Rate 117 AXIS ME 157 P 19 QRSd 94 QRS -42 QT 358 T 146 QTc 498 Conclusion Sinus tachycardia...rate> 99 Ventricular premature complex...V complex w/ short R-R interval Aberrant conduction of SV complex(es)...aberrant shape, ME 80-220 Left anterior fascicular block...axis(240,-40), init forces inf Probable LVH with secondary repol abnrm...multiple LVH criteria Narrow complex sinus tachycardia at a rate of 117. Left axis deviation no signs of LVH. ME within n ormal limits. QTc mildly prolonged at 498 this may be secondary to significant artifact. No acute i njury pattern is difficult secondary to significant artifact. Compared to prior left axis deviation is persistent. Anterior S1 waves are still present. Compared to prior dated earlier this year sinu s tachycardia is new.
--- NOTE | 2023-11-26 09:23 | W.ED.GENAD ---
Discharge Plan Discharge Details Chief Complaint: RespSymp Clinical Impression: Acute on chronic respiratory failure with hypoxia and hypercapnia, Myocardial injury Admit Date/Time: 11/26/23 12:43 Admit Provider: Shadi Baker Attending Provider: Shadi Baker Primary Care Provider: Richie Duong ED Provider: Rihcie Villa HPI General Date/Time Provider Initiated Documentation: 11/26/23 09:46. HPI Narrative: MDM This is a normothermic and tachycardic 68-year-old DNI DNR female with acute on chronic respiratory failure with hypoxia concerning for exacerbation of pulmonary fibrosis for which patient will receive respiratory support via CPAP steroids and nebulized ipratropium albuterol. No chest pain to suggest ACS however will obtain troponin to assess for demand ischemia. Given tachycardia will obtain lactate blood cultures and treat empirically for sepsis with cefepime and vancomycin given pseudomonal risk factors and concern for possible MRSA given prison facility. Will send MRSA swab and sputum culture. I considered PE however in the absence of chest pain and calf pain I did not send a D-dimer as I felt that PE was less likely. No pain out of proportion to suggest necrotizing soft tissue infection. Concerning the patient's fall she did not strike her head and as result I did not obtain a CT head as she is not altered. I considered CVA however she is neurologically intact so I do not feel that she requires an MRI nor would she be a tPA candidate. She has equal breath sounds so my suspicion is low for pneumothorax. Not hypotensive nor a dialysis patient so doubt tamponade. Patient does not appear volume overloaded to suggest acute CHF. In the absence of chest pain I am not suspicious for aortic dissection. She is not hypotensive at the moment however given outpatient steroid use will place on hydrocortisone if patient becomes hypotensive given concern for possible adrenal suppression. No preceding syncope to suggest benefit from syncope evaluation. She is on morphine daily and lorazepam daily. Given her anxiety associated with noninvasive positive pressure will treat with 2 mg of midazolam. 10:25 PM Will obtain urinalysis however will defer straight catheterization given the patient's significant work of breathing who my low suspicion for urinary tract infection. Patient received 2 mg of midazolam and this seemed to improve her work of breathing. Her venous blood gas did not show acidemia but did show marked hypercarbia for which we will maintain her on 10 of PEEP at 50%. Lactate mildly elevated at 1.5. 10:42 AM Per med reconciliation from the [facility] patient has not yet had her morphine her trimethoprim/sulfamethoxazole nor her furosemide nor morphine. Will redosed these. Patient made troponin. She has not made troponin in the past. Will treat with 324 mg of aspirin and repeating ECG prior to touch base with cardiology at [facility]. My suspicion is high for type II NSTEMI in the setting of demand secondary to the patient's marked tachypnea and acute on chronic respiratory failure with hypoxia and hypercarbia. Basic metabolic panel showing no ANN-MARIE. Mildly elevated BUN. Normal bicarbonate. Mild hyperglycemia but no anion gap??not consistent with DKA. Normal reassuring magnesium. 11:10 AM CBC shows slightly worsened leukocytosis. No anemia. Unable to obtain platelet count per laboratory secondary to platelet aggregation. Will order repeat platelet count. 11:45 AM Reassuring normal platelet count with no thrombocytopenia. Repeat pCO2 slightly improved with a pCO2 of 61. Still awaiting callback from [facility] cardiology. Will contact patient's son: Son Jordan Griffin [phone] 11:54 AM I spoke to RUDY Eckert, from cards at [facility]. She advised trending trops & updating echo. She agreed with aspirin and also agreed that the patient had no indication for clopidogrel load nor heparin drip. She advised reconsultation for worsening SOB, any chest pain or any lack of response to treatment. I advised that we cannot obtain an echocardiogram until Tuesday. She felt that this was appropriate. She said that she would be available as needed for ongoing consultations. 12:33 PM [address] spoke with Dr. Vasquez from the hospitalist team who agreed graciously to hospitalize the patient. COVID influenza RSV all negative. I attempted to call patient's son however he did not answer so I left a voicemail. 1:10 PM Patient had persistent tachycardia. Patient is not on a beta Cady. I completed a bedside ultrasound which showed a preserved EF but did show bilateral B-lines. Her RV was approximately equal to LV and given her immobilized status and half-way will complete CTA to assess for PE prior to hospitalization. She certainly could have RVH based on her history of pulmonary fibrosis. She has no history of pulmonary arterial hypertension and is not showing any signs of heart failure so will defer diuretics at this point. Chronic conditions affecting the care of the patient: Chronic respiratory failure History obtained from an outside historian: Paramedics External record review: [facility] EMR Diagnostic interpretations performed by me: Per my independent interpretation chest x-ray shows:Portable chest x-ray was significant fibrosis? Left-sided infiltrate. Per my independent interpretation EKG shows: Narrow complex sinus tachycardia at a rate of 117. Left axis deviation no signs of LVH. MN within normal limits. QTc mildly prolonged at 498 this may be secondary to significant artifact. No acute injury pattern is difficult secondary to significant artifact. Compared to prior left axis deviation is persistent. Anterior S1 waves are still present. Compared to prior dated earlier this year sinus tachycardia is new. ECG #2 Sinus tachycardia at a rate of 116. Left axis deviation no signs of LVH based on voltage criteria. No ST segment abnormalities.Compared to prior and [facility] system from [address] segment depressions. MN and QTc within normal limits. ]Medications: Methylprednisolone nebulized albuterol ipratropium Social determinants of health affecting disposition: N/A Management discussed with: Hospitalist Treatment/interventions considered: N/A Response to therapies provided: Mildly improved work of breathing HPI This is a 68-year-old DNI DNR female with end-stage pulmonary fibrosis on chronic 10 L home oxygen arriving from prison facility and via paramedics in the setting of shortness of breath and fall with weakness. Patient reportedly fell last night. She did not hit her head. She did not lose consciousness. She reportedly was weak again this morning and was going to fall but was lowered to the ground by staff at the [facility]. She was noted to have a decreasing oxygen saturation and paramedics were called. On her 10 L home oxygen baseline she was reportedly satting 75%. She has had no lower extremity edema. No chest pain. No reported fevers chills nausea vomiting nor abdominal pain. Unable to obtain additional history secondary to the acuity of the patient's presentation. Exam General: Uncomfortable anxious-appearing in no moderate respiratory distress speaking in 2-3 word sentences. Head: Normocephalic, atraumatic. Eye: Extraocular eye movements intact. No conjunctival injection. No scleral icterus. Ear, nose, mouth, throat: Grossly normal inspection. Normal voice, handling secretions normally. No hemotympanum bilaterally. Neck: Trachea midline. Cardiovascular: Well-perfused distal extremities. Rapid regular rate. Respiratory: Marked tachypnea with respiratory rates in the mid 30s. No retractions. Transmitted upper airway sounds. No obvious wheezes. No stridor. Gastrointestinal: Nondistended abdomen. Soft nontender. Musculoskeletal: No significant lower extremity pitting edema. Moving all 4 extremities spontaneously. No tenderness to bilateral upper and lower extremities. Skin: Normal for age and race, grossly normal temperature and turgor. No acute rash. Neurologic: Alert and appropriate, no apparent acute deficits. Related Data Home Medications Medication Instructions Recorded Confirmed multivitamin (Daily Multiple 1 tab PO DAILY 09/02/16 11/26/23 tablet) albuterol sulfate 90 mcg/actuation 2 puff inhalation Q6H PRN 05/24/19 11/26/23 aerosol inhaler (ProAir HFA) cholecalciferol (vitamin D3) 10 400 unit PO DAILY 08/24/19 11/26/23 mcg (400 unit) capsule vitamin E (dl, acetate) 180 mg 400 unit PO DAILY 08/24/19 11/26/23 (400 unit) capsule Inhaler, Assist Devices [Pocket 1 ea miscellaneous DIRECTED ##0 08/19/22 11/26/23 Chamber] calcium carbonate 200 mg calcium 100 mg PO DAILY PRN dyspepsia 09/16/23 11/26/23 (500 mg) chewable tablet (Antacid (calcium carbonate)) nintedanib 150 mg capsule (Ofev) 150 mg PO Q12H 09/16/23 11/26/23 acetaminophen 325 mg tablet 650 mg (2 x 325 mg) PO Q4H PRN PRN 09/22/23 11/26/23 #0 tabs albuterol sulfate 2.5 mg/3 mL 2.5 mg (3 mL) UPD Q2H PRN PRN #0 mL 09/22/23 11/26/23 (0.083 %) solution for nebulization benzonatate 200 mg capsule 200 mg PO TID #0 caps 09/22/23 11/26/23 budesonide-formoterol HFA 160 2 puff inhalation BID #0 grams 09/22/23 11/26/23 mcg-4.5 mcg/actuation aerosol inhaler (Symbicort) docusate sodium 100 mg capsule 100 mg PO TID PRN PRN #0 caps 09/22/23 11/26/23 (Colace) famotidine 20 mg tablet 20 mg PO HS #30 tabs 09/22/23 11/26/23 furosemide 20 mg tablet 20 mg PO DAILY #0 tabs 09/22/23 11/26/23 guaifenesin 600 mg tablet, 1,200 mg (2 x 600 mg) PO BID #60 09/22/23 11/26/23 extended release 12 hr (Mucus tabs Relief ER) mirtazapine 15 mg tablet 7.5 mg (1/2 x 15 mg) PO HS #30 tabs 09/22/23 11/26/23 naloxone 4 mg/actuation nasal 4 mg intranasal Q3M PRN #2 ea 09/22/23 11/26/23 spray (Narcan) polyethylene glycol 3350 17 gram 17 g PO DAILY PRN PRN Constipation 09/22/23 11/26/23 oral powder packet #100 ea sodium chloride 0.65 % nasal spray 2 spray NS QID PRN PRN #0 mL 09/22/23 11/26/23 aerosol (Deep Sea Nasal) sulfamethoxazole 800 1 tab PO DAILY #0 tabs 09/22/23 11/26/23 mg-trimethoprim 160 mg tablet tiotropium bromide 2.5 2 puff inhalation DAILY #4 grams 09/22/23 11/26/23 mcg/actuation mist for inhalation (Spiriva Respimat) morphine 10 mg/5 mL oral solution 5 mg (2.5 mL) PO BID PRN pain #35 10/05/23 11/26/23 mL lorazepam 0.5 mg tablet 0.5 mg PO Q12H 10/31/23 11/26/23 morphine 15 mg tablet,extended 7.5 mg PO Q12H 10/31/23 11/26/23 release prednisone 20 mg tablet 30 mg PO DAILY 10/31/23 11/26/23 Previous Rx's Medication Instructions Recorded Inhaler, Assist Devices [Pocket 1 ea miscellaneous DIRECTED ##0 08/19/22 Chamber] acetaminophen 325 mg tablet 650 mg (2 x 325 mg) PO Q4H PRN PRN 09/22/23 #0 tabs albuterol sulfate 2.5 mg/3 mL 2.5 mg (3 mL) UPD Q2H PRN PRN #0 mL 09/22/23 (0.083 %) solution for nebulization benzonatate 200 mg capsule 200 mg PO TID #0 caps 09/22/23 budesonide-formoterol HFA 160 2 puff inhalation BID #0 grams 09/22/23 mcg-4.5 mcg/actuation aerosol inhaler (Symbicort) docusate sodium 100 mg capsule 100 mg PO TID PRN PRN #0 caps 09/22/23 (Colace) famotidine 20 mg tablet 20 mg PO HS #30 tabs 09/22/23 furosemide 20 mg tablet 20 mg PO DAILY #0 tabs 09/22/23 guaifenesin 600 mg tablet, 1,200 mg (2 x 600 mg) PO BID #60 09/22/23 extended release 12 hr (Mucus tabs Relief ER) mirtazapine 15 mg tablet 7.5 mg (1/2 x 15 mg) PO HS #30 tabs 09/22/23 naloxone 4 mg/actuation nasal 4 mg intranasal Q3M PRN #2 ea 09/22/23 spray (Narcan) polyethylene glycol 3350 17 gram 17 g PO DAILY PRN PRN Constipation 09/22/23 oral powder packet #100 ea sodium chloride 0.65 % nasal spray 2 spray NS QID PRN PRN #0 mL 09/22/23 aerosol (Deep Sea Nasal) sulfamethoxazole 800 1 tab PO DAILY #0 tabs 09/22/23 mg-trimethoprim 160 mg tablet tiotropium bromide 2.5 2 puff inhalation DAILY #4 grams 09/22/23 mcg/actuation mist for inhalation (Spiriva Respimat) morphine 10 mg/5 mL oral solution 5 mg (2.5 mL) PO BID PRN pain #35 10/05/23 mL Allergies Allergy/AdvReac Type Severity Reaction Status Date / Time nintedanib [From Ofev] AdvReac Mild Headache Verified 11/26/23 09:35 General LAINE: 3 Medical Decision Making Quality:SDOH Health Related Social Needs: Health related social needs inadequate housing Health related social needs details Pt states her bath tub leaks, but she doesn't use it. Critical Care Time Critical Care Time Critical Care Time: Yes Total Critical Care Time: 45 Attestation: Acute on chronic respiratory failure with hypoxia requiring bedside management PFSH All Active Problems (Updated 11/26/23 @ 12:34 by Richie Villa MD) Myocardial injury (Acute) Acute on chronic respiratory failure with hypoxia and hypercapnia (Acute) Acute on chronic respiratory failure with hypoxia (Acute) Pulmonary fibrosis (Acute) Anxiety (Chronic) COVID (Acute) Respiratory failure with hypoxia (Acute) Dermatomyositis (Chronic) Rectal polyp (Acute) Pre-transplant evaluation for lung transplant (Acute) Osteoporosis (Chronic) 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[employer] Sexually active: No Do you think of yourself as: straight/heterosexual Current gender identity: female What type of physical activity do you participate in: none Seatbelt use: always Drive intox or ride w/intox tow motor driver: No Water heater temp set <120 deg: Yes Working smoke detector in home: Yes Fire extinguisher in home: Yes Carbon monox detector in home: Yes Do you feel safe at home: Yes Do you feel safe in your relationship?: Yes POCUS Exam (ED) Limited Cardiac Exam DATE OF EXAM: 11/26/23 TIME OF EXAM: 13:11 PROVIDER THAT PERFORMED THE STUDY: Richie Villa IS THIS A REPEAT EXAM DURING THIS ENCOUNTER: no REASON FOR EXAM: Dyspnea VISUALIZED STRUCTURES: Four Chambers, LVOT and Other structure: Bilateral lungs VIEW OBTAINED: Apical 4-Chamber, Parasternal long-axis and Subxiphoid PERTINENT FINDINGS/IMPRESSION: Other Good squeeze, aortic outflow track less than 4 cm, RV approximately equal to LV. No significant pericardial effusion. Bilateral B-lines right greater than left. ; No LV dysfunction and No pericardial effusion Exam complete
[2023-11-26] MEDS: Albuterol/Ipratropium 3 ML UPD VIAL UPD ×3 (09:53→20:30)
[2023-11-26] MEDS: Midazolam 2 MG/2 ML VIAL IVP (10:10)
[2023-11-26] MEDS: CEFEPIME 2 GM in Normal Saline 100 ML IVPB ×2 (10:12→22:23)
[2023-11-26] MEDS: methylPREDNISolone SUCC 125 MG VIAL IVP (10:12)
[2023-11-26 10:14] LABS: BE (Venous) 10 mmol/L (-2-3); HCO3 (Venous) 36 mmol/L (23-28); O2 Sat (Venous) 50 %; TCO2 (Venous) 34 mmol/L (24-29); pH (Venous) 7.35 (7.31-7.41); pO2 (Venous) 32 mmHg
[2023-11-26] MEDS: Normal Saline 500 ML IV (10:15)
[2023-11-26 10:18] LABS: Lactate 1.5 mmol/L (0.6-1.4); pCO2 (Venous) 66 mmHg (41-51)
--- NOTE | 2023-11-26 10:21 | DI.RAD_ITS ---
Exam(s) XR PORTABLE CHEST AP EXAM: XR PORTABLE CHEST AP CLINICAL HISTORY: Shortness of breath TECHNIQUE: 2D digital imaging was performed of the chest. One image was obtained. An AP view was ob tained. COMPARISON: CR XR PORTABLE CHEST AP from 09/15/2023 FINDINGS: MEDIASTINUM: Normal. HEART: Mild cardiomegaly. PULMONARY VASCULATURE: Normal. LUNGS: There is a background of diffuse interstitial fibrosis. There is increased opacity on the cur rent examination in the left perihilar region and left upper lobe. Superimposed pneumonia or interst itial edema should be considered. PLEURAL SPACE: No pleural effusion or pneumothorax. BONE:Within normal limits for the patient's age. There is again seen an S-type thoracolumbar scoliosi s. OTHER FINDINGS:Normal. IMPRESSION: 1. New increased opacities predominantly involving the left upper lobe and left perihilar region. A superimposed pneumonia or interstitial edema should be considered. 2. Chronic background of interstitial fibrosis. 3. Mild cardiomegaly. DATA REPOSITORY: RADIATION DOSE DELIVERED:
[2023-11-26 10:22] LABS: Abs Immature Grans 0.07 10^3/uL (0.0-0.06); Absolute Basophil Count 0.07 10^3/uL (0.0-0.2); Absolute Eosinophil Count 0.44 10^3/uL (0.0-0.7); Absolute Lymphocyte Count 0.68 10^3/uL (1.2-3.4); Absolute Monocyte Count 1.38 10^3/uL (0.1-0.8); Basophils % 0.5; HCT 39.4 % (36.0-46.0); HGB 12.6 g/dL (11.2-15.7); Immature Grans % 0.5; Lymphocytes % 4.6; MCH 35.5 pg (27.0-33.0); MCV 111 fL (80-95); Monocytes % 9.3; Neutrophils % 82.1; Nucleated RBC 0.1 % (0.0-0.3); RBC 3.55 10^6/uL (3.93-5.22); RDW 15.1 % (11.7-14.6); RDW-SD 62.4 fL; WBC 14.79 10^3/uL (4.4-10.8)
[2023-11-26 10:25] LABS: Absolute Neutrophil Count 12.14 10^3/uL (1.2-6.7)
--- NOTE | 2023-11-26 10:30 | RT.EKG_ITS ---
APPROVED REPORT Exam: Resting ECG Reason for Exam: Shortness of breath Patient Location: E HR:116 bpm ECG Measurements Heart Rate 116 AXIS WV 149 P 18 QRSd 87 QRS -41 QT 299 T 89 QTc 416 Conclusion Sinus tachycardia...rate> 99 Inferior infarct, old...Q >35mS, II III aVF Sinus tachycardia at a rate of 116. Left axis deviation no signs of LVH based on voltage criteria. No ST segment abnormalities.Compared to prior and [facility] system from [address] segment dep ressions. WV and QTc within normal limits.
[2023-11-26 10:37] LABS: Anion Gap 9.3 mmol/L (3-11); BUN 19 mg/dL (7-18); CO2 31.7 mmol/L (21.0-32.0); CREATININE 0.8 mg/dL (0.55-1.02); Calcium 9.3 mg/dL (8.5-10.1); Chloride 103 mmol/L (98-107); Estimated GFR 79.22 (mL/min/1.73m2); Glucose 130 mg/dL (74-106); Magnesium 2.3 mg/dL (1.8-2.4); Potassium 3.6 mmol/L (3.5-5.1); Sodium 144 mmol/L (136-145)
[2023-11-26 10:41] LABS: Troponin I 682 ng/L (< or =60)
[2023-11-26] MEDS: VANCOMYCIN/WATER (PEG) 1.25 GM/250 ML BAG IVPB (10:41)
[2023-11-26 10:50] LABS: Diff Comment Diff Reviewed; Macrocytosis 2+
--- NOTE | 2023-11-26 11:05 | DI.VRAD_ITS ---
PROCEDURE INFORMATION: Exam: XR Chest Exam date and time: 11/26/2023 10:15 AM Age: 68 years old Clinical indication: Shortness of breath; Patient HX: SOB; Additional info: PT unable to follow breathing instructions. TECHNIQUE: Imaging protocol: Radiologic exam of the chest. Views: 1 view. Total images: 1 COMPARISON: CT CHEST WO 09/15/2023 4:17 PM FINDINGS: Lungs: Diffuse airspace opacities noted throughout both lungs. Interstitial prominence noted throughout both lungs. Pleural spaces: No evidence of pneumothorax. Heart/Mediastinum: Heart demonstrates mild diffuse enlargement. Diaphragm: There is nonspecific elevation of the right hemidiaphragm. Bones/joints: The thoracic spine demonstrates mild degenerative changes at multiple levels. IMPRESSION: 1. Diffuse airspace opacities noted throughout both lungs. 2. Interstitial prominence noted throughout both lungs. 3. Mild cardiomegaly. 4. No evidence of pneumothorax. Dictated and Authenticated by: Eddie Osuna MD. Ordering:SANDRA Quiroz MD
[2023-11-26] MEDS: Aspirin 81 MG CHEW 324 MG CH (11:14)
[2023-11-26] MEDS: LORazepam 0.5 MG TAB 1.5 MG PO (11:14)
[2023-11-26] MEDS: Furosemide 20 MG TAB PO (11:15)
[2023-11-26] MEDS: Sulfameth/Trimeth DS TAB 1 TAB PO (11:15)
[2023-11-26 11:42] LABS: BE (Venous) 8 mmol/L (-2-3); HCO3 (Venous) 34 mmol/L (23-28); O2 Sat (Venous) 48 %; Platelet Count 251 10^3/uL (130-400); TCO2 (Venous) 32 mmol/L (24-29); pH (Venous) 7.35 (7.31-7.41); pO2 (Venous) 31 mmHg
[2023-11-26 11:44] LABS: pCO2 (Venous) 61 mmHg (41-51)
[2023-11-26 12:14] LABS: COVID-19 PCR Negative (Negative); Influenza A PCR Negative (Negative); Influenza B PCR Negative (Negative); RSV PCR Negative (Negative)
[2023-11-26 12:15] LABS: Source Nasopharynx
[2023-11-26] MEDS: Omnipaque 350 MG/ML 100 ML BTL IJ (13:21)
[2023-11-26] MEDS: Normal Saline - Diluent 50 ML VIAL IJ (13:21)
[2023-11-26 13:23] LABS: Troponin I 628 ng/L (< or =60)
[2023-11-26] MEDS: Normal Saline Flush 10 ML SYR IVP ×5 (13:23→23:52)
[2023-11-26 13:27] LABS: MRSA PCR Negative (Negative)
--- NOTE | 2023-11-26 13:43 | DI.CT_ITS ---
Exam(s) CT CHEST PE CTA EXAM: CT CHEST PE CTA CLINICAL HISTORY: Tachycardia myocardial injury. TECHNIQUE: Imaging Protocol: Axial CT angiography was performed with multi-slice acquisition and mu lti-planar and/or 3D reconstructions. CONTRAST MATERIAL: Intravenous: Omnipaque 350 contrast volume:65 mL COMPARISON: CT CT RENAL COLIC WO from 06/25/[address] CHEST WO from 09/15/2023 FINDINGS: The examination is limited due to patient motion artifact. Tracheobronchial tree: Patent where visualized. Pulmonary parenchyma: Centrilobular and paraseptal emphysematous changes are present in addition to p ulmonary fibrosis. There are bilateral ground-glass opacities predominantly involving the upper lobe s, left greater than right. Pulmonary Arteries: There is suboptimal evaluation of the pulmonary arteries secondary to patient mot ion. The findings are most compromised in the lung bases. A filling defect with suggested in a subs egmental branch of the left lower lobe by vRad (series 4, image 42). This is less apparent on the th in slice axial images (series 5). No large central pulmonary embolus is seen. No evidence of a sadd le embolus. Mediastinum and Haley: No dominant adenopathy or fluid collection. The esophagus is unremarkable. Visualized thyroid gland: Unremarkable. Pleura: No effusion or pneumothorax. Heart: Cardiomegaly. Coronary artery calcifications are present. No pericardial effusion. Aorta: The ascending thoracic aorta measures 3.9 x 3.8 cm (series 5, image 195). No evidence of diss ection. Upper abdomen: There is reflux of contrast into the IVC which may reflect heart failure. Soft tissues: Unremarkable. Bones: Within normal limits for the patient's age. IMPRESSION: 1. V Rad questioned a filling defect in a subsegmental pulmonary artery to the left lower lobe (serie s 4, image 42). This is less apparent on the thin slice axial images of the lower lobe (series 5). This area of the lung is suboptimally evaluated secondary to the significant patient motion artifact present. If there is continued clinical concern a repeat examination should be considered in this pa tient. No large central pulmonary embolus or saddle embolus is seen. 2. Bilateral pulmonary opacities predominantly involving the upper lobes which may represent pneumoni a. Please correlate clinically. 3. Cardiomegaly. Reflux of contrast is seen in the IVC which can be seen with pulmonary hypertension , congestive heart failure, chronic AFib or PE. RADIATION DOSE DELIVERED: Total DLP DATA REPOSITORY: All CT scans at this facility are submitted to the National Radiology Data Registry (NRDR) Dose Index Registry (DIR) with the [employer] ([employer]). RADIATION OPTIMIZATION: All CT scans at this facility use at least one of these dose optimization te chniques: automated exposure control; mA and/or kV adjustment per patient size (includes targeted exa ms where dose is matched to clinical indication); or iterative reconstruction.
--- NOTE | 2023-11-26 13:56 | DI.VRAD_ITS ---
Addendum created by Eddie Osuna DO on 11/26/2023 2:06:12 PM EDT: THIS REPORT CONTAINS FINDINGS THAT MAY BE CRITICAL TO PATIENT CARE. The findings were verbally communicated via telephone conference at 2:05 PM EDT on 11/26/[address] Elena. The findings were acknowledged and understood. Initial report created on 11/26/2023 1:56:12 PM EDT: PROCEDURE INFORMATION: Exam: CTA Chest With Contrast Exam date and time: 11/26/2023 1:31 PM Age: 68 years old Clinical indication: Other: Tachycardia myocardial injury; Additional info: PT unable to follow breathing instructions. P3t weight based contrast amount used TECHNIQUE: Imaging protocol: Computed tomographic angiography of the chest with contrast. Exam focused on the arteries. 3D rendering (Not supervised by radiologist): MIP and/or 3D reconstructed images were created by the technologist. Total images: 1547 Contrast material: OMNIPAQUE 350; Contrast volume: 65 ml; Contrast route: INTRAVENOUS (IV); COMPARISON: CT CHEST WO 09/15/2023 4:17 PM FINDINGS: Pulmonary arteries: A filling defect is present within the subsegmental pulmonary artery to the left lower lobe (series 4, image 42) consistent with a small pulmonary embolism. No other areas of pulmonary embolism present as imaged. Aorta: No evidence of aortic dissection. Ectatic changes of the ascending thoracic aorta measuring up to 3.9 cm. Lungs: Diffuse patchy airspace opacities noted throughout both lungs. Interstitial prominence noted throughout both lungs. Pleural spaces: No evidence of pneumothorax. Heart: Heart demonstrates mild diffuse enlargement. No evidence of right heart strain. Lymph nodes: Unremarkable. No enlarged lymph nodes. Diaphragm: There is nonspecific elevation of the right hemidiaphragm. Bones/joints: The thoracic spine demonstrates mild degenerative changes at multiple levels. The thoracic spine demonstrates mild degenerative changes at multiple levels. Soft tissues: Unremarkable. IMPRESSION: 1. A filling defect is present within the subsegmental pulmonary artery to the left lower lobe (series 4, image 42) consistent with a small pulmonary embolism. 2. No other areas of pulmonary embolism present as imaged. 3. Mild cardiomegaly. 4. No evidence of aortic dissection. 5. Ectatic changes of the ascending thoracic aorta measuring up to 3.9 cm. 6. Diffuse patchy airspace opacities noted throughout both lungs. 7. Interstitial prominence noted throughout both lungs. 8. No evidence of pneumothorax. Dictated and Authenticated by: Eddie Osuna MD. Ordering:SANDRA Quiroz MD
[2023-11-26 14:44] LABS: INR 1.2 (0.9-1.1); PTT Activated 25.6 sec (23.6-32.8)
[2023-11-26 15:00] LABS: D-Dimer 6811 ng/mlFEU (<500)
--- NOTE | 2023-11-26 15:25 | W.PM.HP.N ---
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 also small segmental PE in the RLL however, this is not the cause of her acute respiratory distress. She remains a DNR/DNI which I confirmed w/ her. I updated her son on her current condition. I will continue w/ parenteral steroids as she probably is not going to be able to take po tonight but once she is able to take po then trial of prednisone at higher doses. It appears that [facility]. I will continue the cefepime and added doxycycline. Will attempt to get sputum for cultures and mycoplasma study. check urine for Strep antigen and Legionella antige. check Fungitell. Heparinize w/ sytemic unfractionated heparin for her P.E. Check echo cardiogram on Tuesday. Dr. Villa did POCUS exam which I reviewed and will not repeat. She appears to have normal LV function w/ LVH but more importantly she has evidence of cor pulmonale w/ dilated RV. I could attempt to repeat her exam and get hemodynamics looking at her RVSP and her RVAT but her pulmonary embolus is small and does not explain her cor pulomonale. This is a chronic condition. I think that her troponin I elevation is due to demand ischemia. I did not see any ischemia on her EKG and I did not appreciate any regional wall motion abnormalities on the POCUS although complete evalution for RWMA could not be done w/out further windows I will get formal echo on Tuesday We will get pulmonary consult on Tuesday w/ her garment alteration examiner, Dr. Grimm Critical care time spent interviewing and examining the patient, reviewing studies, discussing case with patient's nurse and consulting physicians was 60 minutes (2) Pulmonary embolism: Status: Chronic Assessment and plan: heparinize, transition to DOAC when able to take PO. 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 Patient was found to be hypoxemic and upon evaluation emergency department CT scan showed not only progressive pulmonary fibrosis but suggested some new infiltrates suspicious for pneumonia as well as findings of a right lower lobe subsegmental pulmonary embolus. Patient was resuscitated with IV steroids and bronchodilators and after the pulmonary embolus was found she has been initiated on heparin drip. She was started on broad-spectrum antibiotics in the emergency department after obtaining blood cultures. Antibiotics include vancomycin and cefepime. Patient is now admitted to the intensive care unit on a BiPAP device which we have since weaned to high flow nasal cannula device. Her anxiety levels have been treated with low-dose IV lorazepam and we treated her acute dyspnea with some IV morphine. She will continue on IV antibiotics along with bronchodilators and corticosteroids while we initiate a heparin drip. Review of Systems Unobtainable due to (unable to obtain d/t acute respiratory distress requiring NIPPV) [facility] All Active Problems (Updated 11/26/23 @ 15:55 by Shadi Baker MD) Pulmonary embolism (Chronic) Elevated troponin I level (Acute) Myocardial injury (Acute) Acute on chronic respiratory failure with hypoxia and hypercapnia (Acute) Acute on chronic respiratory failure with hypoxia (Acute) Pulmonary fibrosis (Acute) Anxiety (Chronic) COVID (Acute) Respiratory failure with hypoxia (Acute) Dermatomyositis (Chronic) Rectal polyp (Acute) Pre-transplant evaluation for lung transplant (Acute) Osteoporosis (Chronic) 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[employer] Sexually active: No Do you think of yourself as: straight/heterosexual Current gender identity: female What type of physical activity do you participate in: none Seatbelt use: always Drive intox or ride w/intox intermodal truck driver: No Water heater temp set <120 deg: Yes Working smoke detector in home: Yes Fire extinguisher in home: Yes Carbon monox detector in home: Yes Do you feel safe at home: Yes Do you feel safe in your relationship?: Yes Meds Allergies and Home Medications Allergies Allergy/AdvReac Type Severity Reaction Status Date / Time nintedanib [From Ofev] AdvReac Mild Headache Verified 11/26/23 09:35 Home Medications Medication Instructions Recorded Confirmed Type multivitamin (Daily Multiple 1 tab PO DAILY 09/02/16 11/26/23 History tablet) albuterol sulfate 90 mcg/actuation 2 puff inhalation Q6H PRN 05/24/19 11/26/23 History aerosol inhaler (ProAir HFA) cholecalciferol (vitamin D3) 10 400 unit PO DAILY 08/24/19 11/26/23 History mcg (400 unit) capsule vitamin E (dl, acetate) 180 mg 400 unit PO DAILY 08/24/19 11/26/23 History (400 unit) capsule Inhaler, Assist Devices [Pocket 1 ea miscellaneous DIRECTED ##0 08/19/22 11/26/23 Rx Chamber] calcium carbonate 200 mg calcium 100 mg PO DAILY PRN dyspepsia 09/16/23 11/26/23 History (500 mg) chewable tablet (Antacid (calcium carbonate)) nintedanib 150 mg capsule (Ofev) 150 mg PO Q12H 09/16/23 11/26/23 History acetaminophen 325 mg tablet 650 mg (2 x 325 mg) PO Q4H PRN PRN 09/22/23 11/26/23 Rx #0 tabs albuterol sulfate 2.5 mg/3 mL 2.5 mg (3 mL) UPD Q2H PRN PRN #0 mL 09/22/23 11/26/23 Rx (0.083 %) solution for nebulization benzonatate 200 mg capsule 200 mg PO TID #0 caps 09/22/23 11/26/23 Rx budesonide-formoterol HFA 160 2 puff inhalation BID #0 grams 09/22/23 11/26/23 Rx mcg-4.5 mcg/actuation aerosol inhaler (Symbicort) docusate sodium 100 mg capsule 100 mg PO TID PRN PRN #0 caps 09/22/23 11/26/23 Rx (Colace) famotidine 20 mg tablet 20 mg PO HS #30 tabs 09/22/23 11/26/23 Rx furosemide 20 mg tablet 20 mg PO DAILY #0 tabs 09/22/23 11/26/23 Rx guaifenesin 600 mg tablet, 1,200 mg (2 x 600 mg) PO BID #60 09/22/23 11/26/23 Rx extended release 12 hr (Mucus tabs Relief ER) mirtazapine 15 mg tablet 7.5 mg (1/2 x 15 mg) PO HS #30 tabs 09/22/23 11/26/23 Rx naloxone 4 mg/actuation nasal 4 mg intranasal Q3M PRN #2 ea 09/22/23 11/26/23 Rx spray (Narcan) polyethylene glycol 3350 17 gram 17 g PO DAILY PRN PRN Constipation 09/22/23 11/26/23 Rx oral powder packet #100 ea sodium chloride 0.65 % nasal spray 2 spray NS QID PRN PRN #0 mL 09/22/23 11/26/23 Rx aerosol (Deep Sea Nasal) sulfamethoxazole 800 1 tab PO DAILY #0 tabs 09/22/23 11/26/23 Rx mg-trimethoprim 160 mg tablet tiotropium bromide 2.5 2 puff inhalation DAILY #4 grams 09/22/23 11/26/23 Rx mcg/actuation mist for inhalation (Spiriva Respimat) morphine 10 mg/5 mL oral solution 5 mg (2.5 mL) PO BID PRN pain #35 10/05/23 11/26/23 Rx mL lorazepam 0.5 mg tablet 0.5 mg PO Q12H 10/31/23 11/26/23 History morphine 15 mg tablet,extended 7.5 mg PO Q12H 10/31/23 11/26/23 History release prednisone 20 mg tablet 30 mg PO DAILY 10/31/23 11/26/23 History Exam Narrative Exam Narrative: Elderly white female who appears to be in acute respiratory distress tachypneic using accessory respiratory muscles. Skin is nondiaphoretic HEENT she has cushingoid type features of her face. She is wearing a BiPAP mask and I cannot evaluate her oropharynx or nares. Neck positive accessory respiratory muscle use no overt JVD carotid pulses tachycardic Lungs with diffuse fine cellophane type rales no rhonchi Heart tachycardic no appreciable murmur rub rhythm is regular Abdomen soft nondistended normal bowel sounds nontender no guarding no bruits Extremities without peripheral edema or cyanosis although feet are cool but not mottled she has palpable pedal pulses palpable popliteal pulses did not test range of motion but she does not seem to have any paresis of her extremities. Neuro exam seems to be grossly intact I do not appreciate any focal deficits. She seems to nod yes and no appropriately to my questions she is able to open her eyes and close her eyes and follow simple commands. She has normal grasps with each hand normal pedal pushes Results Imaging CT scan - chest: report reviewed and image reviewed EKG: image reviewed Imaging Studies: IMPRESSION: 1. A filling defect is present within the subsegmental pulmonary artery to the left lower lobe (series 4, image 42) consistent with a small pulmonary embolism. 2. No other areas of pulmonary embolism present as imaged. 3. Mild cardiomegaly. 4. No evidence of aortic dissection. 5. Ectatic changes of the ascending thoracic aorta measuring up to 3.9 cm. 6. Diffuse patchy airspace opacities noted throughout both lungs. 7. Interstitial prominence noted throughout both lungs. 8. No evidence of pneumothorax. Dictated and Authenticated by: Eddie Osuna MD. Labs 11/26/23 11:37 11/26/23 10:05 Labs: Laboratory Results - last 24 hr 11/26/23 11/26/23 11/26/23 09:50 10:05 11:32 WBC 14.79 H RBC 3.55 L Hgb 12.6 Hct 39.4 MCV 111 H MCH 35.5 H MCHC 32.0 RDW 15.1 H Plt Count MPV Immature Gran % 0.5 Neutrophils % 82.1 Lymphocytes % 4.6 Monocytes % 9.3 Eosinophils % 3.0 Basophils % 0.5 Nucleated RBC % 0.1 Absolute Neutrophils 12.14 H Absolute Lymphocytes 0.68 L Absolute Monocytes 1.38 H Absolute Eosinophils 0.44 Absolute Basophils 0.07 RBC Morphology See Below Macrocytosis 2+ PT INR APTT D-Dimer VBG pH 7.35 VBG pCO2 66 H* VBG pO2 32 VBG HCO3 36 H VBG Total CO2 34 H VBG O2 Saturation 50 VBG Base Excess 10 H VBG Lactate 1.5 H Sodium 144 Potassium 3.6 Chloride 103 Carbon Dioxide 31.7 Anion Gap 9.3 BUN 19 H Creatinine 0.8 Est GFR (CKD-EPI 2020) 79.22 Glucose 130 H Calcium 9.3 Magnesium 2.3 Troponin I 682 H* COVID-19 Source Nasopharynx SARS-CoV-2 (PCR) Negative Influenza Type A (PCR) Negative Influenza Type B (PCR) Negative RSV (PCR) Negative MRSA (TEM-PCR) 11/26/23 11/26/23 11/26/23 11:37 11:48 12:55 WBC RBC Hgb Hct MCV MCH MCHC RDW Plt Count 251 MPV Immature Gran % Neutrophils % Lymphocytes % Monocytes % Eosinophils % Basophils % Nucleated RBC % Absolute Neutrophils Absolute Lymphocytes Absolute Monocytes Absolute Eosinophils Absolute Basophils RBC Morphology Macrocytosis PT INR APTT D-Dimer VBG pH 7.35 VBG pCO2 61 H* VBG pO2 31 VBG HCO3 34 H VBG Total CO2 32 H VBG O2 Saturation 48 VBG Base Excess 8 H VBG Lactate Sodium Potassium Chloride Carbon Dioxide Anion Gap BUN Creatinine Est GFR (CKD-EPI 2020) Glucose Calcium Magnesium Troponin I 628 H* COVID-19 Source SARS-CoV-2 (PCR) Influenza Type A (PCR) Influenza Type B (PCR) RSV (PCR) MRSA (TEM-PCR) Negative 11/26/23 14:15 WBC RBC Hgb Hct MCV MCH MCHC RDW Plt Count MPV Immature Gran % Neutrophils % Lymphocytes % Monocytes % Eosinophils % Basophils % Nucleated RBC % Absolute Neutrophils Absolute Lymphocytes Absolute Monocytes Absolute Eosinophils Absolute Basophils RBC Morphology Macrocytosis PT 12.0 H INR 1.2 H APTT 25.6 D-Dimer 6811 H VBG pH VBG pCO2 VBG pO2 VBG HCO3 VBG Total CO2 VBG O2 Saturation VBG Base Excess VBG Lactate Sodium Potassium Chloride Carbon Dioxide Anion Gap BUN Creatinine Est GFR (CKD-EPI 2020) Glucose Calcium Magnesium Troponin I COVID-19 Source SARS-CoV-2 (PCR) Influenza Type A (PCR) Influenza Type B (PCR) RSV (PCR) MRSA (TEM-PCR) Last Vital Signs Temp 35.9 C L 11/26/23 14:01 Pulse 113 H 11/26/23 14:01 Resp 35 H 11/26/23 14:01 BP 115/77 11/26/23 14:01 Pulse Ox 92 11/26/23 14:01 Time Spent Time spent with Patient: 55-74 minutes Time was spent: preparing to see the patient(eg.review tests), obtaining and/or reviewing separately otained hiistory, ordering medications,tests, procedures, referring, communicating with other health career services coordinator, indepentently interpreting results and care coordination
[2023-11-26] MEDS: MORPHine 2 MG/ML SYR IVP (15:38)
[2023-11-26] MEDS: LORazepam 2 MG/ML VIAL 0.5 MG IVP ×3 (15:50→23:55)
--- NOTE | 2023-11-26 15:55 | PDOC.CMIN ---
Date of service: 11/26/23 Time of Service: 15:55 Care Management Initial Assmt Initial Assessment REASON FOR HOSPITALIZATION:: acute on chronic respiratory failure PREVIOUS FUNCTIONAL STATUS/SOCIAL/FAMILY SUPPORTS:: Jillian lives in [place]. She has one son, Jordan, who lives in [place]. She is retired from being a home care provider. She has a single family home in [place] [facility] but has been at the [facility] for about 2 months and is not sure if she will be able to return home. Jillian is on 5-6L/min of O2 at baseline. CURRENT FUNCTIONAL STATUS:: Jillian was sitting up in bed when CM met with her. She has been transitioned to high flow nasal oxygen from Cpap. Jillian talked a bit about her career. 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 She worked for [employer]. She shared that she had one client for 22 years. She also had many others for shorter periods of time. Jillian also talked a bit about her son. He lives in [place] and would like to move Jillian there to be closer but she does not wish to make the move. Jillian stated that she would like to be able to return to her home but she knows there are things that she can no longer do for herself so is unsure if that can ever happen. ADVANCE DIRECTIVES:: [facility] on file Has patient been provided with info about the portal/API?: Yes Did the patient sign up for the portal?: No CODE STATUS:: DNR/DNI INSURANCE COVERAGE / FINANCIAL ISSUES:: [facility] Medicare replacement CURRENT HOME/COMMUNITY SERVICES/EQUIPMENT:: home oxygen currently residing at [facility] PRIMARY CARE PHYSICIAN:: Richie Duong POTENTIAL DISCHARGE NEEDS:: follow up with PCP and plan of care PATIENT/FAMILY EDUCATION NEEDS:: Review of discharge instructions TRANSPORTATION:: via private vehicle with family PLAN:: Anticipate Jillian will be discharged back to the [facility] when medically stable. She will follow up with the facility providers and plan of care and transport via [facility]. CM will follow and continue to support the discharge planning process. [facility] All Active Problems (Updated 11/26/23 @ 15:55 by Shdai Baker MD) Pulmonary embolism (Chronic) Elevated troponin I level (Acute) Myocardial injury (Acute) Acute on chronic respiratory failure with hypoxia and hypercapnia (Acute) Acute on chronic respiratory failure with hypoxia (Acute) Pulmonary fibrosis (Acute) Anxiety (Chronic) COVID (Acute) Respiratory failure with hypoxia (Acute) Dermatomyositis (Chronic) Rectal polyp (Acute) Pre-transplant evaluation for lung transplant (Acute) Osteoporosis (Chronic) 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[employer] Sexually active: No Do you think of yourself as: straight/heterosexual Current gender identity: female What type of physical activity do you participate in: none Seatbelt use: always Drive intox or ride w/intox cdl company driver: No Water heater temp set <120 deg: Yes Working smoke detector in home: Yes Fire extinguisher in home: Yes Carbon monox detector in home: Yes Do you feel safe at home: Yes Do you feel safe in your relationship?: Yes SDOH(Care Management) Screening Will the Patient Participate in the Screening?: Unable to obtain
[2023-11-26] MEDS: Heparin in 0.45% NaCl 25,000 UNIT/250 ML BAG 12 UNIT IV (15:59)
[2023-11-26 16:40] LABS: Troponin I 580 ng/L (< or =60)
[2023-11-26] MEDS: DOXYCYCLINE 100 MG in Normal Saline 100 ML IVPB (16:44)
[2023-11-26] MEDS: Pantoprazole 40 MG VIAL IVP (19:15)
[2023-11-26] MEDS: guaiFENesin 600 MG TABCR 1200 MG PO (20:14)
[2023-11-26] MEDS: Benzonatate 200 MG CAP PO (20:15)
[2023-11-26] MEDS: Famotidine 20 MG TAB PO (20:15)
[2023-11-26] MEDS: LORazepam 0.5 MG TAB PO (20:15)
[2023-11-26] MEDS: Mirtazapine 15 MG TAB 7.5 MG PO (20:16)
[2023-11-26] MEDS: Budesonide/Formoterol 160/4.5 6 GM 60 PUFF INH IH (20:27)
[2023-11-26 23:00] LABS: PTT Activated > 155.0 sec (23.6-32.8)
[2023-11-27] VITALS (84 sets, daily range): BP systolic 86–124; BP diastolic 57–93; PULSE 94–118; RESP 8–101; TEMP 31–37; O2SAT 87–100
[2023-11-27 00:53] LABS: PTT Activated 109.8 sec (23.6-32.8)
[2023-11-27] MEDS: DOXYCYCLINE 100 MG in Normal Saline 100 ML IVPB ×2 (03:35→15:48)
[2023-11-27 05:40] LABS: Abs Immature Grans 0.05 10^3/uL (0.0-0.06); Absolute Basophil Count 0.02 10^3/uL (0.0-0.2); Absolute Lymphocyte Count 0.32 10^3/uL (1.2-3.4); Absolute Neutrophil Count 10.62 10^3/uL (1.2-6.7); Basophils % 0.2; HCT 31.8 % (36.0-46.0); Immature Grans % 0.4; Lymphocytes % 2.7; MCH 35.8 pg (27.0-33.0); MCHC 32.1 % (32.0-36.0); MCV 112 fL (80-95); MPV 9.9 fL (8.0-11.0); Monocytes % 6.8; Neutrophils % 89.9; Platelet Count 243 10^3/uL (130-400); RBC 2.85 10^6/uL (3.93-5.22); RDW 14.7 % (11.7-14.6); RDW-SD 59.8 fL; WBC 11.81 10^3/uL (4.4-10.8)
[2023-11-27 05:41] LABS: BE (Venous) 8 mmol/L (-2-3); HCO3 (Venous) 34 mmol/L (23-28); O2 Sat (Venous) 96 %; TCO2 (Venous) 32 mmol/L (24-29); pCO2 (Venous) 59 mmHg (41-51); pH (Venous) 7.36 (7.31-7.41); pO2 (Venous) 92 mmHg
[2023-11-27 06:04] LABS: HGB 10.2 g/dL (11.2-15.7)
[2023-11-27 06:05] LABS: Macrocytosis 2+
[2023-11-27 06:07] LABS: ALT 290 U/L (14-59); AST 105 U/L (15-37); Albumin 2.5 g/dL (3.4-5.0); Alkaline Phosphatase 123 U/L (46-116); BUN 16 mg/dL (7-18); Bilirubin, Total 0.4 mg/dL (0.2-1.0); CREATININE 0.6 mg/dL (0.55-1.02); Chloride 105 mmol/L (98-107); Glucose 142 mg/dL (74-106); Potassium 3.8 mmol/L (3.5-5.1); Sodium 143 mmol/L (136-145); Total Protein 5.8 g/dL (6.4-8.2)
[2023-11-27 06:13] LABS: Troponin I 434 ng/L (< or =60)
[2023-11-27] MEDS: LORazepam 2 MG/ML VIAL 0.5 MG IVP ×2 (06:26→12:53)
[2023-11-27] MEDS: predniSONE 20 MG TAB 60 MG PO (08:01)
[2023-11-27] MEDS: guaiFENesin 600 MG TABCR 1200 MG PO ×2 (08:01→20:34)
[2023-11-27] MEDS: Sulfameth/Trimeth DS TAB 1 TAB PO (08:02)
[2023-11-27] MEDS: Vitamin E 400 UNITS CAP PO (08:02)
[2023-11-27] MEDS: Multivitamin TAB 1 TAB PO (08:02)
[2023-11-27] MEDS: Benzonatate 200 MG CAP PO ×3 (08:02→20:34)
[2023-11-27] MEDS: Cholecalciferol (Vitamin D3) 400 UNIT TAB PO (08:05)
[2023-11-27] MEDS: Furosemide 20 MG TAB PO (08:05)
[2023-11-27] MEDS: Normal Saline Flush 10 ML SYR IVP ×3 (08:06→21:49)
[2023-11-27] MEDS: Albuterol/Ipratropium 3 ML UPD VIAL UPD ×4 (08:34→21:48)
[2023-11-27] MEDS: Budesonide/Formoterol 160/4.5 6 GM 60 PUFF INH IH ×2 (08:38→21:46)
[2023-11-27] MEDS: Tiotropium Bromide-Respimat 10 PUFF INH 2 PUFF IH (08:39)
[2023-11-27 08:47] LABS: PTT Activated 91.6 sec (23.6-32.8)
[2023-11-27] MEDS: CEFEPIME 2 GM in Normal Saline 100 ML IVPB ×2 (12:40→22:03)
--- NOTE | 2023-11-27 12:42 | PGE_ITS ---
Date of Service Date of service: 11/27/23 Time of Service: 12:42 Assessment and Plan Assessment and plan (1) Acute on chronic respiratory failure with hypoxia and hypercapnia: Status: Acute Assessment and plan: Pneumonia/pneumonitis superimposed on interstitial lung disease with concomitant pulmonary embolism. Continue high-dose prednisone 60 mg daily along with antibiotic treatment for pneumonia including cefepime and doxycycline. Awaiting sputum culture and Legionella and strep antigens and Fungitell studies. Continue bronchodilators as well as her home LABA/ICS and her L.A.M.A.. Obtain pulmonary consultation with Dr. Vazquez on Tuesday morning Request palliative care consult discuss goals of care. Patient is currently DNR/DNI per my discussion with her and per her previous expressed wishes. Because of her precarious respiratory situation still requires ICU monitoring. Critical care time spent interviewing and examining the patient, reviewing studies, discussing case with patient's nurse and consulting physicians was 30 minutes (2) Pulmonary embolism: Status: Chronic Assessment and plan: heparinize, transition to DOAC when able to take PO. 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 I will start her on sertraline and BuSpar. Have also increased the frequency of her lorazepam. She also has scheduled dose of morphine as well as as needed morphine for breakthrough pain or dyspnea. (7) Dermatomyositis: Status: Chronic Subjective Subjective Interval history since last seen: Jillian is very anxious this morning, tachypneic. She had a coughing spell after choking while drinking at lunch. She recovered after a couple minutes but SPO2 dropped down into the 80's but now is back up to 94%. Exam Narrative Exam Narrative: Jillian is very anxious and nervous. She had some increased tachypnea and coughing after choking on some liquids. She is now recovering from this. Still uses accessory respiratory muscles and requires supportive care. She is now on high flow nasal cannula 40 L/min Lungs with diffuse fine cellophane type rales no rhonchi Heart is tachycardic but regular Abdomen soft and nontender normal bowel sounds Extremities without edema Ruano catheter draining clear yellow urine Objective Last Vital Signs Temp 36.9 C 11/27/23 09:27 Pulse 113 H 11/27/23 12:37 Resp 31 H 11/27/23 12:31 BP 102/65 11/27/23 10:01 Pulse Ox 96 11/27/23 12:31 Laboratory Results - last 24 hr 11/26/23 11/26/23 11/26/23 11:48 12:55 14:15 WBC RBC Hgb Hct MCV MCH MCHC RDW Plt Count MPV Immature Gran % Neutrophils % Lymphocytes % Monocytes % Eosinophils % Basophils % Nucleated RBC % Absolute Neutrophils Absolute Lymphocytes Absolute Monocytes Absolute Eosinophils Absolute Basophils RBC Morphology Macrocytosis PT 12.0 H INR 1.2 H APTT 25.6 D-Dimer 6811 H VBG pH VBG pCO2 VBG pO2 VBG HCO3 VBG Total CO2 VBG O2 Saturation VBG Base Excess Sodium Potassium Chloride Carbon Dioxide Anion Gap BUN Creatinine Est GFR (CKD-EPI 2020) Glucose Calcium Total Bilirubin AST ALT Alkaline Phosphatase Troponin I 628 H* Total Protein Albumin MRSA (TEM-PCR) Negative 11/26/23 11/26/23 11/27/23 16:10 22:15 00:21 WBC RBC Hgb Hct MCV MCH MCHC RDW Plt Count MPV Immature Gran % Neutrophils % Lymphocytes % Monocytes % Eosinophils % Basophils % Nucleated RBC % Absolute Neutrophils Absolute Lymphocytes Absolute Monocytes Absolute Eosinophils Absolute Basophils RBC Morphology Macrocytosis PT INR APTT > 155.0 H* 109.8 H* D-Dimer VBG pH VBG pCO2 VBG pO2 VBG HCO3 VBG Total CO2 VBG O2 Saturation VBG Base Excess Sodium Potassium Chloride Carbon Dioxide Anion Gap BUN Creatinine Est GFR (CKD-EPI 2020) Glucose Calcium Total Bilirubin AST ALT Alkaline Phosphatase Troponin I 580 H* Total Protein Albumin MRSA (TEM-PCR) 11/27/23 11/27/23 11/27/23 05:28 07:11 07:55 WBC 11.81 H RBC 2.85 L Hgb 10.2 L D Hct 31.8 L MCV 112 H MCH 35.8 H MCHC 32.1 RDW 14.7 H Plt Count 243 MPV 9.9 Immature Gran % 0.4 Neutrophils % 89.9 Lymphocytes % 2.7 Monocytes % 6.8 Eosinophils % 0.0 Basophils % 0.2 Nucleated RBC % 0.0 Absolute Neutrophils 10.62 H Absolute Lymphocytes 0.32 L Absolute Monocytes 0.80 Absolute Eosinophils 0.00 Absolute Basophils 0.02 RBC Morphology See Below Macrocytosis 2+ PT INR APTT Cancelled 91.6 H* D-Dimer VBG pH 7.36 VBG pCO2 59 H VBG pO2 92 VBG HCO3 34 H VBG Total CO2 32 H VBG O2 Saturation 96 VBG Base Excess 8 H Sodium 143 Potassium 3.8 Chloride 105 Carbon Dioxide 34.0 H Anion Gap 4.0 BUN 16 Creatinine 0.6 Est GFR (CKD-EPI 2020) 96.50 Glucose 142 H Calcium 8.0 L Total Bilirubin 0.4 AST 105 H ALT 290 H Alkaline Phosphatase 123 H Troponin I 434 H* Total Protein 5.8 L Albumin 2.5 L MRSA (TEM-PCR) Time Spent with Patient Time Spent with Patient: 25-34 minutes Time was spent: preparing to see the patient(eg.review tests), ordering medicat ions,tests, procedures, referring, communicating with other health career services officer, indepentently interpreting results, counseling the patient and care coordination
[2023-11-27] MEDS: busPIRone 5 MG TAB PO ×2 (14:20→20:35)
[2023-11-27] MEDS: Sertraline 50 MG TAB PO (14:20)
[2023-11-27 14:38] LABS: PTT Activated 73.2 sec (23.6-32.8)
[2023-11-27] MEDS: Pantoprazole 40 MG VIAL IVP (16:40)
[2023-11-27] MEDS: Heparin in 0.45% NaCl 25,000 UNIT/250 ML BAG 8.5 UNIT IV (16:41)
[2023-11-27 16:50] LABS: Legionella Ag Detection Urine Negative (Negative)
[2023-11-27] MEDS: Famotidine 20 MG TAB PO (20:34)
[2023-11-27] MEDS: LORazepam 0.5 MG TAB PO (20:34)
[2023-11-27] MEDS: Mirtazapine 15 MG TAB 7.5 MG PO (20:35)
[2023-11-27 21:43] LABS: PTT Activated 60.9 sec (23.6-32.8)
[2023-11-28] VITALS (37 sets, daily range): BP systolic 95–125; BP diastolic 58–90; PULSE 85–108; RESP 2–51; TEMP 31–36.9; O2SAT 73–97
[2023-11-28] MEDS: LORazepam 2 MG/ML VIAL 0.5 MG IVP (00:30)
[2023-11-28] MEDS: Normal Saline Flush 10 ML SYR IVP ×3 (00:31→16:35)
[2023-11-28] MEDS: MORPHine 2 MG/ML SYR IVP (01:58)
[2023-11-28] MEDS: DOXYCYCLINE 100 MG in Normal Saline 100 ML IVPB ×2 (03:46→16:36)
[2023-11-28] MEDS: LORazepam 0.5 MG TAB PO ×3 (04:00→20:21)
[2023-11-28 07:09] LABS: Abs Immature Grans 0.12 10^3/uL (0.0-0.06); Absolute Basophil Count 0.02 10^3/uL (0.0-0.2); Absolute Eosinophil Count 0.02 10^3/uL (0.0-0.7); Basophils % 0.1; Eosinophils % 0.1; HCT 31.6 % (36.0-46.0); HGB 10.1 g/dL (11.2-15.7); Immature Grans % 0.7; Lymphocytes % 4.4; MCH 36.1 pg (27.0-33.0); MCV 113 fL (80-95); MPV 10.3 fL (8.0-11.0); Neutrophils % 83.7; Platelet Count 263 10^3/uL (130-400); RDW 14.8 % (11.7-14.6); RDW-SD 61.1 fL; WBC 16.29 10^3/uL (4.4-10.8)
[2023-11-28 07:17] LABS: Absolute Lymphocyte Count 0.72 10^3/uL (1.2-3.4); Absolute Monocyte Count 1.79 10^3/uL (0.1-0.8); Absolute Neutrophil Count 13.63 10^3/uL (1.2-6.7)
[2023-11-28 07:22] LABS: PTT Activated 59.6 sec (23.6-32.8)
[2023-11-28 07:32] LABS: Anion Gap 6.7 mmol/L (3-11); BUN 18 mg/dL (7-18); C-Reactive Protein 3.25 mg/dL (<or=0.5); CO2 32.3 mmol/L (21.0-32.0); CREATININE 0.5 mg/dL (0.55-1.02); Calcium 8.5 mg/dL (8.5-10.1); Chloride 106 mmol/L (98-107); Estimated GFR 100.84 (mL/min/1.73m2); Glucose 86 mg/dL (74-106); Potassium 3.7 mmol/L (3.5-5.1); Sodium 145 mmol/L (136-145)
[2023-11-28 07:38] LABS: Diff Comment Diff Reviewed; Macrocytosis 2+
[2023-11-28] MEDS: Budesonide/Formoterol 160/4.5 6 GM 60 PUFF INH IH ×2 (08:03→20:03)
[2023-11-28] MEDS: Tiotropium Bromide-Respimat 10 PUFF INH 2 PUFF IH (08:03)
[2023-11-28] MEDS: Albuterol/Ipratropium 3 ML UPD VIAL UPD ×3 (08:03→20:02)
[2023-11-28 08:12] LABS: Procalcitonin 0.1 ng/mL
[2023-11-28] MEDS: Vitamin E 400 UNITS CAP PO (08:29)
[2023-11-28] MEDS: Cholecalciferol (Vitamin D3) 400 UNIT TAB PO (08:29)
[2023-11-28] MEDS: Sertraline 50 MG TAB PO (08:30)
[2023-11-28] MEDS: predniSONE 20 MG TAB 60 MG PO (08:30)
[2023-11-28] MEDS: Benzonatate 200 MG CAP PO ×3 (08:30→20:21)
[2023-11-28] MEDS: busPIRone 5 MG TAB PO ×3 (08:30→20:21)
[2023-11-28] MEDS: Multivitamin TAB 1 TAB PO (08:30)
[2023-11-28] MEDS: Furosemide 20 MG TAB PO (08:30)
[2023-11-28] MEDS: Sulfameth/Trimeth DS TAB 1 TAB PO (08:30)
[2023-11-28] MEDS: guaiFENesin 600 MG TABCR 1200 MG PO ×2 (08:32→20:21)
--- NOTE | 2023-11-28 08:38 | CMPROGNOTE_ITS ---
Date of service: 11/28/23 Care Management Progress Note Progress Note Text Progress Note Text: S/O: Jillian was sitting up in a chair when talking with JONA. Jillian discussed when medically cleared she will return to the [facility] until she is able to return home, she reports she knows she will not be able to live there alone but may be able to get a delivery helper that would be helpful to her and the individual because it would give them a job. Jillian described she worked for [employer] who may be able help her locate someone. 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 Jillian shared she had a visit from her son yesterday and he plans to stay for another day or so. JONA assisted in coordinating a Palliative Care consult 1:00 with Bridgett son who will be present at that tiome, as requested by the INGOT CAR OPERATOR. A: Jillian is a 68 year old female admitted to [facility] 11/26/23 P: Jillian will return to [facility] via RCT coordinated by JONA BOWERS. She will f/u with facility providers, and her d/c plan of care. CM will continue to follow. SDOH(Care Management) Screening Will the Patient Participate in the Screening?: Unable to obtain
[2023-11-28] MEDS: CEFEPIME 2 GM in Normal Saline 100 ML IVPB ×2 (10:22→22:13)
--- NOTE | 2023-11-28 11:00 | DI.US_ITS ---
APPROVED REPORT EXAM: Comprehensive 2D, Doppler, and color-flow Echocardiogram Patient Location: In-Patient Room/Bed: [id number] Sparker And Patcher: Pau Mantilla RDCS (AE) Indications: Elevated troponin levels, evaluate LV and RV function Other Information Study Quality: Fair. Technically limited study due to body habitus, inability to position patient exa m done supine semi erect, [facility] ICU. Conclusion Normal left ventricular wall thickness and chamber size. EF is 58% . no segmental wall motion abnorm ality Mildly enlarged right ventricle and right atrium Normal left atrial size There are no structural valvular abnormalities There is moderate tricuspid regurgitation Estimated right ventricular systolic pressure is 74 mmHg Wall motion Left Ventricle The left ventricle is normal size. The left ventricular systolic function is normal. The left ventric ular ejection fraction is within the normal range. Mild concentric left ventricular hypertrophy. Ther e is normal LV segmental wall motion. There is no ventricular septal defect visualized. LVEF is 58%. Right Ventricle Right ventricle is mildly dilated Right ventricular systolic function is grossly normal. Atria The left atrium size is normal. The right atrium is mildly dilated The interatrial septum is intact w ith no evidence for an atrial septal defect. Aortic Valve The aortic valve is normal in structure. Aortic valve is trileaflet. There is no aortic valvular sten osis. No aortic regurgitation is present. Mitral Valve The mitral valve is normal in structure. No evidence of mitral valve stenosis. Trace mitral regurgita tion. Tricuspid Valve The tricuspid valve is normal in structure. There is no tricuspid valve stenosis. Moderate tricuspid regurgitation. The RVSP is 74.0 mmHg. Pulmonic Valve The pulmonary valve is normal in structure. There is no pulmonic valvular stenosis. Trace pulmonic re gurgitation. Great Vessels The aortic root is normal in size. The ascending aorta is mildly dilated. Aortic arch is not visualiz ed. The IVC collapses <50% with normal respiration. Pericardium Technically limited subcostal imaging. There is no pericardial effusion. 2D Dimensions IVSD d PLAX 1.10 cm F: 0.6-1.0 Ao Root d 2.61 cm F: 2.7 - 3.3 LVPW d PLAX 1.10 cm F: 0.6 - 1.0 Ao Asc Diam d 3.58 cm F: 2.3 - 3.1 LVID d PLAX 4.00 cm F: 3.8 - 5.2 LVDs 2.77 cm F: 2.2 - 3.5 LV EF Teichholz 57.8 % FS 29.99 % LV EDV (Teich) 68.1 mL LV ESV (Teich) 28.7 mL M-Mode TAPSE 1.90 cm (M/F) >1.7 Auto EF LV EDV A4C 64.1 mL LV EDV A2C 89.3 mL LV EDV BP LV ESV A4C 30.9 mL LV ESV A2C 42.7 mL LV ESV BP LVEF(%) A4C 51.8 % LVEF(%) A2C 52.2 % LVEF(%) BP LV SV A4C 33.2 ml LV SV A2C 46.6 ml LV SV BP LV CO A4C 3.2 L/min LV CO A2C 4.5 L/min LV CO BP HR A4C 96.52 BPM HR A2C 96.26 BPM LV EDV Index (BP) LA Volume LA Length A4C 5.5 cm LA Length A2C LA Area A4C s 16.42 cm2 LA Area A2C s LA Vol A4C A-L 41.29 mL LA Vol A2C A-L LA Vol Biplane A-L LA Vol A4C MOD 39.3 mL LA Vol A2C MOD LA Vol BP MOD RA Volume RA Area A4C 16.0 cm2 RA ESV A4C (A-L) 40.8mL RA Vol/BSA A4C A-L RA Length A4C 5.3 cm RA ESV A4C (MOD) 40.6mL LV Diastology MV E' medial 0.067 (>0.07 m/s) MV E Vmax 0.59 (0.4-1.3 m/s) MV E/E' MED 8.79 (<14) MV A Vmax 0.75 (0.4-1.3 m/s) MV E' lateral 0.092 (>0.1 m/s) E/A Ratio 0.8 MV E/E' LAT 6.40 (<14) MV E' Average 0.079 m/s MV E/E'(average) 7.41 Aortic Valve AoV Vmax 1.55 m/s LVOT Vmax 1.38 m/s AoV Peak Grad 9.6 mmHg LVOT Peak Grad 7.6 mmHg AoV Area (Vmax) 2.52 cm2 LVOT VTI 0.245 m AoV VTI 0.267 m LVOT Mean Grad 3.5 mmHg AoV Mean Be. 1.05 m/s LVOT SV 69.16 mL AoV Mean Grad 5.1 mmHg LVOT Diam s 1.85 cm AoV Area (VTI) 2.59 cm2 Velocity Ratio 0.89 Mitral Valve MV DT 183 (160-240 msec) MV Vmax TIPS 0.87 m/s MV Mean Grad 1.7 (<2mmHg) MV VTI 0.139 m Pulmonary Valve PV Vmax 1.40 (0.5-1.5 m/s) RVOT Vmax 0.91 m/s PV Peak Grad 7.9 mmHg RVOT Peak Gr. 3.3 mmHg PV Mean Be 0.83 m/s RVOT VTI 0.138 m PV Mean Grad 3.2 mmHg RVOT Mean Gr. 1.4 mmHg Tricuspid Valve RA Pressure 8.00 mmHg TR Vmax 4.06 m/s TV S' 0.15 m/s TR Peak Grad 66.0 mmHg RVSP (TR) 74.0 mmHg
--- NOTE | 2023-11-28 11:15 | W.SPSTE ---
Date of service: 11/28/23 Time of Service: 08:15 Subjective Clinical (Bedside) Swallow Evaluation Speech Language Pathology Referred by: Dr. Baker Referral Type: Clinical Swallow Evaluation Reason for Referral/HPI: Jillian Stuart is a 68 year old female admitted on 11/26/23 with acute on chronic respiratory failure with hypoxia and hypercapnia. Past medical history significant for dermatomyositis, and end stage interstitial lung disease with baseline O2 use 5-6 LPM. Pt is a resident at the [facility] in [place] prior to admission. She was referred for FINANCIAL REPORTING SPECIALIST swallow evaluation secondary to coughing with thin liquids at lunch on 11/27/23. FINANCIAL REPORTING SPECIALIST IMPRESSIONS & RECOMMENDATIONS: Pt presents with oral-pharyngeal dysphagia largely exacerbated by respiratory status. Pt on high flow nasal cannula 35 LPM at time of evaluation. SpO2 remained above 88% with exception of 2 instances in which she was encouraged to pause and take slow breaths. She tolerated small amounts of thin liquids and pureed solids without overt s/s aspiration. Recommend diet modification and aspiration precautions as outlined below. Anticipate pt's diet can be upgraded as respiratory status improve. FURTHER FINANCIAL REPORTING SPECIALIST SERVICES: Patient to be followed while on unit. Upon Discharge, ongoing FINANCIAL REPORTING SPECIALIST needs to be determined Diet Recommendations: SOLIDS: 4-Pureed Solids LIQUIDS: 0-Thin Liquids MEDICATIONS: Whole with 0-Thin Liquids one at a time RISK MANAGEMENT: HOB upright as tolerated; upright for all PO intake. Encourage physical mobility as tolerated. Oral hygiene before/after PO intake using friction with toothbrush on all oral structures as tolerated. use the oral hydrating gel as indicated Level of Assistance/Supervision: 1:1 close supervision for all PO intake PO intake only when awake/alert? Strategies/Adaptations/Assistive Equipment: Reduce auditory and/or visual distractions when eating, Provide verbal and/or visual cues to use recommended strategies, Small sips and bites when eating, Slow rate of intake, Swallow between bites, Small+frequent meals throughout day, Posture/Positioning Needs: Maintain upright position at least 30 minutes after meals, Avoid meals/snacks 2-3 hours prior to reclining/sleeping, Sleep with head of bed elevated to reduce likelihood of nocturnal reflux, Other SUBJECTIVE: Patient received alert/awake, conversant, agreeable to evaluation. Verbalized anxiety initially but able to participate in swallow evaluation Pain Reported? No Baseline Swallow Function: Patient denies swallowing difficulty prior to admission and eats a regular diet at baseline. Prefers naturally softer food due to missing lower dentition PO Trials Assessed: IDDSI 0 Thin Liquids IDDSI 4 Puree Solid Medications administered by RN Oral Mechanism Examination: Dentition is upper natural, no lower. Oral mucosa is dry. At least mild global weakness appreciated due to deconditioned status. Cranial Nerve Assessment: CN V ? Trigeminal Facial Sensation WNL Jaw Strength/ROM WNL ?WNL CN VII- Facial WNL labial ROM, strength, coordination. WNL lingual sensation WNL CN IX ? Glossopharyngeal WNL palatal elevation with phonation. No evidence of nasal emissions WNL CN X ? Vagus WNL Vocal quality and volume. Strong/sharp volitional cough WNL CX XII ? Hypoglossal WNL lingual ROM, strength, coordination WNL Oral Phase Findings: Difficulty chewing Increased work of breath noted with PO trials with intermittent drop in SpO2. Pt benefited from verbal prompting to pause and take breaths every 3-4 bites. Pharyngeal Phase Findings: Productive cough with sputum after taking pills. No other coughing or throat clearing appreciated Hoarseness and hypophonia appreciated but vocal quality did not worsen with PO trials ASSESSMENT: Further FINANCIAL REPORTING SPECIALIST Services indicated. Patient to be followed while on unit. Recommendation at Discharge: to be determined Suggested Referrals: NA Recommended Procedures: NA Education Provided to: Nursing, Patient Topics Addressed: FINANCIAL REPORTING SPECIALIST findings and recommendations and aspiration precautions PLAN: Frequency: 3-4x/week for 1-2 weeks Goals: Fpc Goals: Patient will remain free from aspiration-related illness, malnutrition, and dehydration. Patient/family will verbalize comprehension of education provided re: dx dysphagia, strategies to maximize functioning, and role of ST. Short Term Goals: Patient will tolerate puree Diet and Thin liquids without overt s/s aspiration across 2/2 visits. Patient will tolerate PO trials for consideration of diet upgrade without overt s/s aspiration across 2/2 visits. FINANCIAL REPORTING SPECIALIST CPT Code: 86926 Clinical Swallowing Evaluation TOTAL TIME: 40 Minutes (8:15 to 8:55)
[2023-11-28 11:57] LABS: BE 8 mmol/L (-2-3); HCO3 33 mmol/L (22-26); pCO2 57 mmHg (35-45); pH 7.37 (7.35-7.45); pO2 69 mmHg (80-105); sO2 92 % (95-98); tCO2 31 mmol/L (23-27)
[2023-11-28 11:59] LABS: FIO2 48 %; FIO2L 35 L; Site Right Radial
--- NOTE | 2023-11-28 15:36 | W.PALLCONSUL ---
Date of service: 11/28/23 Time of Service: 13:00 History of Present Illness Narrative: Ms. Walsh is a 68 y/o F currently inpatient in ICU 2/2 acute respiratory failure; PMHx sig for PF, CTD-ILD, OP and anxiety; present for 2nd half of visit son/[facility] Hospital Course: previous hospitalization 09/15- 2/2 respiratory failure, d/c to [facility], has been there since ED presentation on 11/25 after 1 week worsening weakness and dyspnea, increased cough; work up consistent for hypoxia (started prednisone 60mg), progressive PF, infiltrate suspicious of PNA (on cefepime and doxycycline), new RLL PE, started on heparin; admitted to ICU on BiPAP; currently on HF 35 lpm at 58%, which she tolerates as rest, w/any movement/exertion her sats drop significantly; anxiety and dyspnea now tx w/scheduled lorazepam 0.5mg and morphine 2mg; pulmonology consult pending for today; ECHO occurred today, read pending; ASSOCIATE PROFESSOR OF LITERATURE consult dysphagia exacerbated w/respiratory status, not functional/structural; 2 person assist, respiratory status limiting factor, dependent all ADLs Jillian feels comfortable at time of visit, she is agreeable to engaging w/palliative - she is concerned w/insurance payment limiting treatment options in hospital and s/p discharge. 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 She would want BiPAP again if her resp status were to worsen, she is agreeable to trials as long as she could be back to her current baseline. She feels morphine and lorazepam working well to control dyspnea/anxiety at this time - nurses stress she drops w/any movement She and her son are disappointment she was not a candidate for a lung transplant and there aren't additional treatments available for her; it sounds like her mother from respiratory condition, she is not intersted in that type of suffering She is aware that her lung disease is progressive and is progressing, I know it's bad. She is comfortable w/current treatment plan; her son and she would like to hear what pulmonology has to stay regarding further treatment options - ACP: would like to live a little longer, but see's things coming to a close I've had a good life; she has declined quite a bit in previous year, christiano w/breathing dyspnea, activity (ability to walk) and fatigue She is comfortable w/returning to [facility], is happy with the care she is receiving there and at [facility] She is okay w/returning to hospital and receiving all treatment she has currently received; she previously stated she is a DNR/I, however she wonders if she would be willing to trial intubation is she would return to this baseline. She would not want to be kept alive if treatments were failing, she would chose to , she would not want to stay alive if she was suffering Assessment and Plan Assessment and plan (1) Pulmonary embolism: Status: Chronic Assessment and plan: on heparin currently, plan for transition to PO DOAC Qualifiers: Pulmonary embolism type: single subsegmental (without acute cor pulmonale) Qualified Code(s): I26.93 - Single subsegmental pulmonary embolism without acute cor pulmonale (2) Elevated troponin I level: Status: Acute (3) Acute on chronic respiratory failure with hypoxia and hypercapnia: Status: Acute Assessment and plan: on HF currently, transitioned down from BiPAP reviewed stepwise approach w/respiratory treatments: inhalers, NC, HF, BiPAP, intubation continue scheduled Ativan and morphine (4) Pulmonary fibrosis: Status: Acute Assessment and plan: consult pulmonology pending need for ongoing review of disease progression, including intubation concerns w/survival/baseline (5) Anxiety: Status: Chronic Assessment and plan: previously on mirtazapine per chart review started on sertraline and Buspar continue to follow and review continue lorazepam scheduled at this time (6) 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 (7) ACP (advance care planning): Status: Acute Assessment and plan: reviewed current POC, including transition back to BiPAP if needed; reviewed briefly intubation concerns and suffering, recommend ongoing conversations w/hospitalist and pulm reviewed [facility] and her current preferences for no suffering, would want natural vs failed treatments/ongoing suffering she is aware she is unable to live home alone and is comfortable returning to the [facility], for tank terminal gauger, request CM communicate w/more financial information; she will work w/family on sorting and selling items in home (8) Palliative care patient: Status: Acute Assessment and plan: PC will continue to follow while inpatient and schedule appropriate outpatient f/u continue to review disease progression, did not discuss hospice or comfort care today, but these things should be reviewed in future, christiano pending pulm consult and any changes to care plan Review of Systems Narrative: as per HPI PFSH All Active Problems (Updated 11/28/23 @ 16:02 by Bethany Brown NP) Palliative care patient (Acute) ACP (advance care planning) (Acute) Pulmonary embolism (Chronic) Elevated troponin I level (Acute) Myocardial injury (Acute) Acute on chronic respiratory failure with hypoxia and hypercapnia (Acute) Acute on chronic respiratory failure with hypoxia (Acute) Pulmonary fibrosis (Acute) Anxiety (Chronic) COVID (Acute) Respiratory failure with hypoxia (Acute) Dermatomyositis (Chronic) Rectal polyp (Acute) Pre-transplant evaluation for lung transplant (Acute) Osteoporosis (Chronic) 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[employer] Sexually active: No Do you think of yourself as: straight/heterosexual Current gender identity: female What type of physical activity do you participate in: none Seatbelt use: always Drive intox or ride w/intox truck driver supervisor: No Water heater temp set <120 deg: Yes Working smoke detector in home: Yes Fire extinguisher in home: Yes Carbon monox detector in home: Yes Do you feel safe at home: Yes Do you feel safe in your relationship?: Yes Exam Narrative Exam Narrative: General: lying in ICU bed ; NAD HEENT: hearing grossly WNL; normocephalic, atraumatic Resp: tachypnic, w/no distress w/HF NC in place; speaks full and complete sentences, able to speak 3-4 sentences w/o pause at various points throughout visit; pursed lipped breathing intermittent, able to self soothe Psych: cooperative, tangential, insight/judgment fair to limited Results Last Vital Signs Temp 97.3 F L 11/28/23 07:49 Pulse 92 H 11/28/23 14:01 Resp 40 H 11/28/23 14:01 BP 116/80 11/28/23 14:01 Pulse Ox 91 L 11/28/23 14:01 Labs 11/28/23 05:45 11/28/23 05:45 Labs: Laboratory Results - last 24 hr 11/26/23 11/27/23 11/28/23 17:30 21:05 05:45 WBC 16.29 H RBC 2.80 L Hgb 10.1 L Hct 31.6 L MCV 113 H MCH 36.1 H MCHC 32.0 RDW 14.8 H Plt Count 263 MPV 10.3 Immature Gran % 0.7 Neutrophils % 83.7 Lymphocytes % 4.4 Monocytes % 11.0 Eosinophils % 0.1 Basophils % 0.1 Nucleated RBC % 0.0 Absolute Neutrophils 13.63 H Absolute Lymphocytes 0.72 L Absolute Monocytes 1.79 H Absolute Eosinophils 0.02 Absolute Basophils 0.02 RBC Morphology See Below Macrocytosis 2+ APTT 60.9 H 59.6 H ABG Sample Site ABG pH ABG pCO2 ABG pO2 ABG HCO3 ABG Total CO2 ABG O2 Saturation ABG Base Excess Oxygen Liter Flow FiO2 Sodium 145 Potassium 3.7 Chloride 106 Carbon Dioxide 32.3 H Anion Gap 6.7 BUN 18 Creatinine 0.5 L Est GFR (CKD-EPI 2020) 100.84 Glucose 86 Calcium 8.5 C-Reactive Protein 3.25 H Procalcitonin 0.1 Urine Legionella Ag Negative 11/28/23 11:52 WBC RBC Hgb Hct MCV MCH MCHC RDW Plt Count MPV Immature Gran % Neutrophils % Lymphocytes % Monocytes % Eosinophils % Basophils % Nucleated RBC % Absolute Neutrophils Absolute Lymphocytes Absolute Monocytes Absolute Eosinophils Absolute Basophils RBC Morphology Macrocytosis APTT ABG Sample Site Right Radial ABG pH 7.37 ABG pCO2 57 H ABG pO2 69 L ABG HCO3 33 H ABG Total CO2 31 H ABG O2 Saturation 92 L ABG Base Excess 8 H Oxygen Liter Flow 35 FiO2 48 Sodium Potassium Chloride Carbon Dioxide Anion Gap BUN Creatinine Est GFR (CKD-EPI 2020) Glucose Calcium C-Reactive Protein Procalcitonin Urine Legionella Ag
[2023-11-28] MEDS: Pantoprazole 40 MG VIAL IVP (16:35)
--- NOTE | 2023-11-28 17:51 | PGE_ITS ---
Date of Service Date of service: 11/28/23 Time of Service: 17:52 Assessment and Plan Assessment and plan (1) Acute on chronic respiratory failure with hypoxia and hypercapnia: Status: Acute Assessment and plan: -Pneumonia/pneumonitis superimposed on interstitial lung disease with concomitant pulmonary embolism -Continue high-dose prednisone 60 mg daily along with antibiotic treatment for pneumonia including cefepime and doxycycline. -Awaiting sputum culture and Legionella and strep antigens and Fungitell studies. -Continue bronchodilators as well as her home LABA/ICS and her L.A.M.A.. -Obtain pulmonary consultation with Dr. Vazquez on Tuesday -[facility] Consult ( please see note for details) -Patient is currently DNR/DNI per discussion with previous provider -Because of her precarious respiratory situation still requires ICU monitoring. (2) Pulmonary embolism: Status: Chronic Assessment and plan: -heparinize, transition to DOAC when able to take PO. 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 -was started on sertraline and BuSpar. and increased the frequency of her lorazepam. -She also has scheduled dose of morphine as well as as needed morphine for breakthrough pain or dyspnea. (7) Dermatomyositis: Status: Chronic Exam Narrative Exam Narrative: Chronically ill-appearing female laying in bed with high flow nasal cannula in place and mild respiratory distress, ANO x 4, heart regular rate rhythm, lungs diminished throughout but with audible wheezing, abdomen soft, nontender, nondistended Objective Last Vital Signs Temp 98.4 F 11/28/23 16:48 Pulse 95 H 11/28/23 16:48 Resp 36 H 11/28/23 16:48 BP 104/66 11/28/23 16:48 Pulse Ox 90 L 11/28/23 16:48 Laboratory Results - last 24 hr 11/26/23 11/27/23 11/28/23 17:30 21:05 05:45 WBC 16.29 H RBC 2.80 L Hgb 10.1 L Hct 31.6 L MCV 113 H MCH 36.1 H MCHC 32.0 RDW 14.8 H Plt Count 263 MPV 10.3 Immature Gran % 0.7 Neutrophils % 83.7 Lymphocytes % 4.4 Monocytes % 11.0 Eosinophils % 0.1 Basophils % 0.1 Nucleated RBC % 0.0 Absolute Neutrophils 13.63 H Absolute Lymphocytes 0.72 L Absolute Monocytes 1.79 H Absolute Eosinophils 0.02 Absolute Basophils 0.02 RBC Morphology See Below Macrocytosis 2+ APTT 60.9 H 59.6 H ABG Sample Site ABG pH ABG pCO2 ABG pO2 ABG HCO3 ABG Total CO2 ABG O2 Saturation ABG Base Excess Oxygen Liter Flow FiO2 Sodium 145 Potassium 3.7 Chloride 106 Carbon Dioxide 32.3 H Anion Gap 6.7 BUN 18 Creatinine 0.5 L Est GFR (CKD-EPI 2020) 100.84 Glucose 86 Calcium 8.5 C-Reactive Protein 3.25 H Procalcitonin 0.1 Urine Legionella Ag Negative 11/28/23 11:52 WBC RBC Hgb Hct MCV MCH MCHC RDW Plt Count MPV Immature Gran % Neutrophils % Lymphocytes % Monocytes % Eosinophils % Basophils % Nucleated RBC % Absolute Neutrophils Absolute Lymphocytes Absolute Monocytes Absolute Eosinophils Absolute Basophils RBC Morphology Macrocytosis APTT ABG Sample Site Right Radial ABG pH 7.37 ABG pCO2 57 H ABG pO2 69 L ABG HCO3 33 H ABG Total CO2 31 H ABG O2 Saturation 92 L ABG Base Excess 8 H Oxygen Liter Flow 35 FiO2 48 Sodium Potassium Chloride Carbon Dioxide Anion Gap BUN Creatinine Est GFR (CKD-EPI 2020) Glucose Calcium C-Reactive Protein Procalcitonin Urine Legionella Ag Time Spent with Patient Time Spent with Patient: >50 minutes (60 minutes of critical care time spent with patient with severe hypoxic and hypercapnic respiratory failure continue to require high flow) Time was spent: preparing to see the patient(eg.review tests), obtaining and/or reviewing separately otained hiistory, ordering medications,tests, procedures, referring, communicating with other health primary care coordinator, indepentently interpreting results, counseling the patient and care coordination
[2023-11-28] MEDS: Mirtazapine 15 MG TAB 7.5 MG PO (20:20)
[2023-11-28] MEDS: Famotidine 20 MG TAB PO (20:22)
[2023-11-29] VITALS (38 sets, daily range): BP systolic 105–143; BP diastolic 72–94; PULSE 70–99; RESP 3–46; TEMP 31–37.2; O2SAT 86–97
[2023-11-29] MEDS: Normal Saline Flush 10 ML SYR IVP ×3 (00:42→16:59)
[2023-11-29] MEDS: Heparin in 0.45% NaCl 25,000 UNIT/250 ML BAG 8.5 UNIT IV (00:47)
[2023-11-29] MEDS: DOXYCYCLINE 100 MG in Normal Saline 100 ML IVPB ×2 (04:22→16:05)
[2023-11-29 07:01] LABS: PTT Activated 60.6 sec (23.6-32.8)
[2023-11-29] MEDS: Albuterol/Ipratropium 3 ML UPD VIAL UPD ×4 (07:55→20:40)
[2023-11-29] MEDS: Budesonide/Formoterol 160/4.5 6 GM 60 PUFF INH IH ×2 (07:55→20:31)
[2023-11-29] MEDS: Tiotropium Bromide-Respimat 10 PUFF INH 2 PUFF IH (07:56)
[2023-11-29] MEDS: Benzonatate 200 MG CAP PO ×3 (08:29→20:04)
[2023-11-29] MEDS: predniSONE 20 MG TAB 60 MG PO (08:30)
[2023-11-29] MEDS: Cholecalciferol (Vitamin D3) 400 UNIT TAB PO (08:30)
[2023-11-29] MEDS: busPIRone 5 MG TAB PO ×3 (08:31→20:05)
[2023-11-29] MEDS: Vitamin E 400 UNITS CAP PO (08:31)
[2023-11-29] MEDS: Sulfameth/Trimeth DS TAB 1 TAB PO (08:31)
[2023-11-29] MEDS: Sertraline 50 MG TAB PO (08:31)
[2023-11-29] MEDS: guaiFENesin 600 MG TABCR 1200 MG PO ×2 (08:32→20:04)
[2023-11-29] MEDS: Furosemide 20 MG TAB PO (08:32)
[2023-11-29] MEDS: Multivitamin TAB 1 TAB PO (08:32)
--- NOTE | 2023-11-29 08:42 | PUCC_ITS ---
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 Her respiratory failure is likely multi-factorial with possible diagnoses of ILD flare, pneumonia and PE. Her clinical history along with an elevated neutrophil to lymphocyte ratio are suggestive of a possible infectious etiology, despite the negative procalcitonin. She has already been testing for a fungal pneumonia with pending results. I agree she should remain on antibiotics since she is not a safe bronchoscopy candidate for our institution so I am unable to confidently rule out infection. With regard to the possible PE, again I cannot definitely rule this out based on the chest CT taken and given her high risk and the acute development of pulmonary hypertension (without cor pulmonale) one must assume the PE is possible and should be treated. The heparin can be transitioned to Eliquis or the like. I also agree with continuing a prednisone taper for her ILD. Recommendations Pulmonary: CTD-ILD flare - prednisone 60mg for 5 days, 50mg for 5 days, 40mg for 5 days, 30mg for 5 days, 20mg for 5 days, remain on 10mg chronically - Bactrim DS daily when prednisone is 20mg or greater - outpatient pulmonary follow up Acute on chronic hypoxic and hypercapnic respiratory failure - HFNC to wean to NC as tolerated - O2 sat goal >90% - out of bed to chair Pulmonary Embolism - can transition heparin to Eliquis - repeat echo in 3 months Cardiac: Elevated troponin - in the setting of hypoxia and small PE - trended down - no further assessment at this time Renal: No acute concern I&O: Intake & Output 11/26/23 11/27/23 11/28/23 11/29/23 23:59 23:59 23:59 23:59 Intake Total 1294.2 / 1294.2 2330.992 / 2330.992 622.592 / 622.592 321.65 / 321.65 Output Total 1000 / 1000 900 / 900 1010 / 1010 300 / 300 Balance 294.2 / 294.2 1430.992 / 1430.992 -387.408 / -387.408 21.65 / 21.65 Weight 62.9 kg 56.7 kg 60.8 kg Daily Fluid Goal:: even GI Nutrition: Nutrition - ok for normal diet Transaminitis - likely due to hypoxia - consider repeat LFT's to assess down trending Date of Last Bowel Movement: 11/28/23 Infectious Disease: Pneumonia - agree with doxycycline and cefepime for total antibiotic days of 7 days - can switch to PO doxycycline and Augmentin when ready Leukocytosis - due to above - continue to monitor Hematologic: Anemia - new since last admission and macrocytic - conitnue to monitor Neurologic: No acute concerns Endocrine: No acute concerns Lines: PIV Prophylaxis: heparin Pepcid Code Status: Resuscitation Status DNR/DNI Subjective Critical and life-threatening events over the past 24 hours: This is a 68 yo I know well who has CTD-ILD with dermatomyositis who is followed by [facility] [place]ology and who is on OFEV. She had a severe exacerbation of her ILD in August requiring triple therapy with prednisone, IVIG and mycophenalate who present again in respiratory failure. Based on her history it does sound like she may have had an infectious etiology to this decompensation with increased and changed quality of sputum and cough. She was started on doxycycline and cefepime for possible pneumonia. On ym assessment of the chest CT, I do not see a clear pneumonia, rather just her ILD, however the scan is a PE scan which is expiratory and therefore difficult to assess lung parenchyma confidently. She was also found to have a small subsegmental PE for which she is receiving heparin. She is also on prednisone 60mg given the likely ILD flare. She does feel as though she is getting better since being in the hospital. She is still requiring HFNC but is only on 44%/35L of support, so I am optimistic this will be eventually weaned. Exam Narrative Exam Narrative: Gen: NAD, normal respiratory effort, well-nourished HENT: PERRL Chest: No respiratory distress, normal appearance of chest, bilateral crackles Heart: regular rate and rhythym, no murmurs, rubs or gallops Abdomen: Non-distended, soft, non tender Extremities: No clubbing, edema, cyanosis, rashes Neuro: AAOx3 , non focal Psych: cooperative, appropriate mental affect Most Recent VS/Results Last Vital Signs Temp 37.2 C 11/29/23 03:30 Pulse 92 H 11/29/23 07:55 Resp 27 H 11/29/23 07:55 BP 121/77 11/28/23 17:00 Pulse Ox 92 11/29/23 07:57 Laboratory Results - last 24 hr 11/26/23 11/28/23 11/29/23 17:30 11:52 05:45 APTT 60.6 H ABG Sample Site Right Radial ABG pH 7.37 ABG pCO2 57 H ABG pO2 69 L ABG HCO3 33 H ABG Total CO2 31 H ABG O2 Saturation 92 L ABG Base Excess 8 H Oxygen Liter Flow 35 FiO2 48 Urine Legionella Ag Negative Review of Systems All systems reviewed & are unremarkable except as noted in HPI and below Time spent with patient Time spent in Critical Care: 60 Time spent in Critical care included: Coordination of care, Chart review, Documenting critically ill care, Time at immediate bedside and Discussing critically ill care with other medical staff
[2023-11-29] MEDS: CEFEPIME 2 GM in Normal Saline 100 ML IVPB ×2 (09:55→22:59)
--- NOTE | 2023-11-29 10:12 | PDOC.CMPRO ---
Date of service: 11/29/23 Care Management Progress Note Progress Note Text Progress Note Text: S/O: Jillian was sitting in a chair with her son in the room when talking with CM. CM reviewed discussion with [facility] Personal Care Assistant( SSD) regarding [place] concerns of how to much she will need to pay while at the facility. SSD provided CM a copy of the [facility] approval notice CM reviewed with Pt and her son, the costs for October and November. CM discussed advanced directives long form and short form options with Jillian and her son. Jillian said she preferred the short form and would like to have completed tomorrow. Jordan did report he will be here at least until Tuesday, if not longer. CM will assist with appointment of a health care agent form. A: Jillian is a 68 year old female admitted to [facility] 11/26/23 P: Jillian will return to [facility] via RCT coordinated by JONA BOWERS. She will follow up with facility providers, and her discharge plan of care. CM will continue to follow. SDOH(Care Management) Screening Will the Patient Participate in the Screening?: Unable to obtain
--- NOTE | 2023-11-29 10:48 | PDOC.STREC ---
Date of service: 11/29/23 Time of Service: 10:48 Speech Therapy Recommendations Report ST Recommendations: PUNCH OPERATOR Non-treatment Note: PUNCH OPERATOR contacting patient's RN this date for medical updates. Patient continues for the most part on 30+ BROOD HATCH[employer] MANAGER HFNC without significant respiratory improvement this date. She has been tolerating puree so far this date without any s/sx aspiration per RN report, however, does appear with noticeably increased work of breathing during meal. No further issues reported with liquids/medications since initial evaluation. RN does not feel it is appropriate to trial any upgraded textures this date due to increased work of breathing even with purees. PUNCH OPERATOR will continue to follow for meal-follow up with additional textures as indicated. ASSESSMENT: Further PUNCH OPERATOR Services indicated. Patient to be followed while on unit. Will re-assess for possible diet upgrades tomorrow pending respiratory progress. PLAN: Frequency: 3-4x/week for 1-2 weeks Diet Recommendations: SOLIDS: 4-Pureed Solids LIQUIDS: 0-Thin Liquids MEDICATIONS: Whole with 0-Thin Liquids one at a time RISK MANAGEMENT: HOB upright as tolerated; upright for all PO intake. Encourage physical mobility as tolerated. Oral hygiene before/after PO intake using friction with toothbrush on all oral structures as tolerated. use the oral hydrating gel as indicated Level of Assistance/Supervision: 1:1 close supervision for all PO intake PO intake only when awake/alert? Strategies/Adaptations/Assistive Equipment: Reduce auditory and/or visual distractions when eating, Provide verbal and/or visual cues to use recommended strategies, Small sips and bites when eating, Slow rate of intake, Swallow between bites, Small+frequent meals throughout day, Posture/Positioning Needs: Maintain upright position at least 30 minutes after meals, Avoid meals/snacks 2-3 hours prior to reclining/sleeping, Sleep with head of bed elevated to reduce likelihood of nocturnal reflux, Other Goals: Residential Goals: Patient will remain free from aspiration-related illness, malnutrition, and dehydration. Patient/family will verbalize comprehension of education provided re: dx dysphagia, strategies to maximize functioning, and role of ST. Short Term Goals: Patient will tolerate puree Diet and Thin liquids without overt s/s aspiration across 2/2 visits. Patient will tolerate PO trials for consideration of diet upgrade without overt s/s aspiration across 2/2 visits.
[2023-11-29] MEDS: LORazepam 0.5 MG TAB PO ×2 (11:55→20:05)
[2023-11-29 14:22] LABS: Streptococcus Pneumoniae Ag, U Negative (Negative)
--- NOTE | 2023-11-29 14:22 | W.PM.PROGNOT ---
Date of Service Date of service: 11/29/23 Time of Service: 14:22 Assessment and Plan Assessment and plan (1) Acute on chronic respiratory failure with hypoxia and hypercapnia: Status: Acute Assessment and plan: -Pneumonia/pneumonitis superimposed on interstitial lung disease with concomitant pulmonary embolism -Continue high-dose prednisone 60 mg daily along with antibiotic treatment for pneumonia including cefepime and doxycycline. -Awaiting sputum culture and Legionella and strep antigens and Fungitell studies. -Continue bronchodilators as well as her home LABA/ICS and her L.A.M.A. -appreciate Pulm consultation and recs; no changes at this time -[facility] Consult ( please see note for details) -Patient is currently DNR/DNI per discussion with previous provider -Because of her precarious respiratory situation still requires ICU monitoring. (2) Pulmonary embolism: Status: Chronic Assessment and plan: -heparinize, transitioned to eliqus PM 11/28 Qualifiers: Pulmonary embolism type: single subsegmental (without acute cor pulmonale) Qualified Code(s): I26.93 - Single subsegmental pulmonary embolism without acute cor pulmonale (3) Elevated troponin I level: Status: Acute Assessment and plan: -likely demand ischemia; monitor troponin; [facility] cards did not recommend heparin for coronary ischemia but she does need anticoagulation for her P.E., monitor, check echo on Tuesday (4) Pulmonary fibrosis: Status: Acute Assessment and plan: -As above (5) 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 -was started on sertraline and BuSpar. and increased the frequency of her lorazepam. -She also has scheduled dose of morphine as well as as needed morphine for breakthrough pain or dyspnea. (7) Dermatomyositis: Status: Chronic Subjective Subjective Interval history since last seen: Long discussion with the patient and her son. They both understand that Jillian's lungs are progressively worsening leading to her recent increase in frequent hospitalizations. While she is improving during this hospitalization and oxygen requirements are steadily improving, she understands that in the long-term nothing else can be done to slow the progression of her disease process. She is very at peace with the decision to continue to be DNR/DNI, and focus on quality of the remainder of her life instead of pushing for quantity. Exam Narrative Exam Narrative: Chronically ill-appearing female laying in bed with high flow nasal cannula in place and mild respiratory distress, ANO x 4, heart regular rate rhythm, lungs diminished throughout but with audible wheezing, abdomen soft, nontender, nondistended Objective Last Vital Signs Temp 97.5 F L 11/29/23 08:42 Pulse 81 11/29/23 11:32 Resp 46 H 11/29/23 11:01 BP 126/73 11/29/23 11:01 Pulse Ox 96 11/29/23 11:32 Laboratory Results - last 24 hr 11/29/23 05:45 APTT 60.6 H Time Spent with Patient Time Spent with Patient: >50 minutes Time was spent: preparing to see the patient(eg.review tests), obtaining and/or reviewing separately otained hiistory, ordering medications,tests, procedures, referring, communicating with other health assisted living care manager, indepentently interpreting results, counseling the patient and care coordination
[2023-11-29 15:19] LABS: Fungitell Qualitative Negative (Negative); Fungitell Quantitative Value <31 pg/mL (<60 pg/mL)
--- NOTE | 2023-11-29 15:37 | PHA.REVIEW2 ---
Pharmacy Admission Review Admission Clinical Review Admission Pharmacy Review: Pulmonary hypertension (Acute) Transaminitis (Acute) Leukocytosis (Acute) Pneumonia (Acute) Palliative care patient (Acute) ACP (advance care planning) (Acute) Elevated troponin I level (Acute) Myocardial injury (Acute) Acute on chronic respiratory failure with hypoxia and hypercapnia (Acute) Pulmonary fibrosis (Acute) Antisynthetase syndrome (Acute) nintedanib [From Of] Adverse Reaction (Mild, Verified 11/26/23 09:35) Headache Resuscitation Status DNR/DNI Height 5 ft Weight 60.8 kg Pharmacy Admission Review Renal Dosing Renal Dosing: BUN 18 mg/dL (7-18) 11/28/23 05:45 Creatinine 0.5 mg/dL (0.55-1.02) L 11/28/23 05:45 Medications needing adjustments: Reviewed (crcl = 42, current meds OK) Anticoagulation Anticoagulation: Hgb 10.1 g/dL (11.2-15.7) L 11/28/23 05:45 Hct 31.6 % (36.0-46.0) L 11/28/23 05:45 Plt Count 263 10^3/uL (130-400) 11/28/23 05:45 INR 1.2 (0.9-1.1) H 11/26/23 14:15 Creatinine 0.5 mg/dL (0.55-1.02) L 11/28/23 05:45 DVT Prophylaxis: Reviewed Medications: Apixaban Therapeutic Anticoagulation: Reviewed Medications: Apixaban (heparin drip started 11/25 --> dc'd today. Transitioning to apixiban 10 mg BID x 7 days then decrease to 5 mg BID (indication: PE)) Opiate Usage Evaluate Pain Scale/Pains Meds: Reviewed (takes morphine 7.5 mg Q12h scheduled for chronic pain + has morphine 2 mg IV q4h prn ordered for breakthrough (minimal usage)) Scheduled Bowel Reg ordered if on Opiates?: No (prn) Relevant Labs Relevant Labs: Sodium 145 mmol/L (136-145) 11/28/23 05:45 Potassium 3.7 mmol/L (3.5-5.1) 11/28/23 05:45 Chloride 106 mmol/L (98-107) 11/28/23 05:45 Magnesium 2.3 mg/dL (1.8-2.4) 11/26/23 10:05 C-Reactive Protein 3.25 mg/dL (<or=0.5) H 11/28/23 05:45 Electrolytes, C-Reactive P, ESR: Reviewed DM Control DM Control: N/A (no diabetes diagnosis. A1c 5.4% 09/26/23) Cardiac Review Cardiac Review: Troponin I 434 ng/L (< or =60) H* 11/27/23 05:28 BP, HR, EF%: Reviewed QTc Review QTc: Reviewed (QTc = 416 11/26/23) IV to PO Switch IV Medications: Reviewed (IV abx to switch to PO when appropriate. Heparin drip transitioned to apixiban to start tonight) Home Meds Home Med List reviewed: Reviewed Pharmacy Antibiotic Review Pharmacy Antibiotic Activity: 48 hour review (continuing IV doxy + cefepime for presumed pneumonia. Per Dr. Vazquez plan is to switch to PO doxy + augmentin when able, for 7 days total of antibiotics (first doses 3/30 PM)) and C/S review (sputum - normal evelyn + kathryn albicans (does us an inhaled corticosteroid), blood cultures no growth x72 hrs)
[2023-11-29] MEDS: Potassium Chloride 20 MEQ TABCR 40 MEQ PO (15:46)
[2023-11-29] MEDS: Pantoprazole 40 MG VIAL IVP (16:58)
[2023-11-29] MEDS: Mirtazapine 15 MG TAB 7.5 MG PO (20:04)
[2023-11-29] MEDS: Apixaban 5 MG TAB 10 MG PO (20:05)
[2023-11-29] MEDS: Famotidine 20 MG TAB PO (20:05)
[2023-11-30] VITALS (31 sets, daily range): BP systolic 109–133; BP diastolic 69–85; PULSE 80–102; RESP 8–36; TEMP 31–37.3; O2SAT 77–99
[2023-11-30] MEDS: LORazepam 0.5 MG TAB PO ×3 (04:08→21:11)
[2023-11-30] MEDS: DOXYCYCLINE 100 MG in Normal Saline 100 ML IVPB ×2 (04:09→18:12)
[2023-11-30 07:05] LABS: HCT 32.9 % (36.0-46.0); HGB 10.3 g/dL (11.2-15.7); MCH 35.4 pg (27.0-33.0); MCHC 31.3 % (32.0-36.0); MPV 9.9 fL (8.0-11.0); Platelet Count 252 10^3/uL (130-400); RBC 2.91 10^6/uL (3.93-5.22); RDW 14.6 % (11.7-14.6); RDW-SD 60.6 fL; WBC 11.09 10^3/uL (4.4-10.8)
[2023-11-30 07:08] LABS: MCV 113 fL (80-95)
[2023-11-30 07:16] LABS: Anion Gap 2.4 mmol/L (3-11); BUN 18 mg/dL (7-18); CO2 35.6 mmol/L (21.0-32.0); CREATININE 0.6 mg/dL (0.55-1.02); Calcium 8.9 mg/dL (8.5-10.1); Chloride 107 mmol/L (98-107); Glucose 65 mg/dL (74-106); Potassium 4.9 mmol/L (3.5-5.1); Sodium 145 mmol/L (136-145)
[2023-11-30] MEDS: predniSONE 20 MG TAB 60 MG PO (07:38)
[2023-11-30] MEDS: guaiFENesin 600 MG TABCR 1200 MG PO ×2 (07:41→21:11)
[2023-11-30] MEDS: Cholecalciferol (Vitamin D3) 400 UNIT TAB PO (07:41)
[2023-11-30] MEDS: Benzonatate 200 MG CAP PO ×3 (07:41→21:11)
[2023-11-30] MEDS: Vitamin E 400 UNITS CAP PO (07:41)
[2023-11-30] MEDS: busPIRone 5 MG TAB PO ×3 (07:42→21:11)
[2023-11-30] MEDS: Multivitamin TAB 1 TAB PO (07:42)
[2023-11-30] MEDS: Sertraline 50 MG TAB PO (07:42)
[2023-11-30] MEDS: Sulfameth/Trimeth DS TAB 1 TAB PO (07:42)
[2023-11-30] MEDS: Apixaban 5 MG TAB 10 MG PO ×2 (07:42→21:11)
[2023-11-30] MEDS: Furosemide 20 MG TAB PO (07:43)
[2023-11-30] MEDS: Normal Saline Flush 10 ML SYR IVP ×3 (08:00→21:13)
[2023-11-30] MEDS: Albuterol/Ipratropium 3 ML UPD VIAL UPD ×4 (08:17→20:00)
[2023-11-30] MEDS: Tiotropium Bromide-Respimat 10 PUFF INH 2 PUFF IH (08:26)
[2023-11-30] MEDS: Budesonide/Formoterol 160/4.5 6 GM 60 PUFF INH IH ×2 (08:27→20:06)
--- NOTE | 2023-11-30 09:10 | PGE_ITS ---
Date of Service Date of service: 11/30/23 Time of Service: 09:12 Assessment and Plan Assessment and plan (1) Acute on chronic respiratory failure with hypoxia and hypercapnia: Status: Acute Assessment and plan: -Pneumonia/pneumonitis superimposed on interstitial lung disease with concomitant pulmonary embolism -Continue high-dose prednisone 60 mg daily along with antibiotic treatment for pneumonia including cefepime and doxycycline. -Awaiting sputum culture and Legionella and strep antigens and Fungitell studies. -Continue bronchodilators as well as her home LABA/ICS and her L.A.M.A. -appreciate Pulm consultation and recs; no changes at this time -[facility] Consult ( please see note for details) -Patient is currently DNR/DNI per discussion with previous provider -Ordered Palliative Care consult, apprecaite input and recs (2) Pulmonary embolism: Status: Chronic Assessment and plan: -heparinize, transitioned to eliqus PM 11/28 Qualifiers: Pulmonary embolism type: single subsegmental (without acute cor pulmonale) Qualified Code(s): I26.93 - Single subsegmental pulmonary embolism without acute cor pulmonale (3) Elevated troponin I level: Status: Acute Assessment and plan: -likely demand ischemia; monitor troponin; [facility] cards did not recommend heparin for coronary ischemia but she does need anticoagulation for her P.E., (4) Pulmonary fibrosis: Status: Acute Assessment and plan: -As above (5) 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 -was started on sertraline and BuSpar. and increased the frequency of her lo razepam. -She also has scheduled dose of morphine as well as as needed morphine for breakthrough pain or dyspnea. (7) Dermatomyositis: Status: Chronic Subjective Subjective Interval history since last seen: Patient states that she is feeling well today. She is sitting up and eating breakfast currently has no complaints or concerns at this time. Exam Narrative Exam Narrative: Chronically ill-appearing female laying in bed with high flow nasal cannula in place and mild respiratory distress, ANO x 4, heart regular rate rhythm, lungs diminished throughout but with audible wheezing, abdomen soft, nontender, nondistended Objective Last Vital Signs Temp 97.3 F L 11/30/23 08:57 Pulse 94 H 11/30/23 08:30 Resp 28 H 11/30/23 08:17 BP 122/84 11/30/23 08:01 Pulse Ox 85 L 11/30/23 08:17 Laboratory Results - last 24 hr 11/26/23 11/26/23 11/30/23 16:10 17:30 06:10 WBC 11.09 H RBC 2.91 L Hgb 10.3 L Hct 32.9 L MCV 113 H MCH 35.4 H MCHC 31.3 L RDW 14.6 Plt Count 252 MPV 9.9 Sodium 145 Potassium 4.9 D Chloride 107 Carbon Dioxide 35.6 H Anion Gap 2.4 L BUN 18 Creatinine 0.6 Est GFR (CKD-EPI 2020) 96.50 Glucose 65 L Calcium 8.9 Ur Strep pneumoniae Ag Negative B-(1,3)-D-Glucan Quant <31 B-(1,3)-D-Glucan Qual Negative Time Spent with Patient Time Spent with Patient: >50 minutes Time was spent: preparing to see the patient(eg.review tests), obtaining and/or reviewing separately otained hiistory, ordering medications,tests, procedures, referring, communicating with other health inpatient care manager rn, indepentently interpreting results, counseling the patient and care coordination
--- NOTE | 2023-11-30 09:14 | PDOC.CMPRO ---
Date of service: 11/30/23 Care Management Progress Note Progress Note Text Progress Note Text: S/O: Jillian was lying in bed very sleepy. Jillians neighbor and terminal makeup operator friend was just leaving after a visit. CM informed would return tomorrow to go over health agent form. Jillian reported she has already completed this [place] five times and the agencies should have more than enough versions. CM collaborated with Palliative Care Bethany Brown who directed COLST is all that is needed, no AD. CM continues to follow. A: Jillian is a 68 year old female admitted to [facility] 11/26/23 P: Jillian will return to [facility] via RCT coordinated by JONA BOWERS. She will follow up with facility providers, and her discharge plan of care. CM will continue to follow. SDOH(Care Management) Screening Will the Patient Participate in the Screening?: Unable to obtain
--- NOTE | 2023-11-30 12:00 | SPP_ITS ---
Date of service: 11/30/23 Time of Service: 12:00 Donovan Walsh was contacted at bedside this date during lunch meal. Per nursing, patient has begun to express with hospitalist some desire to return to the [facility] and wanting to focus on comfort/quality vs quantity. Patient also requesting to eat fish, but not wishing to eat puree fish. Patient remains on HFNC this date, expected to remain per RN. Objective/Assessment/Plan Objective Treatment Techniques & Outcomes: PO Trials Assessed: IDDSI 0 Thin Liquids IDDSI 4 Puree Solid IDDSI 5 Minced/Moist Oral Phase Findings: Patient with spontaneous/independent slow rate and pausing for breaths. Noting no additional SOB before vs during PO trials. No drops in SpO2, maintained 92% or above throughout. Very prolonged mastication due to above strategies. Pharyngeal Phase Findings: No sx. Hoarseness and hypophonia appreciated but vocal quality did not worsen with PO trials. Alf Goals: Patient will remain free from aspiration-related illness, malnutrition, and dehydration. Patient/family will verbalize comprehension of education provided re: dx dysphagia, strategies to maximize functioning, and role of ST. Short Term Goals: Patient will tolerate puree Diet and Thin liquids without overt s/s aspiration across 2/2 visits. Patient will tolerate PO trials for consideration of diet upgrade without overt s/s aspiration across 2/2 visits. Assessment Pt presents with oral-pharyngeal dysphagia largely exacerbated by respiratory status. No s/sx aspiration noted this date and patient with improved pacing for SOB. Recommend to continue providing primarily pureed solids at this time prima rily for energy conservation, however patient does appear to safely tolerate minced/moist this date (however with very low efficiency), and requested items may be added to tray at this diet level per patient/nursing request. FURTHER ICE PLATFORM SUPERVISOR SERVICES: Patient to be followed while on unit. Likely no further ICE PLATFORM SUPERVISOR needs upon d/c, pending further palliative recommendations. Plan Plan: Frequency: 3-4x/week for 1-2 weeks Recommendations Diet: 4-Pureed/Extremely Thick (Occasional 5-Minced/Moist ok per patient preference, should always have some puree available on tray for energy conservation) Liquids: 0-Thin Liquids Recommendations: MEDICATIONS: Whole with 0-Thin Liquids one at a time RISK MANAGEMENT: HOB upright as tolerated; upright for all PO intake. Encourage physical mobility as tolerated. Oral hygiene before/after PO intake using friction with toothbrush on all oral structures as tolerated. use the oral hydrating gel as indicated Level of Assistance/Supervision: 1:1 close supervision for all PO intake PO intake only when awake/alert? Strategies/Adaptations/Assistive Equipment: Reduce auditory and/or visual distractions when eating, Provide verbal and/or visual cues to use recommended strategies, Small sips and bites when eating, Slow rate of intake, Swallow between bites, Small+frequent meals throughout day, Posture/Positioning Needs: Maintain upright position at least 30 minutes after meals, Avoid meals/snacks 2- 3 hours prior to reclining/sleeping, Sleep with head of bed elevated to reduce likelihood of nocturnal reflux, Other Total Time Spent: 15 min (12:00-12:15)
[2023-11-30] MEDS: CEFEPIME 2 GM in Normal Saline 100 ML IVPB (13:46)
--- NOTE | 2023-11-30 14:38 | PCPN_ITS ---
Date of service: 11/30/23 Time of Service: 12:00 Assessment and Plan Assessment and plan (1) Acute on chronic respiratory failure with hypoxia and hypercapnia: Status: Acute Assessment and plan: on HF currently, transitioned down from BiPAP goal to trial transition to NC as tolerated recommend increased scheduled PO morphine 5mg q6h, may reduce to q4h to q1h pending response and w/taper goals to NC w/increased dyspnea/anxiety expected; if not tolerating PO, would recommend IV morphine and ongoing taper trial as tolerated - continued scheduled lorazepam 0.5mg TID, consider decrease interval to q4h or increase to 1mg pending response (2) Pulmonary embolism: Status: Chronic Assessment and plan: per pulm plan for transition to PO DOAC Qualifiers: Pulmonary embolism type: single subsegmental (without acute cor pulmonale) Qualified Code(s): I26.93 - Single subsegmental pulmonary embolism without acute cor pulmonale (3) Pulmonary fibrosis: Status: Acute Assessment and plan: continue prednisone taper as able (4) Anxiety: Status: Chronic Assessment and plan: scheduled lorazepam w/PRN available; recommend acute anxiety managed w/lorazepam vs SSRI or other daily given life expectancy previously on mirtazapine per chart review started on sertraline and Buspar (5) 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 - We discussed her thoughtfulness in wanting to ensure others had access to hospital services and how she has a right to be here for medical/health care as well and was just as importance as everyone else - reviewed POC for transition to [facility], as plan for transition to [facility] as she is able to tolerate. She is aware she likely will not be able to be d/c'd in the next day or two given her HF oxygen needs spent 20 mins w/pt on ACP spent 15 mins w/team members on ACP - spoke to TACTICAL INTELLIGENCE OFFICER at [facility] for potential discharge plan; they request written instructions for nursing on EOL life care: no VS monitoring, scheduled medications for comfort (specifically morphine/lorazepam) (7) Palliative care patient: Status: Acute Assessment and plan: PC will continue to follow while inpatient and schedule appropriate outpatient f/u as needed - need for follow up on hospice eligibility for [facility], pending insurance coverage - will defer to CM at this time (8) Encounter for hospice care discussion: Status: Acute Assessment and plan: Jillian is eligible for hospice and should receive hospice style care w/comfort as goal - will continue oxygen monitoring at this time, w/goals of transition to NC from HF w/goal of discharge to [facility] - if she does not tolerate this, plan will be to remain in hospital through EOL w/taper off oxygen reviewed prior w/Jillian and family - this plan should be reviewed thoughtfully and multiple times with Jillian and family prior to implementation, recommend palliative provider involvement in this plan development Subjective Subjective Interval history since last seen: Jillian remains in the ICU for acute respiratory failure Pulm consult 11/28 - respiratory failure multifactorial, CTD-ILD: prednisone taper to 10mg, Resp failure: taper to NC as tolerated w/O2 sat goals >90%; PE: transition from heparin to PO Eliquis - no changes to current treatment plan Jillian has continued to desat w/any movement, exertion or increased effort, including eating/drinking. At rest she has tolerated lower oxygen rates, is currently on HF 35lpm at 50%, but w/any effort requires 100% to avoid drops into 50's. Her respiratory status is a little better compared to earlier this week. currently on morphine 7.5mg q12h and lorazepam 0.5mg Q8h scheduled, w/PRN IV morphine 2mg and lorazepam available, has not been used since Tuesday morning. Jillian has been having increased dizziness/lightheadedness, worse w/exertion and movement, repositioning, w/feet elevation has been helpful. She denies pain or nausea today. She is tired and would like to rest. She just finished lunch. per staff her anxiety has been better; her panic/anxiety episodes are felt to be respiratory in nature vs anxiety, staff at [facility] agree Jillian had a conversation w/hospitalist yesterday, she is aware she is getting worse, has had increased hospitalizations. She does not want to be in hospital for EOL if she can avoid it. She would like to enjoy the time she has left, is happy with the life she has lived, and continues to want to live her life on her own terms. would like to focus on quality vs quantity. Jillian would like to return to the [facility] as soon as possible, she is most comfortable there and would like to ensure hospital beds, christiano in ICU are available for patient's looking for recovery/treatment. The plan is to transition her to Medsurg unit today d/t MS status and staffing, she is comfortable w/this transition, christiano w/idea of a step down to transition to the [facility]. Spoke to SATYA Lai at [facility] - they had been doing morphine 7.5 TID lorazepam TID; tried mask for tolerating mouth breathing, not working; Jillian had been hesitant to changes and wanted to be in charge - request making statement in discharge about comfort care - make med recommendations, no monitoring of sats, etc: she has some concerns nursing would continue VS monitoring and is aware this is not appropriate, would want further documentation to support end of life/comfort care - per COA: pending LTM, clinically approved, for LTC waiver longterm highest Exam Narrative Exam Narrative: General: lying in ICU bed ; NAD; fatigued, intermittently closes eyes HEENT: hearing grossly WNL; normocephalic, atraumatic Resp: tachypnic, w/no distress w/HF NC in place; speaks full and complete sentences, able to speak 3-4 sentences w/o pause at various points throughout visit; pursed lipped breathing intermittent, able to self soothe; O2 sats range from 88-92 throughout visit Psych: cooperative, insight/judgment fair to limited Objective Last Vital Signs Temp 97.3 F L 11/30/23 13:17 Pulse 88 11/30/23 13:17 Resp 36 H 11/30/23 13:17 BP 123/74 11/30/23 13:17 Pulse Ox 94 11/30/23 13:17 Laboratory Results - last 24 hr 11/26/23 11/26/23 11/30/23 16:10 17:30 06:10 WBC 11.09 H RBC 2.91 L Hgb 10.3 L Hct 32.9 L MCV 113 H MCH 35.4 H MCHC 31.3 L RDW 14.6 Plt Count 252 MPV 9.9 Sodium 145 Potassium 4.9 D Chloride 107 Carbon Dioxide 35.6 H Anion Gap 2.4 L BUN 18 Creatinine 0.6 Est GFR (CKD-EPI 2020) 96.50 Glucose 65 L Calcium 8.9 Ur Strep pneumoniae Ag Negative B-(1,3)-D-Glucan Quant <31 B-(1,3)-D-Glucan Qual Negative
[2023-11-30] MEDS: Pantoprazole 40 MG VIAL IVP (18:12)
[2023-11-30] MEDS: Mirtazapine 15 MG TAB 7.5 MG PO (21:10)
[2023-11-30] MEDS: Famotidine 20 MG TAB PO (21:11)
[2023-12-01] VITALS (17 sets, daily range): BP systolic 104–123; BP diastolic 60–68; PULSE 76–94; RESP 5–30; TEMP 31–37; O2SAT 85–99
[2023-12-01] MEDS: Normal Saline Flush 10 ML SYR IVP ×5 (02:04→18:54)
[2023-12-01] MEDS: CEFEPIME 2 GM in Normal Saline 100 ML IVPB ×2 (02:04→14:51)
[2023-12-01] MEDS: DOXYCYCLINE 100 MG in Normal Saline 100 ML IVPB ×2 (04:19→17:01)
[2023-12-01] MEDS: Albuterol/Ipratropium 3 ML UPD VIAL UPD ×4 (08:37→20:27)
[2023-12-01] MEDS: Tiotropium Bromide-Respimat 10 PUFF INH 2 PUFF IH (08:40)
[2023-12-01] MEDS: Budesonide/Formoterol 160/4.5 6 GM 60 PUFF INH IH ×2 (08:40→20:29)
[2023-12-01] MEDS: predniSONE 20 MG TAB 60 MG PO (09:03)
[2023-12-01] MEDS: busPIRone 5 MG TAB PO ×3 (09:03→22:35)
[2023-12-01] MEDS: Sulfameth/Trimeth DS TAB 1 TAB PO (09:03)
[2023-12-01] MEDS: Vitamin E 400 UNITS CAP PO (09:03)
[2023-12-01] MEDS: Apixaban 5 MG TAB 10 MG PO ×2 (09:03→22:33)
[2023-12-01] MEDS: Cholecalciferol (Vitamin D3) 400 UNIT TAB PO (09:03)
[2023-12-01] MEDS: guaiFENesin 600 MG TABCR 1200 MG PO ×2 (09:04→22:33)
[2023-12-01] MEDS: Furosemide 20 MG TAB PO (09:04)
[2023-12-01] MEDS: Sertraline 50 MG TAB PO (09:04)
[2023-12-01] MEDS: Multivitamin TAB 1 TAB PO (09:05)
[2023-12-01] MEDS: Benzonatate 200 MG CAP PO ×3 (09:05→22:33)
--- NOTE | 2023-12-01 11:46 | W.PM.PROGNOT ---
Date of Service Date of service: 12/01/23 Time of Service: 11:46 Assessment and Plan Assessment and plan (1) Acute on chronic respiratory failure with hypoxia and hypercapnia: Status: Acute Assessment and plan: -Pneumonia/pneumonitis superimposed on interstitial lung disease with concomitant pulmonary embolism -Continue high-dose prednisone 60 mg daily along with antibiotic treatment for pneumonia including cefepime and doxycycline. -Awaiting sputum culture and Legionella and strep antigens and Fungitell studies. -Continue bronchodilators as well as her home LABA/ICS and her L.A.M.A. -appreciate Pulm consultation and recs; no changes at this time -Apprecaite Palliative Care Consult ( please see note for details) -Patient is currently DNR/DNI per discussion with previous provider -Ordered Palliative Care consult, apprecaite input and recs; will need to see what happens with patients oxygen requirements, as she would not be able to DC with HFNC (2) Pulmonary embolism: Status: Chronic Assessment and plan: -heparinize, transitioned to [facility] 11/28 Qualifiers: Pulmonary embolism type: single subsegmental (without acute cor pulmonale) Qualified Code(s): I26.93 - Single subsegmental pulmonary embolism without acute cor pulmonale (3) Elevated troponin I level: Status: Acute Assessment and plan: -likely demand ischemia; monitor troponin; 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 -was started on sertraline and BuSpar. and increased the frequency of her lorazepam. -She also has scheduled dose of morphine as well as as needed morphine for breakthrough pain or dyspnea. (7) Dermatomyositis: Status: Chronic Subjective Subjective Interval history since last seen: Patient is a little more fatigued today as compared to previous days though she is able to state that she feels that she is improving and has no complaints or concerns at this Exam Narrative Exam Narrative: Chronically ill-appearing female laying in bed with high flow nasal cannula in place and mild respiratory distress, ANO x 4, heart regular rate rhythm, lungs diminished throughout but with audible wheezing, abdomen soft, nontender, nondistended Objective Last Vital Signs Temp 98.4 F 12/01/23 11:28 Pulse 76 12/01/23 11:28 Resp 30 H 12/01/23 11:28 BP 113/60 12/01/23 11:28 Pulse Ox 94 12/01/23 11:28 Time Spent with Patient Time Spent with Patient: >50 minutes Time was spent: preparing to see the patient(eg.review tests), obtaining and/or reviewing separately otained hiistory, ordering medications,tests, procedures, referring, communicating with other health manager primary care, indepentently interpreting results, counseling the patient and care coordination
[2023-12-01] MEDS: LORazepam 0.5 MG TAB PO ×2 (12:53→22:34)
--- NOTE | 2023-12-01 14:59 | CMPROGNOTE_ITS ---
Date of service: 12/01/23 Care Management Progress Note Progress Note Text Progress Note Text: S/O: Jillian was sitting up in bed when talking with CM and son @ bedside. Jillian reports her baseline O2 is 5-6L O2 which is currently being weaned. She uses between 5-6L of O2 and since not being on this amount she reports not breathing as well, not eating as much and has a fan on her to circulate air to make it less difficult. Jillian described that she understands the reason to lower her oxygen but prefers to have the 5-6L since she knows it works the best. Jillian discussed she is not able to live on her own at home and is almost at the last stage of her condition but has lived a good life with little regrets since she has worked a lot for herself, and been self employed CM following. A: Jillian is a 68 year old female admitted to [facility] 11/26/23 P: Jillian will return to [facility] via RCT coordinated w/c van by JONA BOWERS. She will follow up with facility providers, and her discharge plan of care. JONA will continue to follow. SDOH(Care Management) Screening Will the Patient Participate in the Screening?: Unable to obtain
--- NOTE | 2023-12-01 15:06 | SPP_ITS ---
Date of service: 12/01/23 Time of Service: 12:00 Subjective Patient received sitting upright in bed with noon meal. She was alert/conversant. She demonstrated increased WOB with meal, pausing between bites to slow breath. Patient requested asking nursing assistance to increase oxygen long term through meal due to feeling she was having increased difficulty breathing. Objective/Assessment/Plan Objective Treatment Techniques & Outcomes: Respiratory Status: HFNC Positioning: Rickreall upright in bed PO Trials Assessed: IDDSI 0 Thin Liquids IDDSI 4 Puree Solid IDDSI 5 Minced/Moist Oral Phase Findings: Patient with spontaneous/independent slow rate and pausing for breaths. Increase WOB with eating. Very prolonged mastication due to above strategies. Pharyngeal Phase Findings: No sx. Hoarseness and hypophonia appreciated but vocal quality did not worsen with PO trials. Intermediate Goals: Patient will remain free from aspiration-related illness, malnutrition, and dehydration. Patient/family will verbalize comprehension of education provided re: dx dysphagia, strategies to maximize functioning, and role of ST. Short Term Goals: Patient will tolerate puree Diet and Thin liquids without overt s/s aspiration across 2/2 visits. Patient will tolerate PO trials for consideration of diet upgrade without overt s/s aspiration across 2/2 visits. Assessment Pt presents with chronic oral-pharyngeal dysphagia largely exacerbated by respiratory status. She continues on HFNC with increased WOB noted with meals. She is insightful to pause and take breathing breaks accordingly. She has transitioned to comfort goals of care, with goal to return to [facility] for EOL. Jillian requested diet upgrade to minced/moist solids, as she would prefer to have a few bites of meat this way (only wants fish, does not want beef/chicken), and will continue to order puree sides for majority of meal (mashed potatoes with gravy, jello, pudding, yogurt, etc). Diet upgraded and spoke with kitchen directly to ensure carry over of patient request. FURTHER SOCIAL SCIENCE RESEARCH ASSISTANT SERVICES: SOCIAL SCIENCE RESEARCH ASSISTANT to monitor patient while on unit. No SOCIAL SCIENCE RESEARCH ASSISTANT needs at discharge. Plan Plan: Frequency: 1-2 x/week for 1-2 weeks Recommendations Diet: 5-Minced/Moist per patient preference, should always have some puree available on tray for energy conservation (eg. minced/moist fish with mashed potatoes and gravy and jello/custard/pudding) Liquids: 0-Thin Liquids Recommendations: MEDICATIONS: Whole with 0-Thin Liquids one at a time RISK MANAGEMENT: HOB upright as tolerated; upright for all PO intake. Oral hygiene BID Level of Assistance/Supervision: Intermittent Supervision, support with tray set up and positioning PO intake only when awake/alert? Strategies/Adaptations/Assistive Equipment: Reduce auditory and/or visual distractions when eating, Small sips and bites when eating Slow rate of intake Swallow between bites Small+frequent meals throughout day Posture/Positioning Needs: Maintain upright position at least 30 minutes after meals Total Time Spent: 20 min (12:00-12:20)
[2023-12-01] MEDS: Pantoprazole 40 MG VIAL IVP (17:01)
[2023-12-01] MEDS: LORazepam 2 MG/ML VIAL 0.5 MG IVP (18:54)
[2023-12-01] MEDS: Famotidine 20 MG TAB PO (22:33)
[2023-12-01] MEDS: Mirtazapine 15 MG TAB 7.5 MG PO (22:34)
[2023-12-02] MEDS: CEFEPIME 2 GM in Normal Saline 100 ML IVPB (02:32)
[2023-12-02 02:41] VITALS: BP 108/64; PULSE 75; RESP 20; TEMP 36.4; O2SAT 99
[2023-12-02] MEDS: DOXYCYCLINE 100 MG in Normal Saline 100 ML IVPB (04:29)
[2023-12-02 07:22] VITALS: BP 109/64; PULSE 77; RESP 28; TEMP 36.8; O2SAT 97
[2023-12-02] MEDS: Benzonatate 200 MG CAP PO (08:40)
[2023-12-02] MEDS: predniSONE 20 MG TAB 60 MG PO (08:41)
[2023-12-02] MEDS: guaiFENesin 600 MG TABCR 1200 MG PO (08:41)
[2023-12-02] MEDS: Sulfameth/Trimeth DS TAB 1 TAB PO (08:41)
[2023-12-02] MEDS: Vitamin E 400 UNITS CAP PO (08:41)
[2023-12-02] MEDS: Cholecalciferol (Vitamin D3) 400 UNIT TAB PO (08:41)
[2023-12-02] MEDS: Sertraline 50 MG TAB PO (08:42)
[2023-12-02] MEDS: Furosemide 20 MG TAB PO (08:42)
[2023-12-02] MEDS: Apixaban 5 MG TAB 10 MG PO (08:42)
[2023-12-02] MEDS: Multivitamin TAB 1 TAB PO (08:42)
[2023-12-02] MEDS: LORazepam 0.5 MG TAB PO (08:43)
[2023-12-02 08:47] VITALS: PULSE 78; RESP 26; RESP 5; O2SAT 97
[2023-12-02] MEDS: Albuterol/Ipratropium 3 ML UPD VIAL UPD ×2 (08:47→13:33)
[2023-12-02] MEDS: Budesonide/Formoterol 160/4.5 6 GM 60 PUFF INH IH (08:48)
[2023-12-02] MEDS: Tiotropium Bromide-Respimat 10 PUFF INH 2 PUFF IH (08:48)
[2023-12-02] MEDS: Normal Saline Flush 10 ML SYR IVP (08:50)
[2023-12-02 09:17] VITALS: PULSE 78; RESP 22; RESP 5; O2SAT 95
[2023-12-02] MEDS: busPIRone 5 MG TAB PO (09:38)
[2023-12-02 11:40] VITALS: BP 113/64; PULSE 88; RESP 28; TEMP 36.9; O2SAT 99
[2023-12-02 13:33] VITALS: PULSE 80; RESP 22; RESP 5; O2SAT 94
--- NOTE | 2023-12-02 13:44 | CHAPLAIN ---
I had a brief visit with Jillian. I think she remembered me from previous visits. She said she is doing ok. She was tired and wanting to rest so I didn't stay long. I will continue to visit. Care Management notes state that she will return to the [facility] when medically ready.
--- NOTE | 2023-12-02 13:45 | DSE_ITS ---
Date of service: 12/02/23 Time of Service: 13:45 DS: Diagnosis Discharge Diagnosis (1) Acute on chronic respiratory failure with hypoxia and hypercapnia: Status: Acute Asessment and Plan: Patient was initially admitted for concerns of community-acquired pneumonia in the setting of worsening pulmonary fibrosis. Patient did have some improvement of her oxygen requirement while she was almost maxed on a high flow nasal cannula she has since been weaned down to about 4 L nasal cannula. However, during hospitalization prolonged discussion was held with the patient in the presence of her son. She fully understands the progressive nature and the severity of her illness, and has elected to transition to comfort measures only. She is adamant that she would like to spend the remainder of her time at the [facility] would not want to be transferred back to the hospital for any reason. 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 Patient did have some improvement of her oxygen requirement while she was almost maxed on a high flow nasal cannula she has since been weaned down to about 4 L nasal cannula. However, during hospitalization prolonged discussion was held with the patient in the presence of her son. She fully understands the progressive nature and the severity of her illness, and has elected to transition to comfort measures only. She is adamant that she would like to spend the remainder of her time at the [facility] would not want to be transferred back to the hospital for any reason. Home Meds and New Rx's Prescriptions: Continued morphine 15 mg tablet extended release 7.5 mg PO Q12H lorazepam 0.5 mg tablet 0.5 mg PO Q12H cholecalciferol (vitamin D3) 400 unit capsule 400 unit PO DAILY albuterol sulfate [ProAir HFA] 90 mcg/actuation HFA aerosol inhaler 2 puff IH Q6H PRN morphine 10 mg/5 mL solution 5 mg PO BID MDD not recorded on [facility] med list PRN (Reason: pain) Qty: 35 0RF Rx Instructions: 10/05/2023 Per [facility] Medication list. -hb calcium carbonate [Antacid (calcium carbonate)] 200 mg calcium (500 mg) tablet,chewable 100 mg PO DAILY PRN (Reason: dyspepsia) Spiriva Respimat 2.5 mcg/actuation Mist 2 puff inhalation DAILY Qty: 4 0RF Deep Sea Nasal 0.65 % Aerosol,Cascade 2 spray NS QID PRN PRNQty: 0 0RF polyethylene glycol 3350 17 gram Powder In Packet 17 g PO DAILY PRN PRN (Reason: Constipation) Qty: 100 0RF Rx Instructions: give daily prn constipation mirtazapine 15 mg Tablet 7.5 mg PO HS Qty: 30 0RF guaifenesin [Mucus Relief ER] 600 mg Tablet Extended Release 12hr 1,200 mg PO BID Qty: 60 0RF furosemide 20 mg Tablet 20 mg PO DAILY Qty: 0 0RF famotidine 20 mg Tablet 20 mg PO HS Qty: 30 0RF docusate sodium [Colace] 100 mg Capsule 100 mg PO TID PRN PRNQty: 0 0RF budesonide-formoterol [Symbicort] 160-4.5 mcg/actuation Hfa Aerosol Inhaler 2 puff inhalation BID Qty: 0 0RF benzonatate 200 mg Capsule 200 mg PO TID Qty: 0 0RF albuterol sulfate 2.5 mg /3 mL (0.083 %) Solution For Nebulization 2.5 mg UPD Q2H PRN PRNQty: 0 0RF acetaminophen 325 mg Tablet 650 mg PO Q4H PRN PRNQty: 0 0RF naloxone [Narcan] 4 mg/actuation spray,non-aerosol 4 mg intranasal Q3M PRNQty: 2 0RF Rx Instructions: spray 1 dose into ONE nostril; alternate nostrils w each dose until help arrives multivitamin [Daily Multiple] 1 EACH tablet 1 tab PO DAILY Inhaler, Assist Devices [Pocket Chamber] 1 ea miscellaneous DIRECTED Qty: 0 0RF Discontinued prednisone 20 mg tablet 30 mg PO DAILY Rx Instructions: 30 mg orally daily; vitamin E (dl, acetate) 400 unit capsule 400 unit PO DAILY Ofev 150 mg capsule 150 mg PO Q12H sulfamethoxazole-trimethoprim 800-160 mg Tablet 1 tab PO DAILY Qty: 0 0RF Discharge Instructions Activity:: Activity as Tolerated Equipment/Supplies:: No Equipment Needed Diet:: As Tolerated Discharge Orders Discharge Orders: Discharge Order (Routine); Ordered 12/02/23 Ordered By: Vivek Larios DS: Summary Time Spent with Patient providing and/or coordinating discharge services: Greater than 30 minutes Status at Discharge Functional status at discharge: independent ambulation Overall status at discharge: patient is back to baseline Mental Status: mental status grossly normal Speech and Movement: speech and movement normal Mood: congruent mood Affect: normal affect Quality:SDOH Health Related Social Needs: Health related social needs inadequate housing Health related social needs details Pt states her bath tub leaks, but she doesn't use it. Exam Narrative Exam Narrative: Chronically ill-appearing female laying in bed with 4L NC and without respiratory distress, ANO x 4, heart regular rate rhythm, lungs diminished throughout but with audible wheezing, abdomen soft, nontender, nondistended Psych Mental Status: mental status grossly normal Speech and Movement: speech and movement normal Mood: congruent mood Affect: normal affect DS: Data Vitals/I&O Vitals and I&O: Vital Signs Temperature 98.4 F 12/02/23 11:40 Temperature Source Tympanic 12/02/23 11:40 Pulse 80 12/02/23 13:33 Pulse Rhythm Regular 12/01/23 22:35 Pulse 99 H 11/30/23 13:01 Respiratory Rate 22 12/02/23 13:33 Respiratory Effort Short of Breath 12/01/23 22:35 Respiratory Depth Normal 12/01/23 03:39 Respiratory Pattern Tachypnea 12/01/23 22:35 Blood Pressure 113/64 12/02/23 11:40 Blood Pressure Mean 86 11/30/23 13:01 Blood Pressure Position Sitting 11/30/23 00:20 Pulse Oximetry 94 12/02/23 13:33 Oxygen Delivery Method Nasal Cannula 12/02/23 13:33 Oxygen Flow Rate 4 12/02/23 13:33 Fraction of Inspired Oxygen (FIO2) 45 12/01/23 08:40 Pain Level 0 12/02/23 04:26 Comment no pain mouth breathing 12/02/23 02:41 Comment CpaP 11/26/23 13:50 Intake & Output 12/01/23 12/02/23 12/02/23 17:59 05:59 17:59 Intake Total 460 / 460 540 / 1000 Output Total 1675 / 1675 450 / 2125 1100 / 1100 Balance -1215 / -1215 90 / -1125 -1100 / -1100 Weight 138 lb 0.15 oz 138 lb 7.205 oz Intake: IV 100 / 100 300 / 400 Oral 360 / 360 240 / 600 Output: Urine 1675 / 1675 450 / 2125 1100 / 1100 Other: Urine Color Yellow Light [place] Yellow Urine Appearance Clear Clear Clear Voiding Methods Indwelling Catheter PFSH All Active Problems (Updated 12/02/23 @ 13:45 by Vivek Larios MD) Encounter for hospice care discussion (Acute) Pulmonary hypertension (Acute) Transaminitis (Acute) Anemia (Chronic) Leukocytosis (Acute) Pneumonia (Acute) Palliative care patient (Acute) ACP (advance care planning) (Acute) Pulmonary embolism (Chronic) Elevated troponin I level (Acute) Myocardial injury (Acute) Acute on chronic respiratory failure with hypoxia and hypercapnia (Acute) Acute on chronic respiratory failure with hypoxia (Acute) Pulmonary fibrosis (Acute) Anxiety (Chronic) COVID (Acute) Respiratory failure with hypoxia (Acute) Dermatomyositis (Chronic) Rectal polyp (Acute) Pre-transplant evaluation for lung transplant (Acute) Osteoporosis (Chronic) 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[employer] Sexually active: No Do you think of yourself as: straight/heterosexual Current gender identity: female What type of physical activity do you participate in: none Seatbelt use: always Drive intox or ride w/intox class a regional drivers: No Water heater temp set <120 deg: Yes Working smoke detector in home: Yes Fire extinguisher in home: Yes Carbon monox detector in home: Yes Do you feel safe at home: Yes Do you feel safe in your relationship?: Yes Time Spent with Patient Time Spent with Patient: <45 minutes Time was spent: preparing to see the patient(eg.review tests), obtaining and/or reviewing separately otained hiistory, ordering medications,tests, procedures, referring, communicating with other health care management assistant, indepentently interpreting results, counseling the patient and care coordination
--- NOTE | 2023-12-02 14:13 | CMDISCH_ITS ---
Date of service: 12/02/23 LACE Index Scoring Tool Questions: Length of Stay (in days): 4 - 6 Was the patient admitted via the E.D.?: Yes Comorbidities: Chronic Pulmonary Disease E.D. Visits: 1 Answers: Total Score: 10 Risk of Readmission: High Risk Care Management Discharge Plan Reason for Hospitalization: acute on chronic respiratory failure Discharge Plan: Jillian will discharge back to the [facility] via EM coordinated by JONA BOWERS. She will be followed by Palliative Care. Patient/Family Education Needs: Review discharge instructions and plan of care as prescribed. Discussion of Ask Me Three Services Needed at Discharge: [facility] SDOH Health Related Social Needs: Health related social needs inadequate housing Health related social needs details Pt states her bath tub leaks, but she doesn't use it.
[2023-12-02 17:24] LABS: Mycoplasma Pneumoniae PCR Negative (Negative); Specimen source Sputum
== END 2023-12-02 14:38 | disposition skilled nursing facility (03) | DRG 193 ==
LOC: ER 11:27 → ICU 13:29 → MS 11-30 16:34
PROVIDERS: Family Medicine; Admitting Provider Internal Medicine; Emergency Provider Emergency Medicine; PCP Family Medicine; Visit Provider Internal Medicine
DX: J18.9 Pneumonia, unspecified organism (principal); I26.93 Single subsegmental thrombotic pulmonary embolism without acute cor pulmonale; J96.21 Acute and chronic respiratory failure with hypoxia; J96.22 Acute and chronic respiratory failure with hypercapnia; M33.11 Other dermatomyositis with respiratory involvement; M35.89 Other specified systemic involvement of connective tissue; J84.178 Other interstitial pulmonary diseases with fibrosis in diseases classified elsewhere; D64.9 Anemia, unspecified; R74.01 Elevation of levels of liver transaminase levels; I27.20 Pulmonary hypertension, unspecified; Z66 Do not resuscitate; R00.0 Tachycardia, unspecified; Z99.81 Dependence on supplemental oxygen; R53.1 Weakness; W19.XXXA Unspecified fall, initial encounter; M81.0 Age-related osteoporosis without current pathological fracture; F41.9 Anxiety disorder, unspecified; Z87.891 Personal history of nicotine dependence; Z79.899 Other long term (current) drug therapy
CPT/HCPCS: 00123; 36415; 71275; 80048; 80053; 82805; 84145; 85027; 87040; 87449; 87637; 87641; 92526; 92610; 93005; 93306; 93308; 94640; 96365; 96367; 96375; 99291; 36600; 71045; 83605; 83735; 84484; 85025; 85049; 85379; 85610; 85730; 86140; 87070; 87205; 87581; 87899; 93010; 94660; 94664; 94760; 99233; 99238; J0692; J1644; J2060; J2250; J2270; J2470; J2930; J3372; J3490; J7512; J7620

== ENCOUNTER → 2023-11-29 07:47 | Outpatient (BNVA) | payer MEDICARE, MEDICAID, SELFPAY | PROVIDERS: PCP Family Medicine; Referring Provider Family Medicine; Visit Provider Student in an Organized Health Care Education/Training Program ==